=== PATIENT | female | born 1970 | race Caucasian/White ===

== ENCOUNTER → 2016-10-18 | Outpatient (CLI) | payer MEDICAID ==
[~2016-10-18] MED LIST: /BACL20TA OR; /BACL20TA PO; /CARB20TAB PO; /DULO30CA OR; ADV250INH INH; ALBUTEROL INH; BIOTPOW20 PO; BUTR5DIS2 TD; CARA1SUS OR; CLOT10TR2 PO; COLLAGEN PO; CRANBERRY TABS PO; CYMB1CAP PO; CYMBALTA PO; DOCU10ELUD PO; FISHCAP PO; FLECTOR1.3 TOP; FLEXAMINE PO; FLON0.054; IBUP800T OR; IBUP80TA PO; IMIT100T OR; IMIT6INJ IM; LORA0.5T OR; LORATADINE PO; MORPHINE IR PO; MS CONTIN PO; MSIR30TA PO; NEUR600T OR; NORCOBULK PO; OXYC1TAB23 PO; PRED10TA2 PO; PRIL40CA PO; PROBIOTIC PO; PSYLLIUM FIBER PO; RANITIDINE PO; REQU2TAB3 OR; REQU4TAB3 PO; SING10TA31 OR; TEGR200T PO; TRAM50TA2 OR; TRAZ150T OR; TYLE650T30 PO; ULTR50TA PO; Vesicare PO; [UNRECOGNIZED DRUG - OTHER] PO; morphine IR PO
--- NOTE | 2016-10-18 23:36 | ECWPNPC ---
PATIENT NAME: DOMINGA CORDOVA : 1970 GENDER: FEMALE VISIT DATE: 10/18/2016 DISCHARGE DATE: 10/18/16 1051 VISIT LOCKED DATE TIME: PHYSICIAN: BRIANNA MANUEL RESOURCE: BRIANNA MANUEL REASON FOR APPOINTMENT 1. BACK AND NECK HISTORY OF PRESENT ILLNESS HISTORY OF PRESENT ILLNESS: HERE FOR F/U OF GENERALIZED BODY PAIN.HAVING SEVERE HYPERSENSITIVITY TO LIGHT TOUCH.DESCRIBES PAIN BURNING ALL OVER.HX OF NEUROPARHY.RATING PAIN VAS 7/10.PAIN IS AGGREVATED WITH COLD WEATHER.REPORTING SEVERE SLEEP DISTURBANCE SECONDARY TO PAIN.DISCUSSED MEDICATION AND TREATMENT OPTIONS. PAIN THE PATIENT DESCRIBES THE PAIN... FALL RISK SCREENING: SCREENING :NO FALLS IN THE PAST YEAR CURRENT MEDICATIONS TAKING MULTIVITAMINS OTC TABLET 1 TABLET ORALLY DAILY TAKING FISH OIL 1000 MG CAPSULE 1 TABLET ORALLY DAILY TAKING CALCIUM 600 MG TABLET 1 TABLET ORALLY DAILY TAKING DOCQLACE 100 MG CAPSULE 1 CAPSULE NEEDED ORALLY ONCE A DAY TAKING ROPINIROLE HCL 2 MG TABLET 1 TAB AM & 4 TAB PM ORALLY TWICE DAILY TAKING TEGRETOL 200 MG TABLET 1 TAB PAULA & 2 TABS IN PM ORALLY TWICE A DAY TAKING VENTOLIN HFA 108 (90 BASE) MCG/ACT AEROSOL SOLUTION 2 PUFFS NEEDED INHALATION EVERY 4 HRS TAKING TRIAMCINOLONE ACETONIDE 55 MCG/ACT AEROSOL 1 PUFF IN EACH NOSTRIL NASALLY TWICE A DAY TAKING OMEPRAZOLE 40 MG CAPSULE DELAYED RELEASE 1 CAPSULE ORALLY ONCE A DAY TAKING TRAZODONE 100 100MG TABLET 1 TABLET ORAL QHS TAKING CLARITIN 10 MG TABLET 1 TABLET ORALLY ONCE A DAY TAKING ALBUTEROL SULFATE HFA 108 (90 BASE) MCG/ACT AEROSOL SOLUTION 2 PUFFS INHALATION PRN TAKING ARNUITY ELLIPTA 100 MCG/ACT AEROSOL POWDER BREATH ACTIVATED 1 PUFF INHALATION ONCE A DAY TAKING CYMBALTA 60 MG CAPSULE DELAYED RELEASE PARTICLES 1 CAPSULE ORALLY ONCE A DAY TAKING SINGULAIR 10 MG TABLET 1 TABLET IN THE EVENING ORALLY ONCE A DAY NOT-TAKING NAPROSYN 500 MG TABLET 1 TABLET NEEDED ORALLY EVERY 12 HRS NOT-TAKING ELMIRON 100 MG CAPSULE 1 CAPSULE ON AN EMPTY STOMACH ORALLY THREE TIMES A DAY NOT-TAKING HYDROCODONE-ACETAMINOPHEN 5-325 MG TABLET 1 TABLET NEEDED FOR PAIN ORALLY EVERY 6 HRS MDD2 NOT-TAKING PHENTERMINE HCL 15 MG CAPSULE 1 CAPSULE ORALLY ONCE A DAY IN AM MDD=1 NOT-TAKING LIDOCAINE HCL JELLY MCC 2 % JELLY 1 APPLICATION TO AFFECTED AREA NEEDED INTRAVESICALLY PRIOR TO PROCEDURE NOT-TAKING CIPRO 500 MG TABLET 1 TABLET ORALLY TWICE A DAY NOT-TAKING BACTRIM DS 800-160 MG TABLET 1 TABLET ORALLY DAILY NOT-TAKING DIFLUCAN 150 MG TABLET 1 TABLET ORALLY ONCE A DAY, NOTES: 9PM NOT-TAKING KEFLEX 500 MG CAPSULE 1 CAPSULE ORALLY TWICE A DAY NOT-TAKING DIFLUCAN 150MG (1 TABLET) 150 MG TABLET 1 TABLET ORALLY ONCE A DAY NOT-TAKING PYRIDIUM 100 MG TABLET 1 TABLET AFTER MEALS ORALLY FOUR TIMES DAILY NEEDED NOT-TAKING KEFLEX 500 MG CAPSULE 1 CAPSULE ORALLY TWICE A DAY MEDICATION LIST REVIEWED AND RECONCILED WITH THE PATIENT PAST MEDICAL HISTORY ASTHMA GERD BACK/SCIATIC PAIN CARPAL TUNNEL PERIPHERAL NEUROPATHY MIGRAINES HEMATURIA FOOT PAIN SMALL FIBER SENSORY NEUROPATHY DEMYELINATING DISEASE ALLERGIES CIPROFLOXACIN: DYSPNEA: ALLERGY SOCIAL HISTORY GENERAL: TOBACCO USE ARE YOU A:NONSMOKER LEARNING BARRIERS / SPECIAL NEEDS ORIENTED TO PLAN OF CARE: PATIENT, PAIN MANAGEMENT PATIENT, ORIENTED TO PLAN OF CARE: PATIENT, PAIN MANAGEMENT PATIENT. NEW PATIENT PAIN DIARY TODAY'S VISITNOTES FROM 0-10, WHAT LEVEL IS YOUR PAIN TODAY?0 PAIN CLINIC PFS, CLERGY, PUBLIC HEALTH REFERRALS PFS REFERRAL NEEDED?NO CLERGY REFERRAL NEEDED?NO PUBLIC HEALTH REFERRAL NEEDED?NO WAS THE PROVIDER NOTIFIED OF ANY PERTINENT INFO?NO PFS REFERRAL NEEDED?NO CLERGY REFERRAL NEEDED?NO PUBLIC HEALTH REFERRAL NEEDED?NO WAS THE PROVIDER NOTIFIED OF ANY PERTINENT INFO?NO REVIEW OF SYSTEMS CONSTITUTIONAL: ANY CHANGE IN YOUR MEDICAL CONDITION? NO . CHILLS NO . FEVER NO . INFECTION: DO YOU HAVE NEW INFECTIONS? NO . DO YOU HAVE HISTORY OF MRSA? NO . MUSCULOSKELETAL: ANY NEW PATTERNS OF PAIN OR NUMBNESS? NO . GASTROENTEROLOGY: ANY NEW CHANGE IN BOWEL CONTROL? NO . GENITOURINARY: ANY NEW CHANGE IN BLADDER CONTROL? NO . IS THERE A CHANCE YOU COULD BE ? NO . HEMATOLOGY/LYMPH: DO YOU TAKE ANY BLOOD THINNERS? (FOR EXAMPLE- COUMADIN, PLAVIX, AGGRENOX, PLATEL, PRADAXA, OR XARELTO) NO . WHEN WAS YOUR LAST DOSE? DATE: TIME: . NEUROLOGY: HAVE YOU FALLEN IN THE PAST 6 MONTHS? NO . ANY NEW EXTREMITY NUMBNESS OR WEAKNESS? NO . CARDIOLOGY: DO YOU HAVE A PACEMAKER OR DEFIBRILLATOR? NO . RESPIRATORY: HAVE YOU BEEN SICK IN THE PAST WEEK? NO . FEVER NO . FLU LIKE SYMPTOMS? NO . COUGH NO . INTEGUMENTARY: DO YOU HAVE ANY RASHES OR OPEN SORES? NO . ALLERGIC/IMMUNO: ARE YOU ALLERGIC TO SHELLFISH OR IV DYE? NO . ANY NEW ALLERGIES? NO . PSYCHIATRIC: DO YOU HAVE THOUGHTS OF HURTING YOURSELF OR SOMEONE ELSE? NO . ARE YOU ABUSED, NEGLECTED, OR IN AN UNSAFE ENVIRONMENT? NO . ENDOCRINOLOGY: ARE YOU DIABETIC? NO . OTHER: DO YOU NEED ANY PRESCRIPTIONS? NO . IF YES, PLEASE LIST: ____ . ANY NEW PROBLEMS WITH YOUR MEDICATIONS? NO . WHEN DID YOU LAST EAT? ____ . WHEN DID YOU LAST DRINK? ____ . WHAT DID YOU LAST DRINK? ____ . NAME OF PERSON DRIVING YOU HOME? ____ . DO YOU HAVE ANY OTHER QUESTIONS OR CONCERNS NO . REVIEWED BY: PROVIDER: BRIANNA ACUNA . VITAL SIGNS WT 220 LBS, HT 66.5 IN, BMI 34.97 INDEX, BP 130/69 MM HG, HR 82 /MIN, RR 16 /MIN, TEMP 97.6 F, OXYGEN SAT % 98, NA INITIALS TL 1016, REVIEWED BY: KG. EXAMINATION GENERAL EXAMINATION: LUNGS:LUNG SOUNDS ARE CLEAR. HEART:HEART RATE REGULAR. MUSCULOSKELETAL:*. MUSCULOSKELETAL:*, MUSCLE STRENGTH TESTING 5/5 BILATERAL.HYPERSENSITIVE TO LIGHT TOUCH ALL OVER BODY BUT WORSE AREA IS LOW BACK.. DIAGNOSTIC:MRI C-SPINE 04-16-2012 REVIEWED. 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 NEUROPATHY - G62.9 TREATMENT FIBROMYALGIA INCREASE CYMBALTA CAPSULE DELAYED RELEASE PARTICLES, 60 MG, 1 CAPSULE, ORALLY, ONCE A DAY START GABAPENTIN CAPSULE, 300 MG, 1 CAPSULE, ORALLY, BEFORE BEDTIME, 30 DAY(S), 30, REFILLS 2 START CYMBALTA CAPSULE DELAYED RELEASE PARTICLES, 30 MG, 1 CAPSULE, ORALLY, DAILY, 30 DAY(S), 30 CAPSULE, REFILLS 2 CAUDAL/LUMBAR EPIDURAL PROCEDURE CODES FA211 ESTABILISHED PATIENT [facility] CHARGE DISPOSITION & COMMUNICATION FOLLOW UP 2WK POST (REASON: [facility]I L4/5-L5/S1 REQUEST ) ELECTRONICALLY SIGNED BY ARMAND CRUZ ON 10/18/2016 AT 11:05 AM EST DISCLAIMER : THIS IS A VISIT SUMMARY EXTRACTED FROM THE [employer] CHART. IT IS NOT A COPY OF THE [employer] PROGRESS NOTE. MARCO ANTONIO
== END ==
LOC: M PAIN 10:00
PROVIDERS: ATTEND Nurse Practitioner Family
DX: Z09 Encounter for follow-up examination after completed treatment for conditions other than malignant neoplasm (principal); G89.29 Other chronic pain; M79.7 Fibromyalgia; M47.26 Other spondylosis with radiculopathy, lumbar region; M50.20 Other cervical disc displacement, unspecified cervical region; G62.9 Polyneuropathy, unspecified; J45.909 Unspecified asthma, uncomplicated; K21.9 Gastro-esophageal reflux disease without esophagitis; G43.909 Migraine, unspecified, not intractable, without status migrainosus; G37.9 Demyelinating disease of central nervous system, unspecified; Z88.1 Allergy status to other antibiotic agents; Z79.899 Other long term (current) drug therapy

== ENCOUNTER → 2016-10-25 | Outpatient (REF) | payer MEDICAID | LOC: M SMT 13:22 | PROVIDERS: ATTEND Specialist | DX: R30.0 Dysuria (principal) ==

== ENCOUNTER 2016-11-30 06:06 | Emergency (ER) | payer MEDICAID ==
[~2016-11-30] VITALS: Ht 170.2 cm; Wt 90.7 kg
[2016-11-30] MEDS ORDERED: MORPHINE 4 MG/ML 1ML SYRINGE IM ONE (08:15)
[2016-11-30 08:43] VITALS: BP 137/77
[2016-11-30] MEDS ORDERED: TYLETAB14 PO (08:56)
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
== END 2016-11-30 09:28 | disposition home or self-care (01) ==
LOC: M ED 09:11
DX: S06.0X0A Concussion without loss of consciousness, initial encounter (principal); S40.022A Contusion of left upper arm, initial encounter; S80.12XA Contusion of left lower leg, initial encounter; Y04.0XXA Assault by unarmed brawl or fight, initial encounter; Y92.099 Unspecified place in other non-institutional residence as the place of occurrence of the external cause; Y93.89 Activity, other specified; Y99.9 Unspecified external cause status

== ENCOUNTER → 2017-01-16 | Outpatient (REF) | payer MEDICAID, OTHER ==
[~2017-01-16] MED LIST changes: +KEFL500C7 PO; +TYLETAB14 PO
== END ==
LOC: M SMT 12:48
PROVIDERS: ATTEND Specialist
DX: R30.0 Dysuria (principal)

== ENCOUNTER → 2017-01-27 | Outpatient (CLI) | payer OTHER ==
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
== END ==
LOC: M PAIN 15:00
PROVIDERS: ATTEND Nurse Practitioner Family
DX: G89.29 Other chronic pain (principal); M79.7 Fibromyalgia; M47.26 Other spondylosis with radiculopathy, lumbar region; G62.9 Polyneuropathy, unspecified; J45.909 Unspecified asthma, uncomplicated; K21.9 Gastro-esophageal reflux disease without esophagitis; G43.909 Migraine, unspecified, not intractable, without status migrainosus; R31.29 Other microscopic hematuria; G37.9 Demyelinating disease of central nervous system, unspecified; Z88.8 Allergy status to other drugs, medicaments and biological substances; Z79.899 Other long term (current) drug therapy

== ENCOUNTER 2017-02-04 23:21 | Emergency (ER) | payer OTHER ==
[~2017-02-04] VITALS: Ht 170.2 cm; Wt 95.0 kg
[~2017-02-04 23:21] MED LIST changes: -KEFL500C7 PO
[2017-02-04 23:25] VITALS: BP 117/67
[2017-02-04] MEDS ORDERED: HYDROmorphone HCL 1 MG/ML SYRINGE (J1170) As Ordered ONE (23:43)
[2017-02-04] MEDS ORDERED: HYDROmorphone HCL 1 MG/ML SYRINGE (J1170) IV ONE (23:45)
[2017-02-04] MEDS ORDERED: LIDOCAINE 1% MDV 20ML VIAL As Ordered ONE (23:46)
[2017-02-05] MEDS ORDERED: TETANUS/DIPHTHERIA TOX ADSORB ADULT 0.5ML SYR/VIAL (90714) IM ONE (00:15)
[2017-02-05] MEDS ORDERED: ceFAZolin SOD 1 GM in D5W MINI-BAG PLUS 50 ML IV ONE (00:15)
[2017-02-05] MEDS ORDERED: KEFL500C17 PO (00:17)
[2017-02-05] MEDS ORDERED: traMADol 50 MG TAB PO ONE (00:45)
== END 2017-02-05 01:03 | disposition home or self-care (01) ==
LOC: EDBD 23:21 → M ED 23:21
DX: S61.412A Laceration without foreign body of left hand, initial encounter (principal); W26.9XXA Contact with unspecified sharp object(s), initial encounter; Y92.9 Unspecified place or not applicable; Y93.G1 Activity, food preparation and clean up; Y99.9 Unspecified external cause status; J45.909 Unspecified asthma, uncomplicated; K21.9 Gastro-esophageal reflux disease without esophagitis; F32.9 Major depressive disorder, single episode, unspecified; G89.29 Other chronic pain; F17.200 Nicotine dependence, unspecified, uncomplicated; Z79.899 Other long term (current) drug therapy; Z88.1 Allergy status to other antibiotic agents

== ENCOUNTER → 2017-02-12 | Outpatient (REF) | payer OTHER ==
[~2017-02-12] MED LIST changes: +KEFL500C17 PO
[2017-02-12 11:59] LABS: MEAN CORPUSCULAR HEMOGLOBIN 32.1 pg (27.0-33.0); MEAN CORPUSCULAR HGB CONC 33.6 g/dl (32.0-36.5); MEAN CORPUSCULAR VOLUME 95.4 fl (80.0-96.0); RED CELL DISTRIBUTION WIDTH 12.4 % (11.5-14.5); WHITE BLOOD COUNT 10.3 K/mm3 (4.0-10.0)
[2017-02-12 12:24] LABS: ALBUMIN/GLOBULIN RATIO 1.54 (1.00-1.93); ALKALINE PHOSPHATASE 87 U/L (45-117); ALT/SGPT 22 U/L (12-78); ANION GAP 7 MEQ/L (8-16); AST/SGOT 12 U/L (15-37); BILIRUBIN,TOTAL 0.3 MG/DL (0.2-1.0); BLOOD UREA NITROGEN 19 MG/DL (7-18); CALCIUM LEVEL 8.6 MG/DL (8.5-10.1); CARBAMAZEPINE (TEGRETOL) LEVEL 6.4 UG/ML (4.0-10.0); CARBON DIOXIDE LEVEL 26 MEQ/L (21-32); CHLORIDE LEVEL 105 MEQ/L (98-107); CHOLESTEROL LEVEL 219 MG/DL (<200); CREATININE FOR GFR 0.66 MG/DL (0.55-1.02); GLOMERULAR FILTRATION RATE > 60.0 (>58); GLUCOSE, FASTING 108 MG/DL (70-105); POTASSIUM SERUM 4.2 MEQ/L (3.5-5.1); SODIUM LEVEL 138 MEQ/L (136-145); TOTAL PROTEIN 6.6 GM/DL (6.4-8.2); TRIGLYCERIDES LEVEL 229 MG/DL (<150)
== END ==
LOC: M SFHCLERA 08:02
PROVIDERS: ATTEND Physician Assistant
DX: J45.40 Moderate persistent asthma, uncomplicated (principal); E78.2 Mixed hyperlipidemia; G50.0 Trigeminal neuralgia; R53.83 Other fatigue

== ENCOUNTER → 2017-02-13 | Outpatient (CLI) | payer OTHER ==
[~2017-02-13] MED LIST changes: +ISOVUE-M 300 61% 15ML VIAL (Q9967) As Ordered ONE; +LIDOCAINE 1% SDV INJ 30 ML VIAL As Ordered ONE; +methylPREDNISolone SUSP 40 MG/ML (DEPO-medrol) VIAL (J1030) As Ordered ONE
--- NOTE | 2017-02-13 11:24 | REP ---
PARTIAL LUMBAR SPINE SERIES: Three views. HISTORY: Lumbar epidural steroid injection for pain. 12 seconds of fluoroscopy time is reported. FINDINGS: A sequence of three fluoroscopically obtained procedural last image hold spot radiographs of the lumbar spine document needle position and contrast injection. Signed by Jim Caro MD 02/13/2017 03:32 P
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
== END ==
LOC: M PAIN 08:40
PROVIDERS: ATTEND Anesthesiology
DX: G89.29 Other chronic pain (principal); M51.16 Intervertebral disc disorders with radiculopathy, lumbar region; J45.40 Moderate persistent asthma, uncomplicated; K21.9 Gastro-esophageal reflux disease without esophagitis; G43.909 Migraine, unspecified, not intractable, without status migrainosus; G62.9 Polyneuropathy, unspecified; Z88.8 Allergy status to other drugs, medicaments and biological substances; Z79.899 Other long term (current) drug therapy
CPT/HCPCS: 62323; J1030; Q9967

== ENCOUNTER → 2017-05-14 | Outpatient (REF) | payer OTHER ==
[~2017-05-14] MED LIST changes: -ISOVUE-M 300 61% 15ML VIAL (Q9967) As Ordered ONE; -LIDOCAINE 1% SDV INJ 30 ML VIAL As Ordered ONE; -methylPREDNISolone SUSP 40 MG/ML (DEPO-medrol) VIAL (J1030) As Ordered ONE
== END ==
LOC: M SFHCLERA 09:07
PROVIDERS: ATTEND Physician Assistant
DX: R30.0 Dysuria (principal)

== ENCOUNTER → 2017-07-16 | Outpatient (CLI) | payer OTHER ==
[2017-07-16 17:53] LABS: BASO # 0.1 10^3/uL (0.0-0.2); BASO % 0.9 % (0.0-1.0); EOS # 0.5 10^3/uL (0.0-0.50); EOS % 6.3 % (0.0-3.0); IMMATURE GRANULOCYTE % 0.6 % (0-0); LYMPH # 3.6 10^3/uL (1.5-4.5); LYMPH % 43.4 % (24.0-44.0); MEAN CORPUSCULAR HEMOGLOBIN 30.7 pg (27.0-33.0); MEAN CORPUSCULAR HGB CONC 32.9 g/dl (32.0-36.5); MEAN CORPUSCULAR VOLUME 93.2 fl (80.0-96.0); MONO # 0.6 10^3/uL (0.0-0.8); MONO % 7.3 % (0.0-5.0); NEUTROPHILS # 3.4 10^3/uL (1.8-7.7); NEUTROPHILS % 41.5 % (36.0-66.0); PLATELET COUNT, AUTOMATED 288 10^3/uL (150-450); RED CELL DISTRIBUTION WIDTH 12.4 % (11.5-14.5); WHITE BLOOD COUNT 8.2 10^3/uL (4.0-10.0)
[2017-07-16 18:19] LABS: ALBUMIN 3.9 GM/DL (3.2-5.2); ALBUMIN/GLOBULIN RATIO 1.18 (1.00-1.93); ALKALINE PHOSPHATASE 95 U/L (45-117); ALT/SGPT 25 U/L (12-78); ANION GAP 8 MEQ/L (8-16); AST/SGOT 12 U/L (7-37); BILIRUBIN,TOTAL 0.3 MG/DL (0.2-1.0); BLOOD UREA NITROGEN 18 MG/DL (7-18); CALCIUM LEVEL 8.7 MG/DL (8.5-10.1); CARBON DIOXIDE LEVEL 28 MEQ/L (21-32); CHLORIDE LEVEL 107 MEQ/L (98-107); CREATININE FOR GFR 0.75 MG/DL (0.55-1.02); GLOMERULAR FILTRATION RATE > 60.0 (>58); GLUCOSE, FASTING 99 MG/DL (70-105); POTASSIUM SERUM 4.4 MEQ/L (3.5-5.1); SODIUM LEVEL 143 MEQ/L (136-145); TOTAL PROTEIN 7.2 GM/DL (6.4-8.2); URIC ACID 3.4 MG/DL (2.6-6.0)
[2017-07-18 07:18] LABS: ERYTHROCYTE SEDIMENTATION RATE 7 mm/hr (0-20)
[2017-07-19 08:06] LABS: Lyme Disease IgG/IgM Antibodie <0.91 ISR (0.00-0.90); Lyme Disease IgM Ab Quantitati <0.80 index (0.00-0.79)
== END ==
LOC: M WUC 11:28
PROVIDERS: ATTEND Internal Medicine Rheumatology
DX: M35.9 Systemic involvement of connective tissue, unspecified (principal); Z79.899 Other long term (current) drug therapy; R53.83 Other fatigue

== ENCOUNTER → 2017-09-17 | Outpatient (REF) | payer OTHER | LOC: M SFHCLERA 16:13 | DX: N30.10 Interstitial cystitis (chronic) without hematuria (principal) ==

== ENCOUNTER → 2017-10-09 | Outpatient (CLI) | payer OTHER | LOC: M WHC 13:58 | DX: N95.0 Postmenopausal bleeding (principal); N83.201 Unspecified ovarian cyst, right side | CPT/HCPCS: 76830 ==

== ENCOUNTER → 2017-10-21 | Outpatient (CLI) | payer OTHER ==
[2017-10-21 09:33] LABS: ESTIMATED AVERAGE GLUCOSE 120 MG/DL (60-110); HEMOGLOBIN A1c 5.8 %
[2017-10-21 09:59] LABS: CHOLESTEROL LEVEL 232 MG/DL (<200); CHOLESTEROL RISK RATIO 3.222 (<5); HDL CHOLESTEROL 72 MG/DL (>40); NON-HDL-C 160 MG/DL; TRIGLYCERIDES LEVEL 140 MG/DL (<150)
[2017-10-21 10:12] LABS: ESTRADIOL < 19.0 PG/ML; FOLLICLE STIMULATING HORMONE 87.4 mIU/mL
== END ==
LOC: M WUC 08:07
DX: N30.10 Interstitial cystitis (chronic) without hematuria (principal); R73.01 Impaired fasting glucose
CPT/HCPCS: 83001

== ENCOUNTER → 2017-10-28 | Outpatient (REF) | payer OTHER | LOC: M SFHCWAGY 14:44 | DX: N95.0 Postmenopausal bleeding (principal) | CPT/HCPCS: 88304 ==

== ENCOUNTER → 2017-11-11 | Outpatient (CLI) | payer OTHER | LOC: M LRY 15:12 | DX: Z53.9 Procedure and treatment not carried out, unspecified reason (principal) ==

== ENCOUNTER → 2017-12-18 | Outpatient (REF) | payer OTHER, MEDICAID ==
[2017-12-20 14:11] LABS: HPV HYBRID CAPTURE II Positive (Negative)
== END ==
LOC: M SFHCWAGY 11:49
DX: Z12.4 Encounter for screening for malignant neoplasm of cervix (principal)

== ENCOUNTER → 2018-01-06 | Outpatient (CLI) | payer OTHER, MEDICAID | LOC: M WHC 10:50 | DX: N95.0 Postmenopausal bleeding (principal); N83.201 Unspecified ovarian cyst, right side; N83.202 Unspecified ovarian cyst, left side | CPT/HCPCS: 76830 ==

== ENCOUNTER → 2018-01-28 | Outpatient (CLI) | payer OTHER, MEDICAID | LOC: M PAIN 10:30 | DX: M25.552 Pain in left hip (principal); M25.551 Pain in right hip; M79.1 Myalgia; G89.29 Other chronic pain; J45.909 Unspecified asthma, uncomplicated; K21.9 Gastro-esophageal reflux disease without esophagitis; G62.9 Polyneuropathy, unspecified; G43.909 Migraine, unspecified, not intractable, without status migrainosus; G37.9 Demyelinating disease of central nervous system, unspecified; Z79.899 Other long term (current) drug therapy; Z88.8 Allergy status to other drugs, medicaments and biological substances; Z87.891 Personal history of nicotine dependence | CPT/HCPCS: G0463 ==

== ENCOUNTER → 2018-02-26 | Outpatient (CLI) | payer OTHER, MEDICAID | LOC: M PAIN 09:30 | DX: G89.29 Other chronic pain (principal); M25.552 Pain in left hip; M25.551 Pain in right hip; J45.909 Unspecified asthma, uncomplicated; K21.9 Gastro-esophageal reflux disease without esophagitis; M54.40 Lumbago with sciatica, unspecified side; G62.9 Polyneuropathy, unspecified; G43.909 Migraine, unspecified, not intractable, without status migrainosus; N30.10 Interstitial cystitis (chronic) without hematuria; G37.9 Demyelinating disease of central nervous system, unspecified; Z87.891 Personal history of nicotine dependence; Z88.1 Allergy status to other antibiotic agents; Z88.5 Allergy status to narcotic agent; Z88.8 Allergy status to other drugs, medicaments and biological substances; Z79.1 Long term (current) use of non-steroidal anti-inflammatories (NSAID) | CPT/HCPCS: G0463 ==

== ENCOUNTER → 2018-03-23 | Outpatient (CLI) | payer OTHER, MEDICAID ==
[2018-03-23 09:11] LABS: BASO # 0.1 10^3/uL (0.0-0.2); EOS # 0.7 10^3/uL (0.0-0.50); EOS % 8.5 % (0.0-3.0); HEMATOCRIT 39.7 % (36.0-47.0); HEMOGLOBIN 13.4 g/dl (12.0-15.5); IMMATURE GRANULOCYTE % 0.5 % (0-3.0); LYMPH # 3.3 10^3/uL (1.5-4.5); LYMPH % 39.5 % (24.0-44.0); MEAN CORPUSCULAR HEMOGLOBIN 31.3 pg (27.0-33.0); MEAN CORPUSCULAR HGB CONC 33.8 g/dl (32.0-36.5); MEAN CORPUSCULAR VOLUME 92.8 fl (80.0-96.0); MONO # 0.8 10^3/uL (0.0-0.8); NEUTROPHILS # 3.5 10^3/uL (1.8-7.7); NEUTROPHILS % 41.5 % (36.0-66.0); PLATELET COUNT, AUTOMATED 268 10^3/uL (150-450); RED BLOOD COUNT 4.28 10^6/uL (4.00-5.40); RED CELL DISTRIBUTION WIDTH 11.9 % (11.5-14.5); WHITE BLOOD COUNT 8.4 10^3/uL (4.0-10.0)
[2018-03-23 09:43] LABS: ALBUMIN 3.6 GM/DL (3.2-5.2); ALBUMIN/GLOBULIN RATIO 1.16 (1.00-1.93); ALKALINE PHOSPHATASE 84 U/L (45-117); ALT/SGPT 27 U/L (12-78); ANION GAP 7 MEQ/L (8-16); AST/SGOT 15 U/L (7-37); BILIRUBIN,TOTAL 0.2 MG/DL (0.2-1.0); BLOOD UREA NITROGEN 21 MG/DL (7-18); CALCIUM LEVEL 8.6 MG/DL (8.5-10.1); CARBAMAZEPINE (TEGRETOL) LEVEL 6.8 UG/ML (4.0-10.0); CARBON DIOXIDE LEVEL 27 MEQ/L (21-32); CHLORIDE LEVEL 108 MEQ/L (98-107); CREATININE FOR GFR 0.73 MG/DL (0.55-1.30); GLOMERULAR FILTRATION RATE > 60.0 (>58); GLUCOSE, FASTING 114 MG/DL (70-100); POTASSIUM SERUM 4.5 MEQ/L (3.5-5.1); SODIUM LEVEL 142 MEQ/L (136-145); TOTAL PROTEIN 6.7 GM/DL (6.4-8.2)
== END ==
LOC: M WUC 08:11
DX: M54.5 Low back pain (principal); M54.2 Cervicalgia
CPT/HCPCS: 80156

== ENCOUNTER → 2018-06-24 | Outpatient (CLI) | payer OTHER, MEDICAID ==
[2018-06-27 00:06] LABS: C-PEPTIDE 7.3 ng/mL (1.1-4.4)
[2018-06-27 00:06] LABS: INSULIN LEVEL 46.1 uIU/mL (2.6-24.9)
== END ==
LOC: M SFHCSACK 09:56
DX: E66.9 Obesity, unspecified (principal); D47.09 Other mast cell neoplasms of uncertain behavior
CPT/HCPCS: 83525

== ENCOUNTER → 2018-06-24 | Outpatient (REF) | payer OTHER, MEDICAID ==
[2018-06-24 14:30] LABS: BASO # 0.1 10^3/uL (0.0-0.2); BASO % 1.3 % (0.0-1.0); EOS # 0.5 10^3/uL (0.0-0.50); HEMATOCRIT 42.7 % (36.0-47.0); HEMOGLOBIN 14.2 g/dl (12.0-15.5); IMMATURE GRANULOCYTE % 0.3 % (0-3.0); LYMPH # 2.9 10^3/uL (1.5-4.5); LYMPH % 36.5 % (24.0-44.0); MEAN CORPUSCULAR HEMOGLOBIN 31.4 pg (27.0-33.0); MEAN CORPUSCULAR HGB CONC 33.3 g/dl (32.0-36.5); MEAN CORPUSCULAR VOLUME 94.5 fl (80.0-96.0); MONO # 0.6 10^3/uL (0.0-0.8); MONO % 7.3 % (0.0-5.0); NEUTROPHILS # 3.8 10^3/uL (1.8-7.7); NEUTROPHILS % 48.6 % (36.0-66.0); PLATELET COUNT, AUTOMATED 275 10^3/uL (150-450); RED BLOOD COUNT 4.52 10^6/uL (4.00-5.40); RED CELL DISTRIBUTION WIDTH 12.1 % (11.5-14.5); WHITE BLOOD COUNT 7.8 10^3/uL (4.0-10.0)
[2018-06-24 14:49] LABS: ESTIMATED AVERAGE GLUCOSE 123 MG/DL (60-110); HEMOGLOBIN A1c 5.9 %
[2018-06-24 14:57] LABS: ALBUMIN/GLOBULIN RATIO 1.43 (1.00-1.93); ALKALINE PHOSPHATASE 95 U/L (45-117); ALT/SGPT 32 U/L (12-78); ANION GAP 8 MEQ/L (8-16); AST/SGOT 18 U/L (7-37); BILIRUBIN,TOTAL 0.2 MG/DL (0.2-1.0); BLOOD UREA NITROGEN 17 MG/DL (7-18); CALCIUM LEVEL 8.7 MG/DL (8.5-10.1); CARBON DIOXIDE LEVEL 25 MEQ/L (21-32); CHLORIDE LEVEL 108 MEQ/L (98-107); CHOLESTEROL LEVEL 243 MG/DL (<200); CHOLESTEROL RISK RATIO 5.522 (<5); FREE T4 0.68 NG/DL (0.76-1.46); GLOMERULAR FILTRATION RATE > 60.0 (>58); GLUCOSE, FASTING 118 MG/DL (70-100); HDL CHOLESTEROL 44 MG/DL (>40); LDL CHOLESTEROL 163 MG/DL (<100); NON-HDL-C 199 MG/DL; POTASSIUM SERUM 4.6 MEQ/L (3.5-5.1); SODIUM LEVEL 141 MEQ/L (136-145); TOTAL 25(OH) VITAMIN D 37.2 NG/ML (30.0-100.0); TOTAL PROTEIN 6.8 GM/DL (6.4-8.2); TRIGLYCERIDES LEVEL 179 MG/DL (<150)
== END ==
LOC: M SFHCSACK 09:38
DX: M79.7 Fibromyalgia (principal); E78.2 Mixed hyperlipidemia; Z83.49 Family history of other endocrine, nutritional and metabolic diseases; Z83.3 Family history of diabetes mellitus; Z13.21 Encounter for screening for nutritional disorder

== ENCOUNTER → 2018-07-24 | Outpatient (REF) | payer OTHER, MEDICAID | LOC: M SFHCPLAZ 16:57 | DX: L28.0 Lichen simplex chronicus (principal) | CPT/HCPCS: 88300 ==

== ENCOUNTER → 2018-08-04 | Outpatient (REF) | payer OTHER, MEDICAID ==
[2018-08-05 10:09] LABS: HEPATITIS A ANTIBODY IGM NEGATIVE (NEGATIVE); HEPATITIS B CORE ANTIBODY IGM NEGATIVE (NEGATIVE); HEPATITIS B SURFACE ANTIGEN NEGATIVE (NEGATIVE); HEPATITIS C VIRUS ABY INDEX 0.1 INDEX (<0.8)
== END ==
LOC: M SFHCPLAZ 08:04
PROVIDERS: ATTEND Dermatology
DX: Z00.00 Encounter for general adult medical examination without abnormal findings (principal)

== ENCOUNTER 2018-10-25 18:56 | Emergency (ER) | payer OTHER, MEDICAID ==
[~2018-10-25] VITALS: Ht 170.2 cm; Wt 118.2 kg
[2018-10-25 18:56] VITALS: BP 140/98
[2018-10-25] MEDS ORDERED: DULO1CAP3 (19:08)
[2018-10-25] MEDS ORDERED: ROPI2TAB (19:08)
[2018-10-25] MEDS ORDERED: TRAZ-163 (19:08)
[2018-10-25] MEDS ORDERED: VENTAER (19:08)
[2018-10-25] MEDS ORDERED: AUGM0.0534 (19:08)
[2018-10-25] MEDS ORDERED: ADV250INH (19:08)
[2018-10-25] MEDS ORDERED: LORA-243 (19:08)
[2018-10-25] MEDS ORDERED: CARB200T98 (19:08)
[2018-10-25] MEDS ORDERED: SIMV20TA2 (19:08)
[2018-10-25] MEDS ORDERED: NAPR-885 (19:08)
[2018-10-25] MEDS ORDERED: OMEP40CA2 (19:08)
[2018-10-25] MEDS ORDERED: QUET5TAB (19:08)
[2018-10-25] MEDS ORDERED: METR-201 (19:08)
[2018-10-25] MEDS ORDERED: BANO25CA (19:08)
[2018-10-25] MEDS ORDERED: MONT10TA2 (19:08)
[2018-10-25] MEDS ORDERED: KETOROLAC 60 MG/2 ML VIAL (J1885) IM ONE (19:30)
[2018-10-25] MEDS ORDERED: diazePAM 10 MG TAB PO ONE (19:30)
[2018-10-25] MEDS ORDERED: SOMA350T PO (19:31)
[2018-10-25] MEDS ORDERED: NAPR-50 PO (19:31)
== END 2018-10-25 20:02 | disposition home or self-care (01) ==
LOC: M ED 18:56
DX: S86.812A Strain of other muscle(s) and tendon(s) at lower leg level, left leg, initial encounter (principal); M54.16 Radiculopathy, lumbar region; X50.0XXA Overexertion from strenuous movement or load, initial encounter; Y92.89 Other specified places as the place of occurrence of the external cause; Y99.0 Civilian activity done for income or pay; K21.9 Gastro-esophageal reflux disease without esophagitis; J30.81 Allergic rhinitis due to animal (cat) (dog) hair and dander; J30.1 Allergic rhinitis due to pollen; Z88.8 Allergy status to other drugs, medicaments and biological substances; Z79.899 Other long term (current) drug therapy; Z79.51 Long term (current) use of inhaled steroids
CPT/HCPCS: 96372; 99282; J1885

== ENCOUNTER → 2018-12-03 | Outpatient (REF) | payer MEDICAID, OTHER ==
[~2018-12-03] MED LIST changes: -/BACL20TA OR; -/BACL20TA PO; -/CARB20TAB PO; -/DULO30CA OR; +ADV250INH; +AUGM0.0534; +BACL1TAB9 OR; +BACL1TAB9 PO; +BANO25CA; +CARB1TAB20 PO; +CARB200T98; +CYMB1CAP5 OR; -DOCU10ELUD PO; +DOCU5LIQ PO; +DULO1CAP3; +LORA-243; +METR-265; +MONT10TA2; +NAPR-837 PO; +NAPR-885; +OMEP40CA2; +QUET5TAB; +ROPI2TAB; +SIMV20TA2; +SOMA350T PO; +TRAZ-163; +VENTAER
== END ==
LOC: M SFHCSACK 11:07
PROVIDERS: ATTEND Physician Assistant
DX: N30.10 Interstitial cystitis (chronic) without hematuria (principal)

== ENCOUNTER → 2019-01-08 | Outpatient (CLI) | payer OTHER ==
--- NOTE | 2019-01-24 00:19 | ECWPNPC ---
PATIENT NAME: DOMINGA BAÑUELOS : 1970 GENDER: FEMALE VISIT DATE: 01/08/2019 DISCHARGE DATE: 01/08/19 1526 VISIT LOCKED DATE TIME: PHYSICIAN: JUSTEN MARIN MD RESOURCE: JUSTEN MARIN MD REASON FOR APPOINTMENT 1. CHRONIC PAIN HISTORY OF PRESENT ILLNESS PAIN SCREENING: PATIENT HAS A COMPLAINT OF ACUTE OR CHRONIC PAIN :YES 48 YEAR OLD FEMALE PATIENT WITH A HISTORY OF CHRONIC MULTIPLE BODY PAIN. THE PATIENT DESCRIBES THE PAIN STABBING, SHOOTING, SORE, TENDER, SHARP, AND CONTINUOUS WITH A PAIN SCORE OF 8-10/10 DEPENDING ON PHYSICAL ACTIVITY. THE PATIENT STATES SHE IS EXPERIENCING PAIN IN HER RIGHT HIP, LEG, FOOT, LEFT ARM, AND NECK, BUT THE MAIN PAIN IS LOCATED IN HER BACK. THE PATIENT SAYS SHE HAS BEEN EXPERIENCING THIS PAIN FOR MANY YEARS. PATIENT DENIES UNEXPLAINABLE WEIGHT LOSS, FEVER, CHILLS, NEW CHANGES ON HER URINARY OR BOWEL CONTROL. FALL RISK SCREENING: SCREENING :NO FALLS REPORTED IN THE LAST YEAR CURRENT MEDICATIONS TAKING MULTIVITAMINS OTC TABLET 1 TABLET ORALLY DAILY TAKING FISH OIL 1000 MG CAPSULE 1 TABLET ORALLY DAILY TAKING CALCIUM 600 MG TABLET 1 TABLET ORALLY DAILY TAKING DOCQLACE 100 MG CAPSULE 1 CAPSULE NEEDED ORALLY ONCE A DAY TAKING ROPINIROLE HCL 2 MG TABLET 1 TAB AM & 2 TAB PM ORALLY TWICE DAILY TAKING CYMBALTA 60 MG CAPSULE DELAYED RELEASE PARTICLES 1 CAPSULE ORALLY TWICE A DAY TAKING TEGRETOL 200 MG TABLET 1 TAB PAULA & 2 TABS IN PM ORALLY TWICE A DAY TAKING TRAZODONE HCL 100 MG TABLET TAKE TWO TABLETS BY MOUTH AT BEDTIME TAKING CLARITIN 10 MG TABLET 1 TABLET ORALLY ONCE A DAY TAKING FOLIC ACID 1 MG TABLET 1 TABLET ORALLY ONCE A DAY TAKING VITAMIN E 100 UNIT CAPSULE 3 CAPSULE ORALLY ONCE A DAY TAKING SIMVASTATIN 20 MG TABLET 1 TABLET IN THE EVENING ORALLY ONCE A DAY TAKING OMEPRAZOLE 40 MG CAPSULE DELAYED RELEASE 1 CAPSULE ORALLY ONCE A DAY TAKING CLINDAMYCIN PHOSPHATE 1 % GEL 1 APPLICATION TO AFFECTED AREA EXTERNALLY ONCE A DAY IN AM TO FACE TAKING BETAMETHASONE DIPROPIONATE AUG 0.05 % OINTMENT 1 APPLICATION TO AFFECTED AREA EXTERNALLY BID TO AREAS ON BODY WITH PINK TO RED RASH TAKING VENTOLIN HFA 108 (90 BASE) MCG/ACT AEROSOL SOLUTION 2 PUFFS NEEDED INHALATION EVERY 4 HRS TAKING SINGULAIR 10 MG TABLET 1 TABLET IN THE EVENING ORALLY ONCE A DAY TAKING NAPROXEN 500 MG TABLET TAKE ONE TABLET BY MOUTH EVERY 12 HOURS ORALLY EVERY 12 HOURS NEEDED TAKING QUETIAPINE FUMARATE 50 MG TABLET 1 TABLET AT BEDTIME ORAL DAILY NOT-TAKING ADVAIR DISKUS 250-50 MCG/DOSE AEROSOL POWDER BREATH ACTIVATED 1 PUFF INHALATION TWICE A DAY NOT-TAKING METRONIDAZOLE 500 MG TABLET 1 TABLET ORALLY BID MEDICATION LIST REVIEWED AND RECONCILED WITH THE PATIENT PAST MEDICAL HISTORY ASTHMA GERD BACK/SCIATIC PAIN CARPAL TUNNEL BILATERAL PERIPHERAL NEUROPATHY MIGRAINES FOOT PAIN SMALL FIBER SENSORY NEUROPATHY 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 2 SON(S) , 1 DAUGHTER(S) - HEALTHY. SISTER: AGE 33 FROM [place]ES[place]\\NBROTHER: 1977\\NSONS: 1993, 2005\\N\\NMATERNAL 1ST COUSIN- LUPUS\\NNO FAMILY HX OF MELANOMA OR PANCREATIC CANCER. SOCIAL HISTORY GENERAL: TOBACCO USE ARE YOU A:FORMER SMOKER HOW LONG HAS IT BEEN SINCE YOU LAST SMOKED?> 10 YEARS HIV / HEP-C SCREENING HIV TEST OFFERED TO PATIENT:YES DATE OFFERED:10/08/2017 TEST ACCEPTED:NO HEP-C TEST OFFERED TO PATIENT:NO REASON:PATIENT DECLINED OTHERS AT HOME: CHILD. EDUCATION LEVEL OF EDUCATION:HIGH SCHOOL DIET: LOW GLUTEN, LOW CARBS. LANGUAGE IRANIAN. DOMESTIC VIOLENCE DO YOU FEEL SAFE IN YOUR ENVIRONMENT?YES BMI CARE GOAL FOLLOW-UP ABOVE NORMAL BMI FOLLOW-UPLIFESTYLE EDUCATION REGARDING DIET RECREATIONAL DRUG USE DENIES. EXERCISE: NO REGULAR EXERCISE. LEARNING BARRIERS / SPECIAL NEEDS CHANGE FROM LAST VISIT?NO BARRIERS TO LEARNING?NO HEARING IMPAIRED?NO VISION IMPAIRED?NO COGNITIVELY IMPAIRED?NO READINESS TO LEARN?YES LEARNING PREFERENCES?NO LEARNING CAPABILITIES PRESENT?YES EMOTIONAL BARRIERS?NO SPECIAL DEVICES?NO URGENT CARE TECHNICIAN NEEDED?NO PAIN CLINIC PFS, CLERGY, PUBLIC HEALTH REFERRALS PFS REFERRAL NEEDED?NO CLERGY REFERRAL NEEDED?NO PUBLIC HEALTH REFERRAL NEEDED?NO HAS THE PATIENT BEEN EDUCATED REGARDING HIS/HER PLAN OF CARE?YES HAS THE PATIENT BEEN EDUCATED REGARDING PAIN, THE RISK FOR PAIN, THE IMPORTANCE OF EFFECTIVE PAIN MANAGEMENT, AND THE PAIN ASSESSMENT PROCESS?YES LATEX QUESTIONNAIRE LATEX ALLERGY : HAVE YOU EVER DEVELOPED ANY TYPE OF REACTION AFTER HANDLING LATEX PRODUCTS SUCH RUBBER GLOVES, CONDOMS, DIAPHRAGMS, BALLOONS, SOCKS, OR UNDERWEAR?NO LATEX ALLERGY : HAVE YOU EVER DEVELOPED ANY TYPE OF REACTION DURING OR AFTER DENTAL APPOINTMENT, VAGINAL/RECTAL EXAMINATION, SURGICAL PROCEDURE, OR ANY OTHER EXPOSURE?NO DATE ASKED : 12/31/2018 LATEX RISK : HAVE YOU EVER HAD ANY DIFFICULTY BREATHING OR HIVES AFTER EATING OR HANDLING ANY FRUITS, OR VEGETABLES; SUCH KIWI, BANANAS, STONE FRUITS, OR CHESTNUTSNO LATEX RISK : DO YOU HAVE A PREVIOUS PERSONAL HISTORY OF MORE THAN NINE SURGERIES, SPINA BIFIDA, OR REPEATED CATHERTIZATIONS? NO LATEX RISK : ARE YOU FREQUENTLY EXPOSED TO LATEX PRODUCTS IN YOUR OCCUPATION?NO CAFFEINE CAFFEINE USE?YES 1-2 CUPS DAILY ADVANCE DIRECTIVE ADVANCE DIRECTIVE DISCUSSED WITH PATIENT:YES DECLINED JEWISH [id number] OTHER MARITAL STATUS: ., MOTHER OF 3. ALCOHOL SCREENING DID YOU HAVE A DRINK CONTAINING ALCOHOL IN THE PAST YEAR?YES HOW OFTEN DID YOU HAVE SIX OR MORE DRINKS ON ONE OCCASION IN THE PAST YEAR?NEVER (0 POINTS) HOW MANY DRINKS DID YOU HAVE ON A TYPICAL DAY WHEN YOU WERE DRINKING IN THE PAST YEAR?1 OR 2 (0 POINTS) HOW OFTEN DID YOU HAVE A DRINK CONTAINING ALCOHOL IN THE PAST YEAR?MONTHLY OR LESS (1 POINT) POINTS1 INTERPRETATIONNEGATIVE OCCUPATION: HOMEMAKER. SEXUAL HX HAD SEX IN THE LAST 12 MONTHS (VAGINAL, ORAL, OR ANAL)?YES WITHMEN ONLY HAVE YOU EVER HAD AN STD?NO HOSPITALIZATION/MAJOR DIAGNOSTIC PROCEDURE SURGICAL RELATED CHILDBIRTH [birth year] REVIEW OF SYSTEMS REVIEWED BY: PROVIDER: JUSTEN MARIN MD . CONSTITUTIONAL: ANY CHANGE IN YOUR MEDICAL CONDITION? NO . CHILLS NO . FEVER NO . INFECTION: DO YOU HAVE NEW INFECTIONS? NO . DO YOU HAVE HISTORY OF MRSA? NO . MUSCULOSKELETAL: ANY NEW PATTERNS OF PAIN OR NUMBNESS? YES, RIGHT HIP PAIN AND FOOT PAIN LEFT ARM PAIN NECK PAIN . SYTEMIC LUPUS NO . GASTROENTEROLOGY: ANY NEW CHANGE IN BOWEL CONTROL? NO . BARRETTS ESOPHAGUS NO . CIRRHOSIS NO . HEPATITIS NO . LIVER FAILURE NO . ACID REFLUX YES . UNEXPLAINED WEIGHT LOSS NO . GENITOURINARY: ANY NEW CHANGE IN BLADDER CONTROL? NO . IS THERE A CHANCE YOU COULD BE ? NO . HEMATOLOGY/LYMPH: DO YOU TAKE ANY BLOOD THINNERS? (FOR EXAMPLE- COUMADIN, PLAVIX, AGGRENOX, PLATEL, PRADAXA, OR XARELTO) NO . WHEN WAS YOUR LAST DOSE? DATE: TIME: . LOW PLATELET COUNT NO . SICKLE CELL DISEASE NO . VON WILLIEBRANDS NO . FACTOR V LEIDEN NO . THALLASEMIA NO . ANEMIA NO . EASY BRUISING NO . NEUROLOGY: HAVE YOU FALLEN IN THE PAST 12 MONTHS? YES, FELL 3 WEEKS AGO FROM HIP WEAKNESS, PT DENIES INJURIES . ANY NEW EXTREMITY NUMBNESS OR WEAKNESS? YES, LEFT ARM WEAKNESS . HEAD INJURY NO . DEMENTIA NO . CEREBRAL PALSY NO . MULTIPLE SCLEROSIS NO . DIZZINESS NO . HEADACHE NO . STROKES NO . VERTIGO NO . CARDIOLOGY: DO YOU HAVE A PACEMAKER OR DEFIBRILLATOR? NO . ANGINA NO . HEART ATTACK NO . HEART SURGERY NO . CONGESTIVE HEART FAILURE/FLUID OVERLOAD NO . CHEST PAIN NO . HIGH BLOOD PRESSURE NO . IRREGULAR HEART BEAT NO . RESPIRATORY: HAVE YOU BEEN SICK IN THE PAST WEEK? NO . FEVER NO . FLU LIKE SYMPTOMS? NO . CPAP NO . BYPAP NO . ASTHMA YES . EMPHYSEMA NO . CHRONIC LUNG DISEASES NO . SHORTNESS OF BREATH ON EXERTION NO . COUGH NO . SNORING NO . INTEGUMENTARY: DO YOU HAVE ANY RASHES OR OPEN SORES? YES, LICHEN PLANUS . ALLERGIC/IMMUNO: ARE YOU ALLERGIC TO IV DYE? NO . ANY NEW ALLERGIES? YES, AUGMENTIN . PSYCHIATRIC: DO YOU HAVE THOUGHTS OF HURTING YOURSELF OR SOMEONE ELSE? NO . ARE YOU ABUSED, NEGLECTED, OR IN AN UNSAFE ENVIRONMENT? NO . ENDOCRINOLOGY: ARE YOU DIABETIC? NO . THYROID DISORDER NO . OTHER: DO YOU NEED ANY PRESCRIPTIONS? NO . IF YES, PLEASE LIST: ____ . ANY NEW PROBLEMS WITH YOUR MEDICATIONS? NO . WHEN DID YOU LAST EAT? ____ . WHEN DID YOU LAST DRINK? ____ . WHAT DID YOU LAST DRINK? ____ . NAME OF PERSON DRIVING YOU HOME? ____ . DO YOU HAVE ANY OTHER QUESTIONS OR CONCERNS NO . VITAL SIGNS WT 264.8 LBS, HT 66.5 IN, BMI 42.09 INDEX, BP 148/79 MM HG, HR 88 /MIN, RR 18 /MIN, TEMP 97.9 F, OXYGEN SAT % 98%, NA INITIALS AW 1350, REVIEWED BY: EM. EXAMINATION GENERAL EXAMINATION: PATIENT IS ALERT O X 3 AND COOPERATIVE. , LUNGS CLEAR, TO AUSCULTATION. HEART: NO MURMURS OR GALLOPS; FACIAL CRANIAL NERVES ARE GROSSLY NORMAL. GOOD SYMMETRY OF FACIAL MUSCLE MOVEMENT. NORMAL VISUAL DIAMOND. DIFFICULTY IN STANDING UP. ANTALGIC GAIT. SEVERE TENDERNESS OVER THE RIGHT GREATER TROCHANTER OF FEMUR AND RIGHT HIP. MRI OF THE LUMBAR SPINE DONE ON 12/02/2014 SHOWS BULGING DISCS AND CENTRAL CANAL STENOSIS AT MULTIPLE LEVELS. ASSESSMENTS RIGHT HIP PAIN - M25.551 (PRIMARY) GREATER TROCHANTERIC BURSITIS OF RIGHT HIP - M70.61 TREATMENT RIGHT HIP PAIN CLINICAL NOTES: WE DISCUSSED SEVERAL ISSUES WITH MS. BAÑUELOS'S PAIN MANAGEMENT CASE. DUE TO THE RIGHT HIP PAIN, I WOULD LIKE TO MOVE FORWARD WITH A RIGHT GREATER TROCHANTER OF THE FEMUR INJECTION. WE DISCUSSED THE BENEFITS, RISKS, AND ALTERNATIVES OF THE INJECTION AND THE PATIENT WOULD LIKE TO PROCEED. I AM LOOKING FOR LONG LASTING PAIN RELIEF FROM THE INJECTION FOR THE PATIENT. INSTRUCTIONS WERE GIVEN, QUESTIONS WERE ANSWERED, PATIENT REPORTS UNDERSTANDING AND AGREES WITH THE PLAN. THE PATIENT WILL FOLLOW UP IN SEVERAL WEEKS AFTER THE INJECTION. I, DANTE ESTRADA, DOCUMENTED THE ABOVE INFORMATION ACTING A SCRIBE FOR DR. MARIN. I HAVE REVIEWED THE ABOVE DOCUMENT, WRITTEN BY DANTE ESTRADA SCRIBFloyd AND I VERIFY THAT IT IS ACCURATE. . PROCEDURE CODES FA211 ESTABILISHED PATIENT [facility] FACILITY CHARGE G8427 CURRENT MEDS W/DOSAGES DOCUMENTED G8730 PAIN ASSESS POS TOOL F/U PLAN DOC DISPOSITION & COMMUNICATION FOLLOW UP 4 WEEKS (REASON: R GREATER TROCH OF FEMUR INJECTION) ELECTRONICALLY SIGNED BY JUSTEN MARIN MD, MD ON 01/23/2019 AT 05:17 PM EDT DISCLAIMER : THIS IS A VISIT SUMMARY EXTRACTED FROM THE [facility] CHART. IT IS NOT A COPY OF THE [facility] PROGRESS NOTE. GHULAMD
== END ==
LOC: M PAIN 13:30
PROVIDERS: ATTEND Anesthesiology
DX: M25.551 Pain in right hip (principal); M70.61 Trochanteric bursitis, right hip; G89.29 Other chronic pain; J45.909 Unspecified asthma, uncomplicated; K21.9 Gastro-esophageal reflux disease without esophagitis; G56.03 Carpal tunnel syndrome, bilateral upper limbs; G43.909 Migraine, unspecified, not intractable, without status migrainosus; M79.7 Fibromyalgia; Z87.891 Personal history of nicotine dependence; Z88.1 Allergy status to other antibiotic agents; Z88.5 Allergy status to narcotic agent; Z88.8 Allergy status to other drugs, medicaments and biological substances; E66.01 Morbid (severe) obesity due to excess calories; Z68.41 Body mass index [BMI] 40.0-44.9, adult; Z79.899 Other long term (current) drug therapy

== ENCOUNTER → 2019-01-22 | Outpatient (REF) | payer OTHER ==
[2019-01-22 15:07] LABS: BASO # 0.1 10^3/uL (0.0-0.2); BASO % 0.9 % (0.0-1.0); EOS # 0.5 10^3/uL (0.0-0.50); EOS % 5.5 % (0.0-3.0); HEMATOCRIT 41.5 % (36.0-47.0); HEMOGLOBIN 13.6 g/dl (12.0-15.5); LYMPH # 2.9 10^3/uL (1.5-4.5); LYMPH % 31.9 % (24.0-44.0); MEAN CORPUSCULAR HEMOGLOBIN 31.1 pg (27.0-33.0); MEAN CORPUSCULAR HGB CONC 32.8 g/dl (32.0-36.5); MEAN CORPUSCULAR VOLUME 94.7 fl (80.0-96.0); MONO # 0.7 10^3/uL (0.0-0.8); MONO % 7.2 % (0.0-5.0); NEUTROPHILS # 4.9 10^3/uL (1.8-7.7); NEUTROPHILS % 54.1 % (36.0-66.0); PLATELET COUNT, AUTOMATED 284 10^3/uL (150-450); RED BLOOD COUNT 4.38 10^6/uL (4.00-5.40)
[2019-01-22 15:22] LABS: ALBUMIN 3.5 GM/DL (3.2-5.2); ALT/SGPT 49 U/L (12-78); BILIRUBIN,TOTAL 0.2 MG/DL (0.2-1.0); BLOOD UREA NITROGEN 17 MG/DL (7-18); CALCIUM LEVEL 8.8 MG/DL (8.5-10.1); CARBON DIOXIDE LEVEL 25 MEQ/L (21-32); CHLORIDE LEVEL 109 MEQ/L (98-107); CHOLESTEROL LEVEL 169 MG/DL (<200); CHOLESTEROL RISK RATIO 3.313 (<5); CREATININE FOR GFR 0.82 MG/DL (0.55-1.30); FREE T4 0.87 NG/DL (0.76-1.46); GLOMERULAR FILTRATION RATE > 60.0 (>58); GLUCOSE, FASTING 100 MG/DL (70-100); HDL CHOLESTEROL 51 MG/DL (>40); LDL CHOLESTEROL 85 MG/DL (<100); NON-HDL-C 118 MG/DL; POTASSIUM SERUM 4.4 MEQ/L (3.5-5.1); SODIUM LEVEL 142 MEQ/L (136-145); TOTAL 25(OH) VITAMIN D 47.6 NG/ML (30.0-100.0); TOTAL PROTEIN 6.9 GM/DL (6.4-8.2); TRIGLYCERIDES LEVEL 165 MG/DL (<150)
[2019-01-22 15:28] LABS: HEMOGLOBIN A1c 6.2 %
== END ==
LOC: M SFHCSACK 09:43
PROVIDERS: ATTEND Physician Assistant
DX: M79.7 Fibromyalgia (principal); E78.2 Mixed hyperlipidemia; Z13.29 Encounter for screening for other suspected endocrine disorder; R73.01 Impaired fasting glucose; E55.9 Vitamin D deficiency, unspecified; N30.10 Interstitial cystitis (chronic) without hematuria

== ENCOUNTER → 2019-02-25 | Outpatient (REF) | payer OTHER ==
[~2019-02-25] MED LIST changes: -DULO1CAP3; +DULO1CAP6
[2019-03-02 14:07] LABS: HPV HYBRID CAPTURE II Positive (Negative)
== END ==
LOC: M SFHCWAGY 11:05
PROVIDERS: ATTEND Nurse Practitioner Family
DX: Z12.4 Encounter for screening for malignant neoplasm of cervix (principal); R87.612 Low grade squamous intraepithelial lesion on cytologic smear of cervix (LGSIL)

== ENCOUNTER → 2019-02-25 | Outpatient (CLI) | payer OTHER ==
--- NOTE | 2019-02-25 14:50 | REPMRS ---
Patient History The patient states she had a clinical breast exam in 02/2019. Patient is postmenopausal. No known family history of cancer. 3D TOMOSYNTHESIS WAS PERFORMED. The [facility] lifetime risk for breast cancer is 9.6%. Digital Woman Screen Mammo: February 25, 2019 - Exam #: [id number] Bilateral CC and MLO view(s) were taken. Technologist: Vicky Moura, Technologist Prior study comparison: 2016, bilateral digital mammo screening bilat, performed at [facility]. FINDINGS: There are scattered fibroglandular densities. There has been no change in the appearance of the mammogram from the prior studies. There is a mild amount of residual fibroglandular tissue which is fairly symmetric. There is no interval development of dominant mass, architectural distortion, or clustered microcalcification suggestive of malignancy. Assessment: BI-RADS/ACR category 1 mammogram. Negative Mammogram. Recommendation Routine screening mammogram in 1 year (for women over age 40). This mammogram was interpreted with the aid of an FDA-approved computer-aided dectection system. Electronically Signed By: Erik Chandra MD 02/25/19 [id number]
== END ==
LOC: M WHC 10:26
PROVIDERS: ATTEND Nurse Practitioner Family
DX: Z12.31 Encounter for screening mammogram for malignant neoplasm of breast (principal); Z78.0 Asymptomatic menopausal state

== ENCOUNTER → 2019-03-16 | Outpatient (CLI) | payer OTHER ==
[~2019-03-16] MED LIST changes: +BUPIVACAINE HCL 0.25% 30 ML VIAL As Ordered ONE; +ISOVUE-M 200 41% 20ML VIAL (Q9966) As Ordered ONE; +LIDOCAINE 1% SDV INJ 30 ML VIAL As Ordered ONE; +TRIAMCINOLONE ACETONIDE SUSP 40 MG/ML VIAL (J3301) As Ordered ONE; +diazePAM 5 MG TAB As Ordered ONE; +oxyCODONE 5MG TAB As Ordered ONE
--- NOTE | 2019-03-16 16:01 | REP ---
Right hip: Four views. History: Trochanteric bursal injection for pain. 21 seconds of fluoroscopy time is reported. Findings: A sequence of four last image hold fluoroscopically obtained spot radiographs document needle position associated with injection procedure. Electronically Signed by Jim Caro MD 03/16/2019 04:33 P
--- NOTE | 2019-03-24 00:58 | ECWPNPC ---
PATIENT NAME: DOMINGA BAÑUELOS : 1970 GENDER: FEMALE VISIT DATE: 03/16/2019 DISCHARGE DATE: 03/16/19 1417 VISIT LOCKED DATE TIME: PHYSICIAN: JUSTEN MARIN MD RESOURCE: JUSTEN MARIN MD REASON FOR APPOINTMENT 1. RIGHT GREATER TROCHANTER OF THE FEMUR INJECTION HISTORY OF PRESENT ILLNESS HISTORY OF PRESENT ILLNESS: PAIN THE PATIENT DESCRIBES THE PAIN... FALL RISK SCREENING: SCREENING :NO FALLS REPORTED IN THE LAST YEAR CURRENT MEDICATIONS TAKING MULTIVITAMINS OTC TABLET 1 TABLET ORALLY DAILY, NOTES: 03/15/19@899 TAKING FISH OIL 1000 MG CAPSULE 1 TABLET ORALLY DAILY, NOTES: 03/15/19 TAKING CALCIUM 600 MG TABLET 1 TABLET ORALLY DAILY, NOTES: 03/15/19 TAKING ROPINIROLE HCL 2 MG TABLET 1 TAB AM & 2 TAB PM ORALLY TWICE DAILY, NOTES: 03/15/19 TAKING CYMBALTA 60 MG CAPSULE DELAYED RELEASE PARTICLES 1 CAPSULE ORALLY TWICE A DAY, NOTES: 0700 TAKING TEGRETOL 200 MG TABLET 1 TAB PAULA & 2 TABS IN PM ORALLY TWICE A DAY, NOTES: 03/15/19 TAKING TRAZODONE HCL 100 MG TABLET TAKE TWO TABLETS BY MOUTH AT BEDTIME AT BEDTIME, NOTES: 03/15/19 TAKING FOLIC ACID 1 MG TABLET 1 TABLET ORALLY ONCE A DAY, NOTES: 03/15/19 TAKING VITAMIN E 100 UNIT CAPSULE 3 CAPSULE ORALLY ONCE A DAY, NOTES: 03/15/19 TAKING SIMVASTATIN 20 MG TABLET 1 TABLET IN THE EVENING ORALLY ONCE A DAY, NOTES: 03/15/19 TAKING OMEPRAZOLE 40 MG CAPSULE DELAYED RELEASE 1 CAPSULE ORALLY ONCE A DAY, NOTES: 03/15/19 TAKING CLINDAMYCIN PHOSPHATE 1 % GEL 1 APPLICATION TO AFFECTED AREA EXTERNALLY ONCE A DAY IN AM TO FACE, NOTES: 03/15/19 TAKING BETAMETHASONE DIPROPIONATE AUG 0.05 % OINTMENT 1 APPLICATION TO AFFECTED AREA EXTERNALLY BID TO AREAS ON BODY WITH PINK TO RED RASH, NOTES: 03/15/19 TAKING SINGULAIR 10 MG TABLET 1 TABLET IN THE EVENING ORALLY ONCE A DAY, NOTES: 03/15/19 TAKING QUETIAPINE FUMARATE 100 MG TABLET 1 TABLET AT BEDTIME ORALLY DAILY, NOTES: 03/15/19@2300 TAKING CLARITIN 10 MG TABLET 1 TABLET ORALLY ONCE A DAY, NOTES: 2 DAYS AGO TAKING DOCQLACE 100 MG CAPSULE 1 CAPSULE NEEDED ORALLY ONCE A DAY, NOTES: 2 WEEKS AGO TAKING VENTOLIN HFA 108 (90 BASE) MCG/ACT AEROSOL SOLUTION 2 PUFFS NEEDED INHALATION EVERY 4 HRS, NOTES: 03/15/19@1200 TAKING NAPROXEN 500 MG TABLET TAKE ONE TABLET BY MOUTH EVERY 12 HOURS ORALLY EVERY 12 HOURS NEEDED, NOTES: 5 DAYS AGO TAKING BENADRYL 25 MG TABLET 1 TABLET ORALLY TID, NOTES: 3 DAYS AGO DISCONTINUED ADVAIR DISKUS 250-50 MCG/DOSE AEROSOL POWDER BREATH ACTIVATED 1 PUFF INHALATION TWICE A DAY MEDICATION LIST REVIEWED AND RECONCILED WITH THE PATIENT PAST MEDICAL HISTORY ASTHMA GERD BACK/SCIATIC PAIN CARPAL TUNNEL BILATERAL PERIPHERAL NEUROPATHY MIGRAINES FOOT PAIN SMALL FIBER SENSORY NEUROPATHY 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 2 SON(S) , 1 DAUGHTER(S) - HEALTHY. SISTER: AGE 33 FROM [place]-OBESITY\\NBROTHER: 1977\\NSONS: 1993, 2005\\N\\NMATERNAL 1ST COUSIN- LUPUS\\NNO FAMILY HX OF MELANOMA OR PANCREATIC CANCER. SOCIAL HISTORY GENERAL: TOBACCO USE ARE YOU A:FORMER SMOKER HOW LONG HAS IT BEEN SINCE YOU LAST SMOKED?> 10 YEARS HIV / HEP-C SCREENING HIV TEST OFFERED TO PATIENT:YES DATE OFFERED:10/08/2017 TEST ACCEPTED:NO HEP-C TEST OFFERED TO PATIENT:NO REASON:PATIENT DECLINED OTHERS AT HOME: CHILD. EDUCATION LEVEL OF EDUCATION:HIGH SCHOOL DIET: LOW GLUTEN, LOW CARBS, LOW LACTOSE, LOW OXYLATE. LANGUAGE KHMER. DOMESTIC VIOLENCE DO YOU FEEL SAFE IN YOUR ENVIRONMENT?YES BMI CARE GOAL FOLLOW-UP ABOVE NORMAL BMI FOLLOW-UPLIFESTYLE EDUCATION REGARDING DIET RECREATIONAL DRUG USE DENIES. EXERCISE: NO REGULAR EXERCISE. LEARNING BARRIERS / SPECIAL NEEDS CHANGE FROM LAST VISIT?NO BARRIERS TO LEARNING?NO HEARING IMPAIRED?NO VISION IMPAIRED?NO COGNITIVELY IMPAIRED?NO READINESS TO LEARN?YES LEARNING PREFERENCES?NO LEARNING CAPABILITIES PRESENT?YES EMOTIONAL BARRIERS?NO SPECIAL DEVICES?NO LEAD EMBEDDED SOFTWARE ENGINEER NEEDED?NO PAIN CLINIC PFS, CLERGY, PUBLIC HEALTH REFERRALS PFS REFERRAL NEEDED?NO CLERGY REFERRAL NEEDED?NO PUBLIC HEALTH REFERRAL NEEDED?NO HAS THE PATIENT BEEN EDUCATED REGARDING HIS/HER PLAN OF CARE?YES HAS THE PATIENT BEEN EDUCATED REGARDING PAIN, THE RISK FOR PAIN, THE IMPORTANCE OF EFFECTIVE PAIN MANAGEMENT, AND THE PAIN ASSESSMENT PROCESS?YES LATEX QUESTIONNAIRE LATEX ALLERGY : HAVE YOU EVER DEVELOPED ANY TYPE OF REACTION AFTER HANDLING LATEX PRODUCTS SUCH RUBBER GLOVES, CONDOMS, DIAPHRAGMS, BALLOONS, SOCKS, OR UNDERWEAR?NO LATEX ALLERGY : HAVE YOU EVER DEVELOPED ANY TYPE OF REACTION DURING OR AFTER DENTAL APPOINTMENT, VAGINAL/RECTAL EXAMINATION, SURGICAL PROCEDURE, OR ANY OTHER EXPOSURE?NO LATEX RISK : HAVE YOU EVER HAD ANY DIFFICULTY BREATHING OR HIVES AFTER EATING OR HANDLING ANY FRUITS, OR VEGETABLES; SUCH KIWI, BANANAS, STONE FRUITS, OR CHESTNUTSNO LATEX RISK : DO YOU HAVE A PREVIOUS PERSONAL HISTORY OF MORE THAN NINE SURGERIES, SPINA BIFIDA, OR REPEATED CATHERIZATIONS? NO LATEX RISK : ARE YOU FREQUENTLY EXPOSED TO LATEX PRODUCTS IN YOUR OCCUPATION?NO DATE ASKED : 03/16/2019 CAFFEINE CAFFEINE USE?YES 1-2 CUPS DAILY ADVANCE DIRECTIVE ADVANCE DIRECTIVE DISCUSSED WITH PATIENT:YES DECLINED RESTORATIONISM [id number] OTHER MARITAL STATUS: ., MOTHER OF 3. ALCOHOL SCREENING DID YOU HAVE A DRINK CONTAINING ALCOHOL IN THE PAST YEAR?YES HOW OFTEN DID YOU HAVE SIX OR MORE DRINKS ON ONE OCCASION IN THE PAST YEAR?NEVER (0 POINTS) HOW MANY DRINKS DID YOU HAVE ON A TYPICAL DAY WHEN YOU WERE DRINKING IN THE PAST YEAR?1 OR 2 (0 POINTS) HOW OFTEN DID YOU HAVE A DRINK CONTAINING ALCOHOL IN THE PAST YEAR?MONTHLY OR LESS (1 POINT) POINTS1 INTERPRETATIONNEGATIVE OCCUPATION: HOMEMAKER. SEXUAL HX HAD SEX IN THE LAST 12 MONTHS (VAGINAL, ORAL, OR ANAL)?YES WITHMEN ONLY HAVE YOU EVER HAD AN STD?NO HOSPITALIZATION/MAJOR DIAGNOSTIC PROCEDURE SURGICAL RELATED CHILDBIRTH 1993[birth year]1995/2005 REVIEW OF SYSTEMS REVIEWED BY: PROVIDER: . CONSTITUTIONAL: ANY CHANGE IN YOUR MEDICAL CONDITION? NO . CHILLS NO . FEVER NO . INFECTION: DO YOU HAVE NEW INFECTIONS? NO . DO YOU HAVE HISTORY OF MRSA? NO . MUSCULOSKELETAL: ANY NEW PATTERNS OF PAIN OR NUMBNESS? NO . GASTROENTEROLOGY: ANY NEW CHANGE IN BOWEL CONTROL? NO . GENITOURINARY: ANY NEW CHANGE IN BLADDER CONTROL? NO . IS THERE A CHANCE YOU COULD BE ? NO . HEMATOLOGY/LYMPH: DO YOU TAKE ANY BLOOD THINNERS? (FOR EXAMPLE- COUMADIN, PLAVIX, AGGRENOX, PLATEL, PRADAXA, OR XARELTO) NO . WHEN WAS YOUR LAST DOSE? DATE: TIME: . NEUROLOGY: HAVE YOU FALLEN IN THE PAST 12 MONTHS? YES . ANY NEW EXTREMITY NUMBNESS OR WEAKNESS? YES - RIGHT LEG WEAKNESS . CARDIOLOGY: DO YOU HAVE A PACEMAKER OR DEFIBRILLATOR? NO . RESPIRATORY: HAVE YOU BEEN SICK IN THE PAST WEEK? NO . FEVER NO . FLU LIKE SYMPTOMS? NO . COUGH NO . INTEGUMENTARY: DO YOU HAVE ANY RASHES OR OPEN SORES? YES - LICHEN PLANUS VARIOUS AREAS. STATES ARE WELL-CONTROLLED AT PRESENT. . ALLERGIC/IMMUNO: ARE YOU ALLERGIC TO IV DYE? NO . ANY NEW ALLERGIES? NO . PSYCHIATRIC: DO YOU HAVE THOUGHTS OF HURTING YOURSELF OR SOMEONE ELSE? NO . ARE YOU ABUSED, NEGLECTED, OR IN AN UNSAFE ENVIRONMENT? NO . ENDOCRINOLOGY: ARE YOU DIABETIC? NO . OTHER: DO YOU NEED ANY PRESCRIPTIONS? NO . IF YES, PLEASE LIST: ____ . ANY NEW PROBLEMS WITH YOUR MEDICATIONS? NO . WHEN DID YOU LAST EAT? 03-15-19 1800 . WHEN DID YOU LAST DRINK? 03-16-19 0700 . WHAT DID YOU LAST DRINK? WATER . NAME OF PERSON DRIVING YOU HOME? SON . DO YOU HAVE ANY OTHER QUESTIONS OR CONCERNS NO . VITAL SIGNS WT 262.2 LBS, HT 66.5 IN, BMI 41.68 INDEX, BP 129/81 MM HG, HR 82 /MIN, RR 18 /MIN, TEMP 96.6 F, OXYGEN SAT % 96%, NA INITIALS AW 1045, REVIEWED BY: EM. ASSESSMENTS PAIN IN RIGHT HIP - M25.551 (PRIMARY) GREATER TROCHANTERIC BURSITIS OF RIGHT HIP - M70.61 TREATMENT PAIN IN RIGHT HIP [facility] FLUORO GUIDANCE (PAIN)[id number] [facility] FACET BLOCK (PAIN)[id number] GREATER TROCHANTERIC BURSITIS OF RIGHT HIP [facility] FLUORO GUIDANCE (PAIN)[id number] [facility] FACET BLOCK (PAIN)[id number] PROCEDURES PREPROCEDURE DIAGNOSIS: BURSITIS AT THE RIGHT GREATER TROCHANTER OF THE FEMUR. POSTPROCEDURE DIAGNOSIS: BURSITIS AT THE RIGHT GREATER TROCHANTER OF THE FEMUR. PROCEDURE: INJECTION AT THE BURSA OF THE OF THE RIGHT GREATER TROCHANTER OF THE FEMUR UNDER FLUOROSCOPIC GUIDANCE. SURGEON: DR. JUSTEN MARIN BUS DRIVER: NONEANESTHESIA: LOCAL. PREOPERATIVE NOTE: THE PATIENT HAS A HISTORY OF RIGHT HIP PAIN. I EVALUATED THE PATIENT AND REVIEWED THE CHART. WE BOTH AGREE ON INJECTING OVER THE BURSA OF THE RIGHT GREATER TROCHANTER OF THE FEMUR. I WENT THROUGH THE RISKS, ALTERNATIVES, AND BENEFITS ASSOCIATED WITH THIS PROCEDURE. THE PATIENT WOULD LIKE TO PROCEED AND GIVE CONSENT TO PERFORMED THE PROCEDURE. THE PATIENT DENIES UNEXPLAINABLE WEIGHT LOSS, FEVERS, CHILLS, OR CHANGES IN HIS URINARY OR BOWEL CONTROL. DESCRIPTION OF PROCEDURE: AFTER CONSENT WAS TAKEN, THE PATIENT WAS BROUGHT TO THE PROCEDURE ROOM AND PLACED IN THE LEFT LATERAL DECUBITUS POSITION. THE RIGHT HIP AREA WAS CLEANED WITH CHLORAPREP SOLUTION AND DRAPED ASEPTICALLY. THE PROCEDURE WAS DONE UNDER STERILE CONDITIONS. I CHECKED LATERALITY WITH THE PATIENT AND THE STAFF IN THE PROCEDURE ROOM AT THE MOMENT OF THE TIME OUT. UNDER FLUOROSCOPIC GUIDANCE, TARGET WAS SELECTED AT THE RIGHT GREATER TROCHANTER OF THE FEMUR. LIDOCAINE WAS USED TO NUMB THE SKIN AND THE SUBCUTANEOUS TISSUE BELOW IT. SPINAL NEEDLE, 22-GAUGE WAS ADVANCED UNDER FLUOROSCOPIC GUIDANCE AND FOLLOWING PATIENT FEEDBACK UNTIL THE TARGET WAS TOUCHED. POSITION OF THE NEEDLE WAS VERIFIED WITH AP AND LATERAL VIEWS. AFTER PROPER POSITION OF THE NEEDLE WAS ACHIEVED, ISOVUE M DYE, 30%, 0.25 ML WAS INJECTED SHOWING ADEQUATE SPREAD OF THE DYE. THEN A SOLUTION OF 20 ML OF BUPIVACAINE 0.25% AND KENALOG 40 MG WAS INJECTED. THERE WAS NO EVIDENCE OF BLOOD, PARESTHESIA, OR CEREBROSPINAL FLUID. THE PATIENT WAS SENT TO THE RECOVERY ROOM. THE PATIENT WAS MOVING THE EXTREMITIES AND DOING WELL. THERE WERE NO COMPLICATIONS DURING THE PROCEDURE. POSTOPERATIVE NOTE: I DISCUSSED ALTERNATIVES WITH THE PATIENT. WE WILL SEE THE PATIENT BACK IN SEVERAL WEEKS FOR REEVALUATION OF THE CASE. I AM LOOKING FOR LONG-LASTING PAIN RELIEF WITH THIS INTERVENTION. FLUOROSCOPIC TIME WAS 21 SECONDS. FURTHER RECOMMENDATIONS WILL BE DONE DEPENDING ON HOW THE PATIENT DOES. THERE WERE NO COMPLICATIONS. I, DANTE ESTRADA, DOCUMENTED THE ABOVE INFORMATION ACTING A SCRIBE FOR DR. MARIN. I HAVE REVIEWED THE ABOVE DOCUMENT, WRITTEN BY DANTE ESTRADA SCRIBE AND I VERIFY THAT IT IS ACCURATE. PROCEDURE CODES 33249 DRAIN/INJ JOINT/BURSA W/O US, MODIFIERS: [place] [address] NEEDLE LOCALIZATION BY XRAY, MODIFIERS: [id number] RADXPS IN END [id number] PXD DISPOSITION & COMMUNICATION FOLLOW UP 3 WEEKS ELECTRONICALLY SIGNED BY JUSTEN MARIN MD, MD ON 03/23/2019 AT 03:32 PM EDT DISCLAIMER : THIS IS A VISIT SUMMARY EXTRACTED FROM THE [employer] CHART. IT IS NOT A COPY OF THE [employer] PROGRESS NOTE. MTDD
== END ==
LOC: M PAIN 11:00
PROVIDERS: ATTEND Anesthesiology
DX: M25.551 Pain in right hip (principal); M70.61 Trochanteric bursitis, right hip; J45.909 Unspecified asthma, uncomplicated; K21.9 Gastro-esophageal reflux disease without esophagitis; G56.03 Carpal tunnel syndrome, bilateral upper limbs; G62.9 Polyneuropathy, unspecified; G43.909 Migraine, unspecified, not intractable, without status migrainosus; G50.0 Trigeminal neuralgia; L43.9 Lichen planus, unspecified; G37.9 Demyelinating disease of central nervous system, unspecified; Z87.891 Personal history of nicotine dependence; Z79.899 Other long term (current) drug therapy; Z88.1 Allergy status to other antibiotic agents; Z88.5 Allergy status to narcotic agent; Z88.8 Allergy status to other drugs, medicaments and biological substances
CPT/HCPCS: 20610; 77002; J3301; Q9966

== ENCOUNTER → 2019-04-05 | Outpatient (REF) | payer OTHER ==
[~2019-04-05] MED LIST changes: -BUPIVACAINE HCL 0.25% 30 ML VIAL As Ordered ONE; -ISOVUE-M 200 41% 20ML VIAL (Q9966) As Ordered ONE; -LIDOCAINE 1% SDV INJ 30 ML VIAL As Ordered ONE; -TRIAMCINOLONE ACETONIDE SUSP 40 MG/ML VIAL (J3301) As Ordered ONE; -diazePAM 5 MG TAB As Ordered ONE; -oxyCODONE 5MG TAB As Ordered ONE
== END ==
LOC: M SFHCWAGY 11:45
PROVIDERS: ATTEND Nurse Practitioner Women's Health
DX: N89.1 Moderate vaginal dysplasia (principal)

== ENCOUNTER → 2019-04-06 | Outpatient (CLI) | payer OTHER ==
--- NOTE | 2019-04-07 23:50 | ECWPNPC ---
PATIENT NAME: DOMINGA BAÑUELOS : 1970 GENDER: FEMALE VISIT DATE: 04/06/2019 DISCHARGE DATE: 04/06/19 1011 VISIT LOCKED DATE TIME: PHYSICIAN: CHERYL BAIG RESOURCE: CHERYL BAIG REASON FOR APPOINTMENT 1. POST PROCEDURE HISTORY OF PRESENT ILLNESS HISTORY OF PRESENT ILLNESS: PAIN THE PATIENT DESCRIBES THE PAIN... 48 YEAR OLD FEMALE IN FOR S/P RIGHT TROCHANTER INJECTION. SHE FEELS THE PROCEDURE ONLY HELPED FOR A FEW HOURS. SHE RATES HER PAIN AT A 9/10 AND DESCRIBES IT SHARP, BURNING, STABBING, SHOOTING, AND TENDER. FALL RISK SCREENING: SCREENING :NO FALLS REPORTED IN THE LAST YEAR CURRENT MEDICATIONS TAKING MULTIVITAMINS OTC TABLET 1 TABLET ORALLY DAILY TAKING FISH OIL 1000 MG CAPSULE 1 TABLET ORALLY DAILY TAKING CALCIUM 600 MG TABLET 1 TABLET ORALLY DAILY TAKING ROPINIROLE HCL 2 MG TABLET 1 TAB AM & 2 TAB PM ORALLY TWICE DAILY TAKING CYMBALTA 60 MG CAPSULE DELAYED RELEASE PARTICLES 1 CAPSULE ORALLY TWICE A DAY TAKING TEGRETOL 200 MG TABLET 1 TAB PAULA & 2 TABS IN PM ORALLY TWICE A DAY TAKING TRAZODONE HCL 100 MG TABLET TAKE TWO TABLETS BY MOUTH AT BEDTIME AT BEDTIME TAKING FOLIC ACID 1 MG TABLET 1 TABLET ORALLY ONCE A DAY TAKING VITAMIN E 100 UNIT CAPSULE 3 CAPSULE ORALLY ONCE A DAY TAKING SIMVASTATIN 20 MG TABLET 1 TABLET IN THE EVENING ORALLY ONCE A DAY TAKING OMEPRAZOLE 40 MG CAPSULE DELAYED RELEASE 1 CAPSULE ORALLY ONCE A DAY TAKING CLINDAMYCIN PHOSPHATE 1 % GEL 1 APPLICATION TO AFFECTED AREA EXTERNALLY ONCE A DAY IN AM TO FACE TAKING SINGULAIR 10 MG TABLET 1 TABLET IN THE EVENING ORALLY ONCE A DAY TAKING QUETIAPINE FUMARATE 100 MG TABLET 1 TABLET AT BEDTIME ORALLY DAILY TAKING CLARITIN 10 MG TABLET 1 TABLET ORALLY ONCE A DAY TAKING DOCQLACE 100 MG CAPSULE 1 CAPSULE NEEDED ORALLY ONCE A DAY TAKING VENTOLIN HFA 108 (90 BASE) MCG/ACT AEROSOL SOLUTION 2 PUFFS NEEDED INHALATION EVERY 4 HRS TAKING BETAMETHASONE DIPROPIONATE AUG 0.05 % OINTMENT 1 APPLICATION TO AFFECTED AREA EXTERNALLY BID TO AREAS ON BODY WITH PINK TO RED RASH TAKING NAPROXEN 500 MG TABLET TAKE ONE TABLET BY MOUTH EVERY 12 HOURS ORALLY EVERY 12 HOURS NEEDED TAKING BENADRYL 25 MG TABLET 1 TABLET ORALLY TID TAKING PROBIOTIC - TABLET DELAYED RELEASE DIRECTED ORALLY TAKING BIOTIN 10 MG TABLET 1 TABLET ORALLY ONCE A DAY MEDICATION LIST REVIEWED AND RECONCILED WITH THE PATIENT PAST MEDICAL HISTORY ASTHMA GERD BACK/SCIATIC PAIN CARPAL TUNNEL BILATERAL PERIPHERAL NEUROPATHY MIGRAINES FOOT PAIN SMALL FIBER SENSORY NEUROPATHY 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 - AVN LEFT 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 2 SON(S) , 1 DAUGHTER(S) - HEALTHY. SISTER: AGE 33 FROM [place]\\NBROTHER: 1977\\NSONS: 1993, 2005\\N\\NMATERNAL 1ST COUSIN- LUPUS\\NNO FAMILY HX OF MELANOMA OR PANCREATIC CANCER. SOCIAL HISTORY GENERAL: TOBACCO USE ARE YOU A:FORMER SMOKER HOW LONG HAS IT BEEN SINCE YOU LAST SMOKED?> 10 YEARS HIV / HEP-C SCREENING HIV TEST OFFERED TO PATIENT:YES DATE OFFERED:10/08/2017 TEST ACCEPTED:NO HEP-C TEST OFFERED TO PATIENT:NO REASON:PATIENT DECLINED OTHERS AT HOME: CHILD. EDUCATION LEVEL OF EDUCATION:HIGH SCHOOL DIET: LOW GLUTEN, LOW CARBS, LOW LACTOSE, LOW OXYLATE. LANGUAGE [place]EL[place]IC. DOMESTIC VIOLENCE DO YOU FEEL SAFE IN YOUR ENVIRONMENT?YES BMI CARE GOAL FOLLOW-UP ABOVE NORMAL BMI FOLLOW-UPLIFEYLE EDUCATION REGARDING DIET RECREATIONAL DRUG USE DENIES. EXERCISE: NO REGULAR EXERCISE. LEARNING BARRIERS / SPECIAL NEEDS CHANGE FROM LAST VISIT?NO BARRIERS TO LEARNING?NO HEARING IMPAIRED?NO VISION IMPAIRED?NO COGNITIVELY IMPAIRED?NO READINESS TO LEARN?YES LEARNING PREFERENCES?NO LEARNING CAPABILITIES PRESENT?YES EMOTIONAL BARRIERS?NO SPECIAL DEVICES?NO PIZZA CHEF NEEDED?NO PAIN CLINIC PFS, CLERGY, PUBLIC HEALTH REFERRALS PFS REFERRAL NEEDED?NO CLERGY REFERRAL NEEDED?NO PUBLIC HEALTH REFERRAL NEEDED?NO HAS THE PATIENT BEEN EDUCATED REGARDING HIS/HER PLAN OF CARE?YES HAS THE PATIENT BEEN EDUCATED REGARDING PAIN, THE RISK FOR PAIN, THE IMPORTANCE OF EFFECTIVE PAIN MANAGEMENT, AND THE PAIN ASSESSMENT PROCESS?YES LATEX QUESTIONNAIRE LATEX ALLERGY : HAVE YOU EVER DEVELOPED ANY TYPE OF REACTION AFTER HANDLING LATEX PRODUCTS SUCH RUBBER GLOVES, CONDOMS, DIAPHRAGMS, BALLOONS, SOCKS, OR UNDERWEAR?NO LATEX ALLERGY : HAVE YOU EVER DEVELOPED ANY TYPE OF REACTION DURING OR AFTER DENTAL APPOINTMENT, VAGINAL/RECTAL EXAMINATION, SURGICAL PROCEDURE, OR ANY OTHER EXPOSURE?NO DATE ASKED : 04/05/2019 LATEX RISK : HAVE YOU EVER HAD ANY DIFFICULTY BREATHING OR HIVES AFTER EATING OR HANDLING ANY FRUITS, OR VEGETABLES; SUCH KIWI, BANANAS, STONE FRUITS, OR CHESTNUTSNO LATEX RISK : DO YOU HAVE A PREVIOUS PERSONAL HISTORY OF MORE THAN NINE SURGERIES, SPINA BIFIDA, OR REPEATED CATHERIZATIONS? NO LATEX RISK : ARE YOU FREQUENTLY EXPOSED TO LATEX PRODUCTS IN YOUR OCCUPATION?NO CAFFEINE CAFFEINE USE?YES 1-2 CUPS DAILY ADVANCE DIRECTIVE ADVANCE DIRECTIVE DISCUSSED WITH PATIENT:YES INFORMATION GIVEN TO PATIENT 04/06/19 STATES SHE DOES NOT NEED HELP TO CPMPLETE PAPERWORK HINDU [id number] OTHER MARITAL STATUS: ., MOTHER OF 3. ALCOHOL SCREENING DID YOU HAVE A DRINK CONTAINING ALCOHOL IN THE PAST YEAR?YES HOW OFTEN DID YOU HAVE SIX OR MORE DRINKS ON ONE OCCASION IN THE PAST YEAR?NEVER (0 POINTS) HOW MANY DRINKS DID YOU HAVE ON A TYPICAL DAY WHEN YOU WERE DRINKING IN THE PAST YEAR?1 OR 2 (0 POINTS) HOW OFTEN DID YOU HAVE A DRINK CONTAINING ALCOHOL IN THE PAST YEAR?MONTHLY OR LESS (1 POINT) POINTS1 INTERPRETATIONNEGATIVE OCCUPATION: HOMEMAKER. SEXUAL HX HAD SEX IN THE LAST 12 MONTHS (VAGINAL, ORAL, OR ANAL)?YES WITHMEN ONLY HAVE YOU EVER HAD AN STD?NO REVIEWED WITH PATIENT 04/06/19 [facility] HOSPITALIZATION/MAJOR DIAGNOSTIC PROCEDURE SURGICAL RELATED CHILDBIRTH [birth year] REVIEW OF SYSTEMS REVIEWED BY: PROVIDER: WAQAS POWER . CONSTITUTIONAL: ANY CHANGE IN YOUR MEDICAL CONDITION? NO . CHILLS NO . FEVER NO . INFECTION: DO YOU HAVE NEW INFECTIONS? NO . DO YOU HAVE HISTORY OF MRSA? NO . MUSCULOSKELETAL: ANY NEW PATTERNS OF PAIN OR NUMBNESS? YES- PAIN RETURNED ABOUT 4 HOURS AFTER INJECTIONS, STATES SHE IS GOING TO BE HAVING A RIGHT HIP REPLACEMENT AFTER LOOSING WEIGHT SEES [place]THO IN [place], AND ALSO A NEUROSURGEON IN [place] TO HAVE NECK AND BACK SURGERY . GASTROENTEROLOGY: ANY NEW CHANGE IN BOWEL CONTROL? NO . GENITOURINARY: ANY NEW CHANGE IN BLADDER CONTROL? NO . IS THERE A CHANCE YOU COULD BE ? NO . HEMATOLOGY/LYMPH: DO YOU TAKE ANY BLOOD THINNERS? (FOR EXAMPLE- COUMADIN, PLAVIX, AGGRENOX, PLATEL, PRADAXA, OR XARELTO) NO . WHEN WAS YOUR LAST DOSE? DATE: TIME: . NEUROLOGY: HAVE YOU FALLEN IN THE PAST 12 MONTHS? NO . ANY NEW EXTREMITY NUMBNESS OR WEAKNESS? NO . CARDIOLOGY: DO YOU HAVE A PACEMAKER OR DEFIBRILLATOR? NO . RESPIRATORY: HAVE YOU BEEN SICK IN THE PAST WEEK? YES- STATES SHE HAD A VIRUS ABOUT 2 WEEKS AGO STATES SHE IS GOING TO URGENT CARE AFTER THIS VISIT . FEVER NO . FLU LIKE SYMPTOMS? NO . COUGH NO . INTEGUMENTARY: DO YOU HAVE ANY RASHES OR OPEN SORES? NO . ALLERGIC/IMMUNO: ARE YOU ALLERGIC TO IV DYE? NO . ANY NEW ALLERGIES? NO . PSYCHIATRIC: DO YOU HAVE THOUGHTS OF HURTING YOURSELF OR SOMEONE ELSE? NO . ARE YOU ABUSED, NEGLECTED, OR IN AN UNSAFE ENVIRONMENT? NO . ENDOCRINOLOGY: ARE YOU DIABETIC? NO . OTHER: DO YOU NEED ANY PRESCRIPTIONS? NO- WE DO NOT PERSCIBE ANY OF PATIENTS MEDS . IF YES, PLEASE LIST: ____ . ANY NEW PROBLEMS WITH YOUR MEDICATIONS? NO . WHEN DID YOU LAST EAT? ____ . WHEN DID YOU LAST DRINK? ____ . WHAT DID YOU LAST DRINK? ____ . NAME OF PERSON DRIVING YOU HOME? ____ . DO YOU HAVE ANY OTHER QUESTIONS OR CONCERNS NO . VITAL SIGNS WT 262 LBS, HT 66.5 IN, BMI 41.65 INDEX, BP 136/73 MM HG, HR 80 /MIN, RR 18 /MIN, TEMP 97.0 F, OXYGEN SAT % 97%, NA INITIALS AW 0908. EXAMINATION GENERAL EXAMINATION: GENERALNO ACUTE DISTRESS, WELL NOURISHED AND HYDRATED. PSYCHAPPROPRIATE MOOD AND AFFECT . LUNGS:CLEAR TO AUSCULTATION BILATERALLY, NO WHEEZES, RHONCHI, RALES. HEART:NO MURMURS, REGULAR RATE AND RHYTHM. 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 GIVEN PRESENTING SYMPTOMS AND RESULTS OF PHYSICAL EXAMINATION RECOMMENDED STARTING DICLOFENAC WITH FOLLOW UP IN 1 MONTH TO DETERMINE EFFICACY OF TREATMENT. PATIENT HAS EXPRESSED UNDERSTANDING OF AND WAS IN AGREEMENT WITH TREATMENT PLAN. GIVEN TIME TO ASK QUESTIONS AND EXPRESS CONCERNS. FIBROMYALGIA STOP NAPROXEN TABLET, 500 MG, TAKE ONE TABLET BY MOUTH EVERY 12 HOURS, ORALLY, EVERY 12 HOURS NEEDED OTHERS START DICLOFENAC SODIUM TABLET DELAYED RELEASE, 50 MG, 1 TABLET WITH FOOD OR MILK, ORALLY, THREE TIMES A DAY, 30 DAY(S), 90 NOTES: DICLOFENAC MATERIAL WAS PUBLISHED TO [employer],DICLOFENAC MATERIAL WAS PRINTED. PREVENTIVE MEDICINE PAIN CLINIC TEACHING: PROCEDURE TEACHING NEW MEDICATION DICLOFENAC DISCUSSED WITH PT INCLUDING NEED TO STOP NAPROXEN AND TO NOT TAKE OTHER NSAIDS. VERBALIZED UNDERSTANDING.. PROCEDURE CODES FA211 ESTABILISHED PATIENT [facility] CHARGE DISPOSITION & COMMUNICATION FOLLOW UP 4 WEEKS (REASON: MEDICATION) ELECTRONICALLY SIGNED BY ARMAND VAUGHAN ON 04/07/2019 AT 10:04 AM EDT DISCLAIMER : THIS IS A VISIT SUMMARY EXTRACTED FROM THE [employer] CHART. IT IS NOT A COPY OF THE [employer] PROGRESS NOTE. MARCO ANTONIO
== END ==
LOC: M PAIN 09:00
PROVIDERS: ATTEND Family Medicine
DX: M70.61 Trochanteric bursitis, right hip (principal); M79.7 Fibromyalgia; J45.909 Unspecified asthma, uncomplicated; K21.9 Gastro-esophageal reflux disease without esophagitis; G62.9 Polyneuropathy, unspecified; G43.909 Migraine, unspecified, not intractable, without status migrainosus; Z87.891 Personal history of nicotine dependence; Z88.1 Allergy status to other antibiotic agents; Z88.5 Allergy status to narcotic agent; Z88.8 Allergy status to other drugs, medicaments and biological substances; E66.01 Morbid (severe) obesity due to excess calories; Z68.41 Body mass index [BMI] 40.0-44.9, adult; Z79.899 Other long term (current) drug therapy

== ENCOUNTER → 2019-05-05 | Outpatient (CLI) | payer OTHER ==
[~2019-05-05] MED LIST changes: +CARA1TAB6 PO; +CLIN1GEL22; +COLA100C5 PO; +CYCL10TA PO; +DICY10CA13 PO; +FLUT1BLS5; +KETO10TAB PO; -OMEP40CA2; +OMEP40CA97; +PERC5TAB12 PO; +PROT1TAB2 PO; -SIMV20TA2; +SIMV20TA22; +TIZA4TAB4; -TRAZ-163; +TRAZ-257
--- NOTE | 2019-05-07 01:33 | ECWPNPC ---
PATIENT NAME: DOMINGA BAÑUELOS : 1970 GENDER: FEMALE VISIT DATE: 05/05/2019 DISCHARGE DATE: 05/05/19 1207 VISIT LOCKED DATE TIME: PHYSICIAN: CHERYL BAIG RESOURCE: CHERYL BAIG REASON FOR APPOINTMENT 1. 4 WKS/MEDICATION HISTORY OF PRESENT ILLNESS HISTORY OF PRESENT ILLNESS: PAIN THE PATIENT DESCRIBES THE PAIN... 48-YEAR-OLD FEMALE IN FOR CHRONIC PAIN FOLLOW-UP. SHE WAS STARTED ON DICLOFENAC AT LAST VISIT AND ADMITS THAT IT MADE HER STOMACH UPSET. DISCUSSED GABAPENTIN PATIENT STATES SHE HAS BEEN ON THIS BEFORE WITH THE ADVERSE EFFECTS OF WEIGHT GAIN. SHE CURRENTLY RATES HER PAIN AN 8-9 OUT OF 10 AND DESCRIBES IT ACHING, SHARP, STABBING, BURNING, SORE, SHOOTING, AND TENDER. FALL RISK SCREENING: SCREENING :NO FALLS REPORTED IN THE LAST YEAR CURRENT MEDICATIONS TAKING MULTIVITAMINS OTC TABLET 1 TABLET ORALLY DAILY TAKING FISH OIL 1000 MG CAPSULE 1 TABLET ORALLY DAILY TAKING CALCIUM 600 MG TABLET 1 TABLET ORALLY DAILY TAKING ROPINIROLE HCL 2 MG TABLET 1 TAB AM & 2 TAB PM ORALLY TWICE DAILY TAKING CYMBALTA 60 MG CAPSULE DELAYED RELEASE PARTICLES 1 CAPSULE ORALLY TWICE A DAY TAKING TEGRETOL 200 MG TABLET 1 TAB PAULA & 2 TABS IN PM ORALLY TWICE A DAY TAKING TRAZODONE HCL 100 MG TABLET TAKE TWO TABLETS BY MOUTH AT BEDTIME AT BEDTIME TAKING FOLIC ACID 1 MG TABLET 1 TABLET ORALLY ONCE A DAY TAKING VITAMIN E 100 UNIT CAPSULE 3 CAPSULE ORALLY ONCE A DAY TAKING SIMVASTATIN 20 MG TABLET 1 TABLET IN THE EVENING ORALLY ONCE A DAY TAKING OMEPRAZOLE 40 MG CAPSULE DELAYED RELEASE 1 CAPSULE ORALLY ONCE A DAY TAKING SINGULAIR 10 MG TABLET 1 TABLET IN THE EVENING ORALLY ONCE A DAY TAKING QUETIAPINE FUMARATE 100 MG TABLET 1 TABLET AT BEDTIME ORALLY DAILY TAKING CLARITIN 10 MG TABLET 1 TABLET ORALLY ONCE A DAY TAKING DOCQLACE 100 MG CAPSULE 1 CAPSULE NEEDED ORALLY ONCE A DAY TAKING PROBIOTIC - TABLET DELAYED RELEASE DIRECTED ORALLY TAKING BIOTIN 10 MG TABLET 1 TABLET ORALLY ONCE A DAY TAKING DICLOFENAC SODIUM 50 MG TABLET DELAYED RELEASE 1 TABLET WITH FOOD OR MILK ORALLY THREE TIMES A DAY TAKING VENTOLIN HFA 108 (90 BASE) MCG/ACT AEROSOL SOLUTION 2 PUFFS NEEDED INHALATION EVERY 4 HRS TAKING CLINDAMYCIN PHOSPHATE 1 % GEL 1 APPLICATION TO AFFECTED AREA EXTERNALLY ONCE A DAY IN AM TO FACE TAKING BENADRYL 25 MG TABLET 1 TABLET ORALLY TID TAKING BETAMETHASONE DIPROPIONATE AUG 0.05 % OINTMENT 1 APPLICATION TO AFFECTED AREA EXTERNALLY BID TO AREAS ON BODY WITH PINK TO RED RASH MEDICATION LIST REVIEWED AND RECONCILED WITH THE PATIENT PAST MEDICAL HISTORY ASTHMA GERD BACK/SCIATIC PAIN CARPAL TUNNEL BILATERAL PERIPHERAL NEUROPATHY MIGRAINES FOOT PAIN SMALL FIBER SENSORY NEUROPATHY 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 - AVN LEFT 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 2 SON(S) , 1 DAUGHTER(S) - HEALTHY. SISTER: AGE 33 FROM [place]\\NBROTHER: 1977\\NSONS: 1993, 2006\\N\\NMATERNAL 1ST COUSIN- LUPUS\\NNO FAMILY HX OF MELANOMA OR PANCREATIC CANCER. SOCIAL HISTORY GENERAL: TOBACCO USE ARE YOU A:FORMER SMOKER HOW LONG HAS IT BEEN SINCE YOU LAST SMOKED?> 10 YEARS HIV / HEP-C SCREENING HIV TEST OFFERED TO PATIENT:YES DATE OFFERED:10/08/2017 TEST ACCEPTED:NO HEP-C TEST OFFERED TO PATIENT:NO REASON:PATIENT DECLINED OTHERS AT HOME: CHILD. EDUCATION LEVEL OF EDUCATION:HIGH SCHOOL DIET: LOW GLUTEN, LOW CARBS, LOW LACTOSE, LOW OXYLATE. LANGUAGE CITIZEN OF [place]. DOMESTIC VIOLENCE DO YOU FEEL SAFE IN YOUR ENVIRONMENT?YES BMI CARE GOAL FOLLOW-UP ABOVE NORMAL BMI FOLLOW-UPLIFESTYLE EDUCATION REGARDING DIET RECREATIONAL DRUG USE DENIES. EXERCISE: NO REGULAR EXERCISE. LEARNING BARRIERS / SPECIAL NEEDS CHANGE FROM LAST VISIT?NO BARRIERS TO LEARNING?NO HEARING IMPAIRED?NO VISION IMPAIRED?NO COGNITIVELY IMPAIRED?NO READINESS TO LEARN?YES LEARNING PREFERENCES?NO LEARNING CAPABILITIES PRESENT?YES EMOTIONAL BARRIERS?NO SPECIAL DEVICES?NO CURTAIN FELLER BLINDSTITCH NEEDED?NO PAIN CLINIC PFS, CLERGY, PUBLIC HEALTH REFERRALS PFS REFERRAL NEEDED?NO CLERGY REFERRAL NEEDED?NO PUBLIC HEALTH REFERRAL NEEDED?NO HAS THE PATIENT BEEN EDUCATED REGARDING HIS/HER PLAN OF CARE?YES HAS THE PATIENT BEEN EDUCATED REGARDING PAIN, THE RISK FOR PAIN, THE IMPORTANCE OF EFFECTIVE PAIN MANAGEMENT, AND THE PAIN ASSESSMENT PROCESS?YES LATEX QUESTIONNAIRE LATEX ALLERGY : HAVE YOU EVER DEVELOPED ANY TYPE OF REACTION AFTER HANDLING LATEX PRODUCTS SUCH RUBBER GLOVES, CONDOMS, DIAPHRAGMS, BALLOONS, SOCKS, OR UNDERWEAR?NO LATEX ALLERGY : HAVE YOU EVER DEVELOPED ANY TYPE OF REACTION DURING OR AFTER DENTAL APPOINTMENT, VAGINAL/RECTAL EXAMINATION, SURGICAL PROCEDURE, OR ANY OTHER EXPOSURE?NO DATE ASKED : 04/05/2019 LATEX RISK : HAVE YOU EVER HAD ANY DIFFICULTY BREATHING OR HIVES AFTER EATING OR HANDLING ANY FRUITS, OR VEGETABLES; SUCH KIWI, BANANAS, STONE FRUITS, OR CHESTNUTSNO LATEX RISK : DO YOU HAVE A PREVIOUS PERSONAL HISTORY OF MORE THAN NINE SURGERIES, SPINA BIFIDA, OR REPEATED CATHERIZATIONS? NO LATEX RISK : ARE YOU FREQUENTLY EXPOSED TO LATEX PRODUCTS IN YOUR OCCUPATION?NO CAFFEINE CAFFEINE USE?YES 1-2 CUPS DAILY ADVANCE DIRECTIVE ADVANCE DIRECTIVE DISCUSSED WITH PATIENT:YES INFORMATION GIVEN TO PATIENT 04/06/19 STATES SHE DOES NOT NEED HELP TO CPMPLETE PAPERWORK PENTECOSTALISM [id number] OTHER MARITAL STATUS: ., MOTHER OF 3. ALCOHOL SCREENING DID YOU HAVE A DRINK CONTAINING ALCOHOL IN THE PAST YEAR?YES HOW OFTEN DID YOU HAVE SIX OR MORE DRINKS ON ONE OCCASION IN THE PAST YEAR?NEVER (0 POINTS) HOW MANY DRINKS DID YOU HAVE ON A TYPICAL DAY WHEN YOU WERE DRINKING IN THE PAST YEAR?1 OR 2 (0 POINTS) HOW OFTEN DID YOU HAVE A DRINK CONTAINING ALCOHOL IN THE PAST YEAR?MONTHLY OR LESS (1 POINT) POINTS1 INTERPRETATIONNEGATIVE OCCUPATION: HOMEMAKER. SEXUAL HX HAD SEX IN THE LAST 12 MONTHS (VAGINAL, ORAL, OR ANAL)?YES WITHMEN ONLY HAVE YOU EVER HAD AN STD?NO REVIEWED WITH PATIENT 04/06/19 0951 [facility]. HOSPITALIZATION/MAJOR DIAGNOSTIC PROCEDURE SURGICAL RELATED CHILDBIRTH 1993/1995/2005 REVIEW OF SYSTEMS REVIEWED BY: PROVIDER: WAQAS POWER . CONSTITUTIONAL: ANY CHANGE IN YOUR MEDICAL CONDITION? NO . CHILLS NO . FEVER NO . INFECTION: DO YOU HAVE NEW INFECTIONS? NO . DO YOU HAVE HISTORY OF MRSA? NO . MUSCULOSKELETAL: ANY NEW PATTERNS OF PAIN OR NUMBNESS? NO . GASTROENTEROLOGY: ANY NEW CHANGE IN BOWEL CONTROL? NO . GENITOURINARY: ANY NEW CHANGE IN BLADDER CONTROL? NO . IS THERE A CHANCE YOU COULD BE ? NO . HEMATOLOGY/LYMPH: DO YOU TAKE ANY BLOOD THINNERS? (FOR EXAMPLE- COUMADIN, PLAVIX, AGGRENOX, PLATEL, PRADAXA, OR XARELTO) NO . WHEN WAS YOUR LAST DOSE? DATE: TIME: . NEUROLOGY: HAVE YOU FALLEN IN THE PAST 12 MONTHS? NO . ANY NEW EXTREMITY NUMBNESS OR WEAKNESS? NO . CARDIOLOGY: DO YOU HAVE A PACEMAKER OR DEFIBRILLATOR? NO . RESPIRATORY: HAVE YOU BEEN SICK IN THE PAST WEEK? NO . FEVER NO . FLU LIKE SYMPTOMS? NO . COUGH NO . INTEGUMENTARY: DO YOU HAVE ANY RASHES OR OPEN SORES? NO . ALLERGIC/IMMUNO: ARE YOU ALLERGIC TO IV DYE? NO . ANY NEW ALLERGIES? NO . PSYCHIATRIC: DO YOU HAVE THOUGHTS OF HURTING YOURSELF OR SOMEONE ELSE? NO . ARE YOU ABUSED, NEGLECTED, OR IN AN UNSAFE ENVIRONMENT? NO . ENDOCRINOLOGY: ARE YOU DIABETIC? NO . OTHER: DO YOU NEED ANY PRESCRIPTIONS? NO . IF YES, PLEASE LIST: ____ . ANY NEW PROBLEMS WITH YOUR MEDICATIONS? NO . WHEN DID YOU LAST EAT? ____ . WHEN DID YOU LAST DRINK? ____ . WHAT DID YOU LAST DRINK? ____ . NAME OF PERSON DRIVING YOU HOME? ____ . DO YOU HAVE ANY OTHER QUESTIONS OR CONCERNS NO . VITAL SIGNS WT 263.6 LBS, HT 66.5 IN, BMI 41.90 INDEX, BP 138/75 MM HG, HR 88 /MIN, RR 18 /MIN, TEMP 97.0 F, OXYGEN SAT % 97%, NA INITIALS SC 11:26. EXAMINATION GENERAL EXAMINATION: GENERALNO ACUTE DISTRESS, WELL NOURISHED AND HYDRATED. PSYCHAPPROPRIATE MOOD AND AFFECT . LUNGS:CLEAR TO AUSCULTATION BILATERALLY, NO WHEEZES, RHONCHI, RALES. HEART:NO MURMURS, REGULAR RATE AND RHYTHM. BACK:POINT TENDER L4-L5 L5-S1, SURROUNDING SKIN SHOWS NO ERYTHEMA, INCREASED WARMTH, ECCHYMOSIS, AND/OR SKIN ERUPTIONS NOTED. POSITIVE MODIFIED SLR BILATERALLY . MUSCULOSKELETAL:LEFT LOWER EXTREMITY STRONGER THAN RIGHT LOWER EXTREMITY . ASSESSMENTS INTERVERTEBRAL DISC DISORDERS WITH RADICULOPATHY, LUMBAR REGION - M51.16 (PRIMARY) TREATMENT INTERVERTEBRAL DISC DISORDERS WITH RADICULOPATHY, LUMBAR REGION NOTES: LESI L4-L5 L5-S1. CLINICAL NOTES: 48-YEAR-OLD FEMALE IN FOR CHRONIC PAIN FOLLOW-UP. GIVEN PRESENTING SYMPTOMS AND RESULTS PHYSICAL EXAMINATION RECOMMENDED LESI L4-L5 L5-S1 AND STARTING THE PROCESS FOR POTENTIAL DORSAL COLUMN STIMULATOR. PATIENT HAS EXPRESSED UNDERSTANDING OF AND WAS IN AGREEMENT WITH TREATMENT PLAN. GIVEN TIME TO ASK QUESTIONS AND EXPRESS CONCERNS. . PREVENTIVE MEDICINE PAIN CLINIC TEACHING: PROCEDURE TEACHING CD INFORMATION OF DCS GIVEN TO PATIENT . WE ALSO REVIEWED THE LUMBAR EPIDURAL INJECTION O VERBALIZES UNDERSTANDING. PROCEDURE CODES FA211 ESTABILISHED PATIENT LOCATED WITHIN [facility] CHARGE DISPOSITION & COMMUNICATION FOLLOW UP POSTPROCEDURE (REASON: LESI L4-L5 L5-S1) ELECTRONICALLY SIGNED BY ARMAND VAUGHAN ON 05/06/2019 AT 01:04 PM EDT DISCLAIMER : THIS IS A VISIT SUMMARY EXTRACTED FROM THE [employer] CHART. IT IS NOT A COPY OF THE [employer] PROGRESS NOTE. MARCO ANTONIO
== END ==
LOC: M PAIN 11:15
PROVIDERS: ATTEND Family Medicine
DX: M51.16 Intervertebral disc disorders with radiculopathy, lumbar region (principal); G89.29 Other chronic pain; J45.909 Unspecified asthma, uncomplicated; K21.9 Gastro-esophageal reflux disease without esophagitis; G43.909 Migraine, unspecified, not intractable, without status migrainosus; M79.7 Fibromyalgia; Z87.891 Personal history of nicotine dependence; Z88.1 Allergy status to other antibiotic agents; Z88.5 Allergy status to narcotic agent; Z88.8 Allergy status to other drugs, medicaments and biological substances; E66.01 Morbid (severe) obesity due to excess calories; Z68.41 Body mass index [BMI] 40.0-44.9, adult; Z79.899 Other long term (current) drug therapy

== ENCOUNTER 2019-05-24 06:37 | Emergency (ER) | payer OTHER ==
[~2019-05-24] VITALS: Ht 170.2 cm; Wt 121.6 kg
[~2019-05-24 06:37] MED LIST changes: -CARA1TAB6 PO; -CLIN1GEL22; -COLA100C5 PO; -CYCL10TA PO; -DICY10CA13 PO; -FLUT1BLS5; -KETO10TAB PO; +OMEP40CA2; -OMEP40CA97; -PERC5TAB12 PO; -PROT1TAB2 PO; +SIMV20TA2; -SIMV20TA22; -TIZA4TAB4; +TRAZ-163; -TRAZ-257
--- NOTE | 2019-05-24 09:14 | REP ---
PA and lateral chest: Comparison is 03/17 814. There is a 2.1 cm right upper lobe lung nodule as an interval change. There are no infiltrates. There are no pleural effusions. Cardiac size is normal. The [place], mediastinum, and skeletal structures are unremarkable. Impression: There is a 2.1 a centimeter right upper lobe lung nodule. Electronically Signed by Erik Rodriguez MD 05/24/2019 09:05 A
--- NOTE | 2019-05-24 09:15 | REP ---
Right hip two views: There is advanced osteoarthritis. There is slight flattening of the humeral head superiorly. No fracture is identified. No dislocation. Mineralization is normal. Impression: Advanced osteoarthritis. Slight flattening of the humeral head superiorly. Electronically Signed by Erik Rodriguez MD 05/24/2019 09:07 A
--- NOTE | 2019-05-24 09:18 | REP ---
Lumbar spine five views: Comparison is 06/16/2017. Vertebral body heights and alignment are normal and unchanged. There are no compression deformities. There is no listhesis. There is mild degenerative disc disease at L3-4. The disc spaces are otherwise unremarkable. There is no spondylolysis. The pedicles are unremarkable. There is mild facet osteoarthritis at the lower lumbar levels. The sacroiliac articulations are unremarkable. Impression: There is no compression deformity or listhesis. Mild L3-4 degenerative disc disease. Mild facet osteoarthritis. Electronically Signed by Erik Rodriguez MD 05/24/2019 09:10 A
[2019-05-24] MEDS ORDERED: PERC5TAB12 PO (09:29)
[2019-05-24 09:42] VITALS: BP 149/63
--- NOTE | 2019-05-24 10:36 | ED PDOC ---
Post-Departure Follow-Up ashutosh dumont faxed formal report of cxr for fu Floyd Perez MD May 24, 2019 10:36
== END 2019-05-24 09:43 | disposition home or self-care (01) ==
LOC: M ED 06:37
DX: M19.90 Unspecified osteoarthritis, unspecified site (principal); J45.909 Unspecified asthma, uncomplicated; R91.1 Solitary pulmonary nodule; Z79.899 Other long term (current) drug therapy; Z91.048 Other nonmedicinal substance allergy status; Z88.1 Allergy status to other antibiotic agents

== ENCOUNTER → 2019-06-16 | Outpatient (CLI) | payer OTHER ==
[~2019-06-16] MED LIST changes: +ISOVUE-370 76% 100ML VIAL (Q9967) As Ordered ONE; -OMEP40CA2; +OMEP40CA97; +PERC5TAB12 PO
--- NOTE | 2019-06-17 08:12 | REP ---
Clinical: Suspected lung nodule by x-ray. Technique: Axial contrast enhanced images from the thoracic inlet to the upper abdomen with coronal and sagittal re-formations using 100 ml Isovue 370 intravenous contrast material. Findings: Current examination demonstrates subtle scattered atelectasis as well as minimal subpleural areas of opacity which suggest the possibility of a resolving multifocal infiltrate. No obvious pulmonary nodule is appreciated and the finding on x-ray may have represented small area of transient atelectasis. No acute consolidation, obvious nodule or mass lesion is identified. No effusion. No pneumothorax. No adenopathy. Mediastinum demonstrates normal thoracic aorta and pulmonary vasculature. Heart and pericardium are normal. Surrounding musculoskeletal structures are intact. Limited upper abdomen demonstrates normal bilateral adrenal glands along with suspected hepatic steatosis. Impression: 1. The suspected nodule on recent x-ray likely represented sequelae of multifocal pneumonia / atelectasis and is not identified on current examination. 2. Minimal scattered trace atelectasis and some pleural thickening may represent sequelae of prior pneumonia / atelectasis as suggested above. Consider reevaluation in 6-9 months to confirm complete resolution. Electronically Signed by Sebas Stokes MD 06/17/2019 08:04 A
== END ==
LOC: M RAD 16:42
PROVIDERS: ATTEND Family Medicine
DX: R91.1 Solitary pulmonary nodule (principal)
CPT/HCPCS: 71260; Q9967

== ENCOUNTER → 2019-06-24 | Outpatient (CLI) | payer OTHER ==
[~2019-06-24] MED LIST changes: +CARA1TAB6 PO; +CLIN1GEL22; +COLA100C5 PO; +CYCL10TA PO; +DICY10CA13 PO; +FLUT1BLS5; -ISOVUE-370 76% 100ML VIAL (Q9967) As Ordered ONE; +ISOVUE-M 300 61% 15ML VIAL (Q9967) As Ordered ONE; +KETO10TAB PO; +LIDOCAINE 1% SDV INJ 30 ML VIAL As Ordered ONE; +PROT1TAB2 PO; +TIZA4TAB4; +diazePAM 5 MG TAB As Ordered ONE; +methylPREDNISolone SUSP 40 MG/ML (DEPO-medrol) VIAL (J1030) As Ordered ONE; +oxyCODONE 5MG TAB As Ordered ONE
--- NOTE | 2019-06-24 12:31 | REP ---
Partial lumbar spine series: Three views . History: Injection procedure for pain. 17 seconds of fluoroscopy time is reported. Findings: A sequence of three fluoroscopically obtained last image hold procedural spot radiographs of the lumbar spine document needle position and contrast injection associated with injection procedure. Electronically Signed by Jim Caro MD 06/24/2019 12:22 P
--- NOTE | 2019-07-07 02:32 | ECWPNPC ---
PATIENT NAME: DOMINGA BAÑUELOS : 1970 GENDER: FEMALE VISIT DATE: 06/24/2019 DISCHARGE DATE: 06/24/19 1122 VISIT LOCKED DATE TIME: PHYSICIAN: JUSTEN MARIN MD RESOURCE: JUSTEN MARIN MD REASON FOR APPOINTMENT 1. LESI HISTORY OF PRESENT ILLNESS HISTORY OF PRESENT ILLNESS: PAIN THE PATIENT DESCRIBES THE PAIN... FALL RISK SCREENING: SCREENING :NO FALLS REPORTED IN THE LAST YEAR CURRENT MEDICATIONS TAKING FISH OIL 1000 MG CAPSULE 1 TABLET ORALLY DAILY, NOTES: 06/23/19 TAKING CALCIUM 600 MG TABLET 1 TABLET ORALLY DAILY, NOTES: 06/23/19 TAKING MULTIVITAMINS OTC TABLET 1 TABLET ORALLY DAILY, NOTES: 06/23/19 TAKING ROPINIROLE HCL 2 MG TABLET 1 TAB AM & 2 TAB PM ORALLY TWICE DAILY, NOTES: 06/23/19 TAKING CYMBALTA 60 MG CAPSULE DELAYED RELEASE PARTICLES 1 CAPSULE ORALLY TWICE A DAY, NOTES: 06/23/19 TAKING OMEPRAZOLE 40 MG CAPSULE DELAYED RELEASE 1 CAPSULE ORALLY ONCE A DAY, NOTES: 06/23/19 TAKING SINGULAIR 10 MG TABLET 1 TABLET IN THE EVENING ORALLY ONCE A DAY, NOTES: 06/23/19 TAKING QUETIAPINE FUMARATE 100 MG TABLET 1 TABLET AT BEDTIME ORALLY DAILY, NOTES: 06/23/19 TAKING CLARITIN 10 MG TABLET 1 TABLET ORALLY ONCE A DAY, NOTES: 06/23/19 TAKING BIOTIN 10 MG TABLET 1 TABLET ORALLY ONCE A DAY, NOTES: 06/23/19 TAKING PROBIOTIC - TABLET DELAYED RELEASE DIRECTED ORALLY , NOTES: 06/23/19 TAKING DOCQLACE 100 MG CAPSULE 1 CAPSULE NEEDED ORALLY ONCE A DAY, NOTES: 06/21/19 TAKING VENTOLIN HFA 108 (90 BASE) MCG/ACT AEROSOL SOLUTION 2 PUFFS NEEDED INHALATION EVERY 4 HRS, NOTES: 06/24/19 TAKING BENADRYL 25 MG TABLET 1 TABLET ORALLY NEEDED, NOTES: NONE LATELY TAKING SIMVASTATIN 20 MG TABLET 1 TABLET IN THE EVENING ORALLY ONCE A DAY, NOTES: 06/23/19 TAKING FOLIC ACID 1 MG TABLET 1 TABLET ORALLY ONCE A DAY, NOTES: 06/23/19 TAKING VITAMIN E 100 UNIT CAPSULE 3 CAPSULE ORALLY ONCE A DAY, NOTES: 06/23/19 TAKING BETAMETHASONE DIPROPIONATE AUG 0.05 % OINTMENT 1 APPLICATION TO AFFECTED AREA EXTERNALLY BID TO AREAS ON BODY WITH PINK TO RED RASH, NOTES: NONE LATELY TAKING TEGRETOL 200 MG TABLET 1 TAB PAULA & 2 TABS IN PM ORALLY TWICE A DAY, NOTES: 06/23/19 TAKING TRAZODONE HCL 100 MG TABLET TAKE TWO TABLETS BY MOUTH AT BEDTIME AT BEDTIME, NOTES: 06/23/19 TAKING ADVAIR DISKUS 250-50 MCG/DOSE AEROSOL POWDER BREATH ACTIVATED 1 PUFF INHALATION TWICE A DAY, NOTES: 06/22/19 TAKING WHEELCHAIR - MISCELLANEOUS BARIATRIC WHEELCHAIR; DIRECTED HT 66.5 IN, WT 266LBS DX M87.05 TAKING FLONASE ALLERGY RELIEF 50 MCG/ACT SUSPENSION 1 SPRAY IN EACH NOSTRIL NASALLY BID, NOTES: 06/21/19 TAKING GABAPENTIN 400 MG CAPSULE 1 CAPSULE ORALLY BID, NOTES: 06/23/19 TAKING TIZANIDINE HCL 4 MG TABLET 1 TABLET NEEDED ORALLY THREE TIMES A DAY, NOTES: 06/23/19 DISCONTINUED ASPIRIN 81 MG TABLET DELAYED RELEASE 1 TABLET ORALLY ONCE A DAY DISCONTINUED PYRIDIUM 200 MG TABLET 1 TABLET AFTER MEALS ORALLY THREE TIMES A DAY DISCONTINUED SULFAMETHOXAZOLE-TRIMETHOPRIM 800-160 MG TABLET 1 TABLET ORALLY TWICE A DAY DISCONTINUED CLINDAMYCIN PHOSPHATE 1 % GEL 1 APPLICATION TO AFFECTED AREA EXTERNALLY ONCE A DAY IN AM TO FACE MEDICATION LIST REVIEWED AND RECONCILED WITH THE PATIENT PAST MEDICAL HISTORY LUNG NODULE ON CXR IN ED 05/2019 MODERATE PERSISTENT ASTHMA GERD INTERSTITIAL CYSTITIS/OAB/CHRONIC HEMATURIA - PREVIOUSLY FOLLOWED WITH [facility] UROLOGY LICHEN PLANUS, ACNE - DR. MERCADO MIGRAINES - DOES BOTOX INJECTIONS LEFT TRIGEMINAL NEURALGIA - DR. DILLARD RLS - DR. DILLARD ANXIETY/DEPRESSION - DR. OCHOA CARPAL TUNNEL BILATERAL - NCOG BACK/SCIATIC PAIN- DR. CABAN, NEUROSURG IN [place] PERIPHERAL NEUROPATHY, SMALL FIBER SENSORY NEUROPATHY - DR. DILLARD CHRONIC LEFT FOOT AND ANKLE PAIN - NCOG RIGHT HIP PAIN - AVN - ([facility]) COMPLEX REGIONAL PAIN SYNDROME FIBROMYALGIA - PAIN CENTER [facility] CORE 11.35 % LACTOSE INTOLERANT AND GLUTEN SENSITIVITY PNEUMONIA CYSTITIS ALLERGIES CIPROFLOXACIN: DYSPNEA - ALLERGY ELMIRON: NAUSEA/VOMITING/COUGH - ALLERGY AUGMENTIN: DIARRHEA - SIDE EFFECTS SURGICAL HISTORY FOOT SURGERY -RIGHT KNEE SURGERY -LEFT SINUS SURGERY BILATERAL TUBAL LIGATION COLPOSCOPY- LESLY BECKMAN 04/05/19 FAMILY HISTORY FATHER: ALIVE 70 YRS, HEART DISEASE MOTHER: 46 YRS SIBLINGS: ALIVE, HYPOTHYROID,ONE SISTER OF PNENOMIA SON(S): ALIVE DAUGHTER(S): ALIVE 23 YRS MATERNAL UNCLE: RHEUMATOID 1 BROTHER(S) , 1 SISTER(S) . 2 SON(S) , 1 DAUGHTER(S) - HEALTHY. SISTER: AGE 33 FROM [place]\\NBROTHER: 1977\\NSONS: 1994, 2005\\N\\NMATERNAL 1ST COUSIN- LUPUS\\NNO FAMILY HX OF MELANOMA OR PANCREATIC CANCER. SOCIAL HISTORY GENERAL: TOBACCO USE ARE YOU A:FORMER SMOKER HOW LONG HAS IT BEEN SINCE YOU LAST SMOKED?> 10 YEARS HIV / HEP-C SCREENING HIV TEST OFFERED TO PATIENT:YES DATE OFFERED:10/08/2017 TEST ACCEPTED:NO HEP-C TEST OFFERED TO PATIENT:NO REASON:PATIENT DECLINED OTHERS AT HOME: CHILD. EDUCATION LEVEL OF EDUCATION:HIGH SCHOOL DIET: LOW GLUTEN, LOW CARBS, LOW LACTOSE, LOW OXYLATE. LANGUAGE SERBIAN. DOMESTIC VIOLENCE DO YOU FEEL SAFE IN YOUR ENVIRONMENT?YES BMI CARE GOAL FOLLOW-UP ABOVE NORMAL BMI FOLLOW-UPLIFESTYLE EDUCATION REGARDING DIET RECREATIONAL DRUG USE DENIES. EXERCISE: NO REGULAR EXERCISE. LEARNING BARRIERS / SPECIAL NEEDS CHANGE FROM LAST VISIT?NO BARRIERS TO LEARNING?NO HEARING IMPAIRED?NO VISION IMPAIRED?NO COGNITIVELY IMPAIRED?NO READINESS TO LEARN?YES LEARNING PREFERENCES?NO LEARNING CAPABILITIES PRESENT?YES EMOTIONAL BARRIERS?NO SPECIAL DEVICES?YES :CANE, WALKER, OTHER SHOWER CHAIR, RAISES TOILET SEAT TAXI CAB DRIVER NEEDED?NO PAIN CLINIC PFS, CLERGY, PUBLIC HEALTH REFERRALS PFS REFERRAL NEEDED?NO CLERGY REFERRAL NEEDED?NO PUBLIC HEALTH REFERRAL NEEDED?NO HAS THE PATIENT BEEN EDUCATED REGARDING HIS/HER PLAN OF CARE?YES HAS THE PATIENT BEEN EDUCATED REGARDING PAIN, THE RISK FOR PAIN, THE IMPORTANCE OF EFFECTIVE PAIN MANAGEMENT, AND THE PAIN ASSESSMENT PROCESS?YES LATEX QUESTIONNAIRE LATEX ALLERGY : HAVE YOU EVER DEVELOPED ANY TYPE OF REACTION AFTER HANDLING LATEX PRODUCTS SUCH RUBBER GLOVES, CONDOMS, DIAPHRAGMS, BALLOONS, SOCKS, OR UNDERWEAR?NO LATEX ALLERGY : HAVE YOU EVER DEVELOPED ANY TYPE OF REACTION DURING OR AFTER DENTAL APPOINTMENT, VAGINAL/RECTAL EXAMINATION, SURGICAL PROCEDURE, OR ANY OTHER EXPOSURE?NO DATE ASKED : 04/05/2019 LATEX RISK : HAVE YOU EVER HAD ANY DIFFICULTY BREATHING OR HIVES AFTER EATING OR HANDLING ANY FRUITS, OR VEGETABLES; SUCH KIWI, BANANAS, STONE FRUITS, OR CHESTNUTSNO LATEX RISK : DO YOU HAVE A PREVIOUS PERSONAL HISTORY OF MORE THAN NINE SURGERIES, SPINA BIFIDA, OR REPEATED CATHERIZATIONS? NO LATEX RISK : ARE YOU FREQUENTLY EXPOSED TO LATEX PRODUCTS IN YOUR OCCUPATION?NO CAFFEINE CAFFEINE USE?YES 1-2 CUPS DAILY ADVANCE DIRECTIVE ADVANCE DIRECTIVE DISCUSSED WITH PATIENT:YES INFORMATION GIVEN TO PATIENT STATES SHE DOES NOT NEED HELP TO CPMPLETE PAPERWORK FAITH [id number] OTHER MARITAL STATUS: ., MOTHER OF 3. ALCOHOL SCREENING DID YOU HAVE A DRINK CONTAINING ALCOHOL IN THE PAST YEAR?YES HOW OFTEN DID YOU HAVE SIX OR MORE DRINKS ON ONE OCCASION IN THE PAST YEAR?NEVER (0 POINTS) HOW MANY DRINKS DID YOU HAVE ON A TYPICAL DAY WHEN YOU WERE DRINKING IN THE PAST YEAR?1 OR 2 (0 POINTS) HOW OFTEN DID YOU HAVE A DRINK CONTAINING ALCOHOL IN THE PAST YEAR?MONTHLY OR LESS (1 POINT) POINTS1 INTERPRETATIONNEGATIVE OCCUPATION: HOMEMAKER. SEXUAL HX HAD SEX IN THE LAST 12 MONTHS (VAGINAL, ORAL, OR ANAL)?YES WITHMEN ONLY HAVE YOU EVER HAD AN STD?NO REVIEWED WITH PATIENT 04/06/19 09[facility] IMPERIAL POINT. HOSPITALIZATION/MAJOR DIAGNOSTIC PROCEDURE SURGICAL RELATED CHILDBIRTH 1993/1995/2005 REVIEW OF SYSTEMS REVIEWED BY: PROVIDER: . CONSTITUTIONAL: ANY CHANGE IN YOUR MEDICAL CONDITION? NO . CHILLS NO . FEVER NO . INFECTION: DO YOU HAVE NEW INFECTIONS? YES, CYSTITIS AND PNEUMONIA BOTH TX'D W ABX AND BOTH RESOLVED . DO YOU HAVE HISTORY OF MRSA? NO . MUSCULOSKELETAL: ANY NEW PATTERNS OF PAIN OR NUMBNESS? NO . GASTROENTEROLOGY: ANY NEW CHANGE IN BOWEL CONTROL? NO . GENITOURINARY: ANY NEW CHANGE IN BLADDER CONTROL? NO . IS THERE A CHANCE YOU COULD BE ? NO . HEMATOLOGY/LYMPH: DO YOU TAKE ANY BLOOD THINNERS? (FOR EXAMPLE- COUMADIN, PLAVIX, AGGRENOX, PLATEL, PRADAXA, OR XARELTO) NO . WHEN WAS YOUR LAST DOSE? DATE: TIME: . NEUROLOGY: HAVE YOU FALLEN IN THE PAST 12 MONTHS? YES, PT STATES SHE FALLS ALOT, LAST TIME FRIDAY PT DENIES INJURIES . ANY NEW EXTREMITY NUMBNESS OR WEAKNESS? YES, RIGHT LEG WEAKNESS . CARDIOLOGY: DO YOU HAVE A PACEMAKER OR DEFIBRILLATOR? NO . RESPIRATORY: HAVE YOU BEEN SICK IN THE PAST WEEK? YES, CYCTITIS AND PNEUMONIA . FEVER NO . FLU LIKE SYMPTOMS? NO . COUGH NO . INTEGUMENTARY: DO YOU HAVE ANY RASHES OR OPEN SORES? NO . ALLERGIC/IMMUNO: ARE YOU ALLERGIC TO IV DYE? NO . ANY NEW ALLERGIES? NO . PSYCHIATRIC: DO YOU HAVE THOUGHTS OF HURTING YOURSELF OR SOMEONE ELSE? NO . ARE YOU ABUSED, NEGLECTED, OR IN AN UNSAFE ENVIRONMENT? NO . ENDOCRINOLOGY: ARE YOU DIABETIC? NO . OTHER: DO YOU NEED ANY PRESCRIPTIONS? NO . IF YES, PLEASE LIST: ____ . ANY NEW PROBLEMS WITH YOUR MEDICATIONS? NO . WHEN DID YOU LAST EAT? 06/23/19 1900 . WHEN DID YOU LAST DRINK? 06/23/19 1100 . WHAT DID YOU LAST DRINK? WATER . NAME OF PERSON DRIVING YOU HOME? MEDICAID CAB . DO YOU HAVE ANY OTHER QUESTIONS OR CONCERNS PNEUMONIA AND FLU VACCINES RECEIVED 06/03/19 . VITAL SIGNS WT 271.4 LBS, HT 66.5 IN, BMI 43.14 INDEX, BP 133/70 MM HG, HR 84 /MIN, RR 18 /MIN, TEMP 97.6 F, OXYGEN SAT % 97%, NA INITIALS AW 0913, REVIEWED BY: EM. ASSESSMENTS INTERVERTEBRAL DISC DISORDERS WITH RADICULOPATHY, LUMBAR REGION - M51.16 (PRIMARY) TREATMENT INTERVERTEBRAL DISC DISORDERS WITH RADICULOPATHY, LUMBAR REGION [facility] FLUORO GUIDE SPINE INJECTION (PAIN)[id number] PROCEDURES PRE PROCEDURE DIAGNOSIS LUMBAR DISC DISORDER WITH RADICULOPATHY POST PROCEDURE DIAGNOSIS LUMBAR DISC DISORDER WITH RADICULOPATHY PROCEDURE LUMBAR EPIDURAL STEROID INJECTION UNDER FLUOROSCOPIC GUIDANCE SURGEON DR. JUSTEN MARIN PITCH WORKER NONE ANESTHESIA LOCAL PRE PROCEDURE NOTE THE PATIENT HAS A HISTORY OF CHRONIC LOW BACK PAIN. I EVALUATED THE PATIENT AND REVIEWED THE CHART. I WENT OVER THE RISKS, ALTERNATIVES, AND BENEFITS ASSOCIATED WITH THIS PROCEDURE. THE PATIENT WOULD LIKE TO PROCEED AND GIVES CONSENT TO PERFORM THE PROCEDURE. THE PATIENT DENIES UNEXPLAINABLE WEIGHT LOSS, FEVER, CHILLS, OR NEW CHANGES IN URINARY OR BOWEL CONTROL. DESCRIPTION OF PROCEDURE THE PATIENT WAS BROUGHT TO THE PROCEDURE ROOM AND PLACED IN THE PRONE POSITION. THE LUMBOSACRAL AREA WAS CLEANED WITH BETADINE SOLUTION AND DRAPED ASEPTICALLY. THE PROCEDURE WAS DONE UNDER STERILE CONDITIONS. I CHECKED LATERALITY AND THE LEVEL WHERE THE PROCEDURE WAS GOING TO BE PERFORMED WITH THE PATIENT AND THE SUPPORTING STAFF AT THE MOMENT OF THE TIME OUT IN THE PROCEDURE ROOM. UNDER FLUOROSCOPIC GUIDANCE, THE TARGET POINT WAS SELECTED AT THE INTERLAMINAR LEVEL OF L4-L5. LIDOCAINE WAS USED TO NUMB THE SKIN AND THE SUBCUTANEOUS TISSUE BELOW IT. EPIDURAL TUOHY NEEDLE, 17-GAUGE, WAS ADVANCED UNDER FLUOROSCOPIC GUIDANCE AND FOLLOWING PATIENT FEEDBACK UNTIL THE EPIDURAL SPACE WAS REACHED, 7 CM DEEP INTO THE SKIN BY THE LOSS OF RESISTANCE TECHNIQUE. ISOVUE M DYE 30%, 0.25 ML, WAS INJECTED SHOWING ADEQUATE SPREAD OF THE DYE. THEN, A SOLUTION OF 3 ML OF NORMAL SALINE WITH DEPO-MEDROL 60 MG WAS INJECTED SLOWLY FOLLOWING PATIENT FEEDBACK. THERE WAS NO EVIDENCE OF BLOOD, PARESTHESIA OR CEREBROSPINAL FLUID DURING THE PROCEDURE. THE PATIENT WAS SENT TO THE RECOVERY ROOM. THE PATIENT WAS MOVING THE EXTREMITIES AND DOING WELL. THERE WAS NO COMPLICATION DURING THE PROCEDURE. FLUOROSCOPY TIME WAS 17 SECONDS. POST PROCEDURE NOTE THE PATIENT WILL BE SEEN IN A FOLLOW UP IN THE NEXT FEW WEEKS. INSTRUCTIONS WERE GIVEN, QUESTIONS WERE ANSWERED, AND THE PATIENT EXPRESSED UNDERSTANDING AND AGREES WITH THE PLAN. I, DANTE ESTRADA, DOCUMENTED THE ABOVE INFORMATION ACTING A SCRIBE FOR DR. MARIN. I HAVE REVIEWED THE ABOVE DOCUMENT, WRITTEN BY DANTE HANNAIBFloyd AND I VERIFY THAT IT IS ACCURATE. PROCEDURE CODES 19221 LUMBAR/SACRAL W/ IMAGING 6045F RADXPS IN END [id number] PXD DISPOSITION & COMMUNICATION FOLLOW UP 2 WEEKS ELECTRONICALLY SIGNED BY JUSTEN MARIN MD, MD ON 07/06/2019 AT 01:29 PM EST DISCLAIMER : THIS IS A VISIT SUMMARY EXTRACTED FROM THE [employer] CHART. IT IS NOT A COPY OF THE [employer] PROGRESS NOTE. MTDD
== END ==
LOC: M PAIN 09:15
PROVIDERS: ATTEND Anesthesiology
DX: M51.16 Intervertebral disc disorders with radiculopathy, lumbar region (principal); J45.40 Moderate persistent asthma, uncomplicated; K21.9 Gastro-esophageal reflux disease without esophagitis; G43.909 Migraine, unspecified, not intractable, without status migrainosus; G50.0 Trigeminal neuralgia; M79.7 Fibromyalgia; G62.9 Polyneuropathy, unspecified; G56.03 Carpal tunnel syndrome, bilateral upper limbs; G25.81 Restless legs syndrome; Z79.899 Other long term (current) drug therapy; Z87.891 Personal history of nicotine dependence; R91.1 Solitary pulmonary nodule; Z88.1 Allergy status to other antibiotic agents; Z88.8 Allergy status to other drugs, medicaments and biological substances
CPT/HCPCS: 62323; J1030; Q9967

== ENCOUNTER → 2019-07-08 | Outpatient (CLI) | payer OTHER ==
[~2019-07-08] MED LIST changes: -ISOVUE-M 300 61% 15ML VIAL (Q9967) As Ordered ONE; -LIDOCAINE 1% SDV INJ 30 ML VIAL As Ordered ONE; -diazePAM 5 MG TAB As Ordered ONE; -methylPREDNISolone SUSP 40 MG/ML (DEPO-medrol) VIAL (J1030) As Ordered ONE; -oxyCODONE 5MG TAB As Ordered ONE
--- NOTE | 2019-07-10 06:01 | ECWPNPC ---
PATIENT NAME: DOMINGA BAÑUELOS : 1970 GENDER: FEMALE VISIT DATE: 07/08/2019 DISCHARGE DATE: 07/08/19 1051 VISIT LOCKED DATE TIME: PHYSICIAN: CHERYL BAIG RESOURCE: CHERYL BAIG REASON FOR APPOINTMENT 1. POST LESI HISTORY OF PRESENT ILLNESS HISTORY OF PRESENT ILLNESS: PAIN THE PATIENT DESCRIBES THE PAIN... 48-YEAR-OLD FEMALE IN FOR POST LESI FOLLOW-UP. SHE FEELS THE PROCEDURE WAS INEFFECTIVE OVERALL SHE RATED HER PAIN PREPROCEDURE 9 OUT OF 10 AND POST PROCEDURE AT A 7 OUT OF 10 AND STATES THAT IT ONLY WAS AT A 7 FOR APPROXIMATELY 2 HOURS. HER PAIN CURRENTLY IS RATED AN 8 OUT OF 10 AND SHE DESCRIBES IT ACHING, BURNING, TENDER, SHARP, STABBING, SHOOTING, AND CONTINUOUS. FALL RISK SCREENING: SCREENING :NO FALLS REPORTED IN THE LAST YEAR CURRENT MEDICATIONS TAKING FISH OIL 1000 MG CAPSULE 1 TABLET ORALLY DAILY TAKING CALCIUM 600 MG TABLET 1 TABLET ORALLY DAILY TAKING MULTIVITAMINS OTC TABLET 1 TABLET ORALLY DAILY TAKING ROPINIROLE HCL 2 MG TABLET 1 TAB AM & 2 TAB PM ORALLY TWICE DAILY TAKING CYMBALTA 60 MG CAPSULE DELAYED RELEASE PARTICLES 1 CAPSULE ORALLY TWICE A DAY TAKING OMEPRAZOLE 40 MG CAPSULE DELAYED RELEASE 1 CAPSULE ORALLY ONCE A DAY TAKING SINGULAIR 10 MG TABLET 1 TABLET IN THE EVENING ORALLY ONCE A DAY TAKING QUETIAPINE FUMARATE 100 MG TABLET 1 TABLET AT BEDTIME ORALLY DAILY TAKING CLARITIN 10 MG TABLET 1 TABLET ORALLY ONCE A DAY TAKING BIOTIN 10 MG TABLET 1 TABLET ORALLY ONCE A DAY TAKING PROBIOTIC - TABLET DELAYED RELEASE DIRECTED ORALLY TAKING DOCQLACE 100 MG CAPSULE 1 CAPSULE NEEDED ORALLY ONCE A DAY TAKING VENTOLIN HFA 108 (90 BASE) MCG/ACT AEROSOL SOLUTION 2 PUFFS NEEDED INHALATION EVERY 4 HRS TAKING BENADRYL 25 MG TABLET 1 TABLET ORALLY NEEDED TAKING SIMVASTATIN 20 MG TABLET 1 TABLET IN THE EVENING ORALLY ONCE A DAY TAKING FOLIC ACID 1 MG TABLET 1 TABLET ORALLY ONCE A DAY TAKING VITAMIN E 100 UNIT CAPSULE 3 CAPSULE ORALLY ONCE A DAY TAKING BETAMETHASONE DIPROPIONATE AUG 0.05 % OINTMENT 1 APPLICATION TO AFFECTED AREA EXTERNALLY BID TO AREAS ON BODY WITH PINK TO RED RASH TAKING TEGRETOL 200 MG TABLET 1 TAB PAULA & 2 TABS IN PM ORALLY TWICE A DAY TAKING TRAZODONE HCL 100 MG TABLET TAKE TWO TABLETS BY MOUTH AT BEDTIME AT BEDTIME TAKING ADVAIR DISKUS 250-50 MCG/DOSE AEROSOL POWDER BREATH ACTIVATED 1 PUFF INHALATION TWICE A DAY TAKING WHEELCHAIR - MISCELLANEOUS BARIATRIC WHEELCHAIR; DIRECTED HT 66.5 IN, WT 266LBS DX M87.05 TAKING FLONASE ALLERGY RELIEF 50 MCG/ACT SUSPENSION 1 SPRAY IN EACH NOSTRIL NASALLY BID TAKING GABAPENTIN 400 MG CAPSULE 1 CAPSULE ORALLY BID TAKING TIZANIDINE HCL 4 MG TABLET 1 TABLET NEEDED ORALLY THREE TIMES A DAY TAKING CLINDAMYCIN PHOSPHATE 1 % GEL 1 APPLICATION TO AFFECTED AREA EXTERNALLY ONCE A DAY IN AM TO FACE MEDICATION LIST REVIEWED AND RECONCILED WITH THE PATIENT PAST MEDICAL HISTORY LUNG NODULE ON CXR IN ED 05/2019 MODERATE PERSISTENT ASTHMA GERD INTERSTITIAL CYSTITIS/OAB/CHRONIC HEMATURIA - PREVIOUSLY FOLLOWED WITH [facility] UROLOGY LICHEN PLANUS, ACNE - DR. MERCADO MIGRAINES - DOES BOTOX INJECTIONS LEFT TRIGEMINAL NEURALGIA - DR. DILLARD RLS - DR. DILLARD ANXIETY/DEPRESSION - DR. OCHOA CARPAL TUNNEL BILATERAL - NCOG BACK/SCIATIC PAIN- DR. CABAN, NEUROSURG IN [place] PERIPHERAL NEUROPATHY, SMALL FIBER SENSORY NEUROPATHY - DR. DILLARD CHRONIC LEFT FOOT AND ANKLE PAIN - NCOG RIGHT HIP PAIN - AVN - ([facility]) COMPLEX REGIONAL PAIN SYNDROME FIBROMYALGIA - PAIN CENTER [facility] CORE 11.35 % LACTOSE INTOLERANT AND GLUTEN SENSITIVITY PNEUMONIA CYSTITIS ALLERGIES CIPROFLOXACIN: DYSPNEA - ALLERGY ELMIRON: NAUSEA/VOMITING/COUGH - ALLERGY AUGMENTIN: DIARRHEA - SIDE EFFECTS SURGICAL HISTORY FOOT SURGERY -RIGHT KNEE SURGERY -LEFT SINUS SURGERY BILATERAL TUBAL LIGATION COLPOSCOPY- LESLY RUSSELLC 04/05/19 FAMILY HISTORY FATHER: ALIVE 70 YRS, HEART DISEASE MOTHER: 46 YRS SIBLINGS: ALIVE, HYPOTHYROID,ONE SISTER OF PNENOMIA SON(S): ALIVE DAUGHTER(S): ALIVE 23 YRS MATERNAL UNCLE: RHEUMATOID 1 BROTHER(S) , 1 SISTER(S) . 2 SON(S) , 1 DAUGHTER(S) - HEALTHY. SISTER: AGE 33 FROM [place]\\NBROTHER: 1977\\NSONS: 1993, 2006\\N\\NMATERNAL 1ST COUSIN- LUPUS\\NNO FAMILY HX OF MELANOMA OR PANCREATIC CANCER. SOCIAL HISTORY GENERAL: TOBACCO USE ARE YOU A:FORMER SMOKER HOW LONG HAS IT BEEN SINCE YOU LAST SMOKED?> 10 YEARS HIV / HEP-C SCREENING HIV TEST OFFERED TO PATIENT:YES DATE OFFERED:10/08/2017 TEST ACCEPTED:NO HEP-C TEST OFFERED TO PATIENT:NO REASON:PATIENT DECLINED OTHERS AT HOME: CHILD. EDUCATION LEVEL OF EDUCATION:HIGH SCHOOL DIET: LOW GLUTEN, LOW CARBS, LOW LACTOSE, LOW OXYLATE. LANGUAGE [place]. DOMESTIC VIOLENCE DO YOU FEEL SAFE IN YOUR ENVIRONMENT?YES BMI CARE GOAL FOLLOW-UP ABOVE NORMAL BMI FOLLOW-UPLIFESTYLE EDUCATION REGARDING DIET RECREATIONAL DRUG USE DENIES. EXERCISE: NO REGULAR EXERCISE. LEARNING BARRIERS / SPECIAL NEEDS CHANGE FROM LAST VISIT?NO BARRIERS TO LEARNING?NO HEARING IMPAIRED?NO VISION IMPAIRED?NO COGNITIVELY IMPAIRED?NO READINESS TO LEARN?YES LEARNING PREFERENCES?NO LEARNING CAPABILITIES PRESENT?YES EMOTIONAL BARRIERS?NO SPECIAL DEVICES?YES :CANE, WALKER, OTHER SHOWER CHAIR, RAISES TOILET SEAT VISUAL ASSOCIATE NEEDED?NO PAIN CLINIC PFS, CLERGY, PUBLIC HEALTH REFERRALS PFS REFERRAL NEEDED?NO CLERGY REFERRAL NEEDED?NO PUBLIC HEALTH REFERRAL NEEDED?NO HAS THE PATIENT BEEN EDUCATED REGARDING HIS/HER PLAN OF CARE?YES HAS THE PATIENT BEEN EDUCATED REGARDING PAIN, THE RISK FOR PAIN, THE IMPORTANCE OF EFFECTIVE PAIN MANAGEMENT, AND THE PAIN ASSESSMENT PROCESS?YES LATEX QUESTIONNAIRE LATEX ALLERGY : HAVE YOU EVER DEVELOPED ANY TYPE OF REACTION AFTER HANDLING LATEX PRODUCTS SUCH RUBBER GLOVES, CONDOMS, DIAPHRAGMS, BALLOONS, SOCKS, OR UNDERWEAR?NO LATEX ALLERGY : HAVE YOU EVER DEVELOPED ANY TYPE OF REACTION DURING OR AFTER DENTAL APPOINTMENT, VAGINAL/RECTAL EXAMINATION, SURGICAL PROCEDURE, OR ANY OTHER EXPOSURE?NO LATEX RISK : HAVE YOU EVER HAD ANY DIFFICULTY BREATHING OR HIVES AFTER EATING OR HANDLING ANY FRUITS, OR VEGETABLES; SUCH KIWI, BANANAS, STONE FRUITS, OR CHESTNUTSNO LATEX RISK : DO YOU HAVE A PREVIOUS PERSONAL HISTORY OF MORE THAN NINE SURGERIES, SPINA BIFIDA, OR REPEATED CATHERIZATIONS? NO LATEX RISK : ARE YOU FREQUENTLY EXPOSED TO LATEX PRODUCTS IN YOUR OCCUPATION?NO DATE ASKED : 04/05/2019 CAFFEINE CAFFEINE USE?YES 1-2 CUPS DAILY ADVANCE DIRECTIVE ADVANCE DIRECTIVE DISCUSSED WITH PATIENT:YES HCP INFORMATION GIVEN TO PATIENT STATES SHE DOES NOT NEED HELP TO COMPLETE PAPERWORK . SHINTO [id number] OTHER MARITAL STATUS: ., MOTHER OF 3. ALCOHOL SCREENING DID YOU HAVE A DRINK CONTAINING ALCOHOL IN THE PAST YEAR?YES HOW OFTEN DID YOU HAVE SIX OR MORE DRINKS ON ONE OCCASION IN THE PAST YEAR?NEVER (0 POINTS) HOW MANY DRINKS DID YOU HAVE ON A TYPICAL DAY WHEN YOU WERE DRINKING IN THE PAST YEAR?1 OR 2 (0 POINTS) HOW OFTEN DID YOU HAVE A DRINK CONTAINING ALCOHOL IN THE PAST YEAR?MONTHLY OR LESS (1 POINT) POINTS1 INTERPRETATIONNEGATIVE OCCUPATION: HOMEMAKER. SEXUAL HX HAD SEX IN THE LAST 12 MONTHS (VAGINAL, ORAL, OR ANAL)?YES WITHMEN ONLY HAVE YOU EVER HAD AN STD?NO REVIEWED WITH PATIENT 04/06/19 0912 NLJ REVIEWED WITH PATIENT 07/08/19 1009 JS. HOSPITALIZATION/MAJOR DIAGNOSTIC PROCEDURE SURGICAL RELATED CHILDBIRTH 1993/1995/2005 REVIEW OF SYSTEMS REVIEWED BY: PROVIDER: WAQAS BAIG OCCUPATIONAL THERAPY DIRECTOR-C . CONSTITUTIONAL: ANY CHANGE IN YOUR MEDICAL CONDITION? NO . CHILLS NO . FEVER NO . INFECTION: DO YOU HAVE NEW INFECTIONS? NO . DO YOU HAVE HISTORY OF MRSA? NO . MUSCULOSKELETAL: ANY NEW PATTERNS OF PAIN OR NUMBNESS? YES, STATES PAIN HAS INCREASED AND MORE PAIN IN PELVIC AREA, CAUSING WEAKNESS IN LEGS. WAITING FOR HIP REPLACEMENT . GASTROENTEROLOGY: ANY NEW CHANGE IN BOWEL CONTROL? NO . GENITOURINARY: ANY NEW CHANGE IN BLADDER CONTROL? NO . IS THERE A CHANCE YOU COULD BE ? NO . HEMATOLOGY/LYMPH: DO YOU TAKE ANY BLOOD THINNERS? (FOR EXAMPLE- COUMADIN, PLAVIX, AGGRENOX, PLATEL, PRADAXA, OR XARELTO) NO . WHEN WAS YOUR LAST DOSE? DATE: TIME: . NEUROLOGY: HAVE YOU FALLEN IN THE PAST 12 MONTHS? YES, STATES FALL DUE TO LOSING BALANCE, STATES NO INJURIES, NO ED VISIT . ANY NEW EXTREMITY NUMBNESS OR WEAKNESS? YES, WEAKNESS TO BILATERAL LEGS . CARDIOLOGY: DO YOU HAVE A PACEMAKER OR DEFIBRILLATOR? NO . RESPIRATORY: HAVE YOU BEEN SICK IN THE PAST WEEK? NO . FEVER NO . FLU LIKE SYMPTOMS? NO . COUGH NO . INTEGUMENTARY: DO YOU HAVE ANY RASHES OR OPEN SORES? NO . ALLERGIC/IMMUNO: ARE YOU ALLERGIC TO IV DYE? NO . ANY NEW ALLERGIES? NO . PSYCHIATRIC: DO YOU HAVE THOUGHTS OF HURTING YOURSELF OR SOMEONE ELSE? NO . ARE YOU ABUSED, NEGLECTED, OR IN AN UNSAFE ENVIRONMENT? NO . ENDOCRINOLOGY: ARE YOU DIABETIC? NO . OTHER: DO YOU NEED ANY PRESCRIPTIONS? NO . IF YES, PLEASE LIST: ____ . ANY NEW PROBLEMS WITH YOUR MEDICATIONS? NO . WHEN DID YOU LAST EAT? ____ . WHEN DID YOU LAST DRINK? ____ . WHAT DID YOU LAST DRINK? ____ . NAME OF PERSON DRIVING YOU HOME? ____ . DO YOU HAVE ANY OTHER QUESTIONS OR CONCERNS YES, STATES SHE HASN'T HEARD ANYTHING FROM [facility] ABOUT THE STIMULATOR. STATES SHE SUBMITTED A CARD ABOUT 2 MONTHS AGO . VITAL SIGNS WT 269.2 LBS, HT 66.5 IN, BMI 42.79 INDEX, BP 143/66 MM HG, HR 85 /MIN, RR 18 /MIN, TEMP 96.2 F, OXYGEN SAT % 98%, SAFE IN ENV? (Y/N) YES, NA INITIALS SC 10:07, REVIEWED BY: LIZY. EXAMINATION GENERAL EXAMINATION: GENERALNO ACUTE DISTRESS, WELL NOURISHED AND HYDRATED. PSYCHAPPROPRIATE MOOD AND AFFECT . LUNGS:CLEAR TO AUSCULTATION BILATERALLY, NO WHEEZES, RHONCHI, RALES. HEART:NO MURMURS, REGULAR RATE AND RHYTHM. ASSESSMENTS INTERVERTEBRAL DISC DISORDERS WITH RADICULOPATHY, LUMBAR REGION - M51.16 (PRIMARY) TREATMENT INTERVERTEBRAL DISC DISORDERS WITH RADICULOPATHY, LUMBAR REGION CLINICAL NOTES: 40-YEAR-OLD FEMALE IN FOR POST LESI FOLLOW-UP. GIVEN PRESENTING SYMPTOMS AND RESULTS PHYSICAL EXAMINATION RECOMMENDED ORDERING PSYCHOLOGICAL ASSESSMENT FOR DCS TRIAL. DENAE FROM [employer] WAS HERE TODAY AND DISCUSSED DCS TRIAL WITH PATIENT. 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 MARIN. PATIENT HAS EXPRESSED UNDERSTANDING OF AND WAS IN AGREEMENT WITH TREATMENT PLAN. GIVEN TIME TO ASK QUESTIONS AND EXPRESS CONCERNS. PROCEDURE CODES FA211 ESTABILISHED PATIENT [facility] CHARGE DISPOSITION & COMMUNICATION FOLLOW UP AFTER PSYCH ASSESSMENT (REASON: LOW BACK PAIN) ELECTRONICALLY SIGNED BY ARMAND VAUGHAN ON 07/09/2019 AT 08:57 AM EST DISCLAIMER : THIS IS A VISIT SUMMARY EXTRACTED FROM THE [employer] CHART. IT IS NOT A COPY OF THE [employer] PROGRESS NOTE. MARCO ANTONIO
== END ==
LOC: M PAIN 10:00
PROVIDERS: ATTEND Family Medicine
DX: M51.16 Intervertebral disc disorders with radiculopathy, lumbar region (principal)

== ENCOUNTER 2019-07-13 10:34 | Emergency (ER) | payer OTHER ==
[~2019-07-13] VITALS: Ht 170.2 cm; Wt 121.3 kg
[~2019-07-13 10:34] MED LIST changes: -CARA1TAB6 PO; -CLIN1GEL22; -COLA100C5 PO; -CYCL10TA PO; -DICY10CA13 PO; -FLUT1BLS5; -KETO10TAB PO; -PROT1TAB2 PO; -SIMV20TA2; +SIMV20TA22; -TIZA4TAB4
[2019-07-13] MEDS ORDERED: KETOROLAC 30 MG/ML VIAL (J1885) IV ONE (11:15)
--- NOTE | 2019-07-13 11:35 | REP ---
Clinical: Abdominal pain. Technique: Two supine views of the abdomen and pelvis. Findings: Mild/moderate fecal stasis and possible constipation suggested. No bowel obstruction. No obvious perforation. No organomegaly. Skeletal structures are intact. Phleboliths noted in the pelvis. Impression: Mild/moderate fecal stasis and possible constipation. Electronically Signed by Sebas Stokes MD 07/13/2019 11:26 A
[2019-07-13] MEDS ORDERED: CLIN1GEL22 (11:53)
[2019-07-13] MEDS ORDERED: NAPR-885 (11:53)
[2019-07-13] MEDS ORDERED: FLUT1BLS5 (11:53)
[2019-07-13] MEDS ORDERED: TIZA4TAB4 (11:53)
[2019-07-13 12:01] LABS: BASO # 0.1 10^3/uL (0.0-0.2); BASO % 0.8 % (0.0-1.0); EOS # 0.5 10^3/uL (0.0-0.5); EOS % 5.2 % (0.0-3.0); HEMATOCRIT 43.6 % (36.0-47.0); HEMOGLOBIN 14.3 g/dl (12.0-15.5); LYMPH # 2.8 10^3/uL (1.5-5.0); MEAN CORPUSCULAR HGB CONC 32.8 g/dl (32.0-36.5); MEAN CORPUSCULAR VOLUME 94.6 fl (80.0-96.0); MONO # 0.9 10^3/uL (0.0-0.8); MONO % 8.3 % (0.0-5.0); NEUTROPHILS # 5.9 10^3/uL (1.5-8.5); NEUTROPHILS % 58.4 % (36.0-66.0); PLATELET COUNT, AUTOMATED 275 10^3/uL (150-450); RED BLOOD COUNT 4.61 10^6/uL (4.00-5.40); WHITE BLOOD COUNT 10.2 10^3/uL (4.0-10.0)
[2019-07-13] MEDS ORDERED: KETO10TAB PO (12:20)
[2019-07-13] MEDS ORDERED: CYCL10TA PO (12:20)
--- NOTE | 2019-07-13 12:20 | REP ---
PELVIC ULTRASOUND: Real-time sonographic evaluation of the pelvis is performed utilizing transabdominal and endovaginal technique. Urinary bladder is collapsed. Uterus measures 6.6 x 3.7 x 5.5 cm. Endometrial thickness is approximately 5 mm. Uterus is retroverted. Ovaries are normal in size and echotexture, right ovary measuring 3.0 x 1.1 x 1.2 cm and left ovary 3.2 x 1.4 x 2.5 cm. There is no adnexal mass or free fluid. There is no torsion, blood flow is seen in each ovary with duplex Doppler evaluation. IMPRESSION: Essentially negative pelvic ultrasound. Electronically Signed by Erik Chandra MD 07/13/2019 12:49 P
[2019-07-13 12:32] LABS: ALBUMIN 3.8 GM/DL (3.2-5.2); ALT/SGPT 45 U/L (12-78); AMYLASE 29 U/L (25-115); BILIRUBIN,DIRECT < 0.1 MG/DL (0.0-0.2); BILIRUBIN,TOTAL 0.3 MG/DL (0.2-1.0); BLOOD UREA NITROGEN 17 MG/DL (7-18); C REACTIVE PROTEIN QUANTITATIV < 0.30 MG/DL (0.00-0.30); CALCIUM LEVEL 9.1 MG/DL (8.5-10.1); CARBON DIOXIDE LEVEL 28 MEQ/L (21-32); CHLORIDE LEVEL 109 MEQ/L (98-107); CREATININE FOR GFR 0.96 MG/DL (0.55-1.30); GLOMERULAR FILTRATION RATE > 60.0 (>58); GLUCOSE, FASTING 90 MG/DL (70-100); LIPASE 89 U/L (73-393); POTASSIUM SERUM 4.2 MEQ/L (3.5-5.1); SODIUM LEVEL 141 MEQ/L (136-145); TOTAL PROTEIN 7.1 GM/DL (6.4-8.2)
[2019-07-13 12:36] LABS: ERYTHROCYTE SEDIMENTATION RATE 17 mm/hr (0-20)
[2019-07-13] MEDS ORDERED: DICY10CA13 PO (13:15)
[2019-07-13] MEDS ORDERED: CARA1TAB6 PO (13:15)
[2019-07-13] MEDS ORDERED: MAGNESIUM CITRATE 300 ML BTL PO ONE (13:15)
[2019-07-13] MEDS ORDERED: COLA100C5 PO (13:15)
[2019-07-13] MEDS ORDERED: DICYCLOMINE 10 MG CAP PO ONE (13:15)
[2019-07-13] MEDS ORDERED: PROT1TAB2 PO (13:15)
[2019-07-13 14:21] VITALS: BP 124/75
== END 2019-07-13 14:23 | disposition home or self-care (01) ==
LOC: M ED 10:34
DX: G89.29 Other chronic pain (principal); R10.9 Unspecified abdominal pain; K59.00 Constipation, unspecified; N85.5 Inversion of uterus; Z79.51 Long term (current) use of inhaled steroids; Z79.891 Long term (current) use of opiate analgesic; Z79.899 Other long term (current) drug therapy; Z88.8 Allergy status to other drugs, medicaments and biological substances
CPT/HCPCS: 74018; 76830; 76856; 80048; 80076; 81001; 82150; 83690; 85025; 85652; 86140; 87086; 93976; 96374; 99284; J1885

== ENCOUNTER → 2019-07-23 | Outpatient (CLI) | payer OTHER ==
[~2019-07-23] MED LIST changes: +CARA1TAB6 PO; +CLIN1GEL22; +COLA100C5 PO; +CYCL10TA PO; +DICY10CA13 PO; +FLUT1BLS5; +KETO10TAB PO; +PROT1TAB2 PO; +TIZA4TAB4
--- NOTE | 2019-07-23 10:36 | REP ---
RIGHT UPPER QUADRANT ULTRASOUND: Real-time sonographic evaluation of the right upper quadrant performed. Gallbladder demonstrates no evidence of intraluminal sludge or calculi, wall thickening, or pericholecystic fluid. There is no intrahepatic or extrahepatic biliary dilatation, common bile duct measuring 5 mm. Liver demonstrates diffuse increased echotexture compatible with diffuse fibrofatty infiltration. There appears to be some parenchymal sparring adjacent to the gallbladder. No gross liver or pancreatic mass is seen. Pancreas is not well seen due to overlying bowel gas. Right kidney demonstrates no hydronephrosis with normal size at 12.3 cm in length. IMPRESSION: Diffuse fibrofatty infiltration of the liver. No gallstones or biliary dilatation. No free fluid. Electronically Signed by Erik Chandra MD 07/23/2019 03:50 P
== END ==
LOC: M RAD 08:27
PROVIDERS: ATTEND Family Medicine
DX: R10.11 Right upper quadrant pain (principal); K76.0 Fatty (change of) liver, not elsewhere classified

== ENCOUNTER 2019-10-05 11:17 | Day surgery (SDC) | payer OTHER ==
[~2019-10-05] VITALS: Ht 170.2 cm; Wt 117.9 kg
[~2019-10-05 11:17] MED LIST changes: +CALC-333 PO; +CYMB60CA3 PO; +DICY1CAP8 PO; +FLON1SPR NARES; +FOLI1TAB11 PO; +GABA-845 PO; +KP F1200 PO; +MM S100C PO; -MONT10TA2; +MONT10TA4; +MONT10TA4 PO; +MULTCAP PO; +NS 1,000 ML IV ONE; +OMEP40CA97 PO; +PANT40TA3 PO; +PROBCAP14 PO; -ROPI2TAB; +ROPI2TAB3; +ROPI2TAB3 PO; +SERO1TAB PO; +SM LTAB5 PO; +TIZA4CAP PO; +TOPA1TAB PO; -TRAZ-163; +TRAZ-257; +TRAZ-257 PO
[2019-10-05] MEDS ORDERED: propofoL 200 MG/20 ML VIAL As Ordered ONE ×3 (12:14→13:26)
[2019-10-05] MEDS ORDERED: LIDOCAINE 2% INJ 100 MG/5 ML SDV (FOR ANES.) As Ordered ONE (12:15)
[2019-10-05] MEDS ORDERED: fentaNYL 100 MCG/2 ML INJECTION (J3010) As Ordered ONE (12:16)
[2019-10-05] MEDS ORDERED: SING10TA32 PO (12:26)
[2019-10-05] MEDS ORDERED: IBUP80TA PO (12:26)
--- NOTE | 2019-10-05 13:10 | ROOR ---
Patient Name: Bren Resendez Procedure Date: 10/05/2019 12:53 PM Date of : 1970 Age: 49 Room: [facility] Gender: Female Note Status: Finalized Procedure: Upper Endoscopy + Biopsies Indications: Epigastric abdominal pain, Abdominal pain in the left upper quadrant Providers: Rocco Guzman MD Referring MD: Ivonne Davis MD Requesting Provider: Medicines: Monitored Anesthesia Care Complications: No immediate complications. Procedure: Pre-Anesthesia Assessment: - The heart rate, respiratory rate, oxygen saturations, blood pressure, adequacy of pulmonary ventilation, and response to care were monitored throughout the procedure. The Endoscope was introduced through the mouth, and advanced to the second part of duodenum. The upper GI endoscopy was accomplished without difficulty. The patient tolerated the procedure well. Findings: The Z-line was regular and was found 40 cm from the incisors. Multiple biopsies were obtained with cold forceps for evaluation to rule out Regalado's Esophagus randomly at the gastroesophageal junction. A small hiatal hernia was present. Localized mildly erythematous mucosa without bleeding was found in the gastric antrum. Biopsies were taken with a cold forceps for Helicobacter pylori testing. The exam of the duodenum was otherwise normal. Impression: - Z-line regular, 40 cm from the incisors. - Small hiatal hernia. - Erythematous mucosa in the antrum. Biopsied. - Multiple biopsies were obtained at the gastroesophageal junction. - The examination was otherwise normal. Recommendation: - Patient has a contact number available for emergencies. The signs and symptoms of potential delayed complications were discussed with the patient. Return to normal activities tomorrow. Written discharge instructions were provided to the patient. - High fiber diet. - Discharge patient to home. - Follow an antireflux regimen. - Continue present medications. - Await pathology results. - Telephone GI clinic for pathology results in 1 week. - Return to referring physician. - The findings and recommendations were discussed with the patient's family. Rocco Guzman MD Rocco Guzman MD 10/05/2019 1:09:28 PM Electronically signed by Rocco Guzman MD Number of Addenda: 0 Note Initiated On: 10/05/2019 12:53 PM Estimated Blood Loss: Estimated blood loss: none.
--- NOTE | 2019-10-05 13:38 | ROOR ---
Patient Name: Bren Resendez Procedure Date: 10/05/2019 12:54 PM Date of : 1970 Age: 49 Room: [facility] Gender: Female Note Status: Finalized Procedure: Total Colonoscopy to Cecum + Cold Snare Polypectomy + Hemoclips Indications: Screening for colorectal malignant neoplasm Providers: Rocco Guzman MD Referring MD: Ivonne Davis MD Requesting Provider: Medicines: Monitored Anesthesia Care Complications: No immediate complications. Procedure: Pre-Anesthesia Assessment: - The heart rate, respiratory rate, oxygen saturations, blood pressure, adequacy of pulmonary ventilation, and response to care were monitored throughout the procedure. The Colonoscope was introduced through the anus and advanced to the cecum, identified by appendiceal orifice and ileocecal valve. The colonoscopy was performed without difficulty. The patient tolerated the procedure well. The quality of the bowel preparation was excellent. Findings: The perianal and digital rectal examinations were normal. Non-bleeding internal hemorrhoids were found during retroflexion. The hemorrhoids were small and Grade I (internal hemorrhoids that do not prolapse). Multiple small and large-mouthed diverticula were found in the recto-sigmoid colon, sigmoid colon and descending colon. A small polyp was found at 20 cm proximal to the anus. The polyp was pedunculated. The polyp was removed with a cold snare. Resection and retrieval were complete. A medium polyp was found at 60 cm proximal to the anus. The polyp was sessile. The polyp was removed with a cold snare. Resection and retrieval were complete. To prevent bleeding after the polypectomy, two hemostatic clips were successfully placed (MR conditional). There was no bleeding at the end of the procedure. The exam was otherwise without abnormality on direct and retroflexion views. Impression: - Non-bleeding internal hemorrhoids. - Diverticulosis in the recto-sigmoid colon, in the sigmoid colon and in the descending colon. - One small polyp at 20 cm proximal to the anus, removed with a cold snare. Resected and retrieved. - One medium polyp at 60 cm proximal to the anus, removed with a cold snare. Resected and retrieved. Clips (MR conditional) were placed. - The examination was otherwise normal on direct and retroflexion views. - The exam was otherwise normal to the cecum. Recommendation: - Patient has a contact number available for emergencies. The signs and symptoms of potential delayed complications were discussed with the patient. Return to normal activities tomorrow. Written discharge instructions were provided to the patient. - High fiber diet. - Discharge patient to home. - Continue present medications. - Await pathology results. - Telephone GI clinic for pathology results in 1 week. - Repeat colonoscopy in 5 years for surveillance. - Return to referring physician. - The findings and recommendations were discussed with the patient's family. Rocco Guzman MD Rocco Guzman MD 10/05/2019 1:37:35 PM Electronically signed by Rocco Guzman MD Number of Addenda: 0 Note Initiated On: 10/05/2019 12:54 PM Estimated Blood Loss: Estimated blood loss: none.
[2019-10-05 14:11] VITALS: BP 117/71
== END 2019-10-05 14:14 | disposition home or self-care (01) ==
LOC: M OPP 11:17
PROVIDERS: ATTEND Internal Medicine Gastroenterology
DX: Z12.11 Encounter for screening for malignant neoplasm of colon (principal); K64.0 First degree hemorrhoids; K63.5 Polyp of colon; K57.30 Diverticulosis of large intestine without perforation or abscess without bleeding; K44.9 Diaphragmatic hernia without obstruction or gangrene; K31.89 Other diseases of stomach and duodenum; R10.13 Epigastric pain; R10.12 Left upper quadrant pain; K21.9 Gastro-esophageal reflux disease without esophagitis; Z79.2 Long term (current) use of antibiotics; Z79.891 Long term (current) use of opiate analgesic; Z79.899 Other long term (current) drug therapy; Z88.1 Allergy status to other antibiotic agents; Z88.8 Allergy status to other drugs, medicaments and biological substances; Z87.891 Personal history of nicotine dependence
CPT/HCPCS: 43239; 45385; 88305; J3010

== ENCOUNTER → 2019-11-25 | Outpatient (CLI) | payer OTHER ==
[~2019-11-25] MED LIST changes: -NS 1,000 ML IV ONE; +SING10TA32 PO
--- NOTE | 2019-11-27 01:15 | ECWPNPC ---
PATIENT NAME: DOMINGA BAÑUELOS : 1970 GENDER: FEMALE VISIT DATE: 11/25/2019 DISCHARGE DATE: 11/25/19 0856 VISIT LOCKED DATE TIME: PHYSICIAN: CHERYL BAIG RESOURCE: CHERYL BAIG REASON FOR APPOINTMENT 1. INCREASED PAIN [phone] HISTORY OF PRESENT ILLNESS HISTORY OF PRESENT ILLNESS: PAIN THE PATIENT DESCRIBES THE PAIN... PERMISSION REQUESTED AND RECEIVED FROM PATIENT TO PERFORM TELEHEALTH VISIT. 49-YEAR-OLD FEMALE IN WITH COMPLAINTS OF INCREASED PAIN. SHE RATES HER PAIN CURRENTLY AT AN 8 OUT OF 10 AND DESCRIBES IT BURNING. PATIENT WOULD LIKE TO DISCUSS POSSIBLE MEDICATIONS TO HELP ALLEVIATE HER SYMPTOMS. SHE IS IN PROCESS OF PREPARING FOR A DCS TRIAL BUT GIVEN THE RECENT COVID PANDEMIC THIS HAS BEEN PUT ON HOLD. FALL RISK SCREENING: SCREENING :NO FALLS REPORTED IN THE LAST YEAR CURRENT MEDICATIONS TAKING FISH OIL 1000 MG CAPSULE 1 TABLET ORALLY DAILY TAKING CALCIUM 600 MG TABLET 1 TABLET ORALLY DAILY TAKING MULTIVITAMINS OTC TABLET 1 TABLET ORALLY DAILY TAKING ROPINIROLE HCL 2 MG TABLET 1 TAB AM & 2 TAB PM ORALLY TWICE DAILY TAKING CYMBALTA 60 MG CAPSULE DELAYED RELEASE PARTICLES 1 CAPSULE ORALLY TWICE A DAY TAKING QUETIAPINE FUMARATE 100 MG TABLET 1 TABLET AT BEDTIME ORALLY DAILY TAKING BIOTIN 10 MG TABLET 1 TABLET ORALLY ONCE A DAY TAKING PROBIOTIC - TABLET DELAYED RELEASE DIRECTED ORALLY TAKING DOCQLACE 100 MG CAPSULE 1 CAPSULE NEEDED ORALLY ONCE A DAY TAKING FOLIC ACID 1 MG TABLET 1 TABLET ORALLY ONCE A DAY TAKING VITAMIN E 100 UNIT CAPSULE 3 CAPSULE ORALLY ONCE A DAY TAKING TEGRETOL 200 MG TABLET 1 TAB PAULA & 2 TABS IN PM ORALLY TWICE A DAY TAKING TRAZODONE HCL 100 MG TABLET TAKE TWO TABLETS BY MOUTH AT BEDTIME AT BEDTIME TAKING WHEELCHAIR - MISCELLANEOUS BARIATRIC WHEELCHAIR; DIRECTED HT 66.5 IN, WT 266LBS DX M87.05 TAKING GABAPENTIN 400 MG CAPSULE 1 CAPSULE ORALLY BID TAKING TIZANIDINE HCL 4 MG TABLET 1 TABLET NEEDED ORALLY THREE TIMES A DAY TAKING CLINDAMYCIN PHOSPHATE 1 % GEL 1 APPLICATION TO AFFECTED AREA EXTERNALLY ONCE A DAY IN AM TO FACE TAKING SIMVASTATIN 20 MG TABLET 1 TABLET IN THE EVENING ORALLY ONCE A DAY TAKING VENTOLIN HFA 108 (90 BASE) MCG/ACT AEROSOL SOLUTION 2 PUFFS NEEDED INHALATION EVERY 4 HRS TAKING OMEPRAZOLE 40 MG CAPSULE DELAYED RELEASE 1 CAPSULE ORALLY ONCE A DAY TAKING CLARITIN 10 MG TABLET 1 TABLET ORALLY ONCE A DAY TAKING FLONASE ALLERGY RELIEF 50 MCG/ACT SUSPENSION 1 SPRAY IN EACH NOSTRIL NASALLY BID TAKING SINGULAIR 10 MG TABLET 1 TABLET IN THE EVENING ORALLY ONCE A DAY TAKING ADVAIR DISKUS 250-50 MCG/DOSE AEROSOL POWDER BREATH ACTIVATED 1 PUFF INHALATION TWICE A DAY TAKING BENADRYL 25 MG TABLET 1 TABLET ORALLY THREE TIMES DAILY NEEDED TAKING IBUPROFEN 800 MG TABLET 1 TABLET WITH FOOD OR MILK NEEDED ORALLY BID TAKING TOPAMAX 25 MG TABLET 1 TABLET ORALLY 1 TAB IN A.M., 2 IN P.M. NOT-TAKING BETAMETHASONE DIPROPIONATE AUG 0.05 % OINTMENT 1 APPLICATION TO AFFECTED AREA EXTERNALLY BID TO AREAS ON BODY WITH PINK TO RED RASH MEDICATION LIST REVIEWED AND RECONCILED WITH THE PATIENT PAST MEDICAL HISTORY LUNG NODULE ON CXR IN ED 05/2019, GONE WITH REPEAT CT -LIKELY PNEUMONIA; PLEURAL THICKENING, REPEAT CT 12/2019 MODERATE PERSISTENT ASTHMA GERD INTERSTITIAL CYSTITIS/OAB/CHRONIC HEMATURIA - PREVIOUSLY FOLLOWED WITH [facility] LICHEN PLANUS, ACNE - DR. MERCADO MIGRAINES - DOES BOTOX INJECTIONS LEFT TRIGEMINAL NEURALGIA - DR. DILLARD RLS - DR. DILLARD ANXIETY/DEPRESSION - DR. OCHOA CARPAL TUNNEL BILATERAL - [facility] BACK/SCIATIC PAIN- DR. CABAN, NEUROSURG IN [place] PERIPHERAL NEUROPATHY, SMALL FIBER SENSORY NEUROPATHY - DR. DILLARD CHRONIC LEFT FOOT AND ANKLE PAIN - [facility] RIGHT HIP PAIN - AVN - ([facility]) COMPLEX REGIONAL PAIN SYNDROME FIBROMYALGIA - [facility] CORE 11.35 % LACTOSE INTOLERANT AND GLUTEN SENSITIVITY NEURALGIA LEFT NECK AND ARM ALLERGIES CIPROFLOXACIN: DYSPNEA - ALLERGY ELMIRON: NAUSEA/VOMITING/COUGH AUGMENTIN: DIARRHEA - SIDE EFFECTS SURGICAL HISTORY FOOT SURGERY -RIGHT KNEE SURGERY -LEFT SINUS SURGERY BILATERAL TUBAL LIGATION COLPOSCOPY- LESLY BECKMAN 04/05/19 COLONOSCOPY - 2 POLYPS REMOVED, REPEAT IN 5 YEARS, DR. DAMON 09/2019 EGD - ERYTHEMATOUS MUCOSA IN THE ANTRUM, BIOPSY PENDING, DR. DAMON 09/2019 FAMILY HISTORY FATHER: ALIVE 70 YRS, HEART DISEASE MOTHER: 46 YRS SIBLINGS: ALIVE, HYPOTHYROID,ONE SISTER OF PNENOMIA SON(S): ALIVE DAUGHTER(S): ALIVE 24 YRS MATERNAL UNCLE: RHEUMATOID 1 BROTHER(S) , 1 SISTER(S) . 2 SON(S) , 1 DAUGHTER(S) - HEALTHY. SISTER: AGE 33 FROM PNEUMONIA-OBESITY\\NBROTHER: 1977\\NSONS: 1994, 2005\\N\\NMATERNAL 1ST COUSIN- LUPUS\\NNO FAMILY HX OF MELANOMA OR PANCREATIC CANCER. SOCIAL HISTORY GENERAL: TOBACCO USE ARE YOU A:FORMER SMOKER HOW LONG HAS IT BEEN SINCE YOU LAST SMOKED?> 10 YEARS HIV / HEP-C SCREENING HIV TEST OFFERED TO PATIENT:YES DATE OFFERED:10/08/2017 TEST ACCEPTED:NO HEP-C TEST OFFERED TO PATIENT:NO REASON:PATIENT DECLINED OTHERS AT HOME: CHILD. EDUCATION LEVEL OF EDUCATION:HIGH SCHOOL DIET: LOW GLUTEN, LOW CARBS, LOW LACTOSE, LOW OXYLATE. LANGUAGE MOHAWK. DOMESTIC VIOLENCE DO YOU FEEL SAFE IN YOUR ENVIRONMENT?YES NEW PATIENT PAIN DIARY TODAY'S VISIT 11/25/2019 PATIENT DESCRIBES PAIN :ACHING, BURNING, HAVE IT ALL THE TIME, SHARP, STABBING, TENDER, SORE, SHOOTING FROM 0-10, WHAT LEVEL IS YOUR PAIN TODAY?8 PRECIPITATING FACTORS WALKING, SITTING, STRESS--SHE CAN'T GET COMFORTABLE AND ISN'T SLEEPING WELL ALLEVIATING FACTORS NOTHING IMPACT ON FUNCTION CAN'T DO ANYTHING BMI CARE GOAL FOLLOW-UP ABOVE NORMAL BMI FOLLOW-UPLIFESTYLE EDUCATION REGARDING DIET RECREATIONAL DRUG USE DENIES. EXERCISE: NO REGULAR EXERCISE. LEARNING BARRIERS / SPECIAL NEEDS CHANGE FROM LAST VISIT?NO BARRIERS TO LEARNING?NO HEARING IMPAIRED?NO VISION IMPAIRED?NO COGNITIVELY IMPAIRED?NO READINESS TO LEARN?YES LEARNING PREFERENCES?NO LEARNING CAPABILITIES PRESENT?YES EMOTIONAL BARRIERS?NO SPECIAL DEVICES?YES :CANE, WALKER, OTHER SHOWER CHAIR, RAISES TOILET SEAT DATA ARCHITECT NEEDED?NO PAIN CLINIC PFS, CLERGY, PUBLIC HEALTH REFERRALS PFS REFERRAL NEEDED?NO CLERGY REFERRAL NEEDED?NO PUBLIC HEALTH REFERRAL NEEDED?NO HAS THE PATIENT BEEN EDUCATED REGARDING HIS/HER PLAN OF CARE?YES HAS THE PATIENT BEEN EDUCATED REGARDING PAIN, THE RISK FOR PAIN, THE IMPORTANCE OF EFFECTIVE PAIN MANAGEMENT, AND THE PAIN ASSESSMENT PROCESS?YES LATEX QUESTIONNAIRE LATEX ALLERGY : HAVE YOU EVER DEVELOPED ANY TYPE OF REACTION AFTER HANDLING LATEX PRODUCTS SUCH RUBBER GLOVES, CONDOMS, DIAPHRAGMS, BALLOONS, SOCKS, OR UNDERWEAR?NO LATEX ALLERGY : HAVE YOU EVER DEVELOPED ANY TYPE OF REACTION DURING OR AFTER DENTAL APPOINTMENT, VAGINAL/RECTAL EXAMINATION, SURGICAL PROCEDURE, OR ANY OTHER EXPOSURE?NO LATEX RISK : HAVE YOU EVER HAD ANY DIFFICULTY BREATHING OR HIVES AFTER EATING OR HANDLING ANY FRUITS, OR VEGETABLES; SUCH KIWI, BANANAS, STONE FRUITS, OR CHESTNUTSNO LATEX RISK : DO YOU HAVE A PREVIOUS PERSONAL HISTORY OF MORE THAN NINE SURGERIES, SPINA BIFIDA, OR REPEATED CATHERIZATIONS? NO LATEX RISK : ARE YOU FREQUENTLY EXPOSED TO LATEX PRODUCTS IN YOUR OCCUPATION?NO DATE ASKED : 11/25/2019 CAFFEINE CAFFEINE USE?YES 1-2 CUPS DAILY ADVANCE DIRECTIVE ADVANCE DIRECTIVE DISCUSSED WITH PATIENT:YES 11/25/2019 HAS HCP INFORMATION, SHE HAS NOT COMPLETED FORMS YET. ASSISTANCE OFFERED IN COMPLETING IF NEEDED. AD CONGREGATIONAL [id number] OTHER MARITAL STATUS: ., MOTHER OF 3. ALCOHOL SCREENING DID YOU HAVE A DRINK CONTAINING ALCOHOL IN THE PAST YEAR?YES HOW OFTEN DID YOU HAVE SIX OR MORE DRINKS ON ONE OCCASION IN THE PAST YEAR?NEVER (0 POINTS) HOW MANY DRINKS DID YOU HAVE ON A TYPICAL DAY WHEN YOU WERE DRINKING IN THE PAST YEAR?1 OR 2 (0 POINTS) HOW OFTEN DID YOU HAVE A DRINK CONTAINING ALCOHOL IN THE PAST YEAR?MONTHLY OR LESS (1 POINT) POINTS1 INTERPRETATIONNEGATIVE OCCUPATION: HOMEMAKER. SEXUAL HX HAD SEX IN THE LAST 12 MONTHS (VAGINAL, ORAL, OR ANAL)?YES WITHMEN ONLY HAVE YOU EVER HAD AN STD?NO HOSPITALIZATION/MAJOR DIAGNOSTIC PROCEDURE SURGICAL RELATED CHILDBIRTH 1993/1995/2005 REVIEW OF SYSTEMS REVIEWED BY: PROVIDER: WAQAS BAIG PHOTO RETOUCHER-C . CONSTITUTIONAL: ANY CHANGE IN YOUR MEDICAL CONDITION? YES, CERVICAL NEURALGIA AND LEFT ARM NEURALGIA . CHILLS NO . FEVER NO . INFECTION: DO YOU HAVE NEW INFECTIONS? NO . DO YOU HAVE HISTORY OF MRSA? NO . MUSCULOSKELETAL: ANY NEW PATTERNS OF PAIN OR NUMBNESS? YES, PAIN IS WORSE LEFT NECK, ARM AND HAND, PAIN IN HER LEGS AND FEET ARE GETTING WORSE OVER THE PAST 4 MONTHS. WAS SUPPOSE TO HAVE TOTAL RIGHT HIP BUT THAT IS ON HOLD FOR NOW . GASTROENTEROLOGY: ANY NEW CHANGE IN BOWEL CONTROL? NO . GENITOURINARY: ANY NEW CHANGE IN BLADDER CONTROL? NO . IS THERE A CHANCE YOU COULD BE ? NO . HEMATOLOGY/LYMPH: DO YOU TAKE ANY BLOOD THINNERS? (FOR EXAMPLE- COUMADIN, PLAVIX, AGGRENOX, PLATEL, PRADAXA, OR XARELTO) NO . WHEN WAS YOUR LAST DOSE? DATE: TIME: . NEUROLOGY: HAVE YOU FALLEN IN THE PAST 12 MONTHS? YES, FALLS FREQUENTLY LAST WAS APPROX A MONTH AGO. HAD AN INCREASE IN NECK AND LEFT PAIN, WAS EVALUATED AT [facility] AFTER VIDEO CONFERENCE WITH . ANY NEW EXTREMITY NUMBNESS OR WEAKNESS? YES, LEGS, ARMS AND HANDS ARE WEAKER . CARDIOLOGY: DO YOU HAVE A PACEMAKER OR DEFIBRILLATOR? NO . RESPIRATORY: HAVE YOU BEEN SICK IN THE PAST WEEK? NO . FEVER NO . FLU LIKE SYMPTOMS? NO . COUGH NO . INTEGUMENTARY: DO YOU HAVE ANY RASHES OR OPEN SORES? NO . ALLERGIC/IMMUNO: ARE YOU ALLERGIC TO IV DYE? NO . ANY NEW ALLERGIES? NO . PSYCHIATRIC: DO YOU HAVE THOUGHTS OF HURTING YOURSELF OR SOMEONE ELSE? NO . ARE YOU ABUSED, NEGLECTED, OR IN AN UNSAFE ENVIRONMENT? NO . ENDOCRINOLOGY: ARE YOU DIABETIC? NO . OTHER: DO YOU NEED ANY PRESCRIPTIONS? NO . IF YES, PLEASE LIST: ____ . ANY NEW PROBLEMS WITH YOUR MEDICATIONS? NO . WHEN DID YOU LAST EAT? ____ . WHEN DID YOU LAST DRINK? ____ . WHAT DID YOU LAST DRINK? ____ . NAME OF PERSON DRIVING YOU HOME? ____ . DO YOU HAVE ANY OTHER QUESTIONS OR CONCERNS NO . EXAMINATION GENERAL EXAMINATION: GENERALNO ACUTE DISTRESS, WELL NOURISHED AND HYDRATED. PSYCHAPPROPRIATE MOOD AND AFFECT , ORIENTED X 3 . ASSESSMENTS INTERVERTEBRAL DISC DISORDERS WITH RADICULOPATHY, LUMBAR REGION - M51.16 (PRIMARY) TREATMENT OTHERS START BUTRANS PATCH WEEKLY, 5 MCG/HR, 1 PATCH TO SKIN, TRANSDERMAL, WEEKLY, 4 DAYS, 30 NOTES: 11/25/2019 UNABLE TO DO V/S DUE TO VIRTUAL VISIT. AD. CLINICAL NOTES: 49-YEAR-OLD FEMALE IN FOR COMPLAINTS OF INCREASED PAIN. GIVEN PRESENTING SYMPTOMS RECOMMEND BUTRANS PATCH WITH FOLLOW-UP IN ONE MONTH TO DETERMINE EFFICACY TREATMENT. PATIENT TO COME IN ON SEPARATE NURSE VISIT TO PERFORM U TOX AND SIGN NARCOTIC AGREEMENT. PATIENT HAS EXPRESSED UNDERSTANDING OF AND WAS IN AGREEMENT WITH TREATMENT PLAN. GIVEN TIME TO ASK QUESTIONS AND EXPRESS CONCERNS., ISTOP REGISTRY REVIEWED AND DEMONSTRATES COMPLLIANCE. (REF # [id number] ) TIME SPENT WITH PATIENT VIA ZOOM 11 MINUTES. DISPOSITION & COMMUNICATION FOLLOW UP 4 WEEKS (REASON: NEW MEDICATION, WILL NEED NURSE VISIT FOR URINE AND NARCOTIC AGREEMENT ) ELECTRONICALLY SIGNED BY ARMAND VAUGHAN ON 11/26/2019 AT 09:36 AM EDT DISCLAIMER : THIS IS A VISIT SUMMARY EXTRACTED FROM THE [email or web address] CHART. IT IS NOT A COPY OF THE [email or web address] PROGRESS NOTE. MARCO ANTONIO
== END ==
LOC: M TMPAIN 10:45 → M PAIN 10:45
PROVIDERS: ATTEND Family Medicine
DX: M51.16 Intervertebral disc disorders with radiculopathy, lumbar region (principal); J45.30 Mild persistent asthma, uncomplicated; K21.9 Gastro-esophageal reflux disease without esophagitis; G43.909 Migraine, unspecified, not intractable, without status migrainosus; G25.81 Restless legs syndrome; Z86.59 Personal history of other mental and behavioral disorders; M79.7 Fibromyalgia; Z87.891 Personal history of nicotine dependence; Z88.1 Allergy status to other antibiotic agents; Z88.8 Allergy status to other drugs, medicaments and biological substances; Z79.899 Other long term (current) drug therapy

== ENCOUNTER → 2019-12-23 | Outpatient (CLI) | payer OTHER ==
[~2019-12-23] MED LIST changes: +CYCL-707 PO; -CYCL10TA PO
--- NOTE | 2019-12-28 04:03 | ECWPNPC ---
PATIENT NAME: DOMINGA BAÑUELOS : 1970 GENDER: FEMALE VISIT DATE: 12/23/2019 DISCHARGE DATE: 12/23/19 1149 VISIT LOCKED DATE TIME: PHYSICIAN: CHERYL BAIG RESOURCE: CHERYL BAIG REASON FOR APPOINTMENT 1. MEDS *NEEDS TO SIGN NARC AGREEMENT* HISTORY OF PRESENT ILLNESS HISTORY OF PRESENT ILLNESS: PAIN THE PATIENT DESCRIBES THE PAIN... 49-YEAR-OLD FEMALE IN FOR CHRONIC PAIN FOLLOW-UP. SHE RATES HER PAIN CURRENTLY AT AN 8 OUT OF 10 AND DESCRIBES IT BURNING, STABBING, ACHING, AND TENDER. PATIENT WAS STARTED ON BUPRENORPHINE PATCHES AND ADMITS TODAY THAT SHE HAS FOUND THESE HELPFUL FURTHER STATING THEY TOOK HER PAIN AT APPROXIMATELY 11%. FALL RISK SCREENING: SCREENING :NO FALLS REPORTED IN THE LAST YEAR CURRENT MEDICATIONS TAKING FISH OIL 1000 MG CAPSULE 1 TABLET ORALLY DAILY TAKING CALCIUM 600 MG TABLET 1 TABLET ORALLY DAILY TAKING MULTIVITAMINS OTC TABLET 1 TABLET ORALLY DAILY TAKING ROPINIROLE HCL 2 MG TABLET 1 TAB AM & 2 TAB PM ORALLY TWICE DAILY TAKING CYMBALTA 60 MG CAPSULE DELAYED RELEASE PARTICLES 1 CAPSULE ORALLY TWICE A DAY TAKING QUETIAPINE FUMARATE 100 MG TABLET 1 TABLET AT BEDTIME ORALLY DAILY TAKING BIOTIN 10 MG TABLET 1 TABLET ORALLY ONCE A DAY TAKING PROBIOTIC - TABLET DELAYED RELEASE DIRECTED ORALLY TAKING DOCQLACE 100 MG CAPSULE 1 CAPSULE NEEDED ORALLY ONCE A DAY TAKING FOLIC ACID 1 MG TABLET 1 TABLET ORALLY ONCE A DAY TAKING TEGRETOL 200 MG TABLET 1 TAB PAULA & 2 TABS IN PM ORALLY TWICE A DAY TAKING TRAZODONE HCL 100 MG TABLET TAKE TWO TABLETS BY MOUTH AT BEDTIME AT BEDTIME TAKING WHEELCHAIR - MISCELLANEOUS BARIATRIC WHEELCHAIR; DIRECTED HT 66.5 IN, WT 266LBS DX M87.05 TAKING GABAPENTIN 400 MG CAPSULE 1 CAPSULE ORALLY BID TAKING TIZANIDINE HCL 4 MG TABLET 1 TABLET NEEDED ORALLY THREE TIMES A DAY TAKING CLINDAMYCIN PHOSPHATE 1 % GEL 1 APPLICATION TO AFFECTED AREA EXTERNALLY ONCE A DAY IN AM TO FACE TAKING SIMVASTATIN 20 MG TABLET 1 TABLET IN THE EVENING ORALLY ONCE A DAY TAKING VENTOLIN HFA 108 (90 BASE) MCG/ACT AEROSOL SOLUTION 2 PUFFS NEEDED INHALATION EVERY 4 HRS TAKING OMEPRAZOLE 40 MG CAPSULE DELAYED RELEASE 1 CAPSULE ORALLY ONCE A DAY TAKING CLARITIN 10 MG TABLET 1 TABLET ORALLY ONCE A DAY TAKING FLONASE ALLERGY RELIEF 50 MCG/ACT SUSPENSION 1 SPRAY IN EACH NOSTRIL NASALLY BID TAKING SINGULAIR 10 MG TABLET 1 TABLET IN THE EVENING ORALLY ONCE A DAY TAKING ADVAIR DISKUS 250-50 MCG/DOSE AEROSOL POWDER BREATH ACTIVATED 1 PUFF INHALATION TWICE A DAY TAKING BENADRYL 25 MG TABLET 1 TABLET ORALLY THREE TIMES DAILY NEEDED TAKING TOPAMAX 25 MG TABLET 1 TABLET ORALLY 1 TAB IN A.M., 2 IN P.M. TAKING BUTRANS 5 MCG/HR PATCH WEEKLY 1 PATCH TO SKIN TRANSDERMAL WEEKLY NOT-TAKING VITAMIN E 100 UNIT CAPSULE 3 CAPSULE ORALLY ONCE A DAY NOT-TAKING IBUPROFEN 800 MG TABLET 1 TABLET WITH FOOD OR MILK NEEDED ORALLY BID NOT-TAKING BETAMETHASONE DIPROPIONATE AUG 0.05 % OINTMENT 1 APPLICATION TO AFFECTED AREA EXTERNALLY BID TO AREAS ON BODY WITH PINK TO RED RASH MEDICATION LIST REVIEWED AND RECONCILED WITH THE PATIENT PAST MEDICAL HISTORY LUNG NODULE ON CXR IN ED 05/2019, GONE WITH REPEAT CT -LIKELY PNEUMONIA; PLEURAL THICKENING, REPEAT CT 12/2019 MODERATE PERSISTENT ASTHMA GERD INTERSTITIAL CYSTITIS/OAB/CHRONIC HEMATURIA - PREVIOUSLY FOLLOWED WITH [facility]Y LICHEN PLANUS, ACNE - DR. MERCADO MIGRAINES - DOES BOTOX INJECTIONS LEFT TRIGEMINAL NEURALGIA - DR. DILLARD RLS - DR. DILLARD ANXIETY/DEPRESSION - DR. OCHOA CARPAL TUNNEL BILATERAL - [facility] BACK/SCIATIC PAIN- DR. CABAN, NEUROSURG IN [place] PERIPHERAL NEUROPATHY, SMALL FIBER SENSORY NEUROPATHY - DR. DILLARD CHRONIC LEFT FOOT AND ANKLE PAIN - [facility] RIGHT HIP PAIN - [facility] - [facility] COMPLEX REGIONAL PAIN SYNDROME FIBROMYALGIA - PAIN CENTER [facility] CORE 11.35 % LACTOSE INTOLERANT AND GLUTEN SENSITIVITY NEURALGIA LEFT NECK AND ARM ALLERGIES CIPROFLOXACIN: DYSPNEA - ALLERGY ELMIRON: NAUSEA/VOMITING/COUGH AUGMENTIN: DIARRHEA - SIDE EFFECTS SURGICAL HISTORY FOOT SURGERY -RIGHT KNEE SURGERY -LEFT SINUS SURGERY BILATERAL TUBAL LIGATION COLPOSCOPY- LESLY BECKMAN 04/05/19 COLONOSCOPY - 2 POLYPS REMOVED, REPEAT IN 5 YEARS, DR. DAMON 09/2019 EGD - ERYTHEMATOUS MUCOSA IN THE ANTRUM, BIOPSY PENDING, DR. DAMON 09/2019 FAMILY HISTORY FATHER: ALIVE 70 YRS, HEART DISEASE MOTHER: 46 YRS SIBLINGS: ALIVE, HYPOTHYROID,ONE SISTER OF PNENOMIA SON(S): ALIVE DAUGHTER(S): ALIVE 24 YRS MATERNAL UNCLE: RHEUMATOID 1 BROTHER(S) , 1 SISTER(S) . 2 SON(S) , 1 DAUGHTER(S) - HEALTHY. SISTER: AGE 33 FROM [place]UMON[place]\\NBROTHER: 1977\\NSONS: 1993, 2005\\N\\NMATERNAL 1ST COUSIN- LUPUS\\NNO FAMILY HX OF MELANOMA OR PANCREATIC CANCER. SOCIAL HISTORY GENERAL: TOBACCO USE ARE YOU A:FORMER SMOKER HOW LONG HAS IT BEEN SINCE YOU LAST SMOKED?> 10 YEARS LATEX QUESTIONNAIRE LATEX ALLERGY : HAVE YOU EVER DEVELOPED ANY TYPE OF REACTION AFTER HANDLING LATEX PRODUCTS SUCH RUBBER GLOVES, CONDOMS, DIAPHRAGMS, BALLOONS, SOCKS, OR UNDERWEAR?NO LATEX ALLERGY : HAVE YOU EVER DEVELOPED ANY TYPE OF REACTION DURING OR AFTER DENTAL APPOINTMENT, VAGINAL/RECTAL EXAMINATION, SURGICAL PROCEDURE, OR ANY OTHER EXPOSURE?NO LATEX RISK : HAVE YOU EVER HAD ANY DIFFICULTY BREATHING OR HIVES AFTER EATING OR HANDLING ANY FRUITS, OR VEGETABLES; SUCH KIWI, BANANAS, STONE FRUITS, OR CHESTNUTSNO LATEX RISK : DO YOU HAVE A PREVIOUS PERSONAL HISTORY OF MORE THAN NINE SURGERIES, SPINA BIFIDA, OR REPEATED CATHERIZATIONS? NO LATEX RISK : ARE YOU FREQUENTLY EXPOSED TO LATEX PRODUCTS IN YOUR OCCUPATION?NO DATE ASKED : 11/25/2019 BMI CARE GOAL FOLLOW-UP ABOVE NORMAL BMI FOLLOW-UPLIFESTYLE EDUCATION REGARDING DIET ALCOHOL SCREENING DID YOU HAVE A DRINK CONTAINING ALCOHOL IN THE PAST YEAR?YES HOW OFTEN DID YOU HAVE SIX OR MORE DRINKS ON ONE OCCASION IN THE PAST YEAR?NEVER (0 POINTS) HOW MANY DRINKS DID YOU HAVE ON A TYPICAL DAY WHEN YOU WERE DRINKING IN THE PAST YEAR?1 OR 2 (0 POINTS) HOW OFTEN DID YOU HAVE A DRINK CONTAINING ALCOHOL IN THE PAST YEAR?MONTHLY OR LESS (1 POINT) POINTS1 INTERPRETATIONNEGATIVE RECREATIONAL DRUG USE DENIES. CAFFEINE CAFFEINE USE?YES 1-2 CUPS DAILY SEXUAL HX HAD SEX IN THE LAST 12 MONTHS (VAGINAL, ORAL, OR ANAL)?YES WITHMEN ONLY HAVE YOU EVER HAD AN STD?NO HIV / HEP-C SCREENING HIV TEST OFFERED TO PATIENT:YES DATE OFFERED:10/08/2017 TEST ACCEPTED:NO HEP-C TEST OFFERED TO PATIENT:NO REASON:PATIENT DECLINED ADVENTIST [id number] OTHER LANGUAGE TUVALUAN. EDUCATION LEVEL OF EDUCATION:HIGH SCHOOL LEARNING BARRIERS / SPECIAL NEEDS CHANGE FROM LAST VISIT?NO BARRIERS TO LEARNING?NO HEARING IMPAIRED?NO VISION IMPAIRED?NO COGNITIVELY IMPAIRED?NO READINESS TO LEARN?YES LEARNING PREFERENCES?NO LEARNING CAPABILITIES PRESENT?YES EMOTIONAL BARRIERS?NO SPECIAL DEVICES?YES :CANE, WALKER, OTHER SHOWER CHAIR, RAISES TOILET SEAT HOME CARE NURSE NEEDED?NO DOMESTIC VIOLENCE DO YOU FEEL SAFE IN YOUR ENVIRONMENT?YES OCCUPATION: HOMEMAKER. DIET: LOW GLUTEN, LOW CARBS, LOW LACTOSE, LOW OXYLATE. EXERCISE: NO REGULAR EXERCISE. MARITAL STATUS: ., MOTHER OF 3. OTHERS AT HOME: CHILD. NEW PATIENT PAIN DIARY TODAY'S VISITNOTES 12/22/2019 PATIENT DESCRIBES PAIN :ACHING, BURNING, HAVE IT ALL THE TIME, SHARP, STABBING, TENDER, SORE, SHOOTING FROM 0-10, WHAT LEVEL IS YOUR PAIN TODAY?8 PRECIPITATING FACTORS WALKING, SITTING, STRESS--SHE CAN'T GET COMFORTABLE AND ISN'T SLEEPING WELL ALLEVIATING FACTORS NOTHING IMPACT ON FUNCTION CAN'T DO ANYTHING PAIN CLINIC PFS, CLERGY, PUBLIC HEALTH REFERRALS PFS REFERRAL NEEDED?NO CLERGY REFERRAL NEEDED?NO PUBLIC HEALTH REFERRAL NEEDED?NO HAS THE PATIENT BEEN EDUCATED REGARDING HIS/HER PLAN OF CARE?YES HAS THE PATIENT BEEN EDUCATED REGARDING PAIN, THE RISK FOR PAIN, THE IMPORTANCE OF EFFECTIVE PAIN MANAGEMENT, AND THE PAIN ASSESSMENT PROCESS?YES ADVANCE DIRECTIVE ADVANCE DIRECTIVE DISCUSSED WITH PATIENT:YES 11/25/2019 HAS HCP INFORMATION, SHE HAS NOT COMPLETED FORMS YET. ASSISTANCE OFFERED IN COMPLETING IF NEEDED. AD HOSPITALIZATION/MAJOR DIAGNOSTIC PROCEDURE SURGICAL RELATED CHILDBIRTH REVIEW OF SYSTEMS REVIEWED BY: PROVIDER: WAQAS ACUNA-Sujey . CONSTITUTIONAL: ANY CHANGE IN YOUR MEDICAL CONDITION? NO . CHILLS NO . FEVER NO . INFECTION: DO YOU HAVE NEW INFECTIONS? NO . DO YOU HAVE HISTORY OF MRSA? NO . MUSCULOSKELETAL: ANY NEW PATTERNS OF PAIN OR NUMBNESS? YES, LEFT ARM PAIN WORSENING FROM NECK TO HAND . GASTROENTEROLOGY: ANY NEW CHANGE IN BOWEL CONTROL? NO . GENITOURINARY: ANY NEW CHANGE IN BLADDER CONTROL? NO . IS THERE A CHANCE YOU COULD BE ? NO . HEMATOLOGY/LYMPH: DO YOU TAKE ANY BLOOD THINNERS? (FOR EXAMPLE- COUMADIN, PLAVIX, AGGRENOX, PLATEL, PRADAXA, OR XARELTO) NO . WHEN WAS YOUR LAST DOSE? DATE: TIME: . NEUROLOGY: HAVE YOU FALLEN IN THE PAST 12 MONTHS? YES, STATES PRIOR TO LAST VISIT, DISCUSSED AT PREVIOUS VISIT . ANY NEW EXTREMITY NUMBNESS OR WEAKNESS? NO . CARDIOLOGY: DO YOU HAVE A PACEMAKER OR DEFIBRILLATOR? NO . RESPIRATORY: HAVE YOU BEEN SICK IN THE PAST WEEK? NO . FEVER NO . FLU LIKE SYMPTOMS? NO . COUGH NO . INTEGUMENTARY: DO YOU HAVE ANY RASHES OR OPEN SORES? NO . ALLERGIC/IMMUNO: ARE YOU ALLERGIC TO IV DYE? NO . ANY NEW ALLERGIES? NO . PSYCHIATRIC: DO YOU HAVE THOUGHTS OF HURTING YOURSELF OR SOMEONE ELSE? NO . ARE YOU ABUSED, NEGLECTED, OR IN AN UNSAFE ENVIRONMENT? NO . ENDOCRINOLOGY: ARE YOU DIABETIC? NO . OTHER: DO YOU NEED ANY PRESCRIPTIONS? YES . IF YES, PLEASE LIST: ____BUTRANS PATCH - WOULD LIKE TO DISCUSS HIGHER DOSE, ONLY TAKES CARE OF ABOUT 10% OF THE PAIN . ANY NEW PROBLEMS WITH YOUR MEDICATIONS? NO . WHEN DID YOU LAST EAT? ____ . WHEN DID YOU LAST DRINK? ____ . WHAT DID YOU LAST DRINK? ____ . NAME OF PERSON DRIVING YOU HOME? ____ . DO YOU HAVE ANY OTHER QUESTIONS OR CONCERNS NO . VITAL SIGNS WT 255.2 LBS, HT 66.5 IN, BMI 40.57 INDEX, BP 137/67 MM HG, HR 96 /MIN, RR 18 /MIN, TEMP 97.7 F, OXYGEN SAT % 98%, SAFE IN ENV? (Y/N) YES, NA INITIALS AW 1111, REVIEWED BY: LIZY. EXAMINATION GENERAL EXAMINATION: GENERALNO ACUTE DISTRESS, WELL NOURISHED AND HYDRATED. PSYCHAPPROPRIATE MOOD AND AFFECT . LUNGS:CLEAR TO AUSCULTATION BILATERALLY, NO WHEEZES, RHONCHI, RALES. HEART:NO MURMURS, REGULAR RATE AND RHYTHM. ASSESSMENTS INTERVERTEBRAL DISC DISORDERS WITH RADICULOPATHY, LUMBAR REGION - M51.16 (PRIMARY) ENCOUNTER FOR FITTING AND ADJUSTMENT OF OTHER DEVICES RELATED TO NERVOUS SYSTEM AND SPECIAL SENSES - Z46.2 TREATMENT INTERVERTEBRAL DISC DISORDERS WITH RADICULOPATHY, LUMBAR REGION INCREASE BUTRANS PATCH WEEKLY, 10 MCG/HR, 1 PATCH TO SKIN, TRANSDERMAL, WEEKLY, 30 DAYS, 4 CLINICAL NOTES: 49-YEAR-OLD FEMALE IN FOR CHRONIC PAIN FOLLOW-UP. GIVEN PRESENTING SYMPTOMS RECOMMENDED INCREASING BUTRANS PATCH TO 10 MCG, FURTHER RECOMMEND OBTAINING THORACIC MRI FOR DCS TRIAL. WE'LL FOLLOW-UP IN CLINIC IN 2 MONTHS. U TOX AND NARCOTIC AGREEMENT TO BE OBTAINED TODAY. PATIENT HAS EXPRESSED UNDERSTANDING OF AND WAS IN AGREEMENT WITH TREATMENT PLAN. GIVEN TIME TO ASK QUESTIONS AND EXPRESS CONCERNS. , ISTOP REGISTRY REVIEWED AND DEMONSTRATES COMPLLIANCE. (REF # [id number] ) BRINGS IN MEDICATIONS WHICH IS APPROPRIATE FOR WHAT WAS DISPENSED. RECENT URINE TOXICOLOGY REVIEWED. NO UNAUTHORIZED MEDICATIONS. NO ILLICIT SUBSTANCES AND PRESCRIBED MEDICATIONS WERE PRESENT. ENCOUNTER FOR FITTING AND ADJUSTMENT OF OTHER DEVICES RELATED TO NERVOUS SYSTEM AND SPECIAL SENSES MRI : THORACIC [id number] OTHERS NOTES: PRE-SCREENING COMPLETED 12/22/2019 1700 JS. PROCEDURE CODES FA211 ESTABILISHED PATIENT [facility] CHARGE DISPOSITION & COMMUNICATION FOLLOW UP 2 MONTHS (REASON: BACK PAIN, THORACIC MRI ) ELECTRONICALLY SIGNED BY ARMAND VAUGHAN ON 12/27/2019 AT 08:40 AM EDT DISCLAIMER : THIS IS A VISIT SUMMARY EXTRACTED FROM THE [employer] CHART. IT IS NOT A COPY OF THE [employer] PROGRESS NOTE. MARCO ANTONIO
== END ==
LOC: M PAIN 11:15
PROVIDERS: ATTEND Family Medicine
DX: M51.16 Intervertebral disc disorders with radiculopathy, lumbar region (principal); G89.29 Other chronic pain; Z46.2 Encounter for fitting and adjustment of other devices related to nervous system and special senses; J45.30 Mild persistent asthma, uncomplicated; K21.9 Gastro-esophageal reflux disease without esophagitis; G43.909 Migraine, unspecified, not intractable, without status migrainosus; G25.81 Restless legs syndrome; Z86.59 Personal history of other mental and behavioral disorders; M79.7 Fibromyalgia; Z87.891 Personal history of nicotine dependence; Z88.1 Allergy status to other antibiotic agents; Z88.8 Allergy status to other drugs, medicaments and biological substances; E66.01 Morbid (severe) obesity due to excess calories; Z68.41 Body mass index [BMI] 40.0-44.9, adult; Z79.899 Other long term (current) drug therapy

== ENCOUNTER → 2020-03-14 | Outpatient (REF) | payer OTHER ==
[~2020-03-14] MED LIST changes: +PANT40TA29 PO; -PANT40TA3 PO
[2020-04-07 10:54] LABS: BASO # 0.1 10^3/uL (0.0-0.2); EOS # 0.5 10^3/uL (0.0-0.5); EOS % 5.2 % (0.0-3.0); HEMATOCRIT 44.6 % (36.0-47.0); LYMPH # 3.8 10^3/uL (1.5-5.0); LYMPH % 37.8 % (24.0-44.0); MEAN CORPUSCULAR HEMOGLOBIN 30.5 pg (27.0-33.0); MEAN CORPUSCULAR HGB CONC 33.6 g/dl (32.0-36.5); MEAN CORPUSCULAR VOLUME 90.8 fl (80.0-96.0); MONO # 0.8 10^3/uL (0.0-0.8); NEUTROPHILS # 4.7 10^3/uL (1.5-8.5); NEUTROPHILS % 47.6 % (36.0-66.0); PLATELET COUNT, AUTOMATED 290 10^3/uL (150-450); RED BLOOD COUNT 4.91 10^6/uL (4.00-5.40)
[2020-04-17 12:55] LABS: HEMOGLOBIN A1c 5.8 %
[2020-04-17 12:57] LABS: CALCIUM LEVEL 9.4 MG/DL (8.5-10.1); CREATININE FOR GFR 1.04 MG/DL (0.55-1.30)
== END ==
LOC: M SFHCPLAZ 12:30
PROVIDERS: ATTEND Family Medicine
DX: Z00.00 Encounter for general adult medical examination without abnormal findings (principal)

== ENCOUNTER → 2020-05-18 | Outpatient (CLI) | payer OTHER ==
--- NOTE | 2020-05-24 07:30 | REP ---
BILATERAL LOWER EXTREMITY ARTERIAL DOPPLER ULTRASOUND HISTORY: Pain in the legs. FINDINGS: Ankle brachial indices are normal measured at 1.1 on each side. Normal triphasic waveforms are noted throughout the lower extremity arteries bilaterally. No stenosis or occlusion is visible. Minimal plaquing is seen. BILATERAL LOWER EXTREMITY ARTERIAL VELOCITY CHART RIGHT PSV (cm/s) LEFT PSV (cm/s) RETAIL CLERK 126 139 Profunda 88 69 Proximal SFA 88 146 Mid SFA 87 94 Distal SFA 76 84 Popliteal 64 56 Proximal JAMISON 74 78 Tibioperoneal trunk 41 54 Proximal HORSE TREKKING GUIDE 62 60 Distal HORSE TREKKING GUIDE 66 60 Distal JAMISON 46 54 MTDD
== END ==
LOC: M RAD 08:48
PROVIDERS: ATTEND Physician Assistant
DX: I87.2 Venous insufficiency (chronic) (peripheral) (principal); M79.605 Pain in left leg; M79.604 Pain in right leg

== ENCOUNTER → 2020-05-22 | Outpatient (CLI) | payer OTHER ==
--- NOTE | 2020-05-29 10:51 | REP ---
BILATERAL LOWER EXTREMITY DUPLEX VENOUS ULTRASOUND WITH REFLUX EXAM HISTORY: Leg pain. FINDINGS: The deep veins are anechoic and fully compressible from the groin to the popliteal fossa in both lower extremities on two-dimensional scanning. There is no color flow or spectral Doppler interrogation of deep vein thrombosis. REFLUX FINDINGS: There was no observable or elicited venous reflux in either the deep or superficial system of either lower extremity on provocative testing. In the right leg, the greater saphenous vein measures 5.2 mm proximally at the saphenofemoral junction, 3.9 mm at mid thigh, and 3.6 mm at the knee. The corresponding greater saphenous vein dimensions on the left are 4.9, 3.6, and 3.2 mm respectively. The lesser saphenous veins are 3 mm in diameter bilaterally. IMPRESSION: Negative bilateral lower extremity Doppler venous ultrasound. No evidence of deep vein thrombosis (DVT) or reflux on either side. MTDD
== END ==
LOC: M RAD 12:37
PROVIDERS: ATTEND Physician Assistant
DX: M79.605 Pain in left leg (principal); M79.604 Pain in right leg; I87.2 Venous insufficiency (chronic) (peripheral)

== ENCOUNTER → 2020-06-16 | Outpatient (CLI) | payer OTHER ==
--- NOTE | 2020-06-27 01:39 | ECWPNPC ---
PATIENT NAME: DOMINGA BAÑUELOS : 1970 GENDER: FEMALE VISIT DATE: 06/16/2020 DISCHARGE DATE: 06/16/20 1241 VISIT LOCKED DATE TIME: PHYSICIAN: JUSTEN MARIN MD PHYSICIAN PAGER NO: ACTIVE RESOURCE: JUSTEN MARIN MD REASON FOR APPOINTMENT 1. DISCUSS DCS HISTORY OF PRESENT ILLNESS GENERAL: 49-YEAR-OLD FEMALE PATIENT WITH A HISTORY OF CHRONIC BACK AND LEG PAIN. SHE HAS HAD THIS PAIN FOR MANY YEARS. SHE HAS TRIED MEDICATION MANAGEMENT AND INJECTION THERAPY UNFORTUNATELY THE PAIN PERSISTS. THE PATIENT DESCRIBES THE PAIN ACHING, BURNING AND SHARP WITH A PAIN SCORE RANGING FROM 6-10/10 DEPENDING ON PHYSICAL ACTIVITY. THIS IS AFFECTING HER ACTIVITIES OF DAILY LIVING SUCH A CLEANING HER HOUSE, GROCERY SHOPPING AND MOVING AROUND. THIS PAIN IS AFFECTING HER SLEEP AND HER QUALITY OF LIFE. PATIENT DENIES UNEXPLAINABLE WEIGHT LOSS, FEVER, CHILLS, NEW CHANGES ON HER URINARY OR BOWEL CONTROL. FALL RISK SCREENING: SCREENING :TWO OR MORE FALLS WITHOUT INJURY IN THE PAST YEAR PAIN SCREENING: PATIENT HAS A COMPLAINT OF ACUTE OR CHRONIC PAIN :YES LOCATION OF PAIN:NECK, UPPER BACK, MID BACK, LOW BACK, LEFT HIP, RIGHT HIP, LEG(S), FEET INTENSITY OF PAIN (SCALE OF 1 TO 10):6 WHAT DOES YOUR PAIN FEEL LIKE:BURNING, CONTINOUS, SHARP, SHOOTING DURATION:CONTINOUS, CONSTANT, STEADY, ALL DAY, AWAKENS FROM SLEEP PAIN IS INCREASED BY:ACTIVITIES, PROLONGED STANDING, OTHERS PROLONGED SITTING PAIN IS DECREASED BY:OTHERS ICE OCCASSIONALLY NURSING NOTE: -. PAIN CENTER INTAKE QUESTIONS: DO YOU HAVE A HISTORY OF MRSA? :NO DO YOU TAKE A BLOOD THINNERS? :NO DO YOU HAVE ANY BLEEDING DISORDERS? :NO ANY NEW NUMBNESS OR WEAKNESS IN YOUR LEGS OR ARMS? :YES BILATERAL LEGS BECOMING WEAKER ANY PACEMAKER,DEFIBRILLATOR, OR DORSAL COLUMN STIMULATOR? :NO DO YOU HAVE ANY RASHES OR OPEN SORES? :NO ARE YOU ALLERGIC TO IV DYE? :NO ARE YOU DIABETIC? :NO ANY NEW PROBLEMS WITH YOUR MEDICATIONS? :NO HAVE YOU RECEIVED A VACCINE IN THE PAST 30 DAYS? :NO DO YOU PLAN TO RECEIVE A VACCINE IN THE NEXT 21 DAYS? :YES IF SO WHAT VACCINE AND WHEN? RECEIVING FLU VACCINE ON WEDNESDAY 06/20 DO YOU NEED ANY PRESCRIPTION? :NO DO YOU TAKE ANY IMMUNOSUPPRESSIVE MEDICATIONS? :NO IS THERE A CHANCE YOU COULD BE ? :NO ARE YOU BREAST FEEDING? :NO CURRENT MEDICATIONS TAKING FISH OIL 1000 MG CAPSULE 1 TABLET ORALLY DAILY TAKING CALCIUM 600 MG TABLET 1 TABLET ORALLY DAILY TAKING MULTIVITAMINS OTC TABLET 1 TABLET ORALLY DAILY TAKING ROPINIROLE HCL 2 MG TABLET 1 TAB AM & 2 TAB PM ORALLY TWICE DAILY TAKING CYMBALTA 60 MG CAPSULE DELAYED RELEASE PARTICLES 1 CAPSULE ORALLY TWICE A DAY TAKING QUETIAPINE FUMARATE 100 MG TABLET 1.5 TABLET AT BEDTIME ORALLY DAILY TAKING BIOTIN 10 MG TABLET 1 TABLET ORALLY ONCE A DAY TAKING PROBIOTIC - TABLET DELAYED RELEASE DIRECTED ORALLY TAKING DOCQLACE 100 MG CAPSULE 1 CAPSULE NEEDED ORALLY ONCE A DAY TAKING FOLIC ACID 1 MG TABLET 1 TABLET ORALLY ONCE A DAY TAKING TRAZODONE HCL 100 MG TABLET 250 MG BY MOUTH AT BEDTIME ORALLY AT BEDTIME TAKING WHEELCHAIR - MISCELLANEOUS BARIATRIC WHEELCHAIR; DIRECTED HT 66.5 IN, WT 266LBS DX M87.05 TAKING TIZANIDINE HCL 4 MG TABLET 1 TABLET NEEDED ORALLY THREE TIMES A DAY TAKING CLINDAMYCIN PHOSPHATE 1 % GEL 1 APPLICATION TO AFFECTED AREA EXTERNALLY ONCE A DAY IN AM TO FACE TAKING VENTOLIN HFA 108 (90 BASE) MCG/ACT AEROSOL SOLUTION 2 PUFFS NEEDED INHALATION EVERY 4 HRS TAKING OMEPRAZOLE 40 MG CAPSULE DELAYED RELEASE 1 CAPSULE ORALLY ONCE A DAY TAKING CLARITIN 10 MG TABLET 1 TABLET ORALLY ONCE A DAY TAKING BENADRYL 25 MG TABLET 1 TABLET ORALLY THREE TIMES DAILY NEEDED TAKING SINGULAIR 10 MG TABLET 1 TABLET IN THE EVENING ORALLY ONCE A DAY TAKING IBUPROFEN 800 MG TABLET 1 TABLET WITH FOOD OR MILK NEEDED ORALLY BID TAKING ADVAIR DISKUS 250-50 MCG/DOSE AEROSOL POWDER BREATH ACTIVATED 1 PUFF INHALATION TWICE A DAY TAKING FLONASE ALLERGY RELIEF 50 MCG/ACT SUSPENSION 1 SPRAY IN EACH NOSTRIL NASALLY BID NOT-TAKING SIMVASTATIN 20 MG TABLET 1 TABLET IN THE EVENING ORALLY ONCE A DAY NOT-TAKING TRAMADOL HCL 50 MG TABLET 1 TABLET NEEDED ORALLY TWICE DAILY NEEDED NOT-TAKING TEGRETOL 200 MG TABLET 1 TAB PAULA & 2 TABS IN PM ORALLY TWICE A DAY NOT-TAKING GABAPENTIN 400 MG CAPSULE 1 CAPSULE ORALLY BID NOT-TAKING TOPAMAX 25 MG TABLET 1 TABLET ORALLY 1 TAB IN A.M., 2 IN P.M. NOT-TAKING VITAMIN E 100 UNIT CAPSULE 3 CAPSULE ORALLY ONCE A DAY NOT-TAKING BETAMETHASONE DIPROPIONATE AUG 0.05 % OINTMENT 1 APPLICATION TO AFFECTED AREA EXTERNALLY BID TO AREAS ON BODY WITH PINK TO RED RASH MEDICATION LIST REVIEWED AND RECONCILED WITH THE PATIENT PAST MEDICAL HISTORY LUNG NODULE ON CXR IN ED 05/2019, GONE WITH REPEAT CT -LIKELY PNEUMONIA; PLEURAL THICKENING, REPEAT CT 12/2019 MODERATE PERSISTENT ASTHMA GERD INTERSTITIAL CYSTITIS/OAB/CHRONIC HEMATURIA - PREVIOUSLY FOLLOWED WITH [facility] L[facility]EN PLANUS, ACNE - DR. MERCADO MIGRAINES - DOES BOTOX INJECTIONS LEFT TRIGEMINAL NEURALGIA - DR. DILLARD RLS - DR. DILLARD ANXIETY/DEPRESSION - DR. OCHOA CARPAL TUNNEL BILATERAL - [facility] BACK/SCIATIC PAIN- DR. CABAN, NEUROSURG IN [place] PERIPHERAL NEUROPATHY, SMALL FIBER SENSORY NEUROPATHY - DR. DILLARD CHRONIC LEFT FOOT AND ANKLE PAIN - [facility] RIGHT HIP PAIN - AVN - ([facility]) COMPLEX REGIONAL PAIN SYNDROME FIBROMYALGIA - PAIN CENTER [facility] CORE 11.35 % LACTOSE INTOLERANT AND GLUTEN SENSITIVITY NEURALGIA LEFT NECK AND ARM ALLERGIES CIPROFLOXACIN: DYSPNEA - ALLERGY ELMIRON: NAUSEA/VOMITING/COUGH AUGMENTIN: DIARRHEA - SIDE EFFECTS SURGICAL HISTORY FOOT SURGERY -RIGHT KNEE SURGERY -LEFT SINUS SURGERY BILATERAL TUBAL LIGATION COLPOSCOPY- LESLY BECKMAN 04/05/19 COLONOSCOPY - 2 POLYPS REMOVED, REPEAT IN 5 YEARS, DR. DAMON 09/2019 EGD - ERYTHEMATOUS MUCOSA IN THE ANTRUM, BIOPSY PENDING, DR. DAMON 09/2019 RIGHT HIP REPLACEMENT 03/30/2020 FAMILY HISTORY FATHER: ALIVE 70 YRS, HEART DISEASE MOTHER: 46 YRS SIBLINGS: ALIVE, HYPOTHYROID,ONE SISTER OF PNENOMIA SON(S): ALIVE DAUGHTER(S): ALIVE 24 YRS MATERNAL UNCLE: RHEUMATOID 1 BROTHER(S) , 1 SISTER(S) . 2 SON(S) , 1 DAUGHTER(S) - HEALTHY. SISTER: AGE 33 FROM PNEUMONIA-OBESITY\\NBROTHER: 1977\\NSONS: 1994, 2006\\N\\NMATERNAL 1ST COUSIN- LUPUS\\NNO FAMILY HX OF MELANOMA OR PANCREATIC CANCER. SOCIAL HISTORY GENERAL: TOBACCO USE ARE YOU A:FORMER SMOKER HOW LONG HAS IT BEEN SINCE YOU LAST SMOKED?> 10 YEARS LATEX QUESTIONNAIRE LATEX ALLERGY : HAVE YOU EVER DEVELOPED ANY TYPE OF REACTION AFTER HANDLING LATEX PRODUCTS SUCH RUBBER GLOVES, CONDOMS, DIAPHRAGMS, BALLOONS, SOCKS, OR UNDERWEAR?NO LATEX ALLERGY : HAVE YOU EVER DEVELOPED ANY TYPE OF REACTION DURING OR AFTER DENTAL APPOINTMENT, VAGINAL/RECTAL EXAMINATION, SURGICAL PROCEDURE, OR ANY OTHER EXPOSURE?NO LATEX RISK : HAVE YOU EVER HAD ANY DIFFICULTY BREATHING OR HIVES AFTER EATING OR HANDLING ANY FRUITS, OR VEGETABLES; SUCH KIWI, BANANAS, STONE FRUITS, OR CHESTNUTSNO LATEX RISK : DO YOU HAVE A PREVIOUS PERSONAL HISTORY OF MORE THAN NINE SURGERIES, SPINA BIFIDA, OR REPEATED CATHERIZATIONS? NO LATEX RISK : ARE YOU FREQUENTLY EXPOSED TO LATEX PRODUCTS IN YOUR OCCUPATION?NO DATE ASKED : 06/16/2020 BMI CARE GOAL FOLLOW-UP ABOVE NORMAL BMI FOLLOW-UPLIFESTYLE EDUCATION REGARDING DIET ALCOHOL SCREENING DID YOU HAVE A DRINK CONTAINING ALCOHOL IN THE PAST YEAR?YES HOW OFTEN DID YOU HAVE SIX OR MORE DRINKS ON ONE OCCASION IN THE PAST YEAR?NEVER (0 POINTS) HOW MANY DRINKS DID YOU HAVE ON A TYPICAL DAY WHEN YOU WERE DRINKING IN THE PAST YEAR?1 OR 2 (0 POINTS) HOW OFTEN DID YOU HAVE A DRINK CONTAINING ALCOHOL IN THE PAST YEAR?MONTHLY OR LESS (1 POINT) POINTS1 INTERPRETATIONNEGATIVE RECREATIONAL DRUG USE DRUG USE?NO CAFFEINE CAFFEINE USE?YES 1-2 CUPS DAILY SEXUAL HX HAD SEX IN THE LAST 12 MONTHS (VAGINAL, ORAL, OR ANAL)?YES WITHMEN ONLY HAVE YOU EVER HAD AN STD?NO HIV / HEP-C SCREENING HIV TEST OFFERED TO PATIENT:YES DATE OFFERED:10/08/2017 TEST ACCEPTED:NO HEP-C TEST OFFERED TO PATIENT:NO REASON:PATIENT DECLINED SHINTO [id number] OTHER LANGUAGE GREEK. EDUCATION LEVEL OF EDUCATION:HIGH SCHOOL LEARNING BARRIERS / SPECIAL NEEDS CHANGE FROM LAST VISIT?NO BARRIERS TO LEARNING?NO HEARING IMPAIRED?NO VISION IMPAIRED?NO COGNITIVELY IMPAIRED?NO READINESS TO LEARN?YES LEARNING PREFERENCES?NO LEARNING CAPABILITIES PRESENT?YES EMOTIONAL BARRIERS?NO SPECIAL DEVICES?YES :CANE, WALKER, OTHER SHOWER CHAIR, RAISED TOILET SEAT; ONLY USES WALKER OCCASSIONALLY WHEN WALKING LONG DISTANCES MACHINE FILLER SHREDDER NEEDED?NO DOMESTIC VIOLENCE DO YOU FEEL SAFE IN YOUR ENVIRONMENT?YES OCCUPATION: HOMEMAKER. DIET: LOW GLUTEN, LOW CARBS, LOW LACTOSE, LOW OXYLATE. EXERCISE: NO REGULAR EXERCISE. MARITAL STATUS: ., MOTHER OF 3. OTHERS AT HOME: CHILD. PAIN CLINIC PFS, CLERGY, PUBLIC HEALTH REFERRALS PFS REFERRAL NEEDED?NO CLERGY REFERRAL NEEDED?NO PUBLIC HEALTH REFERRAL NEEDED?NO HAS THE PATIENT BEEN EDUCATED REGARDING HIS/HER PLAN OF CARE?YES HAS THE PATIENT BEEN EDUCATED REGARDING PAIN, THE RISK FOR PAIN, THE IMPORTANCE OF EFFECTIVE PAIN MANAGEMENT, AND THE PAIN ASSESSMENT PROCESS?YES ADVANCE DIRECTIVE ADVANCE DIRECTIVE DISCUSSED WITH PATIENT:YES HAS HCP INFORMATION, SHE HAS NOT COMPLETED FORMS YET. ASSISTANCE OFFERED IN COMPLETING IF NEEDED. HOSPITALIZATION/MAJOR DIAGNOSTIC PROCEDURE SURGICAL RELATED CHILDBIRTH 1993/1995[birth year]2005 REVIEW OF SYSTEMS CONSTITUTIONAL: ANY RECENT FEVER NO . CHILLS NO . WEIGHT CHANGE OF UNKNOWN REASONS NO . GASTROENTEROLOGY: NEW UNEXPLAINABLE CHANGES IN BOWEL CONTROL NO . CONSTIPATION NO . GENITOURINARY: ANY NEW CHANGE IN BLADDER CONTROL? NO . NEUROLOGY: NEW ONSET DIZZINESS OR NEUROLOGICAL CHANGES NOT MENTIONED NO . NEW NUMBNESS OR PAIN PATTERNS NOT MENTIONED AND PERTINENT TO TODAY'S VISIT NO . CARDIOLOGY: NEW CHEST PRESSURE NO . NEW CHEST PAIN NO . RESPIRATORY: UNEXPLAINABLE COUGH NO . NEW SHORTNESS OF BREATH NO . VITAL SIGNS WT 244 LBS, HT 66.5 IN, BMI 38.79 INDEX, BP 123/66 MM HG, HR 87 /MIN, RR 18 /MIN, TEMP 97.5 F, OXYGEN SAT % 97%, SAFE IN ENV? (Y/N) Y, NA INITIALS SC 11:30, REVIEWED BY: LIZY. EXAMINATION GENERAL EXAMINATION: THE PATIENT IS ALERT, ORIENTED TIMES THREE AND COOPERATIVE. HEART SHOWS REGULAR RHYTHM, NO MURMURS AND NO GALLOPS. LUNGS ARE CLEAR TO AUSCULTATION. THE PATIENT IS LIMPING FROM THE RIGHT LEG. SHE IS WALKING WITH DIFFICULTY. THERE IS TENDERNESS IN THE LOWER BACK AND THE PARASPINAL MUSCLE GROUP. THE RIGHT LEG IS WEAKER THAN THE LEFT LEG IN FLEXION AND EXTENSION. STRAIGHT LEG RAISE IS POSITIVE ON THE RIGHT LEG AT 30 DEGREES AND THE LEFT LEG AT 25 DEGREES FOR RADICULOPATHY. THE RIGHT LEG IS VERY TENDER AND IT IS WARM TO TOUCH AND THERE IS SOME MILD SWELLING OVER THE TEMPORAL ASPECT DISTAL TO THE KNEE. MRI DATED 05/24/2019 SHOWS SOME DEGENERATIVE DISC DISEASE. ASSESSMENTS INTERVERTEBRAL DISC DISORDERS WITH RADICULOPATHY, LUMBAR REGION - M51.16 (PRIMARY) LUMBAR RADICULOPATHY - M54.16 PERIPHERAL VASCULAR DISEASE - I73.9, RULE OUT. BEING FOLLOWED BY A VASCULAR SURGEON HISTORY OF HIP SURGERY - Z98.890 TREATMENT INTERVERTEBRAL DISC DISORDERS WITH RADICULOPATHY, LUMBAR REGION CLINICAL NOTES: I DISCUSSED ALTERNATIVES WITH MS. FARNEY. THE PATIENT HAS TRIED MEDICATION MANAGEMENT AND INJECTIONS THERAPY AND THESE THINGS DID NOT WORK FOR HER. I REVIEWED THE PATIENT'S CHART AND SHE HAS ALREADY HAD THE PSYCHOLOGICAL EVALUATION AND THE THORACIC AND LUMBAR MRI. I FEEL THAT EVERYTHING IS READY. I WILL REQUEST AUTHORIZATION FOR A SPINAL COLUMN STIMULATOR TRIAL. I DISCUSSED WHAT TO EXPECT FROM THE TRIAL. I DISCUSSED THAT SHE SHOULD TRY FOR AT LEAST 80% PAIN RELIEF BEFORE CONSIDERING THE IMPLANT. I EXPLAINED TO THE PATIENT THAT SHE CANNOT DO MUCH DURING THE WEEK OF THE TRIAL AND CANNOT SHOWER. THE PATIENT UNDERSTANDS AND AGREES WITH THE PLAN. I, ROMA ARGUETA, DOCUMENTED THE ABOVE INFORMATION ACTING A SCRIBE FOR DR. MARIN. I HAVE REVIEWED THE ABOVE DOCUMENT, WRITTEN BY ROMA ARGUETA, INTERLACER, AND I VERIFY THAT IT IS ACCURATE. PROCEDURE CODES FA211 ESTABILISHED PATIENT [facility] CHARGE [id number] OFFICE/OUTPATIENT VISIT EST DISPOSITION & COMMUNICATION FOLLOW UP FOLLOW UP WITH TELESALES AGENT IN [place] TO CHECK ON APPROVAL FOR DCS (REASON: REQUEST AUTH FOR DCS TRIAL) ELECTRONICALLY SIGNED BY JUSTEN MARIN MD, MD ON 06/26/2020 AT 02:20 PM EST DISCLAIMER : THIS IS A VISIT SUMMARY EXTRACTED FROM THE [employer] CHART. IT IS NOT A COPY OF THE [employer] PROGRESS NOTE. MARCO ANTONIO
== END ==
LOC: M PAIN 11:00
PROVIDERS: ATTEND Anesthesiology
DX: M51.16 Intervertebral disc disorders with radiculopathy, lumbar region (principal); I73.9 Peripheral vascular disease, unspecified; F41.9 Anxiety disorder, unspecified; F32.9 Major depressive disorder, single episode, unspecified; G43.909 Migraine, unspecified, not intractable, without status migrainosus; J45.40 Moderate persistent asthma, uncomplicated; M79.7 Fibromyalgia; Z87.891 Personal history of nicotine dependence; Z79.899 Other long term (current) drug therapy; Z88.1 Allergy status to other antibiotic agents; Z88.8 Allergy status to other drugs, medicaments and biological substances; Z96.641 Presence of right artificial hip joint

== ENCOUNTER → 2020-06-26 | Outpatient (CLI) | payer OTHER ==
--- NOTE | 2020-06-26 18:44 | REP ---
INDICATION: F/U PNEUMONIA. COMPARISON: CT 06/16/2019, chest x-ray 05/24/2019 TECHNIQUE: Noncontrast chest CT with coronal and sagittal reconstructions. FINDINGS: The lung velasco are well inflated. Some minor dependent atelectatic changes deep sulcus right lower lobe without pleural effusion, dense consolidation or parenchymal lung mass. Minor apical pleuroparenchymal scarring on the left greater than right. No calcified pleural plaque, pleural based mass or pneumothorax. No pneumomediastinum. Minimal cylindrical bronchiectatic changes are noted bilaterally. Some peripheral subpleural scarring in the lateral basal segment of the right lower lobe. Bolus stable. The heart is not enlarged no pericardial thickening or effusion. No mediastinal, hilar or axillary adenopathy. Bony thorax shows sternum, manubrium, spine, shoulders, visualized portions of clavicles and ribs all intact. The upper abdomen mild prominence of the left lobe of the liver noted gallbladder shows no calcified stone or mass no splenomegaly. Adrenal glands are normal. Upper poles of kidneys in that portion of pancreas included were unremarkable no calcified gallstone. IMPRESSION: : 1. Some minor deep sulcus the fibro atelectatic change and dependent atelectasis the right lower lobe and peripherally in the lateral basal segment as well. No effusion, acute infiltrate nodule or mass. No pleural thickening or calcified pleural plaque. 2. No mediastinal, hilar, axillary supraclavicular adenopathy or mass. Bones are intact. Upper abdomen without acute finding. <Electronically signed by Silvio Carcamo > 06/26/20 1152
== END ==
LOC: M RAD 15:56
PROVIDERS: ATTEND Family Medicine
DX: J18.9 Pneumonia, unspecified organism (principal)

== ENCOUNTER → 2020-08-09 | Outpatient (CLI) | payer OTHER ==
[~2020-08-09] MED LIST changes: -MONT10TA4; -MONT10TA4 PO; +MONT5TAB2; +MONT5TAB2 PO
== END ==
LOC: M LABSMTC 13:23
PROVIDERS: ATTEND Family Medicine
DX: Z20.828 Contact with and (suspected) exposure to other viral communicable diseases (principal)

== ENCOUNTER → 2020-08-25 | Outpatient (CLI) | payer OTHER ==
--- NOTE | 2020-08-29 00:04 | ECWPNPC ---
PATIENT NAME: DOMINGA BAÑUELOS : 1970 GENDER: FEMALE VISIT DATE: 08/25/2020 DISCHARGE DATE: 08/25/20 1515 VISIT LOCKED DATE TIME: PHYSICIAN: JUSTEN MARIN MD PHYSICIAN PAGER NO: ACTIVE RESOURCE: JUSTEN MARIN MD REASON FOR APPOINTMENT 1. DISCUSS DCS HISTORY OF PRESENT ILLNESS GENERAL: 49-YEAR-OLD FEMALE PATIENT WITH A HISTORY OF CHRONIC LOW BACK AND BILATERAL LEG PAIN. THE PATIENT HAS HAD THIS FOR MANY YEARS. SHE HAS TRIED MEDICATION MANAGEMENT AND INJECTION THERAPY BUT PAIN PERSISTS. WE HAVE BEEN TALKING ABOUT DORSAL COLUMN STIMULATOR FOR A WHILE WITH THE PATIENT. THE PATIENT DESCRIBES THE PAIN SEVERE, BURNING AND SHOOTING WITH A PAIN SCORE RANGING FROM 6-10/10 MAINLY IN THE LOWER BACK WITH MAINLY RADIATION AT THE MOMENT TO THE LEFT LEG. THE PATIENT STATES THAT IN THE LAST 6 WEEKS SHE DEVELOPED SOME WEAKNESS AND LOSS OF STRENGTH AND MOTOR STRENGTH IN ALL OF HER EXTREMITIES AND THE LEFT ARM AND LEG THE SYMPTOMS ARE WORSE WITH EXTREME WEAKNESS IN HER UPPER EXTREMITIES. SHE IS FOLLOWED BY DR. DILLARD, NEUROLOGIST. THE PATIENT HAD A RIGHT HIP REPLACEMENT IN MARCH 2020. FALL RISK SCREENING: SCREENING :TWO OR MORE FALLS WITHOUT INJURY IN THE PAST YEAR PATIENT REPORTS NOT SEEKING MEDICAL ATTENTION. PAIN SCREENING: PATIENT HAS A COMPLAINT OF ACUTE OR CHRONIC PAIN :YES LOCATION OF PAIN:NECK, UPPER BACK, MID BACK, LOW BACK, LEFT HIP, RIGHT HIP, LEG(S), FEET INTENSITY OF PAIN (SCALE OF 1 TO 10):7 WHAT DOES YOUR PAIN FEEL LIKE:BURNING, CONTINOUS, SHOOTING, OTHER PATIENT ASSOCIATES PAIN TO "FROSTBITE WHEN EXTREMITIES ARE THAWING OUT." DURATION:CONTINOUS, CONSTANT, STEADY, ALL DAY, AWAKENS FROM SLEEP PAIN IS INCREASED BY:ACTIVITIES, PROLONGED STANDING, OTHERS PROLONGED SITTING PAIN IS DECREASED BY:OTHERS ICE OCCASSIONALLY TREATMENT/MEDICATIONS USED TO MANAGE PAIN:OTC PAIN RELIEVERS, NSAIDS, TOPICAL CORTICOSTEROIDS, OPIOIDS, CORTICOSTEROIDS, PHYSICAL THERAPY HOME EXERCISES AND STRETCHING PLAN/GOALS/TREATMENT/INTERVENTION/FOLLOW UP:SEE PLAN PAIN CENTER INTAKE QUESTIONS: DO YOU HAVE A HISTORY OF MRSA? :NO DO YOU TAKE A BLOOD THINNERS? :NO DO YOU HAVE ANY BLEEDING DISORDERS? :NO ANY NEW NUMBNESS OR WEAKNESS IN YOUR LEGS OR ARMS? :YES BILATERAL LEGS BECOMING WEAKER, ARMS INCREASED WEAKNESS, CHECKROOM CHIEF STRENGTH. ANY PACEMAKER,DEFIBRILLATOR, OR DORSAL COLUMN STIMULATOR? :NO DO YOU HAVE ANY RASHES OR OPEN SORES? :NO ARE YOU ALLERGIC TO IV DYE? :NO ARE YOU DIABETIC? :NO ANY NEW PROBLEMS WITH YOUR MEDICATIONS? :NO HAVE YOU RECEIVED A VACCINE IN THE PAST 30 DAYS? :NO DO YOU PLAN TO RECEIVE A VACCINE IN THE NEXT 21 DAYS? :NO DO YOU NEED ANY PRESCRIPTION? :NO DO YOU TAKE ANY IMMUNOSUPPRESSIVE MEDICATIONS? :NO IS THERE A CHANCE YOU COULD BE ? :NO ARE YOU BREAST FEEDING? :NO CURRENT MEDICATIONS TAKING FISH OIL 1000 MG CAPSULE 1 TABLET ORALLY DAILY TAKING CALCIUM 600 MG TABLET 1 TABLET ORALLY DAILY TAKING MULTIVITAMINS OTC TABLET 1 TABLET ORALLY DAILY TAKING ROPINIROLE HCL 2 MG TABLET 1 TAB AM & 2 TAB PM ORALLY TWICE DAILY TAKING CYMBALTA 60 MG CAPSULE DELAYED RELEASE PARTICLES 1 CAPSULE ORALLY TWICE A DAY TAKING QUETIAPINE FUMARATE 100 MG TABLET 1.5 TABLET AT BEDTIME ORALLY DAILY TAKING BIOTIN 10 MG TABLET 1 TABLET ORALLY ONCE A DAY TAKING PROBIOTIC - TABLET DELAYED RELEASE DIRECTED ORALLY TAKING FOLIC ACID 1 MG TABLET 1 TABLET ORALLY ONCE A DAY TAKING TRAZODONE HCL 100 MG TABLET 250 MG BY MOUTH AT BEDTIME ORALLY AT BEDTIME TAKING TIZANIDINE HCL 4 MG TABLET 1 TABLET NEEDED ORALLY THREE TIMES A DAY TAKING CLINDAMYCIN PHOSPHATE 1 % GEL 1 APPLICATION TO AFFECTED AREA EXTERNALLY ONCE A DAY IN AM TO FACE TAKING OMEPRAZOLE 40 MG CAPSULE DELAYED RELEASE 1 CAPSULE ORALLY ONCE A DAY TAKING BENADRYL 25 MG TABLET 1 TABLET ORALLY THREE TIMES DAILY NEEDED TAKING SINGULAIR 10 MG TABLET 1 TABLET IN THE EVENING ORALLY ONCE A DAY TAKING TEGRETOL 200 MG TABLET 1 TAB PAULA & 2 TABS IN PM ORALLY BID PRN TAKING CLARITIN 10 MG TABLET 1 TABLET ORALLY ONCE A DAY TAKING FLONASE ALLERGY RELIEF 50 MCG/ACT SUSPENSION 1 SPRAY IN EACH NOSTRIL NASALLY BID TAKING ADVAIR DISKUS 250-50 MCG/DOSE AEROSOL POWDER BREATH ACTIVATED 1 PUFF INHALATION TWICE A DAY TAKING VENTOLIN HFA 108 (90 BASE) MCG/ACT AEROSOL SOLUTION 2 PUFFS NEEDED INHALATION EVERY 4 HRS TAKING DOCQLACE 100 MG CAPSULE 1 CAPSULE NEEDED ORALLY ONCE A DAY TAKING IBUPROFEN 800 MG TABLET 1 TABLET WITH FOOD OR MILK NEEDED ORALLY TID PRN TAKING GABAPENTIN 400 MG CAPSULE TAKE ONE CAPSULE BY MOUTH TWICE A DAY ORAL TAKING TOPIRAMATE 25 MG TABLET 1TAB IN AM AND 2TAB PM ORAL TAKING NORTRIPTYLINE HCL 10 MG CAPSULE 1 CAPSULE ORALLY BID NOT-TAKING WHEELCHAIR - MISCELLANEOUS BARIATRIC WHEELCHAIR; DIRECTED HT 66.5 IN, WT 266LBS DX M87.05 NOT-TAKING SIMVASTATIN 20 MG TABLET 1 TABLET IN THE EVENING ORALLY ONCE A DAY MEDICATION LIST REVIEWED AND RECONCILED WITH THE PATIENT PAST MEDICAL HISTORY LUNG NODULE ON CXR IN ED 05/2019, GONE WITH REPEAT CT -LIKELY PNEUMONIA; PLEURAL THICKENING, REPEAT CT 12/2019 MODERATE PERSISTENT ASTHMA GERD INTERSTITIAL CYSTITIS/OAB/CHRONIC HEMATURIA - PREVIOUSLY FOLLOWED WITH [facility] UROLOGY LICHEN PLANUS, ACNE - DR. MERCADO MIGRAINES - DOES BOTOX INJECTIONS LEFT TRIGEMINAL NEURALGIA - DR. DILLARD RLS - DR. DILLARD ANXIETY/DEPRESSION - DR. OCHOA CARPAL TUNNEL BILATERAL - NCOG BACK/SCIATIC PAIN- DR. CABAN, NEUROSURG IN [place] PERIPHERAL NEUROPATHY, SMALL FIBER SENSORY NEUROPATHY - DR. DILLARD CHRONIC LEFT FOOT AND ANKLE PAIN - NCOG RIGHT HIP PAIN - AVN - ([facility]) COMPLEX REGIONAL PAIN SYNDROME - DR. AMRIN FIBROMYALGIA - PAIN CENTER [facility] CORE 11.35 % LACTOSE INTOLERANT AND GLUTEN SENSITIVITY NEURALGIA LEFT NECK AND ARM ALLERGIES CIPROFLOXACIN: DYSPNEA - ALLERGY ELMIRON: NAUSEA/VOMITING/COUGH - SIDE EFFECTS AUGMENTIN: DIARRHEA - SIDE EFFECTS SURGICAL HISTORY FOOT SURGERY -RIGHT KNEE SURGERY -LEFT SINUS SURGERY BILATERAL TUBAL LIGATION COLPOSCOPY- LESLY BECKMAN 04/05/19 COLONOSCOPY - 2 POLYPS REMOVED, REPEAT IN 5 YEARS, DR. DAMON 09/2019 EGD - ERYTHEMATOUS MUCOSA IN THE ANTRUM, BIOPSY PENDING, DR. DAMON 09/2019 RIGHT HIP REPLACEMENT 03/30/2020 FAMILY HISTORY FATHER: ALIVE 70 YRS, HEART DISEASE MOTHER: 46 YRS SIBLINGS: ALIVE, HYPOTHYROID,ONE SISTER OF PNENOMIA SON(S): ALIVE DAUGHTER(S): ALIVE 25 YRS MATERNAL UNCLE: RHEUMATOID 1 BROTHER(S) , 1 SISTER(S) . 2 SON(S) , 1 DAUGHTER(S) - HEALTHY. SISTER: AGE 33 FROM PNEUMONIA-OBESITY\\\\NBROTHER: 1977\\\\NSONS: 1993, 2005\\\\N\\\\NMATERNAL 1ST COUSIN- LUPUS\\\\NNO FAMILY HX OF MELANOMA OR PANCREATIC CANCER. SOCIAL HISTORY GENERAL: TOBACCO USE ARE YOU A:FORMER SMOKER HOW LONG HAS IT BEEN SINCE YOU LAST SMOKED?> 10 YEARS LATEX QUESTIONNAIRE LATEX ALLERGY : HAVE YOU EVER DEVELOPED ANY TYPE OF REACTION AFTER HANDLING LATEX PRODUCTS SUCH RUBBER GLOVES, CONDOMS, DIAPHRAGMS, BALLOONS, SOCKS, OR UNDERWEAR?NO LATEX ALLERGY : HAVE YOU EVER DEVELOPED ANY TYPE OF REACTION DURING OR AFTER DENTAL APPOINTMENT, VAGINAL/RECTAL EXAMINATION, SURGICAL PROCEDURE, OR ANY OTHER EXPOSURE?NO DATE ASKED : 06/16/2020 LATEX RISK : HAVE YOU EVER HAD ANY DIFFICULTY BREATHING OR HIVES AFTER EATING OR HANDLING ANY FRUITS, OR VEGETABLES; SUCH KIWI, BANANAS, STONE FRUITS, OR CHESTNUTSNO LATEX RISK : DO YOU HAVE A PREVIOUS PERSONAL HISTORY OF MORE THAN NINE SURGERIES, SPINA BIFIDA, OR REPEATED CATHERIZATIONS? NO LATEX RISK : ARE YOU FREQUENTLY EXPOSED TO LATEX PRODUCTS IN YOUR OCCUPATION?NO BMI CARE GOAL FOLLOW-UP ABOVE NORMAL BMI FOLLOW-UPLIFESTYLE EDUCATION REGARDING DIET ALCOHOL SCREENING DID YOU HAVE A DRINK CONTAINING ALCOHOL IN THE PAST YEAR?YES HOW OFTEN DID YOU HAVE SIX OR MORE DRINKS ON ONE OCCASION IN THE PAST YEAR?NEVER (0 POINTS) HOW MANY DRINKS DID YOU HAVE ON A TYPICAL DAY WHEN YOU WERE DRINKING IN THE PAST YEAR?1 OR 2 (0 POINTS) HOW OFTEN DID YOU HAVE A DRINK CONTAINING ALCOHOL IN THE PAST YEAR?MONTHLY OR LESS (1 POINT) POINTS1 INTERPRETATIONNEGATIVE RECREATIONAL DRUG USE DRUG USE?NO CAFFEINE CAFFEINE USE?YES 1-2 CUPS DAILY SEXUAL HX HAD SEX IN THE LAST 12 MONTHS (VAGINAL, ORAL, OR ANAL)?YES WITHMEN ONLY HAVE YOU EVER HAD AN STD?NO HIV / HEP-C SCREENING HIV TEST OFFERED TO PATIENT:YES DATE OFFERED:10/08/2017 TEST ACCEPTED:NO HEP-C TEST OFFERED TO PATIENT:NO REASON:PATIENT DECLINED RESTORATIONISM [id number] OTHER LANGUAGE TOGOLESE. EDUCATION LEVEL OF EDUCATION:HIGH SCHOOL LEARNING BARRIERS / SPECIAL NEEDS CHANGE FROM LAST VISIT?NO BARRIERS TO LEARNING?NO HEARING IMPAIRED?NO VISION IMPAIRED?NO COGNITIVELY IMPAIRED?NO READINESS TO LEARN?YES LEARNING PREFERENCES?NO LEARNING CAPABILITIES PRESENT?YES EMOTIONAL BARRIERS?NO SPECIAL DEVICES?YES :CANE, WALKER, OTHER SHOWER CHAIR, RAISED TOILET SEAT; ONLY USES WALKER OCCASSIONALLY WHEN WALKING LONG DISTANCES HAND TACKER NEEDED?NO DOMESTIC VIOLENCE DO YOU FEEL SAFE IN YOUR ENVIRONMENT?YES OCCUPATION: HOMEMAKER. DIET: LOW GLUTEN, LOW CARBS, LOW LACTOSE, LOW OXYLATE. EXERCISE: NO REGULAR EXERCISE. MARITAL STATUS: ., MOTHER OF 3. OTHERS AT HOME: CHILD. PAIN CLINIC PFS, CLERGY, PUBLIC HEALTH REFERRALS PFS REFERRAL NEEDED?NO CLERGY REFERRAL NEEDED?NO PUBLIC HEALTH REFERRAL NEEDED?NO HAS THE PATIENT BEEN EDUCATED REGARDING HIS/HER PLAN OF CARE?YES HAS THE PATIENT BEEN EDUCATED REGARDING PAIN, THE RISK FOR PAIN, THE IMPORTANCE OF EFFECTIVE PAIN MANAGEMENT, AND THE PAIN ASSESSMENT PROCESS?YES ADVANCE DIRECTIVE ADVANCE DIRECTIVE DISCUSSED WITH PATIENT:YES HAS HCP INFORMATION, SHE HAS NOT COMPLETED FORMS YET. ASSISTANCE OFFERED IN COMPLETING IF NEEDED. HOSPITALIZATION/MAJOR DIAGNOSTIC PROCEDURE SURGICAL RELATED CHILDBIRTH /2005 REVIEW OF SYSTEMS CONSTITUTIONAL: ANY RECENT FEVER NO . CHILLS NO . WEIGHT CHANGE OF UNKNOWN REASONS NO. REDUCTION IN SLEEP IN THE LAST 6 WEEKS . GASTROENTEROLOGY: NEW UNEXPLAINABLE CHANGES IN BOWEL CONTROL NO . CONSTIPATION NO . GENITOURINARY: ANY NEW CHANGE IN BLADDER CONTROL? NO . NEUROLOGY: NEW ONSET DIZZINESS OR NEUROLOGICAL CHANGES NOT MENTIONED NO . NEW NUMBNESS OR PAIN PATTERNS NOT MENTIONED AND PERTINENT TO TODAY'S VISIT IN THE LAST 6 WEEKS, WEAKNESS AND MORE BURNING ESPECIALLY ON THE LEFT . CARDIOLOGY: NEW CHEST PRESSURE NO . NEW CHEST PAIN NO . RESPIRATORY: UNEXPLAINABLE COUGH NO . NEW SHORTNESS OF BREATH NO . VITAL SIGNS WT 235.8 LBS, HT 66.5 IN, BMI 37.48 INDEX, BP 139/87 MM HG, HR 95 /MIN, RR 18 /MIN, TEMP 98.3 F, OXYGEN SAT % 96%, SAFE IN ENV? (Y/N) YES, NA INITIALS IA 13:11, REVIEWED BY: MTM. ENG MOTOR AND CONTROLS TESTER. EXAMINATION GENERAL EXAMINATION: THE PATIENT IS ALERT, ORIENTED TIMES THREE AND COOPERATIVE. LUNGS HAVE SOME MILD WHEEZING ON DEEP EXPIRATION. HEART SHOWS REGULAR RHYTHM, NO MURMURS AND NO GALLOPS. THE PATENT IS LIMPING FROM THE LEFT LEG. THE PATIENT CAN ABDUCT BOTH ARMS. THE LEFT ARM IS WEAKER THAN THE RIGHT ON FLEXION AND EXTENSION. HAND CHECKROOM CHIEF ON THE LEFT IS WEAKER THAN THE RIGHT ALTHOUGH BOTH ARE REDUCED. THE LEFT ARM APPEARS MORE SWOLLEN THAN THE RIGHT AND FEELS WARM. THERE IS HYPERPATHIA OVER THE LEFT UPPER EXTREMITY. LUMBAR MRI DATED 12/03/2015 SHOWS BULGING DISC AT MULTIPLE LEVELS. ASSESSMENTS INTERVERTEBRAL DISC DISORDERS WITH RADICULOPATHY, LUMBAR REGION - M51.16 (PRIMARY) NEUROLOGICAL SYMPTOMS - R29.90, NEW ONSET TREATMENT INTERVERTEBRAL DISC DISORDERS WITH RADICULOPATHY, LUMBAR REGION CLINICAL NOTES: I DISCUSSED ALTERNATIVES WITH MS. BAÑUELOS. THE PATIENT HAS DONE HOME EXERCISES FOR OVER SIX MONTHS. THE PATIENT HAS DONE PHYSICAL THERAPY FOR MANY MONTHS AND THE PAIN PERSISTS. OVER THE COURSE OF THE YEARS, THE PATIENT HAS TRIED MANY ANTIDEPRESSANTS AND ANTIEPILEPTICS BUT THE PAIN PERSISTS. PRESENTLY THE PATIENT IS USING CYMBALTA, GABAPENTIN, NORTRIPTYLINE, TOPAMAX, AND TEGRETOL AND THE PAIN PERSISTS. IN REGARD TO THE SPINAL COLUMN STIMULATOR TRIAL, I WOULD LIKE TO DISCUSS THE CASE WITH DR. DILLARD AND I WOULD LIKE TO FIND HER BRAIN MRI BEFORE MOVING FORWARD. THE PATIENT WILL FOLLOW UP WITH CHERYL. THE PATIENT UNDERSTANDS AND AGREES WITH THE PLAN. I, ROMA ARGUETA, DOCUMENTED THE ABOVE INFORMATION ACTING A SCRIBE FOR DR. MARIN. I HAVE REVIEWED THE ABOVE DOCUMENT, WRITTEN BY ROMA ARGUETA, WHIZZER, AND I VERIFY THAT IT IS ACCURATE. PROCEDURE CODES FA211 ESTABILISHED PATIENT [facility] CHARGE 02303 OFFICE/OUTPATIENT VISIT EST DISPOSITION & COMMUNICATION FOLLOW UP FOLLOW UP NEXT AVAILABLE WITH CHERYL (REASON: MEDICATION MANAGEMENT) ELECTRONICALLY SIGNED BY JUSTEN MARIN MD, MD ON 08/28/2020 AT 11:55 AM EST DISCLAIMER : THIS IS A VISIT SUMMARY EXTRACTED FROM THE [employer] CHART. IT IS NOT A COPY OF THE [employer] PROGRESS NOTE. MTDD
== END ==
LOC: M PAIN 13:15
PROVIDERS: ATTEND Anesthesiology
DX: M51.16 Intervertebral disc disorders with radiculopathy, lumbar region (principal); R29.90 Unspecified symptoms and signs involving the nervous system; M79.7 Fibromyalgia; G43.909 Migraine, unspecified, not intractable, without status migrainosus; G62.9 Polyneuropathy, unspecified; Z87.891 Personal history of nicotine dependence; Z79.899 Other long term (current) drug therapy; Z88.1 Allergy status to other antibiotic agents; Z88.8 Allergy status to other drugs, medicaments and biological substances

== ENCOUNTER → 2020-09-07 | Outpatient (CLI) | payer OTHER ==
[~2020-09-07] MED LIST changes: +MONT10TA10; +MONT10TA10 PO; -MONT5TAB2; -MONT5TAB2 PO; +QUET50TA3; -QUET5TAB
--- NOTE | 2020-09-07 12:48 | REPMRS ---
Patient History The patient states she had a clinical breast exam in 08/2020. Patient is postmenopausal. No known family history of cancer. No Hormone Replacement Therapy 3D TOMOSYNTHESIS WAS PERFORMED. The Melissa Galvan lifetime risk for breast cancer is 9.2%. Volpara breast density a. Digital Woman Screen Mammo: September 07, 2020 - Exam #: [id number] Bilateral CC and MLO view(s) were taken. Technologist: Bronwyn Bautista, Technologist Prior study comparison: February 25, 2019, bilateral digital woman screen mammo performed at [facility]. 2016, bilateral digital mammo screening bilat, performed at [facility]. FINDINGS: There are scattered fibroglandular densities. There has been no change in the appearance of the mammogram from the prior studies. There is a mild amount of residual fibroglandular tissue which is fairly symmetric. There is no interval development of dominant mass, architectural distortion, or clustered microcalcification suggestive of malignancy. Assessment: BI-RADS/ACR category 1 mammogram. Negative Mammogram. Recommendation Routine screening mammogram in 1 year (for women over age 40). This mammogram was interpreted with the aid of an FDA-approved computer-aided dectection system. Electronically Signed By: Erik Chandra MD 09/07/20 7022
== END ==
LOC: M WHC 11:30
PROVIDERS: ATTEND Nurse Practitioner Family
DX: Z12.31 Encounter for screening mammogram for malignant neoplasm of breast (principal)

== ENCOUNTER → 2020-09-07 | Outpatient (REF) | payer OTHER | LOC: M SFHCWAGY 13:43 | PROVIDERS: ATTEND Nurse Practitioner Family | DX: Z12.4 Encounter for screening for malignant neoplasm of cervix (principal); R87.612 Low grade squamous intraepithelial lesion on cytologic smear of cervix (LGSIL) ==

== ENCOUNTER → 2020-10-25 | Outpatient (CLI) | payer OTHER, MEDICAID ==
--- NOTE | 2020-10-27 04:19 | ECWPNPC ---
PATIENT NAME: DOMINGA BAÑUELOS : 1970 GENDER: FEMALE VISIT DATE: 10/25/2020 DISCHARGE DATE: 10/25/20 1040 VISIT LOCKED DATE TIME: PHYSICIAN: CHERYL BAIG PHYSICIAN PAGER NO: ACTIVE RESOURCE: CHERYL BAIG REASON FOR APPOINTMENT 1. MEDICATION MANAGEMENT-DR. Daniels TO BE PRESENT AT [facility]LL, PER DR. Daniels. HISTORY OF PRESENT ILLNESS GENERAL: - 50-YEAR-OLD FEMALE IN FOR CHRONIC PAIN FOLLOW-UP. SHE RATES HER PAIN CURRENTLY AT A 7 OUT OF 10 AND DESCRIBES IT BURNING, CONTINUOUS, AND STABBING. DR. MARIN IS TO MEET WITH PATIENT TODAY WELL. PATIENT HAS BEEN ON MEDICATIONS FOR PAIN MANAGEMENT IN THE PAST TO NO AVAIL. WE WILL DISCUSS MEDICAL MARIJUANA TODAY. FALL RISK SCREENING: SCREENING ONE FALL WITHOUT INJURY REPORTED IN THE LAST YEAR. PAIN SCREENING: PATIENT HAS A COMPLAINT OF ACUTE OR CHRONIC PAIN :YES LOCATION OF PAIN:NECK, LOW BACK, HAND(S), FEET INTENSITY OF PAIN (SCALE OF 1 TO 10):7 WHAT DOES YOUR PAIN FEEL LIKE:BURNING, CONTINOUS, STABBING DURATION:CONTINOUS, CONSTANT, AWAKENS FROM SLEEP PAIN IS INCREASED BY:ACTIVITIES, PROLONGED STANDING, OTHERS SITTING PAIN IS DECREASED BY:OTHERS PATIENT REPORTS NOTHING HAS HELPED THE PAIN NURSING NOTE: -. PAIN CENTER INTAKE QUESTIONS: DO YOU HAVE A HISTORY OF MRSA? :NO DO YOU TAKE A BLOOD THINNERS? :NO DO YOU HAVE ANY BLEEDING DISORDERS? :NO ANY NEW NUMBNESS OR WEAKNESS IN YOUR LEGS OR ARMS? :NO ANY PACEMAKER,DEFIBRILLATOR, OR DORSAL COLUMN STIMULATOR? :NO DO YOU HAVE ANY RASHES OR OPEN SORES? :NO ARE YOU ALLERGIC TO IV DYE? :NO ARE YOU DIABETIC? :NO ANY NEW PROBLEMS WITH YOUR MEDICATIONS? :NO HAVE YOU RECEIVED A VACCINE IN THE PAST 30 DAYS? :NO DO YOU PLAN TO RECEIVE A VACCINE IN THE NEXT 21 DAYS? :YES IF SO WHAT VACCINE AND WHEN? FIRST COVID INJECTION 10/27/2020 DO YOU NEED ANY PRESCRIPTION? :NO DO YOU TAKE ANY IMMUNOSUPPRESSIVE MEDICATIONS? :NO DO YOU HAVE ANY KIDNEY OR LIVER DISEASE? :NO IS THERE A CHANCE YOU COULD BE ? :NO ARE YOU BREAST FEEDING? :NO CURRENT MEDICATIONS TAKING FISH OIL 1000 MG CAPSULE 1 TABLET ORALLY DAILY TAKING CALCIUM 600 MG TABLET 1 TABLET ORALLY DAILY TAKING MULTIVITAMINS OTC TABLET 1 TABLET ORALLY DAILY TAKING ROPINIROLE HCL 2 MG TABLET 1 TAB AM & 2 TAB PM ORALLY TWICE DAILY TAKING CYMBALTA 60 MG CAPSULE DELAYED RELEASE PARTICLES 1 CAPSULE ORALLY TWICE A DAY TAKING QUETIAPINE FUMARATE 100 MG TABLET 1.5 TABLET AT BEDTIME ORALLY DAILY TAKING BIOTIN 10 MG TABLET 1 TABLET ORALLY ONCE A DAY TAKING PROBIOTIC - TABLET DELAYED RELEASE DIRECTED ORALLY TAKING FOLIC ACID 1 MG TABLET 1 TABLET ORALLY ONCE A DAY TAKING TRAZODONE HCL 100 MG TABLET 250 MG BY MOUTH AT BEDTIME ORALLY AT BEDTIME TAKING TIZANIDINE HCL 4 MG TABLET 1 TABLET NEEDED ORALLY THREE TIMES A DAY TAKING CLINDAMYCIN PHOSPHATE 1 % GEL 1 APPLICATION TO AFFECTED AREA EXTERNALLY ONCE A DAY IN AM TO FACE TAKING OMEPRAZOLE 40 MG CAPSULE DELAYED RELEASE 1 CAPSULE ORALLY ONCE A DAY TAKING BENADRYL 25 MG TABLET 1 TABLET ORALLY THREE TIMES DAILY NEEDED TAKING SINGULAIR 10 MG TABLET 1 TABLET IN THE EVENING ORALLY ONCE A DAY TAKING TEGRETOL 200 MG TABLET 1 TAB PAULA & 2 TABS IN PM ORALLY BID PRN TAKING CLARITIN 10 MG TABLET 1 TABLET ORALLY ONCE A DAY TAKING FLONASE ALLERGY RELIEF 50 MCG/ACT SUSPENSION 1 SPRAY IN EACH NOSTRIL NASALLY BID TAKING ADVAIR DISKUS 250-50 MCG/DOSE AEROSOL POWDER BREATH ACTIVATED 1 PUFF INHALATION TWICE A DAY TAKING VENTOLIN HFA 108 (90 BASE) MCG/ACT AEROSOL SOLUTION 2 PUFFS NEEDED INHALATION EVERY 4 HRS TAKING DOCQLACE 100 MG CAPSULE 1 CAPSULE NEEDED ORALLY ONCE A DAY TAKING GABAPENTIN 400 MG CAPSULE TAKE ONE CAPSULE BY MOUTH TWICE A DAY ORAL TAKING TOPIRAMATE 25 MG TABLET 1TAB IN AM AND 2TAB PM ORAL NOT-TAKING NORTRIPTYLINE HCL 10 MG CAPSULE 1 CAPSULE ORALLY BID NOT-TAKING IBUPROFEN 800 MG TABLET 1 TABLET WITH FOOD OR MILK NEEDED ORALLY BID UNKNOWN WHEELCHAIR - MISCELLANEOUS BARIATRIC WHEELCHAIR; DIRECTED HT 66.5 IN, WT 266LBS DX M87.05 UNKNOWN SIMVASTATIN 20 MG TABLET 1 TABLET IN THE EVENING ORALLY ONCE A DAY MEDICATION LIST REVIEWED AND RECONCILED WITH THE PATIENT PAST MEDICAL HISTORY LUNG NODULE ON CXR IN ED 05/2019, GONE WITH REPEAT CT -LIKELY PNEUMONIA; PLEURAL THICKENING, REPEAT CT 12/2019 MODERATE PERSISTENT ASTHMA GERD INTERSTITIAL CYSTITIS/OAB/CHRONIC HEMATURIA - PREVIOUSLY FOLLOWED WITH [facility] UROLOGY L[place]EN PLANUS, ACNE - DR. MERCADO MIGRAINES - DOES BOTOX INJECTIONS LEFT TRIGEMINAL NEURALGIA - DR. DILLARD RLS - DR. DILLARD ANXIETY/DEPRESSION - DR. OCHOA CARPAL TUNNEL BILATERAL - NCOG BACK/SCIATIC PAIN- DR. CABAN, NEUROSURG IN [place] PERIPHERAL NEUROPATHY, SMALL FIBER SENSORY NEUROPATHY - DR. DILLARD CHRONIC LEFT FOOT AND ANKLE PAIN - NCOG RIGHT HIP PAIN - AVN - ([facility]) COMPLEX REGIONAL PAIN SYNDROME - DR. MARIN FIBROMYALGIA - PAIN CENTER [facility] CORE 11.35 % LACTOSE INTOLERANT AND GLUTEN SENSITIVITY NEURALGIA LEFT NECK AND ARM ALLERGIES CIPROFLOXACIN: DYSPNEA - ALLERGY ELMIRON: NAUSEA/VOMITING/COUGH - SIDE EFFECTS AUGMENTIN: DIARRHEA - SIDE EFFECTS SOCIAL HISTORY GENERAL: TOBACCO USE ARE YOU A:FORMER SMOKER HOW LONG HAS IT BEEN SINCE YOU LAST SMOKED?> 10 YEARS LATEX QUESTIONNAIRE LATEX ALLERGY : HAVE YOU EVER DEVELOPED ANY TYPE OF REACTION AFTER HANDLING LATEX PRODUCTS SUCH RUBBER GLOVES, CONDOMS, DIAPHRAGMS, BALLOONS, SOCKS, OR UNDERWEAR?NO LATEX ALLERGY : HAVE YOU EVER DEVELOPED ANY TYPE OF REACTION DURING OR AFTER DENTAL APPOINTMENT, VAGINAL/RECTAL EXAMINATION, SURGICAL PROCEDURE, OR ANY OTHER EXPOSURE?NO LATEX RISK : HAVE YOU EVER HAD ANY DIFFICULTY BREATHING OR HIVES AFTER EATING OR HANDLING ANY FRUITS, OR VEGETABLES; SUCH KIWI, BANANAS, STONE FRUITS, OR CHESTNUTSNO LATEX RISK : DO YOU HAVE A PREVIOUS PERSONAL HISTORY OF MORE THAN NINE SURGERIES, SPINA BIFIDA, OR REPEATED CATHERIZATIONS? NO LATEX RISK : ARE YOU FREQUENTLY EXPOSED TO LATEX PRODUCTS IN YOUR OCCUPATION?NO DATE ASKED : 10/25/2020 BMI CARE GOAL FOLLOW-UP ABOVE NORMAL BMI FOLLOW-UPLMEDICAL CENTER ENTERPRISEYLE EDUCATION REGARDING DIET ALCOHOL SCREENING DID YOU HAVE A DRINK CONTAINING ALCOHOL IN THE PAST YEAR?YES HOW OFTEN DID YOU HAVE SIX OR MORE DRINKS ON ONE OCCASION IN THE PAST YEAR?NEVER (0 POINTS) HOW MANY DRINKS DID YOU HAVE ON A TYPICAL DAY WHEN YOU WERE DRINKING IN THE PAST YEAR?1 OR 2 (0 POINTS) HOW OFTEN DID YOU HAVE A DRINK CONTAINING ALCOHOL IN THE PAST YEAR?MONTHLY OR LESS (1 POINT) POINTS1 INTERPRETATIONNEGATIVE RECREATIONAL DRUG USE DRUG USE?NO CAFFEINE CAFFEINE USE?YES 1-2 CUPS DAILY SEXUAL HX HAD SEX IN THE LAST 12 MONTHS (VAGINAL, ORAL, OR ANAL)?YES WITHMEN ONLY HAVE YOU EVER HAD AN STD?NO HIV / HEP-C SCREENING HIV TEST OFFERED TO PATIENT:YES DATE OFFERED:10/08/2017 TEST ACCEPTED:NO HEP-C TEST OFFERED TO PATIENT:NO REASON:PATIENT DECLINED QUAKER [id number] OTHER LANGUAGE TOGOLESE. EDUCATION LEVEL OF EDUCATION:HIGH SCHOOL LEARNING BARRIERS / SPECIAL NEEDS CHANGE FROM LAST VISIT?NO BARRIERS TO LEARNING?NO HEARING IMPAIRED?NO VISION IMPAIRED?NO COGNITIVELY IMPAIRED?NO READINESS TO LEARN?YES LEARNING PREFERENCES?NO LEARNING CAPABILITIES PRESENT?YES EMOTIONAL BARRIERS?NO SPECIAL DEVICES?NO SUBWAY REPAIR SUPERVISOR NEEDED?NO DOMESTIC VIOLENCE DO YOU FEEL SAFE IN YOUR ENVIRONMENT?YES OCCUPATION: HOMEMAKER. DIET: LOW GLUTEN, LOW CARBS, LOW LACTOSE, LOW OXYLATE. EXERCISE: NO REGULAR EXERCISE. MARITAL STATUS: ., MOTHER OF 3. OTHERS AT HOME: CHILD. - PFS REFERRAL NEEDED?NO CLERGY REFERRAL NEEDED?NO PUBLIC HEALTH REFERRAL NEEDED?NO HAS THE PATIENT BEEN EDUCATED REGARDING HIS/HER PLAN OF CARE?YES HAS THE PATIENT BEEN EDUCATED REGARDING PAIN, THE RISK FOR PAIN, THE IMPORTANCE OF EFFECTIVE PAIN MANAGEMENT, AND THE PAIN ASSESSMENT PROCESS?YES ADVANCE DIRECTIVE ADVANCE DIRECTIVE DISCUSSED WITH PATIENT:YES HAS HCP INFORMATION, SHE HAS NOT COMPLETED FORMS YET. ASSISTANCE OFFERED IN COMPLETING IF NEEDED. REVIEW OF SYSTEMS CONSTITUTIONAL: ANY RECENT FEVER NO . CHILLS NO . WEIGHT CHANGE OF UNKNOWN REASONS NO . GASTROENTEROLOGY: NEW UNEXPLAINABLE CHANGES IN BOWEL CONTROL NO . CONSTIPATION NO . GENITOURINARY: ANY NEW CHANGE IN BLADDER CONTROL? NO . NEUROLOGY: NEW ONSET DIZZINESS OR NEUROLOGICAL CHANGES NOT MENTIONED NO . NEW NUMBNESS OR PAIN PATTERNS NOT MENTIONED AND PERTINENT TO TODAY'S VISIT NO . CARDIOLOGY: NEW CHEST PRESSURE NO . PATIENT DENIES NO . RESPIRATORY: UNEXPLAINABLE COUGH NO . NEW SHORTNESS OF BREATH NO . VITAL SIGNS WT 231.6 LBS, HT 66.5 IN, BMI 36.82 INDEX, BP 118/95 MM HG, HR 86 /MIN, RR 18 /MIN, TEMP 97.9 F, OXYGEN SAT % 95%, SAFE IN ENV? (Y/N) YES, NA INITIALS AW [id number] SETHI MA. EXAMINATION GENERAL EXAMINATION: GENERALNO ACUTE DISTRESS, WELL NOURISHED AND HYDRATED. PSYCHAPPROPRIATE MOOD AND AFFECT . LUNGS:CLEAR TO AUSCULTATION BILATERALLY, NO WHEEZES, RHONCHI, RALES. HEART:NO MURMURS, REGULAR RATE AND RHYTHM. ASSESSMENTS INTERVERTEBRAL DISC DISORDERS WITH RADICULOPATHY, LUMBAR REGION - M51.16 TREATMENT INTERVERTEBRAL DISC DISORDERS WITH RADICULOPATHY, LUMBAR REGION NOTES: 50-YEAR-OLD FEMALE IN FOR CHRONIC PAIN FOLLOW-UP. GIVEN PRESENTING SYMPTOMS RECOMMEND REFERRAL FOR [facility]ICAL [facility] WITH FOLLOW-UP IN 2 MONTHS. PATIENT HAS EXPRESSED UNDERSTANDING OF AND WAS IN AGREEMENT WITH TREATMENT PLAN. GIVEN TIME TO ASK QUESTIONS AND EXPRESS CONCERNS. [facility]AL [facility] REASON:MEDICAL [facility] PROCEDURE CODES FA211 ESTABILISHED PATIENT [facility] FACILITY CHARGE DISPOSITION & COMMUNICATION FOLLOW UP 2 MONTHS (REASON: BACK PAIN F/U WITH DOC 1 MONTH ) ELECTRONICALLY SIGNED BY ARMAND VAUGHAN ON 10/26/2020 AT 02:28 PM EST DISCLAIMER : THIS IS A VISIT SUMMARY EXTRACTED FROM THE [employer] CHART. IT IS NOT A COPY OF THE [employer] PROGRESS NOTE. MARCO ANTONIO
== END ==
LOC: M PAIN 10:00
PROVIDERS: ATTEND Family Medicine
DX: M51.16 Intervertebral disc disorders with radiculopathy, lumbar region (principal); G89.29 Other chronic pain; J45.40 Moderate persistent asthma, uncomplicated; K21.9 Gastro-esophageal reflux disease without esophagitis; G43.909 Migraine, unspecified, not intractable, without status migrainosus; G25.81 Restless legs syndrome; M79.7 Fibromyalgia; Z86.59 Personal history of other mental and behavioral disorders; Z87.891 Personal history of nicotine dependence; Z88.1 Allergy status to other antibiotic agents; Z88.8 Allergy status to other drugs, medicaments and biological substances; Z79.899 Other long term (current) drug therapy

== ENCOUNTER 2020-11-08 08:52 | Emergency (ER) | payer MEDICAID, OTHER ==
[~2020-11-08] VITALS: Ht 170.2 cm; Wt 104.5 kg
[~2020-11-08 08:52] MED LIST changes: -SIMV20TA22; +SIMV20TA22 PO; -VENTAER; +VENTAER INH
[2020-11-08] MEDS ORDERED: KETOROLAC 30 MG/ML 1ML VIAL IV ONE (09:30)
[2020-11-08] MEDS ORDERED: ONDANSETRON 4MG/2ML VIAL IV ONE (09:30)
[2020-11-08] MEDS ORDERED: NS 1,000 ML IV ONE (09:30)
[2020-11-08 10:02] LABS: BASO # 0.1 10^3/uL (0.0-0.2); BASO % 1.3 % (0.0-1.0); EOS # 0.7 10^3/uL (0.0-0.5); EOS % 9.1 % (0.0-3.0); HEMOGLOBIN 13.3 g/dl (12.0-15.5); LYMPH # 3.9 10^3/uL (1.5-5.0); LYMPH % 47.4 % (24.0-44.0); MEAN CORPUSCULAR HEMOGLOBIN 29.8 pg (27.0-33.0); MEAN CORPUSCULAR HGB CONC 32.4 g/dl (32.0-36.5); MEAN CORPUSCULAR VOLUME 91.7 fl (80.0-96.0); MONO # 0.6 10^3/uL (0.0-0.8); MONO % 7.7 % (2.0-8.0); NEUTROPHILS # 2.8 10^3/uL (1.5-8.5); NEUTROPHILS % 34.1 % (36.0-66.0); PLATELET COUNT, AUTOMATED 239 10^3/uL (150-450); RED BLOOD COUNT 4.47 10^6/uL (4.00-5.40); WHITE BLOOD COUNT 8.2 10^3/uL (4.0-10.0)
[2020-11-08] MEDS ORDERED: ISOVUE-370 76% 100ML VIAL As Ordered ONE (10:03)
[2020-11-08 10:30] LABS: MONO SCRN NEGATIVE (NEGATIVE)
[2020-11-08 10:35] LABS: ALBUMIN 3.2 GM/DL (3.2-5.2); ALT/SGPT 34 U/L (12-78); BILIRUBIN,DIRECT < 0.1 MG/DL (0.0-0.2); BILIRUBIN,TOTAL < 0.1 MG/DL (0.2-1.0); CK-MB VALUE MASS < 1.0 NG/ML (<3.6); CPK CREATINE PHOSPHOKINASE 63 U/L (26-192); LIPASE 97 U/L (73-393); MB/CK RELATIVE INDEX 1.59 (< OR =4); TOTAL PROTEIN 6.2 GM/DL (6.4-8.2); TROPONIN I < 0.02 NG/ML (< 0.10)
--- NOTE | 2020-11-08 11:16 | REP ---
INDICATION: llq pain COMPARISON: 05/20/2016. TECHNIQUE: CT Scan of the abdomen and pelvis was performed with intravenous administration of 100 cc of Isovue 370, without oral contrast. Sagittal and coronal reconstruction images are performed. FINDINGS: Lung bases: Unremarkable. Liver: Normal Gallbladder: Collapsed. Spleen: Normal. Adrenals: Normal. Pancreas: Normal. Kidneys: Normal. Small and large bowel: There are multiple diverticula of the sigmoid colon. I suspect very mild pericolonic inflammation in the region of the proximal sigmoid colon likely representing very mild diverticulitis.. Free fluid: None. Abdominal aorta: No aneurysm or dissection. Adenopathy: None. Appendix: Not inflamed. Osseous structures: Unremarkable. There is a right hip prosthesis present. Pelvis: No mass. IMPRESSION: There are multiple diverticula of the sigmoid colon. I suspect very mild pericolonic inflammation in the region of the proximal sigmoid colon likely representing very mild diverticulitis.. <Electronically signed by Erik Chandra > 11/08/20 [id number]
[2020-11-08] MEDS ORDERED: AUGM875T28 PO (11:36)
[2020-11-08 11:55] VITALS: BP 135/73
== END 2020-11-08 11:57 | disposition home or self-care (01) ==
LOC: M ED 08:52
DX: N39.0 Urinary tract infection, site not specified (principal); K57.92 Diverticulitis of intestine, part unspecified, without perforation or abscess without bleeding; J45.909 Unspecified asthma, uncomplicated; E78.5 Hyperlipidemia, unspecified; K21.9 Gastro-esophageal reflux disease without esophagitis; F33.9 Major depressive disorder, recurrent, unspecified; F41.9 Anxiety disorder, unspecified; G62.9 Polyneuropathy, unspecified; G50.0 Trigeminal neuralgia; Z88.1 Allergy status to other antibiotic agents; Z79.899 Other long term (current) drug therapy
CPT/HCPCS: 74177; 80047; 80076; 81001; 82550; 82553; 83690; 85025; 86308; 87086; 96361; 96374; 96375; 99284; J1885; J2405; Q9967

== ENCOUNTER → 2020-11-27 | Outpatient (CLI) | payer OTHER, MEDICAID ==
[~2020-11-27] MED LIST changes: +AUGM875T28 PO
--- NOTE | 2020-12-02 02:36 | ECWPNPC ---
PATIENT NAME: DOMINGA BAÑUELOS : 1970 GENDER: FEMALE VISIT DATE: 11/27/2020 DISCHARGE DATE: 11/27/20 162 VISIT LOCKED DATE TIME: PHYSICIAN: JUSTEN MARIN MD PHYSICIAN PAGER NO: ACTIVE RESOURCE: JUSTEN MARIN MD REASON FOR APPOINTMENT 1. BACK PAIN F/U WITH DOC 1 MONTH HISTORY OF PRESENT ILLNESS DEPRESSION SCREENING: PHQ-2 (2015 EDITION) LITTLE INTEREST OR PLEASURE IN DOING THINGS?NOT AT ALL FEELING DOWN, DEPRESSED, OR HOPELESS?SEVERAL DAYS TOTAL SCORE1 50-YEAR-OLD FEMALE PATIENT WITH A HISTORY OF MULTIPLE BODY PAIN. THE PATIENT HAS BEEN SUFFERING FROM THIS CONDITION FOR YEARS. SHE DESCRIBES THE PAIN SEVERE, BURNING ON OCCASION, SHOOTING ON OCCASION WITH A PAIN SCORE RANGING FROM 6-10/10. THE PAIN IS LOCATED ON THE LEFT SIDE OF HER BODY AND ALSO ON OCCASION THE RIGHT SIDE OF HER BODY. THE PATIENT AT SOME POINT, A MONTH AGO, DEVELOPED SOME WEAKNESS OVER THE LEFT SIDE, BUT THIS WAS EVALUATE BY DR. DILLARD. HE DID SOME BRAIN MRIS BUT THEY WERE NOT ABLE TO FIND ANY PATHOLOGY. THE ASSESSMENT, DR. DILLARD HAS INFORMED TO DOMINGA, IS THAT HER LEFT ARM AND LEFT LEG PAIN IS NOT ASSOCIATED WITH A PROBLEM AT HER BRAIN. SHE WAS SEEN BY A SURGEON IN [place], DR. AMEZQUITA AT [facility], WHO EXPLAINED TO DOMINGA THAT HE FEELS THAT SHE HAS CARPAL TUNNEL OVER HER UPPER EXTREMITIES. AT THE MOMENT, HE IS NOT OFFERING HER ANY SPINE SURGERY. HE ADVISED SOME CARPAL TUNNEL SURGERY FIRST. GENERAL: -. FALL RISK SCREENING: SCREENING : NO FALLS REPORTED IN THE LAST YEAR. PAIN SCREENING: PATIENT HAS A COMPLAINT OF ACUTE OR CHRONIC PAIN :YES LOCATION OF PAIN:UPPER BACK, MID BACK, LOW BACK INTENSITY OF PAIN (SCALE OF 1 TO 10):7 WHAT DOES YOUR PAIN FEEL LIKE:BURNING, CONTINOUS, SHARP, STABBING DURATION:CONSTANT PAIN IS INCREASED BY:ACTIVITIES PROLONGED WALKING & STANDING & STITTING PAIN IS DECREASED BY: NOTHING HELPING AT THIS POINT NURSING NOTE: -. PAIN CENTER INTAKE QUESTIONS: DO YOU HAVE A HISTORY OF MRSA? :NO DO YOU TAKE A BLOOD THINNERS? :NO DO YOU HAVE ANY BLEEDING DISORDERS? :NO ANY NEW NUMBNESS OR WEAKNESS IN YOUR LEGS OR ARMS? :NO ANY PACEMAKER,DEFIBRILLATOR, OR DORSAL COLUMN STIMULATOR? :NO DO YOU HAVE ANY RASHES OR OPEN SORES? :NO ARE YOU ALLERGIC TO IV DYE? :NO ARE YOU DIABETIC? :NO ANY NEW PROBLEMS WITH YOUR MEDICATIONS? :NO HAVE YOU RECEIVED A VACCINE IN THE PAST 30 DAYS? :NO DO YOU PLAN TO RECEIVE A VACCINE IN THE NEXT 21 DAYS? :YES IF SO WHAT VACCINE AND WHEN? 2ND COVID VACCINE 12/15/20 DO YOU NEED ANY PRESCRIPTION? :NO DO YOU TAKE ANY IMMUNOSUPPRESSIVE MEDICATIONS? :NO DO YOU HAVE ANY KIDNEY OR LIVER DISEASE? :NO IS THERE A CHANCE YOU COULD BE ? :NO ARE YOU BREAST FEEDING? :NO CURRENT MEDICATIONS TAKING FISH OIL 1000 MG CAPSULE 1 TABLET ORALLY DAILY TAKING CALCIUM 600 MG TABLET 1 TABLET ORALLY DAILY TAKING MULTIVITAMINS OTC TABLET 1 TABLET ORALLY DAILY TAKING ROPINIROLE HCL 2 MG TABLET 1 TAB AM & 2 TAB PM ORALLY TWICE DAILY TAKING CYMBALTA 60 MG CAPSULE DELAYED RELEASE PARTICLES 1 CAPSULE ORALLY TWICE A DAY TAKING QUETIAPINE FUMARATE 100 MG TABLET 1.5 TABLET AT BEDTIME ORALLY DAILY TAKING BIOTIN 10 MG TABLET 1 TABLET ORALLY ONCE A DAY TAKING PROBIOTIC - TABLET DELAYED RELEASE DIRECTED ORALLY TAKING FOLIC ACID 1 MG TABLET 1 TABLET ORALLY ONCE A DAY TAKING TRAZODONE HCL 100 MG TABLET 250 MG BY MOUTH AT BEDTIME ORALLY AT BEDTIME TAKING TIZANIDINE HCL 4 MG TABLET 1 TABLET NEEDED ORALLY THREE TIMES A DAY TAKING BENADRYL 25 MG TABLET 1 TABLET ORALLY THREE TIMES DAILY NEEDED TAKING TEGRETOL 200 MG TABLET 1 TAB PAULA & 2 TABS IN PM ORALLY BID PRN TAKING CLARITIN 10 MG TABLET 1 TABLET ORALLY ONCE A DAY TAKING FLONASE ALLERGY RELIEF 50 MCG/ACT SUSPENSION 1 SPRAY IN EACH NOSTRIL NASALLY BID TAKING ADVAIR DISKUS 250-50 MCG/DOSE AEROSOL POWDER BREATH ACTIVATED 1 PUFF INHALATION TWICE A DAY TAKING VENTOLIN HFA 108 (90 BASE) MCG/ACT AEROSOL SOLUTION 2 PUFFS NEEDED INHALATION EVERY 4 HRS TAKING DOCQLACE 100 MG CAPSULE 1 CAPSULE NEEDED ORALLY ONCE A DAY TAKING GABAPENTIN 400 MG CAPSULE TAKE ONE CAPSULE BY MOUTH TWICE A DAY ORAL TAKING TOPIRAMATE 25 MG TABLET 1TAB IN AM AND 2TAB PM ORAL TAKING SINGULAIR 10 MG TABLET 1 TABLET IN THE EVENING ORALLY ONCE A DAY TAKING METRONIDAZOLE 500 MG TABLET 1 TABLET ORALLY TWICE A DAY TAKING FLUOCINONIDE 0.05 % OINTMENT 1 APPLICATION EXTERNALLY TWICE A DAY NEEDED TO ACTIVE LESIONS, NOT FOR FACE TAKING LIDOCAINE VISCOUS HCL 2 % SOLUTION 15 ML NEEDED MOUTH/THROAT MIX 1:1:1 WITH LIQUID BENADRYL AND LIQUID MAALOX, SWISH AND SPIT 3 TIMES DAILY NEEDED TAKING METRONIDAZOLE 0.75 % CREAM 1 APPLICATION EXTERNALLY TWICE A DAY TO RASH ON CHIN TAKING CLINDAMYCIN PHOSPHATE 1 % GEL 1 APPLICATION TO AFFECTED AREA EXTERNALLY ONCE A DAY IN AM TO FACE TAKING OMEPRAZOLE 40 MG CAPSULE DELAYED RELEASE 1 CAPSULE ORALLY ONCE A DAY NOT-TAKING NORTRIPTYLINE HCL 10 MG CAPSULE 1 CAPSULE ORALLY BID NOT-TAKING IBUPROFEN 800 MG TABLET 1 TABLET WITH FOOD OR MILK NEEDED ORALLY BID UNKNOWN WHEELCHAIR - MISCELLANEOUS BARIATRIC WHEELCHAIR; DIRECTED HT 66.5 IN, WT 266LBS DX M87.05 UNKNOWN SIMVASTATIN 20 MG TABLET 1 TABLET IN THE EVENING ORALLY ONCE A DAY MEDICATION LIST REVIEWED AND RECONCILED WITH THE PATIENT PAST MEDICAL HISTORY LUNG NODULE ON CXR IN ED 05/2019, GONE WITH REPEAT CT -LIKELY PNEUMONIA; PLEURAL THICKENING, REPEAT CT 12/2019 MODERATE PERSISTENT ASTHMA GERD INTERSTITIAL CYSTITIS/OAB/CHRONIC HEMATURIA - PREVIOUSLY FOLLOWED WITH [facility] UROLOGY LICHEN PLANUS, ACNE - DR. MERCADO MIGRAINES - DOES BOTOX INJECTIONS LEFT TRIGEMINAL NEURALGIA - DR. DILLARD RLS - DR. DILLARD ANXIETY/DEPRESSION - DR. OCHOA CARPAL TUNNEL BILATERAL - [facility] BACK/SCIATIC PAIN- DR. CABAN, NEUROSURG IN [place] PERIPHERAL NEUROPATHY, SMALL FIBER SENSORY NEUROPATHY - DR. DILLARD CHRONIC LEFT FOOT AND ANKLE PAIN - [facility] RIGHT HIP PAIN - AVN - ([facility]) COMPLEX REGIONAL PAIN SYNDROME - DR. MARIN FIBROMYALGIA - PAIN CENTER [facility] CORE 11.35 % LACTOSE INTOLERANT AND GLUTEN SENSITIVITY NEURALGIA LEFT NECK AND ARM ALLERGIES CIPROFLOXACIN: DYSPNEA - ALLERGY ELMIRON: NAUSEA/VOMITING/COUGH - SIDE EFFECTS AUGMENTIN: DIARRHEA - SIDE EFFECTS SOCIAL HISTORY GENERAL: TOBACCO USE ARE YOU A:FORMER SMOKER HOW LONG HAS IT BEEN SINCE YOU LAST SMOKED?> 10 YEARS LATEX QUESTIONNAIRE LATEX ALLERGY : HAVE YOU EVER DEVELOPED ANY TYPE OF REACTION AFTER HANDLING LATEX PRODUCTS SUCH RUBBER GLOVES, CONDOMS, DIAPHRAGMS, BALLOONS, SOCKS, OR UNDERWEAR?NO LATEX ALLERGY : HAVE YOU EVER DEVELOPED ANY TYPE OF REACTION DURING OR AFTER DENTAL APPOINTMENT, VAGINAL/RECTAL EXAMINATION, SURGICAL PROCEDURE, OR ANY OTHER EXPOSURE?NO LATEX RISK : HAVE YOU EVER HAD ANY DIFFICULTY BREATHING OR HIVES AFTER EATING OR HANDLING ANY FRUITS, OR VEGETABLES; SUCH KIWI, BANANAS, STONE FRUITS, OR CHESTNUTSNO LATEX RISK : DO YOU HAVE A PREVIOUS PERSONAL HISTORY OF MORE THAN NINE SURGERIES, SPINA BIFIDA, OR REPEATED CATHERIZATIONS? NO LATEX RISK : ARE YOU FREQUENTLY EXPOSED TO LATEX PRODUCTS IN YOUR OCCUPATION?NO DATE ASKED : 11/13/2020 ALCOHOL USE: NO. BMI CARE GOAL FOLLOW-UP ABOVE NORMAL BMI FOLLOW-UPLIFESTYLE EDUCATION REGARDING DIET ALCOHOL SCREENING DID YOU HAVE A DRINK CONTAINING ALCOHOL IN THE PAST YEAR?YES HOW OFTEN DID YOU HAVE SIX OR MORE DRINKS ON ONE OCCASION IN THE PAST YEAR?NEVER (0 POINTS) HOW MANY DRINKS DID YOU HAVE ON A TYPICAL DAY WHEN YOU WERE DRINKING IN THE PAST YEAR?1 OR 2 (0 POINTS) HOW OFTEN DID YOU HAVE A DRINK CONTAINING ALCOHOL IN THE PAST YEAR?MONTHLY OR LESS (1 POINT) POINTS1 INTERPRETATIONNEGATIVE RECREATIONAL DRUG USE DRUG USE?NO CAFFEINE CAFFEINE USE?YES 1-2 CUPS DAILY SEXUAL HX HAD SEX IN THE LAST 12 MONTHS (VAGINAL, ORAL, OR ANAL)?YES WITHMEN ONLY HAVE YOU EVER HAD AN STD?NO HIV / HEP-C SCREENING HIV TEST OFFERED TO PATIENT:YES DATE OFFERED:10/08/2017 TEST ACCEPTED:NO HEP-C TEST OFFERED TO PATIENT:NO REASON:PATIENT DECLINED LATTER-DAY [id number] OTHER LANGUAGE [place]IAN. EDUCATION LEVEL OF EDUCATION:HIGH SCHOOL LEARNING BARRIERS / SPECIAL NEEDS CHANGE FROM LAST VISIT?NO 11/08/20 BARRIERS TO LEARNING?NO HEARING IMPAIRED?NO VISION IMPAIRED?NO COGNITIVELY IMPAIRED?NO READINESS TO LEARN?YES LEARNING PREFERENCES?NO LEARNING CAPABILITIES PRESENT?YES EMOTIONAL BARRIERS?NO SPECIAL DEVICES?NO CARBIDE TOOL MAKER NEEDED?NO DOMESTIC VIOLENCE DO YOU FEEL SAFE IN YOUR ENVIRONMENT?YES OCCUPATION: HOMEMAKER. DIET: LOW GLUTEN, LOW CARBS, LOW LACTOSE, LOW OXYLATE. EXERCISE: NO REGULAR EXERCISE. MARITAL STATUS: ., MOTHER OF 3. OTHERS AT HOME: CHILD. - PFS REFERRAL NEEDED?NO CLERGY REFERRAL NEEDED?NO PUBLIC HEALTH REFERRAL NEEDED?NO HAS THE PATIENT BEEN EDUCATED REGARDING HIS/HER PLAN OF CARE?YES HAS THE PATIENT BEEN EDUCATED REGARDING PAIN, THE RISK FOR PAIN, THE IMPORTANCE OF EFFECTIVE PAIN MANAGEMENT, AND THE PAIN ASSESSMENT PROCESS?YES ADVANCE DIRECTIVE ADVANCE DIRECTIVE DISCUSSED WITH PATIENT:YES HAS HCP INFORMATION, SHE HAS NOT COMPLETED FORMS YET. ASSISTANCE OFFERED IN COMPLETING IF NEEDED. REVIEW OF SYSTEMS CONSTITUTIONAL: ANY RECENT FEVER NO . CHILLS NO . WEIGHT CHANGE OF UNKNOWN REASONS NO . GASTROENTEROLOGY: NEW UNEXPLAINABLE CHANGES IN BOWEL CONTROL NO . CONSTIPATION NO . GENITOURINARY: ANY NEW CHANGE IN BLADDER CONTROL? NO . NEUROLOGY: NEW ONSET DIZZINESS OR NEUROLOGICAL CHANGES NOT MENTIONED NO . NEW NUMBNESS OR PAIN PATTERNS NOT MENTIONED AND PERTINENT TO TODAY'S VISIT NO . CARDIOLOGY: NEW CHEST PRESSURE NO . PATIENT DENIES NO . RESPIRATORY: UNEXPLAINABLE COUGH NO . NEW SHORTNESS OF BREATH NO . VITAL SIGNS WT 227.2 LBS, HT 66.5 IN, BMI 36.12 INDEX, BP 138/91 MM HG, HR 96 /MIN, RR 18 /MIN, TEMP 97.2 F, OXYGEN SAT % 98%, SAFE IN ENV? (Y/N) YES, NA INITIALS SC 15:00, REVIEWED BY: APA. DARYA RN. EXAMINATION GENERAL: THE PATIENT IS ALERT, ORIENTED TIMES THREE AND COOPERATIVE. LUNGS ARE CLEAR TO AUSCULTATION. HEART SHOWS REGULAR RHYTHM, NO MURMURS AND NO GALLOPS. THE PATIENT HAS DIFFICULTY STANDING. HER RIGHT ARM IS WEAKER THAN HER LEFT ARM ON FLEXION AND EXTENSION. ALSO THE RIGHT LEG IS WEAKER THAN THE LEFT LEG ON FLEXION AND EXTENSION. IN THE CERVICAL, SHOULDERS AND THORACIC, THERE ARE BANDS OF TISSUE WITH PRESENCE OF TRIGGER POINTS AND RESTRICTION OF MOVEMENT. THERE IS A NOTE FROM DR. DILLARD DONE ON 10/16/2020 WHO BASICALLY MAKES THE ASSESSMENT OF CHRONIC NECK AND UPPER EXTREMITY PAIN, CERVICALGIA, LUMBOSACRAL SPONDYLOSIS, MIGRAINE HEADACHES, RESTLESS LEG SYNDROME AND HE REFERRED THE PATIENT TO [facility] FOR THE [facility]TH[facility]IC CONSULT AND CONTINUE WITH THE MEDICATIONS. THERE IS A BRAIN MRI 07/19/2020 THAT IS SHOWING SOME NONSPECIFIC GLIOSIS WITH THE POSSIBLE RULE OUT OF MIGRAINE HEADACHES AND SOME UNDERLYING MICROVASCULAR DISEASE. LUMBOSACRAL MRI DATED 06/08/2019 SHOWS NORMAL FINDINGS ACCORDING TO THIS REPORT. CERVICAL MRI DATED 09/20/2020 SHOWS SOME BULGING DISC OVER THE NECK WITH SOME FACET ARTHROPATHY CHANGES. 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 BAÑUELOS. AT THIS POINT, DUE TO THE MULTIPLE BODY PAIN, I FEEL THAT WE SHOULD HOLD FOR NOW THE POSSIBILITY OF DOING THE DORSAL COLUMN STIMULATOR TRIAL. I WILL REQUEST AUTHORIZATION FOR TRIGGER POINT INJECTIONS BILATERAL NECK, BILATERAL SHOULDER AND BILATERAL THORACIC, BOOK AFTER APPROVED. I FEEL THAT WE SHOULD CONSIDER MEDICATION MANAGEMENT AND I DISCUSSED WITH DOMINGA THE USE OF MEDICAL MARIJUANA. WE HAD A LONG CONVERSATION ABOUT THE CASE AND THE PATIENT WOULD LIKE TO FOLLOW THAT ROUTE. FOR NOW, THE PATIENT WILL FOLLOW WITH THE NURSE PRACTITIONER TO CONSIDER MEDICATION OPTIONS. THE PATIENT REPORTS UNDERSTANDING AND AGREES WITH THE PLAN. I, ROMA ARGUETA, DOCUMENTED THE ABOVE INFORMATION ACTING A SCRIBE FOR DR. MARIN. I HAVE REVIEWED THE ABOVE DOCUMENT, WRITTEN BY ROMA ARGUETA, HOSPITAL CARRIER, AND I VERIFY THAT IT IS ACCURATE. . OTHERS CLINICAL NOTES: REVIEWED AND PRINTED PRE PROCEDURE INSTRUCTIONS WITH PATIENT. PATIENT REPORTS AN UNDERSTANDING. Boogie LACKEY RN . PROCEDURE CODES FA211 ESTABILISHED PATIENT [facility] CHARGE [id number] OFFICE/OUTPATIENT VISIT EST DISPOSITION & COMMUNICATION FOLLOW UP REQUEST AUTH FOR TRIGGER POINT INEJCTIONS BILATERAL NECK, BILATERAL SHOULDER, BILATERAL THORACIC (REASON: REQUEST AUTH FOR TRIGGER POINT INEJCTIONS BILATERAL NECK, BILATERAL SHOULDER, BILATERAL THORACIC) ELECTRONICALLY SIGNED BY JUSTEN MARIN MD, MD ON 12/01/2020 AT 09:48 AM EDT DISCLAIMER : THIS IS A VISIT SUMMARY EXTRACTED FROM THE [employer] CHART. IT IS NOT A COPY OF THE [employer] PROGRESS NOTE. MARCO ANTONIO
--- NOTE | 2020-12-02 02:39 | ECWPNPC ---
PATIENT NAME: DOMINGA BAÑUELOS : 1970 GENDER: FEMALE VISIT DATE: 11/27/2020 DISCHARGE DATE: 11/27/20 162 VISIT LOCKED DATE TIME: PHYSICIAN: JUSTEN MARIN MD PHYSICIAN PAGER NO: ACTIVE RESOURCE: JUSTEN MARIN MD REASON FOR APPOINTMENT 1. BACK PAIN F/U WITH DOC 1 MONTH HISTORY OF PRESENT ILLNESS DEPRESSION SCREENING: PHQ-2 (2015 EDITION) LITTLE INTEREST OR PLEASURE IN DOING THINGS?NOT AT ALL FEELING DOWN, DEPRESSED, OR HOPELESS?SEVERAL DAYS TOTAL SCORE1 50-YEAR-OLD FEMALE PATIENT WITH A HISTORY OF MULTIPLE BODY PAIN. THE PATIENT HAS BEEN SUFFERING FROM THIS CONDITION FOR YEARS. SHE DESCRIBES THE PAIN SEVERE, BURNING ON OCCASION, SHOOTING ON OCCASION WITH A PAIN SCORE RANGING FROM 6-10/10. THE PAIN IS LOCATED ON THE LEFT SIDE OF HER BODY AND ALSO ON OCCASION THE RIGHT SIDE OF HER BODY. THE PATIENT AT SOME POINT, A MONTH AGO, DEVELOPED SOME WEAKNESS OVER THE LEFT SIDE, BUT THIS WAS EVALUATE BY DR. DILLARD. HE DID SOME BRAIN MRIS BUT THEY WERE NOT ABLE TO FIND ANY PATHOLOGY. THE ASSESSMENT, DR. DILLARD HAS INFORMED TO DOMINGA, IS THAT HER LEFT ARM AND LEFT LEG PAIN IS NOT ASSOCIATED WITH A PROBLEM AT HER BRAIN. SHE WAS SEEN BY A SURGEON IN [place], DR. AMEZQUITA AT [facility] WHO EXPLAINED TO DOMINGA THAT HE FEELS THAT SHE HAS CARPAL TUNNEL OVER HER UPPER EXTREMITIES. AT THE MOMENT, HE IS NOT OFFERING HER ANY SPINE SURGERY. HE ADVISED SOME CARPAL TUNNEL SURGERY FIRST. GENERAL: -. FALL RISK SCREENING: SCREENING : NO FALLS REPORTED IN THE LAST YEAR. PAIN SCREENING: PATIENT HAS A COMPLAINT OF ACUTE OR CHRONIC PAIN :YES LOCATION OF PAIN:UPPER BACK, MID BACK, LOW BACK INTENSITY OF PAIN (SCALE OF 1 TO 10):7 WHAT DOES YOUR PAIN FEEL LIKE:BURNING, CONTINOUS, SHARP, STABBING DURATION:CONSTANT PAIN IS INCREASED BY:ACTIVITIES PROLONGED WALKING & STANDING & STITTING PAIN IS DECREASED BY: NOTHING HELPING AT THIS POINT NURSING NOTE: -. PAIN CENTER INTAKE QUESTIONS: DO YOU HAVE A HISTORY OF MRSA? :NO DO YOU TAKE A BLOOD THINNERS? :NO DO YOU HAVE ANY BLEEDING DISORDERS? :NO ANY NEW NUMBNESS OR WEAKNESS IN YOUR LEGS OR ARMS? :NO ANY PACEMAKER,DEFIBRILLATOR, OR DORSAL COLUMN STIMULATOR? :NO DO YOU HAVE ANY RASHES OR OPEN SORES? :NO ARE YOU ALLERGIC TO IV DYE? :NO ARE YOU DIABETIC? :NO ANY NEW PROBLEMS WITH YOUR MEDICATIONS? :NO HAVE YOU RECEIVED A VACCINE IN THE PAST 30 DAYS? :NO DO YOU PLAN TO RECEIVE A VACCINE IN THE NEXT 21 DAYS? :YES IF SO WHAT VACCINE AND WHEN? 2ND COVID VACCINE 12/15/20 DO YOU NEED ANY PRESCRIPTION? :NO DO YOU TAKE ANY IMMUNOSUPPRESSIVE MEDICATIONS? :NO DO YOU HAVE ANY KIDNEY OR LIVER DISEASE? :NO IS THERE A CHANCE YOU COULD BE ? :NO ARE YOU BREAST FEEDING? :NO CURRENT MEDICATIONS TAKING FISH OIL 1000 MG CAPSULE 1 TABLET ORALLY DAILY TAKING CALCIUM 600 MG TABLET 1 TABLET ORALLY DAILY TAKING MULTIVITAMINS OTC TABLET 1 TABLET ORALLY DAILY TAKING ROPINIROLE HCL 2 MG TABLET 1 TAB AM & 2 TAB PM ORALLY TWICE DAILY TAKING CYMBALTA 60 MG CAPSULE DELAYED RELEASE PARTICLES 1 CAPSULE ORALLY TWICE A DAY TAKING QUETIAPINE FUMARATE 100 MG TABLET 1.5 TABLET AT BEDTIME ORALLY DAILY TAKING BIOTIN 10 MG TABLET 1 TABLET ORALLY ONCE A DAY TAKING PROBIOTIC - TABLET DELAYED RELEASE DIRECTED ORALLY TAKING FOLIC ACID 1 MG TABLET 1 TABLET ORALLY ONCE A DAY TAKING TRAZODONE HCL 100 MG TABLET 250 MG BY MOUTH AT BEDTIME ORALLY AT BEDTIME TAKING TIZANIDINE HCL 4 MG TABLET 1 TABLET NEEDED ORALLY THREE TIMES A DAY TAKING BENADRYL 25 MG TABLET 1 TABLET ORALLY THREE TIMES DAILY NEEDED TAKING TEGRETOL 200 MG TABLET 1 TAB PAULA & 2 TABS IN PM ORALLY BID PRN TAKING CLARITIN 10 MG TABLET 1 TABLET ORALLY ONCE A DAY TAKING FLONASE ALLERGY RELIEF 50 MCG/ACT SUSPENSION 1 SPRAY IN EACH NOSTRIL NASALLY BID TAKING ADVAIR DISKUS 250-50 MCG/DOSE AEROSOL POWDER BREATH ACTIVATED 1 PUFF INHALATION TWICE A DAY TAKING VENTOLIN HFA 108 (90 BASE) MCG/ACT AEROSOL SOLUTION 2 PUFFS NEEDED INHALATION EVERY 4 HRS TAKING DOCQLACE 100 MG CAPSULE 1 CAPSULE NEEDED ORALLY ONCE A DAY TAKING GABAPENTIN 400 MG CAPSULE TAKE ONE CAPSULE BY MOUTH TWICE A DAY ORAL TAKING TOPIRAMATE 25 MG TABLET 1TAB IN AM AND 2TAB PM ORAL TAKING SINGULAIR 10 MG TABLET 1 TABLET IN THE EVENING ORALLY ONCE A DAY TAKING METRONIDAZOLE 500 MG TABLET 1 TABLET ORALLY TWICE A DAY TAKING FLUOCINONIDE 0.05 % OINTMENT 1 APPLICATION EXTERNALLY TWICE A DAY NEEDED TO ACTIVE LESIONS, NOT FOR FACE TAKING LIDOCAINE VISCOUS HCL 2 % SOLUTION 15 ML NEEDED MOUTH/THROAT MIX 1:1:1 WITH LIQUID BENADRYL AND LIQUID MAALOX, SWISH AND SPIT 3 TIMES DAILY NEEDED TAKING METRONIDAZOLE 0.75 % CREAM 1 APPLICATION EXTERNALLY TWICE A DAY TO RASH ON CHIN TAKING CLINDAMYCIN PHOSPHATE 1 % GEL 1 APPLICATION TO AFFECTED AREA EXTERNALLY ONCE A DAY IN AM TO FACE TAKING OMEPRAZOLE 40 MG CAPSULE DELAYED RELEASE 1 CAPSULE ORALLY ONCE A DAY NOT-TAKING NORTRIPTYLINE HCL 10 MG CAPSULE 1 CAPSULE ORALLY BID NOT-TAKING IBUPROFEN 800 MG TABLET 1 TABLET WITH FOOD OR MILK NEEDED ORALLY BID UNKNOWN WHEELCHAIR - MISCELLANEOUS BARIATRIC WHEELCHAIR; DIRECTED HT 66.5 IN, WT 266LBS DX M87.05 UNKNOWN SIMVASTATIN 20 MG TABLET 1 TABLET IN THE EVENING ORALLY ONCE A DAY MEDICATION LIST REVIEWED AND RECONCILED WITH THE PATIENT PAST MEDICAL HISTORY LUNG NODULE ON CXR IN ED 05/2019, GONE WITH REPEAT CT -LIKELY PNEUMONIA; PLEURAL THICKENING, REPEAT CT 12/2019 MODERATE PERSISTENT ASTHMA GERD INTERSTITIAL CYSTITIS/OAB/CHRONIC HEMATURIA - PREVIOUSLY FOLLOWED WITH [facility] UROLOGY LICHEN PLANUS, ACNE - DR. MERCADO MIGRAINES - DOES BOTOX INJECTIONS LEFT TRIGEMINAL NEURALGIA - DR. DILLARD RLS - DR. DILLARD ANXIETY/DEPRESSION - DR. OCHOA CARPAL TUNNEL BILATERAL - [facility] BACK/SCIATIC PAIN- DR. CABAN, NEUROSURG IN [place] PERIPHERAL NEUROPATHY, SMALL FIBER SENSORY NEUROPATHY - DR. DILLARD CHRONIC LEFT FOOT AND ANKLE PAIN - [facility] RIGHT HIP PAIN - [facility] - ([facility]) COMPLEX REGIONAL PAIN SYNDROME - DR. MARIN FIBROMYALGIA - PAIN CENTER [facility] CORE 11.35 % LACTOSE INTOLERANT AND GLUTEN SENSITIVITY NEURALGIA LEFT NECK AND ARM ALLERGIES CIPROFLOXACIN: DYSPNEA - ALLERGY ELMIRON: NAUSEA/VOMITING/COUGH - SIDE EFFECTS AUGMENTIN: DIARRHEA - SIDE EFFECTS SOCIAL HISTORY GENERAL: TOBACCO USE ARE YOU A:FORMER SMOKER HOW LONG HAS IT BEEN SINCE YOU LAST SMOKED?> 10 YEARS LATEX QUESTIONNAIRE LATEX ALLERGY : HAVE YOU EVER DEVELOPED ANY TYPE OF REACTION AFTER HANDLING LATEX PRODUCTS SUCH RUBBER GLOVES, CONDOMS, DIAPHRAGMS, BALLOONS, SOCKS, OR UNDERWEAR?NO LATEX ALLERGY : HAVE YOU EVER DEVELOPED ANY TYPE OF REACTION DURING OR AFTER DENTAL APPOINTMENT, VAGINAL/RECTAL EXAMINATION, SURGICAL PROCEDURE, OR ANY OTHER EXPOSURE?NO LATEX RISK : HAVE YOU EVER HAD ANY DIFFICULTY BREATHING OR HIVES AFTER EATING OR HANDLING ANY FRUITS, OR VEGETABLES; SUCH KIWI, BANANAS, STONE FRUITS, OR CHESTNUTSNO LATEX RISK : DO YOU HAVE A PREVIOUS PERSONAL HISTORY OF MORE THAN NINE SURGERIES, SPINA BIFIDA, OR REPEATED CATHERIZATIONS? NO LATEX RISK : ARE YOU FREQUENTLY EXPOSED TO LATEX PRODUCTS IN YOUR OCCUPATION?NO DATE ASKED : 11/13/2020 ALCOHOL USE: NO. BMI CARE GOAL FOLLOW-UP ABOVE NORMAL BMI FOLLOW-UPLIFESTYLE EDUCATION REGARDING DIET ALCOHOL SCREENING DID YOU HAVE A DRINK CONTAINING ALCOHOL IN THE PAST YEAR?YES HOW OFTEN DID YOU HAVE SIX OR MORE DRINKS ON ONE OCCASION IN THE PAST YEAR?NEVER (0 POINTS) HOW MANY DRINKS DID YOU HAVE ON A TYPICAL DAY WHEN YOU WERE DRINKING IN THE PAST YEAR?1 OR 2 (0 POINTS) HOW OFTEN DID YOU HAVE A DRINK CONTAINING ALCOHOL IN THE PAST YEAR?MONTHLY OR LESS (1 POINT) POINTS1 INTERPRETATIONNEGATIVE RECREATIONAL DRUG USE DRUG USE?NO CAFFEINE CAFFEINE USE?YES 1-2 CUPS DAILY SEXUAL HX HAD SEX IN THE LAST 12 MONTHS (VAGINAL, ORAL, OR ANAL)?YES WITHMEN ONLY HAVE YOU EVER HAD AN STD?NO HIV / HEP-C SCREENING HIV TEST OFFERED TO PATIENT:YES DATE OFFERED:10/08/2017 TEST ACCEPTED:NO HEP-C TEST OFFERED TO PATIENT:NO REASON:PATIENT DECLINED CAODAISM [id number] OTHER LANGUAGE [place]. EDUCATION LEVEL OF EDUCATION:HIGH SCHOOL LEARNING BARRIERS / SPECIAL NEEDS CHANGE FROM LAST VISIT?NO 11/08/20 BARRIERS TO LEARNING?NO HEARING IMPAIRED?NO VISION IMPAIRED?NO COGNITIVELY IMPAIRED?NO READINESS TO LEARN?YES LEARNING PREFERENCES?NO LEARNING CAPABILITIES PRESENT?YES EMOTIONAL BARRIERS?NO SPECIAL DEVICES?NO SOUND EFFECTS TECHNICIAN NEEDED?NO DOMESTIC VIOLENCE DO YOU FEEL SAFE IN YOUR ENVIRONMENT?YES OCCUPATION: HOMEMAKER. DIET: LOW GLUTEN, LOW CARBS, LOW LACTOSE, LOW OXYLATE. EXERCISE: NO REGULAR EXERCISE. MARITAL STATUS: ., MOTHER OF 3. OTHERS AT HOME: CHILD. - PFS REFERRAL NEEDED?NO CLERGY REFERRAL NEEDED?NO PUBLIC HEALTH REFERRAL NEEDED?NO HAS THE PATIENT BEEN EDUCATED REGARDING HIS/HER PLAN OF CARE?YES HAS THE PATIENT BEEN EDUCATED REGARDING PAIN, THE RISK FOR PAIN, THE IMPORTANCE OF EFFECTIVE PAIN MANAGEMENT, AND THE PAIN ASSESSMENT PROCESS?YES ADVANCE DIRECTIVE ADVANCE DIRECTIVE DISCUSSED WITH PATIENT:YES HAS HCP INFORMATION, SHE HAS NOT COMPLETED FORMS YET. ASSISTANCE OFFERED IN COMPLETING IF NEEDED. REVIEW OF SYSTEMS CONSTITUTIONAL: ANY RECENT FEVER NO . CHILLS NO . WEIGHT CHANGE OF UNKNOWN REASONS NO . GASTROENTEROLOGY: NEW UNEXPLAINABLE CHANGES IN BOWEL CONTROL NO . CONSTIPATION NO . GENITOURINARY: ANY NEW CHANGE IN BLADDER CONTROL? NO . NEUROLOGY: NEW ONSET DIZZINESS OR NEUROLOGICAL CHANGES NOT MENTIONED NO . NEW NUMBNESS OR PAIN PATTERNS NOT MENTIONED AND PERTINENT TO TODAY'S VISIT NO . CARDIOLOGY: NEW CHEST PRESSURE NO . PATIENT DENIES NO . RESPIRATORY: UNEXPLAINABLE COUGH NO . NEW SHORTNESS OF BREATH NO . VITAL SIGNS WT 227.2 LBS, HT 66.5 IN, BMI 36.12 INDEX, BP 138/91 MM HG, HR 96 /MIN, RR 18 /MIN, TEMP 97.2 F, OXYGEN SAT % 98%, SAFE IN ENV? (Y/N) YES, NA INITIALS SC 15:00, REVIEWED BY: APA. DARYA RN. EXAMINATION GENERAL: THE PATIENT IS ALERT, ORIENTED TIMES THREE AND COOPERATIVE. LUNGS ARE CLEAR TO AUSCULTATION. HEART SHOWS REGULAR RHYTHM, NO MURMURS AND NO GALLOPS. THE PATIENT HAS DIFFICULTY STANDING. HER RIGHT ARM IS WEAKER THAN HER LEFT ARM ON FLEXION AND EXTENSION. ALSO THE RIGHT LEG IS WEAKER THAN THE LEFT LEG ON FLEXION AND EXTENSION. IN THE CERVICAL, SHOULDERS AND THORACIC, THERE ARE BANDS OF TISSUE WITH PRESENCE OF TRIGGER POINTS AND RESTRICTION OF MOVEMENT. THERE IS A NOTE FROM DR. DILLARD DONE ON 10/16/2020 WHO BASICALLY MAKES THE ASSESSMENT OF CHRONIC NECK AND UPPER EXTREMITY PAIN, CERVICALGIA, LUMBOSACRAL SPONDYLOSIS, MIGRAINE HEADACHES, RESTLESS LEG SYNDROME AND HE REFERRED THE PATIENT TO [facility] FOR THE ORTHOPEDIC CONSULT AND CONTINUE WITH THE MEDICATIONS. THERE IS A BRAIN MRI 07/19/2020 THAT IS SHOWING SOME NONSPECIFIC GLIOSIS WITH THE POSSIBLE RULE OUT OF MIGRAINE HEADACHES AND SOME UNDERLYING MICROVASCULAR DISEASE. LUMBOSACRAL MRI DATED 06/08/2019 SHOWS NORMAL FINDINGS ACCORDING TO THIS REPORT. CERVICAL MRI DATED 09/20/2020 SHOWS SOME BULGING DISC OVER THE NECK WITH SOME FACET ARTHROPATHY CHANGES. 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 BAÑUELOS. AT THIS POINT, DUE TO THE MULTIPLE BODY PAIN, I FEEL THAT WE SHOULD HOLD FOR NOW THE POSSIBILITY OF DOING THE DORSAL COLUMN STIMULATOR TRIAL. I WILL REQUEST AUTHORIZATION FOR TRIGGER POINT INJECTIONS BILATERAL NECK, BILATERAL SHOULDER AND BILATERAL THORACIC, BOOK AFTER APPROVED. I FEEL THAT WE SHOULD CONSIDER MEDICATION MANAGEMENT AND I DISCUSSED WITH DOMINGA THE USE OF MEDICAL MARIJUANA. WE HAD A LONG CONVERSATION ABOUT THE CASE AND THE PATIENT WOULD LIKE TO FOLLOW THAT ROUTE. FOR NOW, THE PATIENT WILL FOLLOW WITH THE NURSE PRACTITIONER TO CONSIDER MEDICATION OPTIONS. THE PATIENT REPORTS UNDERSTANDING AND AGREES WITH THE PLAN. I, ROMA ARGUETA, DOCUMENTED THE ABOVE INFORMATION ACTING A SCRIBE FOR DR. MARIN. I HAVE REVIEWED THE ABOVE DOCUMENT, WRITTEN BY ROMA ARGUETA, JAW SKINNER, AND I VERIFY THAT IT IS ACCURATE. . OTHERS CLINICAL NOTES: REVIEWED AND PRINTED PRE PROCEDURE INSTRUCTIONS WITH PATIENT. PATIENT REPORTS AN UNDERSTANDING. Boogie LACKEY RN . PROCEDURE CODES FA211 ESTABILISHED PATIENT [facility] CHARGE [id number] OFFICE/OUTPATIENT VISIT EST DISPOSITION & COMMUNICATION FOLLOW UP REQUEST AUTH FOR TRIGGER POINT INEJCTIONS BILATERAL NECK, BILATERAL SHOULDER, BILATERAL THORACIC (REASON: REQUEST AUTH FOR TRIGGER POINT INEJCTIONS BILATERAL NECK, BILATERAL SHOULDER, BILATERAL THORACIC) ELECTRONICALLY SIGNED BY JUSTEN MARIN MD, MD ON 12/01/2020 AT 09:48 AM EDT DISCLAIMER : THIS IS A VISIT SUMMARY EXTRACTED FROM THE [employer] CHART. IT IS NOT A COPY OF THE [employer] PROGRESS NOTE. MARCO ANTONIO
--- NOTE | 2020-12-02 02:42 | ECWPNPC ---
PATIENT NAME: DOMINGA BAÑUELOS : 1970 GENDER: FEMALE VISIT DATE: 11/27/2020 DISCHARGE DATE: 11/27/20 162 VISIT LOCKED DATE TIME: PHYSICIAN: JUSTEN MARIN MD PHYSICIAN PAGER NO: ACTIVE RESOURCE: JUSTEN MARIN MD REASON FOR APPOINTMENT 1. BACK PAIN F/U WITH DOC 1 MONTH HISTORY OF PRESENT ILLNESS DEPRESSION SCREENING: PHQ-2 (2015 EDITION) LITTLE INTEREST OR PLEASURE IN DOING THINGS?NOT AT ALL FEELING DOWN, DEPRESSED, OR HOPELESS?SEVERAL DAYS TOTAL SCORE1 50-YEAR-OLD FEMALE PATIENT WITH A HISTORY OF MULTIPLE BODY PAIN. THE PATIENT HAS BEEN SUFFERING FROM THIS CONDITION FOR YEARS. SHE DESCRIBES THE PAIN SEVERE, BURNING ON OCCASION, SHOOTING ON OCCASION WITH A PAIN SCORE RANGING FROM 6-10/10. THE PAIN IS LOCATED ON THE LEFT SIDE OF HER BODY AND ALSO ON OCCASION THE RIGHT SIDE OF HER BODY. THE PATIENT AT SOME POINT, A MONTH AGO, DEVELOPED SOME WEAKNESS OVER THE LEFT SIDE, BUT THIS WAS EVALUATE BY DR. DILLARD. HE DID SOME BRAIN MRIS BUT THEY WERE NOT ABLE TO FIND ANY PATHOLOGY. THE ASSESSMENT, DR. DILLARD HAS INFORMED TO DOMINGA, IS THAT HER LEFT ARM AND LEFT LEG PAIN IS NOT ASSOCIATED WITH A PROBLEM AT HER BRAIN. SHE WAS SEEN BY A SURGEON IN [place], DR. AMEZQUITA AT [facility], WHO EXPLAINED TO DOMINGA THAT HE FEELS THAT SHE HAS CARPAL TUNNEL OVER HER UPPER EXTREMITIES. AT THE MOMENT, HE IS NOT OFFERING HER ANY SPINE SURGERY. HE ADVISED SOME CARPAL TUNNEL SURGERY FIRST. GENERAL: -. FALL RISK SCREENING: SCREENING : NO FALLS REPORTED IN THE LAST YEAR. PAIN SCREENING: PATIENT HAS A COMPLAINT OF ACUTE OR CHRONIC PAIN :YES LOCATION OF PAIN:UPPER BACK, MID BACK, LOW BACK INTENSITY OF PAIN (SCALE OF 1 TO 10):7 WHAT DOES YOUR PAIN FEEL LIKE:BURNING, CONTINOUS, SHARP, STABBING DURATION:CONSTANT PAIN IS INCREASED BY:ACTIVITIES PROLONGED WALKING & STANDING & STITTING PAIN IS DECREASED BY: NOTHING HELPING AT THIS POINT NURSING NOTE: -. PAIN CENTER INTAKE QUESTIONS: DO YOU HAVE A HISTORY OF MRSA? :NO DO YOU TAKE A BLOOD THINNERS? :NO DO YOU HAVE ANY BLEEDING DISORDERS? :NO ANY NEW NUMBNESS OR WEAKNESS IN YOUR LEGS OR ARMS? :NO ANY PACEMAKER,DEFIBRILLATOR, OR DORSAL COLUMN STIMULATOR? :NO DO YOU HAVE ANY RASHES OR OPEN SORES? :NO ARE YOU ALLERGIC TO IV DYE? :NO ARE YOU DIABETIC? :NO ANY NEW PROBLEMS WITH YOUR MEDICATIONS? :NO HAVE YOU RECEIVED A VACCINE IN THE PAST 30 DAYS? :NO DO YOU PLAN TO RECEIVE A VACCINE IN THE NEXT 21 DAYS? :YES IF SO WHAT VACCINE AND WHEN? 2ND COVID VACCINE 12/15/20 DO YOU NEED ANY PRESCRIPTION? :NO DO YOU TAKE ANY IMMUNOSUPPRESSIVE MEDICATIONS? :NO DO YOU HAVE ANY KIDNEY OR LIVER DISEASE? :NO IS THERE A CHANCE YOU COULD BE ? :NO ARE YOU BREAST FEEDING? :NO CURRENT MEDICATIONS TAKING FISH OIL 1000 MG CAPSULE 1 TABLET ORALLY DAILY TAKING CALCIUM 600 MG TABLET 1 TABLET ORALLY DAILY TAKING MULTIVITAMINS OTC TABLET 1 TABLET ORALLY DAILY TAKING ROPINIROLE HCL 2 MG TABLET 1 TAB AM & 2 TAB PM ORALLY TWICE DAILY TAKING CYMBALTA 60 MG CAPSULE DELAYED RELEASE PARTICLES 1 CAPSULE ORALLY TWICE A DAY TAKING QUETIAPINE FUMARATE 100 MG TABLET 1.5 TABLET AT BEDTIME ORALLY DAILY TAKING BIOTIN 10 MG TABLET 1 TABLET ORALLY ONCE A DAY TAKING PROBIOTIC - TABLET DELAYED RELEASE DIRECTED ORALLY TAKING FOLIC ACID 1 MG TABLET 1 TABLET ORALLY ONCE A DAY TAKING TRAZODONE HCL 100 MG TABLET 250 MG BY MOUTH AT BEDTIME ORALLY AT BEDTIME TAKING TIZANIDINE HCL 4 MG TABLET 1 TABLET NEEDED ORALLY THREE TIMES A DAY TAKING BENADRYL 25 MG TABLET 1 TABLET ORALLY THREE TIMES DAILY NEEDED TAKING TEGRETOL 200 MG TABLET 1 TAB PAULA & 2 TABS IN PM ORALLY BID PRN TAKING CLARITIN 10 MG TABLET 1 TABLET ORALLY ONCE A DAY TAKING FLONASE ALLERGY RELIEF 50 MCG/ACT SUSPENSION 1 SPRAY IN EACH NOSTRIL NASALLY BID TAKING ADVAIR DISKUS 250-50 MCG/DOSE AEROSOL POWDER BREATH ACTIVATED 1 PUFF INHALATION TWICE A DAY TAKING VENTOLIN HFA 108 (90 BASE) MCG/ACT AEROSOL SOLUTION 2 PUFFS NEEDED INHALATION EVERY 4 HRS TAKING DOCQLACE 100 MG CAPSULE 1 CAPSULE NEEDED ORALLY ONCE A DAY TAKING GABAPENTIN 400 MG CAPSULE TAKE ONE CAPSULE BY MOUTH TWICE A DAY ORAL TAKING TOPIRAMATE 25 MG TABLET 1TAB IN AM AND 2TAB PM ORAL TAKING SINGULAIR 10 MG TABLET 1 TABLET IN THE EVENING ORALLY ONCE A DAY TAKING METRONIDAZOLE 500 MG TABLET 1 TABLET ORALLY TWICE A DAY TAKING FLUOCINONIDE 0.05 % OINTMENT 1 APPLICATION EXTERNALLY TWICE A DAY NEEDED TO ACTIVE LESIONS, NOT FOR FACE TAKING LIDOCAINE VISCOUS HCL 2 % SOLUTION 15 ML NEEDED MOUTH/THROAT MIX 1:1:1 WITH LIQUID BENADRYL AND LIQUID MAALOX, SWISH AND SPIT 3 TIMES DAILY NEEDED TAKING METRONIDAZOLE 0.75 % CREAM 1 APPLICATION EXTERNALLY TWICE A DAY TO RASH ON CHIN TAKING CLINDAMYCIN PHOSPHATE 1 % GEL 1 APPLICATION TO AFFECTED AREA EXTERNALLY ONCE A DAY IN AM TO FACE TAKING OMEPRAZOLE 40 MG CAPSULE DELAYED RELEASE 1 CAPSULE ORALLY ONCE A DAY NOT-TAKING NORTRIPTYLINE HCL 10 MG CAPSULE 1 CAPSULE ORALLY BID NOT-TAKING IBUPROFEN 800 MG TABLET 1 TABLET WITH FOOD OR MILK NEEDED ORALLY BID UNKNOWN WHEELCHAIR - MISCELLANEOUS BARIATRIC WHEELCHAIR; DIRECTED HT 66.5 IN, WT 266LBS DX M87.05 UNKNOWN SIMVASTATIN 20 MG TABLET 1 TABLET IN THE EVENING ORALLY ONCE A DAY MEDICATION LIST REVIEWED AND RECONCILED WITH THE PATIENT PAST MEDICAL HISTORY LUNG NODULE ON CXR IN ED 05/2019, GONE WITH REPEAT CT -LIKELY PNEUMONIA; PLEURAL THICKENING, REPEAT CT 12/2019 MODERATE PERSISTENT ASTHMA GERD INTERSTITIAL CYSTITIS/OAB/CHRONIC HEMATURIA - PREVIOUSLY FOLLOWED WITH [facility] UROLOGY LICHEN PLANUS, ACNE - DR. MERCADO MIGRAINES - DOES BOTOX INJECTIONS LEFT TRIGEMINAL NEURALGIA - DR. DILLARD RLS - DR. DILLARD ANXIETY/DEPRESSION - DR. OCHOA CARPAL TUNNEL BILATERAL - [facility] BACK/SCIATIC PAIN- DR. CABAN, NEUROSURG IN [place] PERIPHERAL NEUROPATHY, SMALL FIBER SENSORY NEUROPATHY - DR. DILLARD CHRONIC LEFT FOOT AND ANKLE PAIN - [facility] RIGHT HIP PAIN - AVN - ([facility]) COMPLEX REGIONAL PAIN SYNDROME - DR. MARIN FIBROMYALGIA - PAIN CENTER [facility] CORE 11.35 % LACTOSE INTOLERANT AND GLUTEN SENSITIVITY NEURALGIA LEFT NECK AND ARM ALLERGIES CIPROFLOXACIN: DYSPNEA - ALLERGY ELMIRON: NAUSEA/VOMITING/COUGH - SIDE EFFECTS AUGMENTIN: DIARRHEA - SIDE EFFECTS SOCIAL HISTORY GENERAL: TOBACCO USE ARE YOU A:FORMER SMOKER HOW LONG HAS IT BEEN SINCE YOU LAST SMOKED?> 10 YEARS LATEX QUESTIONNAIRE LATEX ALLERGY : HAVE YOU EVER DEVELOPED ANY TYPE OF REACTION AFTER HANDLING LATEX PRODUCTS SUCH RUBBER GLOVES, CONDOMS, DIAPHRAGMS, BALLOONS, SOCKS, OR UNDERWEAR?NO LATEX ALLERGY : HAVE YOU EVER DEVELOPED ANY TYPE OF REACTION DURING OR AFTER DENTAL APPOINTMENT, VAGINAL/RECTAL EXAMINATION, SURGICAL PROCEDURE, OR ANY OTHER EXPOSURE?NO LATEX RISK : HAVE YOU EVER HAD ANY DIFFICULTY BREATHING OR HIVES AFTER EATING OR HANDLING ANY FRUITS, OR VEGETABLES; SUCH KIWI, BANANAS, STONE FRUITS, OR CHESTNUTSNO LATEX RISK : DO YOU HAVE A PREVIOUS PERSONAL HISTORY OF MORE THAN NINE SURGERIES, SPINA BIFIDA, OR REPEATED CATHERIZATIONS? NO LATEX RISK : ARE YOU FREQUENTLY EXPOSED TO LATEX PRODUCTS IN YOUR OCCUPATION?NO DATE ASKED : 11/13/2020 ALCOHOL USE: NO. BMI CARE GOAL FOLLOW-UP ABOVE NORMAL BMI FOLLOW-UPLIFESTYLE EDUCATION REGARDING DIET ALCOHOL SCREENING DID YOU HAVE A DRINK CONTAINING ALCOHOL IN THE PAST YEAR?YES HOW OFTEN DID YOU HAVE SIX OR MORE DRINKS ON ONE OCCASION IN THE PAST YEAR?NEVER (0 POINTS) HOW MANY DRINKS DID YOU HAVE ON A TYPICAL DAY WHEN YOU WERE DRINKING IN THE PAST YEAR?1 OR 2 (0 POINTS) HOW OFTEN DID YOU HAVE A DRINK CONTAINING ALCOHOL IN THE PAST YEAR?MONTHLY OR LESS (1 POINT) POINTS1 INTERPRETATIONNEGATIVE RECREATIONAL DRUG USE DRUG USE?NO CAFFEINE CAFFEINE USE?YES 1-2 CUPS DAILY SEXUAL HX HAD SEX IN THE LAST 12 MONTHS (VAGINAL, ORAL, OR ANAL)?YES WITHMEN ONLY HAVE YOU EVER HAD AN STD?NO HIV / HEP-C SCREENING HIV TEST OFFERED TO PATIENT:YES DATE OFFERED:10/08/2017 TEST ACCEPTED:NO HEP-C TEST OFFERED TO PATIENT:NO REASON:PATIENT DECLINED YARSANISM [id number] OTHER LANGUAGE URDU. EDUCATION LEVEL OF EDUCATION:HIGH SCHOOL LEARNING BARRIERS / SPECIAL NEEDS CHANGE FROM LAST VISIT?NO 11/08/20 BARRIERS TO LEARNING?NO HEARING IMPAIRED?NO VISION IMPAIRED?NO COGNITIVELY IMPAIRED?NO READINESS TO LEARN?YES LEARNING PREFERENCES?NO LEARNING CAPABILITIES PRESENT?YES EMOTIONAL BARRIERS?NO SPECIAL DEVICES?NO JUVENILE DETENTION OFFICER NEEDED?NO DOMESTIC VIOLENCE DO YOU FEEL SAFE IN YOUR ENVIRONMENT?YES OCCUPATION: HOMEMAKER. DIET: LOW GLUTEN, LOW CARBS, LOW LACTOSE, LOW OXYLATE. EXERCISE: NO REGULAR EXERCISE. MARITAL STATUS: ., MOTHER OF 3. OTHERS AT HOME: CHILD. - PFS REFERRAL NEEDED?NO CLERGY REFERRAL NEEDED?NO PUBLIC HEALTH REFERRAL NEEDED?NO HAS THE PATIENT BEEN EDUCATED REGARDING HIS/HER PLAN OF CARE?YES HAS THE PATIENT BEEN EDUCATED REGARDING PAIN, THE RISK FOR PAIN, THE IMPORTANCE OF EFFECTIVE PAIN MANAGEMENT, AND THE PAIN ASSESSMENT PROCESS?YES ADVANCE DIRECTIVE ADVANCE DIRECTIVE DISCUSSED WITH PATIENT:YES HAS HCP INFORMATION, SHE HAS NOT COMPLETED FORMS YET. ASSISTANCE OFFERED IN COMPLETING IF NEEDED. REVIEW OF SYSTEMS CONSTITUTIONAL: ANY RECENT FEVER NO . CHILLS NO . WEIGHT CHANGE OF UNKNOWN REASONS NO . GASTROENTEROLOGY: NEW UNEXPLAINABLE CHANGES IN BOWEL CONTROL NO . CONSTIPATION NO . GENITOURINARY: ANY NEW CHANGE IN BLADDER CONTROL? NO . NEUROLOGY: NEW ONSET DIZZINESS OR NEUROLOGICAL CHANGES NOT MENTIONED NO . NEW NUMBNESS OR PAIN PATTERNS NOT MENTIONED AND PERTINENT TO TODAY'S VISIT NO . CARDIOLOGY: NEW CHEST PRESSURE NO . PATIENT DENIES NO . RESPIRATORY: UNEXPLAINABLE COUGH NO . NEW SHORTNESS OF BREATH NO . VITAL SIGNS WT 227.2 LBS, HT 66.5 IN, BMI 36.12 INDEX, BP 138/91 MM HG, HR 96 /MIN, RR 18 /MIN, TEMP 97.2 F, OXYGEN SAT % 98%, SAFE IN ENV? (Y/N) YES, NA INITIALS SC 15:00, REVIEWED BY: APA. DARYA RN. EXAMINATION GENERAL: THE PATIENT IS ALERT, ORIENTED TIMES THREE AND COOPERATIVE. LUNGS ARE CLEAR TO AUSCULTATION. HEART SHOWS REGULAR RHYTHM, NO MURMURS AND NO GALLOPS. THE PATIENT HAS DIFFICULTY STANDING. HER RIGHT ARM IS WEAKER THAN HER LEFT ARM ON FLEXION AND EXTENSION. ALSO THE RIGHT LEG IS WEAKER THAN THE LEFT LEG ON FLEXION AND EXTENSION. IN THE CERVICAL, SHOULDERS AND THORACIC, THERE ARE BANDS OF TISSUE WITH PRESENCE OF TRIGGER POINTS AND RESTRICTION OF MOVEMENT. THERE IS A NOTE FROM DR. DILLARD DONE ON 10/16/2020 WHO BASICALLY MAKES THE ASSESSMENT OF CHRONIC NECK AND UPPER EXTREMITY PAIN, CERVICALGIA, LUMBOSACRAL SPONDYLOSIS, MIGRAINE HEADACHES, RESTLESS LEG SYNDROME AND HE REFERRED THE PATIENT TO [facility] FOR THE ORTHOPEDIC CONSULT AND CONTINUE WITH THE MEDICATIONS. THERE IS A BRAIN MRI 07/19/2020 THAT IS SHOWING SOME NONSPECIFIC GLIOSIS WITH THE POSSIBLE RULE OUT OF MIGRAINE HEADACHES AND SOME UNDERLYING MICROVASCULAR DISEASE. LUMBOSACRAL MRI DATED 06/08/2019 SHOWS NORMAL FINDINGS ACCORDING TO THIS REPORT. CERVICAL MRI DATED 09/20/2020 SHOWS SOME BULGING DISC OVER THE NECK WITH SOME FACET ARTHROPATHY CHANGES. 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 BAÑUELOS. AT THIS POINT, DUE TO THE MULTIPLE BODY PAIN, I FEEL THAT WE SHOULD HOLD FOR NOW THE POSSIBILITY OF DOING THE DORSAL COLUMN STIMULATOR TRIAL. I WILL REQUEST AUTHORIZATION FOR TRIGGER POINT INJECTIONS BILATERAL NECK, BILATERAL SHOULDER AND BILATERAL THORACIC, BOOK AFTER APPROVED. I FEEL THAT WE SHOULD CONSIDER MEDICATION MANAGEMENT AND I DISCUSSED WITH DOMINGA THE USE OF MEDICAL MARIJUANA. WE HAD A LONG CONVERSATION ABOUT THE CASE AND THE PATIENT WOULD LIKE TO FOLLOW THAT ROUTE. FOR NOW, THE PATIENT WILL FOLLOW WITH THE NURSE PRACTITIONER TO CONSIDER MEDICATION OPTIONS. THE PATIENT REPORTS UNDERSTANDING AND AGREES WITH THE PLAN. I, ROMA ARGUETA, DOCUMENTED THE ABOVE INFORMATION ACTING A SCRIBE FOR DR. MARIN. I HAVE REVIEWED THE ABOVE DOCUMENT, WRITTEN BY ROMA ARGUETA, WOOD FENCE ERECTOR, AND I VERIFY THAT IT IS ACCURATE. . OTHERS CLINICAL NOTES: REVIEWED AND PRINTED PRE PROCEDURE INSTRUCTIONS WITH PATIENT. PATIENT REPORTS AN UNDERSTANDING. Boogie LACKEY RN . PROCEDURE CODES FA211 ESTABILISHED PATIENT [facility] CHARGE [id number] OFFICE/OUTPATIENT VISIT EST DISPOSITION & COMMUNICATION FOLLOW UP REQUEST AUTH FOR TRIGGER POINT INEJCTIONS BILATERAL NECK, BILATERAL SHOULDER, BILATERAL THORACIC (REASON: REQUEST AUTH FOR TRIGGER POINT INEJCTIONS BILATERAL NECK, BILATERAL SHOULDER, BILATERAL THORACIC) ELECTRONICALLY SIGNED BY JUSTEN MARIN MD, MD ON 12/01/2020 AT 09:48 AM EDT DISCLAIMER : THIS IS A VISIT SUMMARY EXTRACTED FROM THE [employer] CHART. IT IS NOT A COPY OF THE [employer] PROGRESS NOTE. MARCO ANTONIO
--- NOTE | 2020-12-02 02:44 | ECWPNPC ---
PATIENT NAME: DOMINGA BAÑUELOS : 1970 GENDER: FEMALE VISIT DATE: 11/27/2020 DISCHARGE DATE: 11/27/20 162 VISIT LOCKED DATE TIME: PHYSICIAN: JUSTEN MARIN MD PHYSICIAN PAGER NO: ACTIVE RESOURCE: JUSTEN MARIN MD REASON FOR APPOINTMENT 1. BACK PAIN F/U WITH DOC 1 MONTH HISTORY OF PRESENT ILLNESS DEPRESSION SCREENING: PHQ-2 (2015 EDITION) LITTLE INTEREST OR PLEASURE IN DOING THINGS?NOT AT ALL FEELING DOWN, DEPRESSED, OR HOPELESS?SEVERAL DAYS TOTAL SCORE1 50-YEAR-OLD FEMALE PATIENT WITH A HISTORY OF MULTIPLE BODY PAIN. THE PATIENT HAS BEEN SUFFERING FROM THIS CONDITION FOR YEARS. SHE DESCRIBES THE PAIN SEVERE, BURNING ON OCCASION, SHOOTING ON OCCASION WITH A PAIN SCORE RANGING FROM 6-10/10. THE PAIN IS LOCATED ON THE LEFT SIDE OF HER BODY AND ALSO ON OCCASION THE RIGHT SIDE OF HER BODY. THE PATIENT AT SOME POINT, A MONTH AGO, DEVELOPED SOME WEAKNESS OVER THE LEFT SIDE, BUT THIS WAS EVALUATE BY DR. DILLARD. HE DID SOME BRAIN MRIS BUT THEY WERE NOT ABLE TO FIND ANY PATHOLOGY. THE ASSESSMENT, DR. DILLARD HAS INFORMED TO DOMINGA, IS THAT HER LEFT ARM AND LEFT LEG PAIN IS NOT ASSOCIATED WITH A PROBLEM AT HER BRAIN. SHE WAS SEEN BY A SURGEON IN [place], DR. AMEZQUITA AT [facility], WHO EXPLAINED TO DOMINGA THAT HE FEELS THAT SHE HAS CARPAL TUNNEL OVER HER UPPER EXTREMITIES. AT THE MOMENT, HE IS NOT OFFERING HER ANY SPINE SURGERY. HE ADVISED SOME CARPAL TUNNEL SURGERY FIRST. GENERAL: -. FALL RISK SCREENING: SCREENING : NO FALLS REPORTED IN THE LAST YEAR. PAIN SCREENING: PATIENT HAS A COMPLAINT OF ACUTE OR CHRONIC PAIN :YES LOCATION OF PAIN:UPPER BACK, MID BACK, LOW BACK INTENSITY OF PAIN (SCALE OF 1 TO 10):7 WHAT DOES YOUR PAIN FEEL LIKE:BURNING, CONTINOUS, SHARP, STABBING DURATION:CONSTANT PAIN IS INCREASED BY:ACTIVITIES PROLONGED WALKING & STANDING & STITTING PAIN IS DECREASED BY: NOTHING HELPING AT THIS POINT NURSING NOTE: -. PAIN CENTER INTAKE QUESTIONS: DO YOU HAVE A HISTORY OF MRSA? :NO DO YOU TAKE A BLOOD THINNERS? :NO DO YOU HAVE ANY BLEEDING DISORDERS? :NO ANY NEW NUMBNESS OR WEAKNESS IN YOUR LEGS OR ARMS? :NO ANY PACEMAKER,DEFIBRILLATOR, OR DORSAL COLUMN STIMULATOR? :NO DO YOU HAVE ANY RASHES OR OPEN SORES? :NO ARE YOU ALLERGIC TO IV DYE? :NO ARE YOU DIABETIC? :NO ANY NEW PROBLEMS WITH YOUR MEDICATIONS? :NO HAVE YOU RECEIVED A VACCINE IN THE PAST 30 DAYS? :NO DO YOU PLAN TO RECEIVE A VACCINE IN THE NEXT 21 DAYS? :YES IF SO WHAT VACCINE AND WHEN? 2ND COVID VACCINE 12/15/20 DO YOU NEED ANY PRESCRIPTION? :NO DO YOU TAKE ANY IMMUNOSUPPRESSIVE MEDICATIONS? :NO DO YOU HAVE ANY KIDNEY OR LIVER DISEASE? :NO IS THERE A CHANCE YOU COULD BE ? :NO ARE YOU BREAST FEEDING? :NO CURRENT MEDICATIONS TAKING FISH OIL 1000 MG CAPSULE 1 TABLET ORALLY DAILY TAKING CALCIUM 600 MG TABLET 1 TABLET ORALLY DAILY TAKING MULTIVITAMINS OTC TABLET 1 TABLET ORALLY DAILY TAKING ROPINIROLE HCL 2 MG TABLET 1 TAB AM & 2 TAB PM ORALLY TWICE DAILY TAKING CYMBALTA 60 MG CAPSULE DELAYED RELEASE PARTICLES 1 CAPSULE ORALLY TWICE A DAY TAKING QUETIAPINE FUMARATE 100 MG TABLET 1.5 TABLET AT BEDTIME ORALLY DAILY TAKING BIOTIN 10 MG TABLET 1 TABLET ORALLY ONCE A DAY TAKING PROBIOTIC - TABLET DELAYED RELEASE DIRECTED ORALLY TAKING FOLIC ACID 1 MG TABLET 1 TABLET ORALLY ONCE A DAY TAKING TRAZODONE HCL 100 MG TABLET 250 MG BY MOUTH AT BEDTIME ORALLY AT BEDTIME TAKING TIZANIDINE HCL 4 MG TABLET 1 TABLET NEEDED ORALLY THREE TIMES A DAY TAKING BENADRYL 25 MG TABLET 1 TABLET ORALLY THREE TIMES DAILY NEEDED TAKING TEGRETOL 200 MG TABLET 1 TAB PAULA & 2 TABS IN PM ORALLY BID PRN TAKING CLARITIN 10 MG TABLET 1 TABLET ORALLY ONCE A DAY TAKING FLONASE ALLERGY RELIEF 50 MCG/ACT SUSPENSION 1 SPRAY IN EACH NOSTRIL NASALLY BID TAKING ADVAIR DISKUS 250-50 MCG/DOSE AEROSOL POWDER BREATH ACTIVATED 1 PUFF INHALATION TWICE A DAY TAKING VENTOLIN HFA 108 (90 BASE) MCG/ACT AEROSOL SOLUTION 2 PUFFS NEEDED INHALATION EVERY 4 HRS TAKING DOCQLACE 100 MG CAPSULE 1 CAPSULE NEEDED ORALLY ONCE A DAY TAKING GABAPENTIN 400 MG CAPSULE TAKE ONE CAPSULE BY MOUTH TWICE A DAY ORAL TAKING TOPIRAMATE 25 MG TABLET 1TAB IN AM AND 2TAB PM ORAL TAKING SINGULAIR 10 MG TABLET 1 TABLET IN THE EVENING ORALLY ONCE A DAY TAKING METRONIDAZOLE 500 MG TABLET 1 TABLET ORALLY TWICE A DAY TAKING FLUOCINONIDE 0.05 % OINTMENT 1 APPLICATION EXTERNALLY TWICE A DAY NEEDED TO ACTIVE LESIONS, NOT FOR FACE TAKING LIDOCAINE VISCOUS HCL 2 % SOLUTION 15 ML NEEDED MOUTH/THROAT MIX 1:1:1 WITH LIQUID BENADRYL AND LIQUID MAALOX, SWISH AND SPIT 3 TIMES DAILY NEEDED TAKING METRONIDAZOLE 0.75 % CREAM 1 APPLICATION EXTERNALLY TWICE A DAY TO RASH ON CHIN TAKING CLINDAMYCIN PHOSPHATE 1 % GEL 1 APPLICATION TO AFFECTED AREA EXTERNALLY ONCE A DAY IN AM TO FACE TAKING OMEPRAZOLE 40 MG CAPSULE DELAYED RELEASE 1 CAPSULE ORALLY ONCE A DAY NOT-TAKING NORTRIPTYLINE HCL 10 MG CAPSULE 1 CAPSULE ORALLY BID NOT-TAKING IBUPROFEN 800 MG TABLET 1 TABLET WITH FOOD OR MILK NEEDED ORALLY BID UNKNOWN WHEELCHAIR - MISCELLANEOUS BARIATRIC WHEELCHAIR; DIRECTED HT 66.5 IN, WT 266LBS DX M87.05 UNKNOWN SIMVASTATIN 20 MG TABLET 1 TABLET IN THE EVENING ORALLY ONCE A DAY MEDICATION LIST REVIEWED AND RECONCILED WITH THE PATIENT PAST MEDICAL HISTORY LUNG NODULE ON CXR IN ED 05/2019, GONE WITH REPEAT CT -LIKELY PNEUMONIA; PLEURAL THICKENING, REPEAT CT 12/2019 MODERATE PERSISTENT ASTHMA GERD INTERSTITIAL CYSTITIS/OAB/CHRONIC HEMATURIA - PREVIOUSLY FOLLOWED WITH [facility] UROLOGY LICHEN PLANUS, ACNE - DR. MERCADO MIGRAINES - DOES BOTOX INJECTIONS LEFT TRIGEMINAL NEURALGIA - DR. DILLARD RLS - DR. DILLARD ANXIETY/DEPRESSION - DR. OCHOA CARPAL TUNNEL BILATERAL - [facility] BACK/SCIATIC PAIN- DR. CABAN, NEUROSURG IN [place] PERIPHERAL NEUROPATHY, SMALL FIBER SENSORY NEUROPATHY - DR. DILLARD CHRONIC LEFT FOOT AND ANKLE PAIN - [facility] RIGHT HIP PAIN - [facility] - [facility] COMPLEX REGIONAL PAIN SYNDROME - DR. MARIN FIBROMYALGIA - PAIN CENTER [facility] [address] CORE 11.35 % LACTOSE INTOLERANT AND GLUTEN SENSITIVITY NEURALGIA LEFT NECK AND ARM ALLERGIES CIPROFLOXACIN: DYSPNEA - ALLERGY ELMIRON: NAUSEA/VOMITING/COUGH - SIDE EFFECTS AUGMENTIN: DIARRHEA - SIDE EFFECTS SOCIAL HISTORY GENERAL: TOBACCO USE ARE YOU A:FORMER SMOKER HOW LONG HAS IT BEEN SINCE YOU LAST SMOKED?> 10 YEARS LATEX QUESTIONNAIRE LATEX ALLERGY : HAVE YOU EVER DEVELOPED ANY TYPE OF REACTION AFTER HANDLING LATEX PRODUCTS SUCH RUBBER GLOVES, CONDOMS, DIAPHRAGMS, BALLOONS, SOCKS, OR UNDERWEAR?NO LATEX ALLERGY : HAVE YOU EVER DEVELOPED ANY TYPE OF REACTION DURING OR AFTER DENTAL APPOINTMENT, VAGINAL/RECTAL EXAMINATION, SURGICAL PROCEDURE, OR ANY OTHER EXPOSURE?NO LATEX RISK : HAVE YOU EVER HAD ANY DIFFICULTY BREATHING OR HIVES AFTER EATING OR HANDLING ANY FRUITS, OR VEGETABLES; SUCH KIWI, BANANAS, STONE FRUITS, OR CHESTNUTSNO LATEX RISK : DO YOU HAVE A PREVIOUS PERSONAL HISTORY OF MORE THAN NINE SURGERIES, SPINA BIFIDA, OR REPEATED CATHERIZATIONS? NO LATEX RISK : ARE YOU FREQUENTLY EXPOSED TO LATEX PRODUCTS IN YOUR OCCUPATION?NO DATE ASKED : 11/13/2020 ALCOHOL USE: NO. BMI CARE GOAL FOLLOW-UP ABOVE NORMAL BMI FOLLOW-UPLIFESTYLE EDUCATION REGARDING DIET ALCOHOL SCREENING DID YOU HAVE A DRINK CONTAINING ALCOHOL IN THE PAST YEAR?YES HOW OFTEN DID YOU HAVE SIX OR MORE DRINKS ON ONE OCCASION IN THE PAST YEAR?NEVER (0 POINTS) HOW MANY DRINKS DID YOU HAVE ON A TYPICAL DAY WHEN YOU WERE DRINKING IN THE PAST YEAR?1 OR 2 (0 POINTS) HOW OFTEN DID YOU HAVE A DRINK CONTAINING ALCOHOL IN THE PAST YEAR?MONTHLY OR LESS (1 POINT) POINTS1 INTERPRETATIONNEGATIVE RECREATIONAL DRUG USE DRUG USE?NO CAFFEINE CAFFEINE USE?YES 1-2 CUPS DAILY SEXUAL HX HAD SEX IN THE LAST 12 MONTHS (VAGINAL, ORAL, OR ANAL)?YES WITHMEN ONLY HAVE YOU EVER HAD AN STD?NO HIV / HEP-C SCREENING HIV TEST OFFERED TO PATIENT:YES DATE OFFERED:10/08/2017 TEST ACCEPTED:NO HEP-C TEST OFFERED TO PATIENT:NO REASON:PATIENT DECLINED YARSANISM [id number] OTHER LANGUAGE BENGALI. EDUCATION LEVEL OF EDUCATION:HIGH SCHOOL LEARNING BARRIERS / SPECIAL NEEDS CHANGE FROM LAST VISIT?NO 11/08/20 BARRIERS TO LEARNING?NO HEARING IMPAIRED?NO VISION IMPAIRED?NO COGNITIVELY IMPAIRED?NO READINESS TO LEARN?YES LEARNING PREFERENCES?NO LEARNING CAPABILITIES PRESENT?YES EMOTIONAL BARRIERS?NO SPECIAL DEVICES?NO FINISHER COLD ROLLING NEEDED?NO DOMESTIC VIOLENCE DO YOU FEEL SAFE IN YOUR ENVIRONMENT?YES OCCUPATION: HOMEMAKER. DIET: LOW GLUTEN, LOW CARBS, LOW LACTOSE, LOW OXYLATE. EXERCISE: NO REGULAR EXERCISE. MARITAL STATUS: ., MOTHER OF 3. OTHERS AT HOME: CHILD. - PFS REFERRAL NEEDED?NO CLERGY REFERRAL NEEDED?NO PUBLIC HEALTH REFERRAL NEEDED?NO HAS THE PATIENT BEEN EDUCATED REGARDING HIS/HER PLAN OF CARE?YES HAS THE PATIENT BEEN EDUCATED REGARDING PAIN, THE RISK FOR PAIN, THE IMPORTANCE OF EFFECTIVE PAIN MANAGEMENT, AND THE PAIN ASSESSMENT PROCESS?YES ADVANCE DIRECTIVE ADVANCE DIRECTIVE DISCUSSED WITH PATIENT:YES HAS HCP INFORMATION, SHE HAS NOT COMPLETED FORMS YET. ASSISTANCE OFFERED IN COMPLETING IF NEEDED. REVIEW OF SYSTEMS CONSTITUTIONAL: ANY RECENT FEVER NO . CHILLS NO . WEIGHT CHANGE OF UNKNOWN REASONS NO . GASTROENTEROLOGY: NEW UNEXPLAINABLE CHANGES IN BOWEL CONTROL NO . CONSTIPATION NO . GENITOURINARY: ANY NEW CHANGE IN BLADDER CONTROL? NO . NEUROLOGY: NEW ONSET DIZZINESS OR NEUROLOGICAL CHANGES NOT MENTIONED NO . NEW NUMBNESS OR PAIN PATTERNS NOT MENTIONED AND PERTINENT TO TODAY'S VISIT NO . CARDIOLOGY: NEW CHEST PRESSURE NO . PATIENT DENIES NO . RESPIRATORY: UNEXPLAINABLE COUGH NO . NEW SHORTNESS OF BREATH NO . VITAL SIGNS WT 227.2 LBS, HT 66.5 IN, BMI 36.12 INDEX, BP 138/91 MM HG, HR 96 /MIN, RR 18 /MIN, TEMP 97.2 F, OXYGEN SAT % 98%, SAFE IN ENV? (Y/N) YES, NA INITIALS SC 15:00, REVIEWED BY: APA. DARYA RN. EXAMINATION GENERAL: THE PATIENT IS ALERT, ORIENTED TIMES THREE AND COOPERATIVE. LUNGS ARE CLEAR TO AUSCULTATION. HEART SHOWS REGULAR RHYTHM, NO MURMURS AND NO GALLOPS. THE PATIENT HAS DIFFICULTY STANDING. HER RIGHT ARM IS WEAKER THAN HER LEFT ARM ON FLEXION AND EXTENSION. ALSO THE RIGHT LEG IS WEAKER THAN THE LEFT LEG ON FLEXION AND EXTENSION. IN THE CERVICAL, SHOULDERS AND THORACIC, THERE ARE BANDS OF TISSUE WITH PRESENCE OF TRIGGER POINTS AND RESTRICTION OF MOVEMENT. THERE IS A NOTE FROM DR. DILLARD DONE ON 10/16/2020 WHO BASICALLY MAKES THE ASSESSMENT OF CHRONIC NECK AND UPPER EXTREMITY PAIN, CERVICALGIA, LUMBOSACRAL SPONDYLOSIS, MIGRAINE HEADACHES, RESTLESS LEG SYNDROME AND HE REFERRED THE PATIENT TO [facility] FOR THE ORTHOPEDIC CONSULT AND CONTINUE WITH THE MEDICATIONS. THERE IS A BRAIN MRI 07/19/2020 THAT IS SHOWING SOME NONSPECIFIC GLIOSIS WITH THE POSSIBLE RULE OUT OF MIGRAINE HEADACHES AND SOME UNDERLYING MICROVASCULAR DISEASE. LUMBOSACRAL MRI DATED 06/08/2019 SHOWS NORMAL FINDINGS ACCORDING TO THIS REPORT. CERVICAL MRI DATED 09/20/2020 SHOWS SOME BULGING DISC OVER THE NECK WITH SOME FACET ARTHROPATHY CHANGES. 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 BAÑUELOS. AT THIS POINT, DUE TO THE MULTIPLE BODY PAIN, I FEEL THAT WE SHOULD HOLD FOR NOW THE POSSIBILITY OF DOING THE DORSAL COLUMN STIMULATOR TRIAL. I WILL REQUEST AUTHORIZATION FOR TRIGGER POINT INJECTIONS BILATERAL NECK, BILATERAL SHOULDER AND BILATERAL THORACIC, BOOK AFTER APPROVED. I FEEL THAT WE SHOULD CONSIDER MEDICATION MANAGEMENT AND I DISCUSSED WITH DOMINGA THE USE OF MEDICAL MARIJUANA. WE HAD A LONG CONVERSATION ABOUT THE CASE AND THE PATIENT WOULD LIKE TO FOLLOW THAT ROUTE. FOR NOW, THE PATIENT WILL FOLLOW WITH THE NURSE PRACTITIONER TO CONSIDER MEDICATION OPTIONS. THE PATIENT REPORTS UNDERSTANDING AND AGREES WITH THE PLAN. I, ROMA ARGUETA, DOCUMENTED THE ABOVE INFORMATION ACTING A SCRIBE FOR DR. MARIN. I HAVE REVIEWED THE ABOVE DOCUMENT, WRITTEN BY ROMA ARGUETA, INSURANCE FOLLOW UP SPECIALIST, AND I VERIFY THAT IT IS ACCURATE. . OTHERS CLINICAL NOTES: REVIEWED AND PRINTED PRE PROCEDURE INSTRUCTIONS WITH PATIENT. PATIENT REPORTS AN UNDERSTANDING. Boogie LACKEY RN . PROCEDURE CODES FA211 ESTABILISHED PATIENT [facility] CHARGE [id number] OFFICE/OUTPATIENT VISIT EST DISPOSITION & COMMUNICATION FOLLOW UP REQUEST AUTH FOR TRIGGER POINT INEJCTIONS BILATERAL NECK, BILATERAL SHOULDER, BILATERAL THORACIC (REASON: REQUEST AUTH FOR TRIGGER POINT INEJCTIONS BILATERAL NECK, BILATERAL SHOULDER, BILATERAL THORACIC) ELECTRONICALLY SIGNED BY JUSTEN MARIN MD, MD ON 12/01/2020 AT 09:48 AM EDT DISCLAIMER : THIS IS A VISIT SUMMARY EXTRACTED FROM THE [employer] CHART. IT IS NOT A COPY OF THE [employer] PROGRESS NOTE. MARCO ANTONIO
--- NOTE | 2020-12-02 02:46 | ECWPNPC ---
PATIENT NAME: DOMINGA BAÑUELOS : 1970 GENDER: FEMALE VISIT DATE: 11/27/2020 DISCHARGE DATE: 11/27/20 162 VISIT LOCKED DATE TIME: PHYSICIAN: JUSTEN MARIN MD PHYSICIAN PAGER NO: ACTIVE RESOURCE: JUSTEN MARIN MD REASON FOR APPOINTMENT 1. BACK PAIN F/U WITH DOC 1 MONTH HISTORY OF PRESENT ILLNESS DEPRESSION SCREENING: PHQ-2 (2015 EDITION) LITTLE INTEREST OR PLEASURE IN DOING THINGS?NOT AT ALL FEELING DOWN, DEPRESSED, OR HOPELESS?SEVERAL DAYS TOTAL SCORE1 50-YEAR-OLD FEMALE PATIENT WITH A HISTORY OF MULTIPLE BODY PAIN. THE PATIENT HAS BEEN SUFFERING FROM THIS CONDITION FOR YEARS. SHE DESCRIBES THE PAIN SEVERE, BURNING ON OCCASION, SHOOTING ON OCCASION WITH A PAIN SCORE RANGING FROM 6-10/10. THE PAIN IS LOCATED ON THE LEFT SIDE OF HER BODY AND ALSO ON OCCASION THE RIGHT SIDE OF HER BODY. THE PATIENT AT SOME POINT, A MONTH AGO, DEVELOPED SOME WEAKNESS OVER THE LEFT SIDE, BUT THIS WAS EVALUATE BY DR. DILLARD. HE DID SOME BRAIN MRIS BUT THEY WERE NOT ABLE TO FIND ANY PATHOLOGY. THE ASSESSMENT, DR. DILLARD HAS INFORMED TO DOMINGA, IS THAT HER LEFT ARM AND LEFT LEG PAIN IS NOT ASSOCIATED WITH A PROBLEM AT HER BRAIN. SHE WAS SEEN BY A SURGEON IN [place], DR. AMEZQUITA AT [facility], WHO EXPLAINED TO DOMINGA THAT HE FEELS THAT SHE HAS CARPAL TUNNEL OVER HER UPPER EXTREMITIES. AT THE MOMENT, HE IS NOT OFFERING HER ANY SPINE SURGERY. HE ADVISED SOME CARPAL TUNNEL SURGERY FIRST. GENERAL: -. FALL RISK SCREENING: SCREENING : NO FALLS REPORTED IN THE LAST YEAR. PAIN SCREENING: PATIENT HAS A COMPLAINT OF ACUTE OR CHRONIC PAIN :YES LOCATION OF PAIN:UPPER BACK, MID BACK, LOW BACK INTENSITY OF PAIN (SCALE OF 1 TO 10):7 WHAT DOES YOUR PAIN FEEL LIKE:BURNING, CONTINOUS, SHARP, STABBING DURATION:CONSTANT PAIN IS INCREASED BY:ACTIVITIES PROLONGED WALKING & STANDING & STITTING PAIN IS DECREASED BY: NOTHING HELPING AT THIS POINT NURSING NOTE: -. PAIN CENTER INTAKE QUESTIONS: DO YOU HAVE A HISTORY OF MRSA? :NO DO YOU TAKE A BLOOD THINNERS? :NO DO YOU HAVE ANY BLEEDING DISORDERS? :NO ANY NEW NUMBNESS OR WEAKNESS IN YOUR LEGS OR ARMS? :NO ANY PACEMAKER,DEFIBRILLATOR, OR DORSAL COLUMN STIMULATOR? :NO DO YOU HAVE ANY RASHES OR OPEN SORES? :NO ARE YOU ALLERGIC TO IV DYE? :NO ARE YOU DIABETIC? :NO ANY NEW PROBLEMS WITH YOUR MEDICATIONS? :NO HAVE YOU RECEIVED A VACCINE IN THE PAST 30 DAYS? :NO DO YOU PLAN TO RECEIVE A VACCINE IN THE NEXT 21 DAYS? :YES IF SO WHAT VACCINE AND WHEN? 2ND COVID VACCINE 12/15/20 DO YOU NEED ANY PRESCRIPTION? :NO DO YOU TAKE ANY IMMUNOSUPPRESSIVE MEDICATIONS? :NO DO YOU HAVE ANY KIDNEY OR LIVER DISEASE? :NO IS THERE A CHANCE YOU COULD BE ? :NO ARE YOU BREAST FEEDING? :NO CURRENT MEDICATIONS TAKING FISH OIL 1000 MG CAPSULE 1 TABLET ORALLY DAILY TAKING CALCIUM 600 MG TABLET 1 TABLET ORALLY DAILY TAKING MULTIVITAMINS OTC TABLET 1 TABLET ORALLY DAILY TAKING ROPINIROLE HCL 2 MG TABLET 1 TAB AM & 2 TAB PM ORALLY TWICE DAILY TAKING CYMBALTA 60 MG CAPSULE DELAYED RELEASE PARTICLES 1 CAPSULE ORALLY TWICE A DAY TAKING QUETIAPINE FUMARATE 100 MG TABLET 1.5 TABLET AT BEDTIME ORALLY DAILY TAKING BIOTIN 10 MG TABLET 1 TABLET ORALLY ONCE A DAY TAKING PROBIOTIC - TABLET DELAYED RELEASE DIRECTED ORALLY TAKING FOLIC ACID 1 MG TABLET 1 TABLET ORALLY ONCE A DAY TAKING TRAZODONE HCL 100 MG TABLET 250 MG BY MOUTH AT BEDTIME ORALLY AT BEDTIME TAKING TIZANIDINE HCL 4 MG TABLET 1 TABLET NEEDED ORALLY THREE TIMES A DAY TAKING BENADRYL 25 MG TABLET 1 TABLET ORALLY THREE TIMES DAILY NEEDED TAKING TEGRETOL 200 MG TABLET 1 TAB PAULA & 2 TABS IN PM ORALLY BID PRN TAKING CLARITIN 10 MG TABLET 1 TABLET ORALLY ONCE A DAY TAKING FLONASE ALLERGY RELIEF 50 MCG/ACT SUSPENSION 1 SPRAY IN EACH NOSTRIL NASALLY BID TAKING ADVAIR DISKUS 250-50 MCG/DOSE AEROSOL POWDER BREATH ACTIVATED 1 PUFF INHALATION TWICE A DAY TAKING VENTOLIN HFA 108 (90 BASE) MCG/ACT AEROSOL SOLUTION 2 PUFFS NEEDED INHALATION EVERY 4 HRS TAKING DOCQLACE 100 MG CAPSULE 1 CAPSULE NEEDED ORALLY ONCE A DAY TAKING GABAPENTIN 400 MG CAPSULE TAKE ONE CAPSULE BY MOUTH TWICE A DAY ORAL TAKING TOPIRAMATE 25 MG TABLET 1TAB IN AM AND 2TAB PM ORAL TAKING SINGULAIR 10 MG TABLET 1 TABLET IN THE EVENING ORALLY ONCE A DAY TAKING METRONIDAZOLE 500 MG TABLET 1 TABLET ORALLY TWICE A DAY TAKING FLUOCINONIDE 0.05 % OINTMENT 1 APPLICATION EXTERNALLY TWICE A DAY NEEDED TO ACTIVE LESIONS, NOT FOR FACE TAKING LIDOCAINE VISCOUS HCL 2 % SOLUTION 15 ML NEEDED MOUTH/THROAT MIX 1:1:1 WITH LIQUID BENADRYL AND LIQUID MAALOX, SWISH AND SPIT 3 TIMES DAILY NEEDED TAKING METRONIDAZOLE 0.75 % CREAM 1 APPLICATION EXTERNALLY TWICE A DAY TO RASH ON CHIN TAKING CLINDAMYCIN PHOSPHATE 1 % GEL 1 APPLICATION TO AFFECTED AREA EXTERNALLY ONCE A DAY IN AM TO FACE TAKING OMEPRAZOLE 40 MG CAPSULE DELAYED RELEASE 1 CAPSULE ORALLY ONCE A DAY NOT-TAKING NORTRIPTYLINE HCL 10 MG CAPSULE 1 CAPSULE ORALLY BID NOT-TAKING IBUPROFEN 800 MG TABLET 1 TABLET WITH FOOD OR MILK NEEDED ORALLY BID UNKNOWN WHEELCHAIR - MISCELLANEOUS BARIATRIC WHEELCHAIR; DIRECTED HT 66.5 IN, WT 266LBS DX M87.05 UNKNOWN SIMVASTATIN 20 MG TABLET 1 TABLET IN THE EVENING ORALLY ONCE A DAY MEDICATION LIST REVIEWED AND RECONCILED WITH THE PATIENT PAST MEDICAL HISTORY LUNG NODULE ON CXR IN ED 05/2019, GONE WITH REPEAT CT -LIKELY PNEUMONIA; PLEURAL THICKENING, REPEAT CT 12/2019 MODERATE PERSISTENT ASTHMA GERD INTERSTITIAL CYSTITIS/OAB/CHRONIC HEMATURIA - PREVIOUSLY FOLLOWED WITH [facility] LICHEN PLANUS, ACNE - DR. MERCADO MIGRAINES - DOES BOTOX INJECTIONS LEFT TRIGEMINAL NEURALGIA - DR. DILLARD RLS - DR. DILLARD ANXIETY/DEPRESSION - DR. OCHOA CARPAL TUNNEL BILATERAL - [facility] BACK/SCIATIC PAIN- DR. CABAN, NEUROSURG IN [place] PERIPHERAL NEUROPATHY, SMALL FIBER SENSORY NEUROPATHY - DR. DILLARD CHRONIC LEFT FOOT AND ANKLE PAIN - [facility] RIGHT HIP PAIN - [facility] - [facility] COMPLEX REGIONAL PAIN SYNDROME - DR. MARIN FIBROMYALGIA - PAIN CENTER [facility] CORE 11.35 % LACTOSE INTOLERANT AND GLUTEN SENSITIVITY NEURALGIA LEFT NECK AND ARM ALLERGIES CIPROFLOXACIN: DYSPNEA - ALLERGY ELMIRON: NAUSEA/VOMITING/COUGH - SIDE EFFECTS AUGMENTIN: DIARRHEA - SIDE EFFECTS SOCIAL HISTORY GENERAL: TOBACCO USE ARE YOU A:FORMER SMOKER HOW LONG HAS IT BEEN SINCE YOU LAST SMOKED?> 10 YEARS LATEX QUESTIONNAIRE LATEX ALLERGY : HAVE YOU EVER DEVELOPED ANY TYPE OF REACTION AFTER HANDLING LATEX PRODUCTS SUCH RUBBER GLOVES, CONDOMS, DIAPHRAGMS, BALLOONS, SOCKS, OR UNDERWEAR?NO LATEX ALLERGY : HAVE YOU EVER DEVELOPED ANY TYPE OF REACTION DURING OR AFTER DENTAL APPOINTMENT, VAGINAL/RECTAL EXAMINATION, SURGICAL PROCEDURE, OR ANY OTHER EXPOSURE?NO LATEX RISK : HAVE YOU EVER HAD ANY DIFFICULTY BREATHING OR HIVES AFTER EATING OR HANDLING ANY FRUITS, OR VEGETABLES; SUCH KIWI, BANANAS, STONE FRUITS, OR CHESTNUTSNO LATEX RISK : DO YOU HAVE A PREVIOUS PERSONAL HISTORY OF MORE THAN NINE SURGERIES, SPINA BIFIDA, OR REPEATED CATHERIZATIONS? NO LATEX RISK : ARE YOU FREQUENTLY EXPOSED TO LATEX PRODUCTS IN YOUR OCCUPATION?NO DATE ASKED : 11/13/2020 ALCOHOL USE: NO. BMI CARE GOAL FOLLOW-UP ABOVE NORMAL BMI FOLLOW-UPLIFESTYLE EDUCATION REGARDING DIET ALCOHOL SCREENING DID YOU HAVE A DRINK CONTAINING ALCOHOL IN THE PAST YEAR?YES HOW OFTEN DID YOU HAVE SIX OR MORE DRINKS ON ONE OCCASION IN THE PAST YEAR?NEVER (0 POINTS) HOW MANY DRINKS DID YOU HAVE ON A TYPICAL DAY WHEN YOU WERE DRINKING IN THE PAST YEAR?1 OR 2 (0 POINTS) HOW OFTEN DID YOU HAVE A DRINK CONTAINING ALCOHOL IN THE PAST YEAR?MONTHLY OR LESS (1 POINT) POINTS1 INTERPRETATIONNEGATIVE RECREATIONAL DRUG USE DRUG USE?NO CAFFEINE CAFFEINE USE?YES 1-2 CUPS DAILY SEXUAL HX HAD SEX IN THE LAST 12 MONTHS (VAGINAL, ORAL, OR ANAL)?YES WITHMEN ONLY HAVE YOU EVER HAD AN STD?NO HIV / HEP-C SCREENING HIV TEST OFFERED TO PATIENT:YES DATE OFFERED:10/08/2017 TEST ACCEPTED:NO HEP-C TEST OFFERED TO PATIENT:NO REASON:PATIENT DECLINED CONGREGATIONAL [id number] OTHER LANGUAGE OCCITAN. EDUCATION LEVEL OF EDUCATION:HIGH SCHOOL LEARNING BARRIERS / SPECIAL NEEDS CHANGE FROM LAST VISIT?NO 11/08/20 BARRIERS TO LEARNING?NO HEARING IMPAIRED?NO VISION IMPAIRED?NO COGNITIVELY IMPAIRED?NO READINESS TO LEARN?YES LEARNING PREFERENCES?NO LEARNING CAPABILITIES PRESENT?YES EMOTIONAL BARRIERS?NO SPECIAL DEVICES?NO SALT MANAGER NEEDED?NO DOMESTIC VIOLENCE DO YOU FEEL SAFE IN YOUR ENVIRONMENT?YES OCCUPATION: HOMEMAKER. DIET: LOW GLUTEN, LOW CARBS, LOW LACTOSE, LOW OXYLATE. EXERCISE: NO REGULAR EXERCISE. MARITAL STATUS: ., MOTHER OF 3. OTHERS AT HOME: CHILD. - PFS REFERRAL NEEDED?NO CLERGY REFERRAL NEEDED?NO PUBLIC HEALTH REFERRAL NEEDED?NO HAS THE PATIENT BEEN EDUCATED REGARDING HIS/HER PLAN OF CARE?YES HAS THE PATIENT BEEN EDUCATED REGARDING PAIN, THE RISK FOR PAIN, THE IMPORTANCE OF EFFECTIVE PAIN MANAGEMENT, AND THE PAIN ASSESSMENT PROCESS?YES ADVANCE DIRECTIVE ADVANCE DIRECTIVE DISCUSSED WITH PATIENT:YES HAS HCP INFORMATION, SHE HAS NOT COMPLETED FORMS YET. ASSISTANCE OFFERED IN COMPLETING IF NEEDED. REVIEW OF SYSTEMS CONSTITUTIONAL: ANY RECENT FEVER NO . CHILLS NO . WEIGHT CHANGE OF UNKNOWN REASONS NO . GASTROENTEROLOGY: NEW UNEXPLAINABLE CHANGES IN BOWEL CONTROL NO . CONSTIPATION NO . GENITOURINARY: ANY NEW CHANGE IN BLADDER CONTROL? NO . NEUROLOGY: NEW ONSET DIZZINESS OR NEUROLOGICAL CHANGES NOT MENTIONED NO . NEW NUMBNESS OR PAIN PATTERNS NOT MENTIONED AND PERTINENT TO TODAY'S VISIT NO . CARDIOLOGY: NEW CHEST PRESSURE NO . PATIENT DENIES NO . RESPIRATORY: UNEXPLAINABLE COUGH NO . NEW SHORTNESS OF BREATH NO . VITAL SIGNS WT 227.2 LBS, HT 66.5 IN, BMI 36.12 INDEX, BP 138/91 MM HG, HR 96 /MIN, RR 18 /MIN, TEMP 97.2 F, OXYGEN SAT % 98%, SAFE IN ENV? (Y/N) YES, NA INITIALS SC 15:00, REVIEWED BY: APA. DARYA RN. EXAMINATION GENERAL: THE PATIENT IS ALERT, ORIENTED TIMES THREE AND COOPERATIVE. LUNGS ARE CLEAR TO AUSCULTATION. HEART SHOWS REGULAR RHYTHM, NO MURMURS AND NO GALLOPS. THE PATIENT HAS DIFFICULTY STANDING. HER RIGHT ARM IS WEAKER THAN HER LEFT ARM ON FLEXION AND EXTENSION. ALSO THE RIGHT LEG IS WEAKER THAN THE LEFT LEG ON FLEXION AND EXTENSION. IN THE CERVICAL, SHOULDERS AND THORACIC, THERE ARE BANDS OF TISSUE WITH PRESENCE OF TRIGGER POINTS AND RESTRICTION OF MOVEMENT. THERE IS A NOTE FROM DR. DILLARD DONE ON 10/16/2020 WHO BASICALLY MAKES THE ASSESSMENT OF CHRONIC NECK AND UPPER EXTREMITY PAIN, CERVICALGIA, LUMBOSACRAL SPONDYLOSIS, MIGRAINE HEADACHES, RESTLESS LEG SYNDROME AND HE REFERRED THE PATIENT TO [facility] FOR THE ORTHOPEDIC CONSULT AND CONTINUE WITH THE MEDICATIONS. THERE IS A BRAIN MRI 07/19/2020 THAT IS SHOWING SOME NONSPECIFIC GLIOSIS WITH THE POSSIBLE RULE OUT OF MIGRAINE HEADACHES AND SOME UNDERLYING MICROVASCULAR DISEASE. LUMBOSACRAL MRI DATED 06/08/2019 SHOWS NORMAL FINDINGS ACCORDING TO THIS REPORT. CERVICAL MRI DATED 09/20/2020 SHOWS SOME BULGING DISC OVER THE NECK WITH SOME FACET ARTHROPATHY CHANGES. 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 BAÑUELOS. AT THIS POINT, DUE TO THE MULTIPLE BODY PAIN, I FEEL THAT WE SHOULD HOLD FOR NOW THE POSSIBILITY OF DOING THE DORSAL COLUMN STIMULATOR TRIAL. I WILL REQUEST AUTHORIZATION FOR TRIGGER POINT INJECTIONS BILATERAL NECK, BILATERAL SHOULDER AND BILATERAL THORACIC, BOOK AFTER APPROVED. I FEEL THAT WE SHOULD CONSIDER MEDICATION MANAGEMENT AND I DISCUSSED WITH DOMINGA THE USE OF MEDICAL MARIJUANA. WE HAD A LONG CONVERSATION ABOUT THE CASE AND THE PATIENT WOULD LIKE TO FOLLOW THAT ROUTE. FOR NOW, THE PATIENT WILL FOLLOW WITH THE NURSE PRACTITIONER TO CONSIDER MEDICATION OPTIONS. THE PATIENT REPORTS UNDERSTANDING AND AGREES WITH THE PLAN. I, ROMA ARGUETA, DOCUMENTED THE ABOVE INFORMATION ACTING A SCRIBE FOR DR. MARIN. I HAVE REVIEWED THE ABOVE DOCUMENT, WRITTEN BY ROMA ARGUETA, MANAGER OF INVESTIGATIONS, AND I VERIFY THAT IT IS ACCURATE. . OTHERS CLINICAL NOTES: REVIEWED AND PRINTED PRE PROCEDURE INSTRUCTIONS WITH PATIENT. PATIENT REPORTS AN UNDERSTANDING. Boogie LACKEY RN . PROCEDURE CODES FA211 ESTABILISHED PATIENT [facility] CHARGE [id number] OFFICE/OUTPATIENT VISIT EST DISPOSITION & COMMUNICATION FOLLOW UP REQUEST AUTH FOR TRIGGER POINT INEJCTIONS BILATERAL NECK, BILATERAL SHOULDER, BILATERAL THORACIC (REASON: REQUEST AUTH FOR TRIGGER POINT INEJCTIONS BILATERAL NECK, BILATERAL SHOULDER, BILATERAL THORACIC) ELECTRONICALLY SIGNED BY JUSTEN MARIN MD, MD ON 12/01/2020 AT 09:48 AM EDT DISCLAIMER : THIS IS A VISIT SUMMARY EXTRACTED FROM THE [employer] CHART. IT IS NOT A COPY OF THE [employer] PROGRESS NOTE. MARCO ANTONIO
== END ==
LOC: M PAIN 15:00
PROVIDERS: ATTEND Anesthesiology
DX: M79.18 Myalgia, other site (principal); R52 Pain, unspecified; M50.10 Cervical disc disorder with radiculopathy, unspecified cervical region; J45.40 Moderate persistent asthma, uncomplicated; K21.9 Gastro-esophageal reflux disease without esophagitis; G43.909 Migraine, unspecified, not intractable, without status migrainosus; F41.9 Anxiety disorder, unspecified; F32.9 Major depressive disorder, single episode, unspecified; G56.03 Carpal tunnel syndrome, bilateral upper limbs; G62.9 Polyneuropathy, unspecified; M79.7 Fibromyalgia; Z87.891 Personal history of nicotine dependence; Z79.899 Other long term (current) drug therapy; Z88.0 Allergy status to penicillin; Z88.1 Allergy status to other antibiotic agents; Z88.8 Allergy status to other drugs, medicaments and biological substances

== ENCOUNTER → 2021-02-09 | Outpatient (CLI) | payer OTHER, MEDICAID ==
[~2021-02-09] MED LIST changes: -BANO25CA; +CARB200T98 PO; +DIPH-319; +FLUT1BLS5 INH; +GABA-283 PO; -GABA-845 PO; +OMEP40CA4; +OMEP40CA4 PO; -OMEP40CA97; -OMEP40CA97 PO
== END ==
LOC: M LABSMTC 13:12
PROVIDERS: ATTEND Anesthesiology
DX: Z01.812 Encounter for preprocedural laboratory examination (principal); Z20.822 Contact with and (suspected) exposure to COVID-19

== ENCOUNTER 2021-02-10 07:37 | Emergency (ER) | payer MEDICAID, OTHER ==
[~2021-02-10] VITALS: Ht 170.2 cm; Wt 95.5 kg
[2021-02-10 07:37] VITALS: BP 162/74
[~2021-02-10 07:37] MED LIST changes: -CARB200T98 PO; -FLUT1BLS5 INH
[2021-02-10] MEDS ORDERED: LORazepam 2 MG TAB PO ONE (08:35)
[2021-02-10] MEDS ORDERED: OLANZapine ORAL DISINTEGRATING TAB 5MG PO ONE (08:35)
[2021-02-10 09:12] LABS: HEMOGLOBIN 13.8 g/dl (12.0-15.5); MEAN CORPUSCULAR HGB CONC 32.9 g/dl (32.0-36.5); MEAN CORPUSCULAR VOLUME 91.3 fl (80.0-96.0); PLATELET COUNT, AUTOMATED 311 10^3/uL (150-450)
[2021-02-10 09:57] LABS: ACETAMINOPHEN LEVEL < 2.0 UG/ML (10.0-30.0); ALT/SGPT 41 U/L (12-78); AMPHETAMINES LEVEL URINE POSITIVE (NEGATIVE); BARBITURATES URINE NEGATIVE (NEGATIVE); BENZODIAZEPINES URINE NEGATIVE (NEGATIVE); BILIRUBIN,DIRECT < 0.1 MG/DL (0.0-0.2); BILIRUBIN,TOTAL 0.4 MG/DL (0.2-1.0); BLOOD UREA NITROGEN 24 MG/DL (7-18); CALCIUM LEVEL 8.9 MG/DL (8.5-10.1); CANNABINOIDS URINE NEGATIVE (NEGATIVE); CARBON DIOXIDE LEVEL 29 MEQ/L (21-32); CHLORIDE LEVEL 105 MEQ/L (98-107); COCAINE METABOLITE URINE NEGATIVE (NEGATIVE); CREATININE FOR GFR 0.92 MG/DL (0.55-1.30); ETHYL ALCOHOL (ETHANOL) < 0.003 % (0.000-0.010); GLOMERULAR FILTRATION RATE > 60.0 (>51); GLUCOSE, FASTING 118 MG/DL (70-100); METHADONE URINE NEGATIVE (NEGATIVE); OPIATES URINE NEGATIVE (NEGATIVE); PHENCYCLIDINE URINE NEGATIVE (NEGATIVE); POTASSIUM SERUM 3.9 MEQ/L (3.5-5.1); SALICYLATE LEVEL 4.1 MG/DL (5.0-30.0); SODIUM LEVEL 139 MEQ/L (136-145); TOTAL PROTEIN 7.4 GM/DL (6.4-8.2); VALPROIC ACID (DEPAKOTE) < 3.0 UG/ML (50.0-100.0)
--- NOTE | 2021-02-10 10:00 | REP ---
INDICATION: AMS COMPARISON: 11/30/2016 TECHNIQUE: Axial noncontrast images from the skull base to the vertex with coronal reformations. This CT examination was performed using the following dose reduction techniques: Automated exposure control, adjustment of mA and/or kv according to the patient's size, and use of iterative reconstruction technique. FINDINGS: The ventricles, sulci, and cisterns are normal in position and appearance. Chandra-white differentiation is maintained. No acute intracranial hemorrhage, mass/mass effect, pathology or trauma/injury. No evidence for acute infarction. No extra-axial fluid collection. Calvarium is intact. Paranasal sinuses and mastoid air cells are clear. IMPRESSION: Normal noncontrast head CT. No evidence for acute intracranial pathology or trauma/injury. <Electronically signed by Sebas Stokes > 02/10/21 0926
[2021-02-10] MEDS ORDERED: FLUT1BLS5 INH (13:11)
[2021-02-10] MEDS ORDERED: CARB200T98 PO (13:11)
== END 2021-02-10 14:05 | disposition home or self-care (01) ==
LOC: M ED 07:37
DX: F15.159 Other stimulant abuse with stimulant-induced psychotic disorder, unspecified (principal); J45.909 Unspecified asthma, uncomplicated; F33.9 Major depressive disorder, recurrent, unspecified; F41.9 Anxiety disorder, unspecified; K21.9 Gastro-esophageal reflux disease without esophagitis; G43.909 Migraine, unspecified, not intractable, without status migrainosus; M79.7 Fibromyalgia; Z88.1 Allergy status to other antibiotic agents; Z79.899 Other long term (current) drug therapy

== ENCOUNTER → 2021-07-30 | Outpatient (REF) | payer OTHER, MEDICAID ==
[~2021-07-30] MED LIST changes: +CARB200T98 PO; -CYMB60CA3 PO; +CYMB60CA4 PO; +FLUT1BLS5 INH; -QUET50TA3; +QUET50TA4
== END ==
LOC: M SFHCWAGY 13:12
PROVIDERS: ATTEND Nurse Practitioner Women's Health
DX: R87.612 Low grade squamous intraepithelial lesion on cytologic smear of cervix (LGSIL) (principal); N72 Inflammatory disease of cervix uteri

== ENCOUNTER → 2021-08-02 | Outpatient (REF) | payer OTHER, MEDICAID ==
[2021-08-02 13:52] LABS: APPEARANCE, URINE CLOUDY (CLEAR); BACTERIA, URINE AUTO 1+ (NEGATIVE); BILIRUBIN, URINE AUTO NEGATIVE (NEGATIVE); BLOOD, URINE BLOOD 2+ (NEGATIVE); COLOR, URINE AMBER (YELLOW); GLUCOSE, URINE (UA) AUTO NEGATIVE (NEGATIVE); KETONE, URINE AUTO TRACE mg/dL (NEGATIVE); LEUKOCYTE ESTERASE, URINE AUTO 1+ (NEGATIVE); MUCUS, URINE SMALL (NEGATIVE); NITRITE, URINE AUTO POSITIVE (NEGATIVE); PROTEIN, URINE AUTO 1+ mg/dL (NEGATIVE); RBC, URINE AUTO 23 /HPF (0-3); SPECIFIC GRAVITY URINE AUTO 1.029 (1.002-1.035); SQUAMOUS EPITHELIAL CELL UR AU 8 /HPF (0-6); UROBILINOGEN, URINE AUTO 0.2 mg/dL (0.0-2.0); WBC, URINE AUTO 16 /HPF (0-3)
== END ==
LOC: M SFHCPLAZ 13:11
PROVIDERS: ATTEND Nurse Practitioner Adult Health
DX: R30.0 Dysuria (principal)

== ENCOUNTER → 2021-09-07 | Outpatient (CLI) | payer OTHER, MEDICAID ==
[~2021-09-07] MED LIST changes: -MONT10TA10; -MONT10TA10 PO; +MONT10TA97; +MONT10TA97 PO; +TIZA10TA; -TIZA4TAB4
[2021-09-07 13:28] LABS: BASO # 0.1 10^3/uL (0.0-0.2); BASO % 0.7 % (0.0-1.0); EOS # 0.6 10^3/uL (0.0-0.5); EOS % 7.1 % (0.0-3.0); HEMOGLOBIN 14.1 g/dl (12.0-15.5); LYMPH # 4.3 10^3/uL (1.5-5.0); LYMPH % 48.9 % (24.0-44.0); MEAN CORPUSCULAR HEMOGLOBIN 29.7 pg (27.0-33.0); MEAN CORPUSCULAR VOLUME 92.6 fl (80.0-96.0); MONO # 0.8 10^3/uL (0.0-0.8); MONO % 8.8 % (2.0-8.0); NEUTROPHILS % 34.2 % (36.0-66.0); PLATELET COUNT, AUTOMATED 297 10^3/uL (150-450); RED BLOOD COUNT 4.75 10^6/uL (4.00-5.40); WHITE BLOOD COUNT 8.8 10^3/uL (4.0-10.0)
[2021-09-07 13:52] LABS: ALBUMIN 3.8 GM/DL (3.2-5.2); ALT/SGPT 34 U/L (12-78); BILIRUBIN,TOTAL 0.2 MG/DL (0.2-1.0); BLOOD UREA NITROGEN 17 MG/DL (7-18); CALCIUM LEVEL 9.3 MG/DL (8.5-10.1); CARBON DIOXIDE LEVEL 31 MEQ/L (21-32); CHLORIDE LEVEL 104 MEQ/L (98-107); CREATININE FOR GFR 0.81 MG/DL (0.55-1.30); GLOMERULAR FILTRATION RATE > 60.0 (>51); GLUCOSE, FASTING 91 MG/DL (70-100); POTASSIUM SERUM 4.3 MEQ/L (3.5-5.1); SODIUM LEVEL 140 MEQ/L (136-145)
[2021-09-07 14:09] LABS: ERYTHROCYTE SEDIMENTATION RATE 17 mm/hr (0-30)
== END ==
LOC: M PLALAB 10:26
PROVIDERS: ATTEND Physician Assistant
DX: R50.9 Fever, unspecified (principal); H92.02 Otalgia, left ear
CPT/HCPCS: 36415; 80053; 85025; 85652; 86140; U0003

== ENCOUNTER → 2022-01-18 | Outpatient (REF) | payer OTHER ==
[2022-01-18 22:43] LABS: APPEARANCE, URINE CLEAR (CLEAR); BACTERIA, URINE AUTO NEGATIVE (NEGATIVE); BILIRUBIN, URINE AUTO NEGATIVE (NEGATIVE); BLOOD, URINE BLOOD NEGATIVE (NEGATIVE); COLOR, URINE YELLOW (YELLOW); GLUCOSE, URINE (UA) AUTO NEGATIVE (NEGATIVE); KETONE, URINE AUTO NEGATIVE (NEGATIVE); LEUKOCYTE ESTERASE, URINE AUTO NEGATIVE (NEGATIVE); MUCUS, URINE SMALL (NEGATIVE); NITRITE, URINE AUTO NEGATIVE (NEGATIVE); PROTEIN, URINE AUTO NEGATIVE (NEGATIVE); RBC, URINE AUTO 2 /HPF (0-3); SQUAMOUS EPITHELIAL CELL UR AU 1 /HPF (0-6); UROBILINOGEN, URINE AUTO 0.2 mg/dL (0.0-2.0); WBC, URINE AUTO 1 /HPF (0-3)
== END ==
LOC: M LAB REF 22:20
PROVIDERS: ATTEND Physician Assistant
DX: N39.0 Urinary tract infection, site not specified (principal)

== ENCOUNTER 2022-03-05 16:03 | Emergency (ER) | payer OTHER ==
[~2022-03-05] VITALS: Ht 170.2 cm; Wt 86.4 kg
[2022-03-05] MEDS ORDERED: KETOROLAC 30 MG/ML 1ML VIAL IV ONE (17:45)
[2022-03-05] MEDS ORDERED: NS 1,000 ML IV ONE (17:45)
[2022-03-05 18:22] LABS: BASO # 0.1 10^3/uL (0.0-0.2); BASO % 0.7 % (0.0-1.0); EOS # 0.4 10^3/uL (0.0-0.5); EOS % 4.2 % (0.0-3.0); HEMATOCRIT 38.3 % (36.0-47.0); HEMOGLOBIN 12.7 g/dl (12.0-15.5); LYMPH # 3.1 10^3/uL (1.5-5.0); MEAN CORPUSCULAR HEMOGLOBIN 30.5 pg (27.0-33.0); MEAN CORPUSCULAR HGB CONC 33.2 g/dl (32.0-36.5); MEAN CORPUSCULAR VOLUME 92.1 fl (80.0-96.0); MONO # 0.9 10^3/uL (0.0-0.8); MONO % 9.4 % (2.0-8.0); NEUTROPHILS # 5.1 10^3/uL (1.5-8.5); NEUTROPHILS % 53.2 % (36.0-66.0); PLATELET COUNT, AUTOMATED 249 10^3/uL (150-450); RED BLOOD COUNT 4.16 10^6/uL (4.00-5.40); WHITE BLOOD COUNT 9.6 10^3/uL (4.0-10.0)
[2022-03-05 18:54] LABS: ALBUMIN 3.4 GM/DL (3.2-5.2); ALT/SGPT 27 U/L (12-78); BILIRUBIN,DIRECT < 0.1 MG/DL (0.0-0.2); BILIRUBIN,TOTAL 0.2 MG/DL (0.2-1.0); BLOOD UREA NITROGEN 16 MG/DL (7-18); CALCIUM LEVEL 9.3 MG/DL (8.5-10.1); CARBON DIOXIDE LEVEL 28 MEQ/L (21-32); CHLORIDE LEVEL 113 MEQ/L (98-107); CREATININE FOR GFR 0.94 MG/DL (0.55-1.30); GLOMERULAR FILTRATION RATE > 60.0 (>51); GLUCOSE, FASTING 87 MG/DL (70-100); LIPASE 102 U/L (73-393); POTASSIUM SERUM 4.1 MEQ/L (3.5-5.1); SODIUM LEVEL 145 MEQ/L (136-145); TOTAL PROTEIN 6.5 GM/DL (6.4-8.2)
[2022-03-05] MEDS ORDERED: ISOVUE-370 76% 100ML VIAL As Ordered ONE (18:59)
[2022-03-05 20:10] VITALS: BP 133/86
== END 2022-03-05 20:32 | disposition home or self-care (01) ==
LOC: M ED 16:03
DX: K59.00 Constipation, unspecified (principal); R30.0 Dysuria; J45.909 Unspecified asthma, uncomplicated; E78.5 Hyperlipidemia, unspecified; F32.A Depression, unspecified; F41.9 Anxiety disorder, unspecified; K21.9 Gastro-esophageal reflux disease without esophagitis; M54.9 Dorsalgia, unspecified; Z86.69 Personal history of other diseases of the nervous system and sense organs; Z87.442 Personal history of urinary calculi; Z88.1 Allergy status to other antibiotic agents; Z79.899 Other long term (current) drug therapy
CPT/HCPCS: 74177; 80048; 80076; 81001; 83690; 85025; 96361; 96374; 99284; J1885; Q9967

== ENCOUNTER 2022-05-28 06:17 | Emergency (ER) | payer OTHER, MEDICAID ==
[~2022-05-28] VITALS: Ht 170.2 cm; Wt 84.1 kg
[2022-05-28] MEDS ORDERED: NAPR500T6 PO (06:29)
[2022-05-28] MEDS ORDERED: NORCO, ANEXSIA 5/325MG TABLET (HYDROcodone/ACETAMINOPHEN) PO ONE (07:50)
[2022-05-28] MEDS ORDERED: MEDR4PAK PO (09:47)
[2022-05-28 10:04] VITALS: BP 132/73
== END 2022-05-28 10:29 | disposition home or self-care (01) ==
LOC: M ED 06:17
DX: M54.12 Radiculopathy, cervical region (principal); M50.30 Other cervical disc degeneration, unspecified cervical region; M54.2 Cervicalgia; F41.9 Anxiety disorder, unspecified; F32.9 Major depressive disorder, single episode, unspecified; G50.0 Trigeminal neuralgia; G90.09 Other idiopathic peripheral autonomic neuropathy; J30.1 Allergic rhinitis due to pollen; J30.81 Allergic rhinitis due to animal (cat) (dog) hair and dander; J30.89 Other allergic rhinitis; Z79.899 Other long term (current) drug therapy; Z88.1 Allergy status to other antibiotic agents; Z88.8 Allergy status to other drugs, medicaments and biological substances

== ENCOUNTER → 2022-06-05 | Outpatient (CLI) | payer OTHER ==
[~2022-06-05] MED LIST changes: +MEDR4PAK PO; +NAPR500T6 PO
[2022-06-05 09:39] LABS: HEMATOCRIT 38.6 % (36.0-47.0); HEMOGLOBIN 12.5 g/dl (12.0-15.5); MEAN CORPUSCULAR HEMOGLOBIN 30.3 pg (27.0-33.0); MEAN CORPUSCULAR HGB CONC 32.4 g/dl (32.0-36.5); MEAN CORPUSCULAR VOLUME 93.7 fl (80.0-96.0); PLATELET COUNT, AUTOMATED 314 10^3/uL (150-450); RED BLOOD COUNT 4.12 10^6/uL (4.00-5.40); WHITE BLOOD COUNT 11.1 10^3/uL (4.0-10.0)
[2022-06-05 10:07] LABS: HEMOGLOBIN A1c 5.6 %
[2022-06-05 10:18] LABS: ALBUMIN 3.6 GM/DL (3.2-5.2); ALT/SGPT 28 U/L (12-78); BILIRUBIN,TOTAL 0.3 MG/DL (0.2-1.0); BLOOD UREA NITROGEN 19 MG/DL (7-18); CALCIUM LEVEL 9.3 MG/DL (8.5-10.1); CARBON DIOXIDE LEVEL 28 MEQ/L (21-32); CHLORIDE LEVEL 104 MEQ/L (98-107); CHOLESTEROL LEVEL 220 MG/DL (<200); CHOLESTEROL RISK RATIO 3.283 (<5); FREE T4 0.89 NG/DL (0.76-1.46); GLOMERULAR FILTRATION RATE > 60.0 (>51); GLUCOSE, FASTING 105 MG/DL (70-100); HDL CHOLESTEROL 67 MG/DL (>40); LDL CHOLESTEROL 133 MG/DL (<100); NON-HDL-C 153 MG/DL; POTASSIUM SERUM 4.1 MEQ/L (3.5-5.1); SODIUM LEVEL 137 MEQ/L (136-145); TOTAL PROTEIN 7.1 GM/DL (6.4-8.2); TRIGLYCERIDES LEVEL 100 MG/DL (<150)
[2022-06-05 10:19] LABS: MALB URINE SIEMENS 17.1 MG/L; MAU/CREAT RATIO 12.7 MCG/MG (0.0-30.0)
[2022-06-05 10:39] LABS: TOTAL 25(OH) VITAMIN D 55.9 NG/ML (30.0-100.0)
[2022-06-05 10:40] LABS: VITAMIN B12 LEVEL 437 PG/ML (247-911)
== END ==
LOC: M RAD 08:21
PROVIDERS: ATTEND Internal Medicine Hematology
DX: R42 Dizziness and giddiness (principal); R73.03 Prediabetes

== ENCOUNTER → 2023-01-26 | Outpatient (REF) | payer OTHER ==
[~2023-01-26] MED LIST changes: +MONT-5 PO; -SING10TA32 PO
== END ==
LOC: M LAB REF 10:07
PROVIDERS: ATTEND Physician Assistant
DX: R30.0 Dysuria (principal)

== ENCOUNTER 2023-07-20 01:17 | Emergency (ER) | payer OTHER ==
[~2023-07-20] VITALS: Ht 167.6 cm; Wt 68.2 kg
[~2023-07-20 01:17] MED LIST changes: +DICY-61 PO; -DICY10CA13 PO; -DIPH-319; +DIPH-429; -GABA-283 PO; +GABA-284 PO; -ROPI2TAB3; -ROPI2TAB3 PO; +ROPI2TAB46; +ROPI2TAB46 PO
[2023-07-20] MEDS ORDERED: IBUP-1022 PO (10:05)
[2023-07-20] MEDS ORDERED: KETOROLAC 30 MG/ML 1ML VIAL IM ONE (10:20)
[2023-07-20 12:27] VITALS: BP 119/56; TEMP 97.8; O2SAT 99
== END 2023-07-20 12:29 | disposition home or self-care (01) ==
LOC: M ED 01:17 → EDBD 01:17 → M ED 12:29
DX: S32.028A Other fracture of second lumbar vertebra, initial encounter for closed fracture (principal); S32.038D Other fracture of third lumbar vertebra, subsequent encounter for fracture with routine healing; Y04.0XXA Assault by unarmed brawl or fight, initial encounter; N20.0 Calculus of kidney; M43.12 Spondylolisthesis, cervical region; M43.16 Spondylolisthesis, lumbar region; M48.061 Spinal stenosis, lumbar region without neurogenic claudication; M50.30 Other cervical disc degeneration, unspecified cervical region; E04.1 Nontoxic single thyroid nodule; K21.9 Gastro-esophageal reflux disease without esophagitis; J45.909 Unspecified asthma, uncomplicated; G43.909 Migraine, unspecified, not intractable, without status migrainosus; F10.10 Alcohol abuse, uncomplicated; Z87.891 Personal history of nicotine dependence; Z79.52 Long term (current) use of systemic steroids; Z79.891 Long term (current) use of opiate analgesic; Z79.83 Long term (current) use of bisphosphonates; Z79.899 Other long term (current) drug therapy; Z88.1 Allergy status to other antibiotic agents; Z88.8 Allergy status to other drugs, medicaments and biological substances; Z91.048 Other nonmedicinal substance allergy status
CPT/HCPCS: 70450; 72125; 72128; 72131; 73080; 73130; 73502; 73630; 96372; 99284; J1885

== ENCOUNTER → 2023-08-05 | Outpatient (REF) | payer OTHER ==
[~2023-08-05] MED LIST changes: +IBUP-1022 PO
== END ==
LOC: M LAB REF 16:11
PROVIDERS: ATTEND Physician Assistant
DX: R30.0 Dysuria (principal)

== ENCOUNTER → 2023-08-15 | Outpatient (CLI) | payer OTHER | LOC: M SOG 07:54 | PROVIDERS: ATTEND Physician Assistant | DX: M51.36 Other intervertebral disc degeneration, lumbar region (principal); M54.50 Low back pain, unspecified ==

== ENCOUNTER → 2023-09-06 | Outpatient (REF) | payer OTHER | LOC: M LAB REF 17:56 | PROVIDERS: ATTEND Physician Assistant | DX: N30.01 Acute cystitis with hematuria (principal) ==

== ENCOUNTER → 2023-09-17 | Outpatient (REF) | payer OTHER | LOC: M LAB REF 18:38 | PROVIDERS: ATTEND Student in an Organized Health Care Education/Training Program | DX: R30.0 Dysuria (principal) ==

== ENCOUNTER → 2023-09-22 | Outpatient (CLI) | payer MEDICAID, OTHER ==
[2023-09-22 16:42] LABS: HEPATITIS B SURFACE ANTIBODY POSITIVE (POSITIVE)
[2023-09-22 17:16] LABS: HEPATITIS B CORE ANTIBODY IGM NEGATIVE (NEGATIVE); HEPATITIS C VIRUS ABY INDEX 0.07 INDEX (<0.8)
== END ==
LOC: M PLALAB 12:16
PROVIDERS: ATTEND Student in an Organized Health Care Education/Training Program
DX: R30.0 Dysuria (principal)

== ENCOUNTER → 2023-09-30 | Outpatient (REF) | payer OTHER ==
[2023-09-30 22:03] LABS: Trichomonas vaginalis (AMP) NOT DETECTED (NEGATIVE)
[2023-09-30 22:26] LABS: GC DNA AMPLIFICATION NEGATIVE (NEGATIVE)
== END ==
LOC: M LAB REF 20:26
PROVIDERS: ATTEND Physician Assistant
DX: R30.0 Dysuria (principal); B96.20 Unspecified Escherichia coli [E. coli] as the cause of diseases classified elsewhere

== ENCOUNTER 2023-11-19 11:23 | Emergency (ER) | payer MEDICAID, OTHER ==
[~2023-11-19] VITALS: Ht 170.2 cm; Wt 89.1 kg
[2023-11-19 12:52] LABS: BASO % 0.4 % (0.0-1.0); EOS # 0.3 10^3/uL (0.0-0.5); EOS % 3.1 % (0.0-3.0); HEMOGLOBIN 12.8 g/dl (12.0-15.5); LYMPH # 0.6 10^3/uL (1.5-5.0); LYMPH % 5.8 % (24.0-44.0); MEAN CORPUSCULAR HEMOGLOBIN 30.5 pg (27.0-33.0); MEAN CORPUSCULAR HGB CONC 32.8 g/dl (32.0-36.5); MEAN CORPUSCULAR VOLUME 92.9 fl (80.0-96.0); MONO # 0.6 10^3/uL (0.0-0.8); MONO % 5.9 % (2.0-8.0); NEUTROPHILS # 8.2 10^3/uL (1.5-8.5); NEUTROPHILS % 84.4 % (36.0-66.0); PLATELET COUNT, AUTOMATED 333 10^3/uL (150-450); WHITE BLOOD COUNT 9.7 10^3/uL (4.0-10.0)
[2023-11-19 13:14] LABS: CK-MB VALUE MASS 2.7 NG/ML (<3.6)
[2023-11-19 13:15] LABS: ETHYL ALCOHOL (ETHANOL) < 0.003 % (0.000-0.010)
[2023-11-19 13:16] LABS: BLOOD UREA NITROGEN 19 MG/DL (9-23); CALCIUM LEVEL 8.5 MG/DL (8.5-10.1); CARBON DIOXIDE LEVEL 26 MMOL/L (20-31); CHLORIDE LEVEL 108 MMOL/L (98-107); CREATININE FOR GFR 0.75 MG/DL (0.55-1.30); GLOMERULAR FILTRATION RATE > 60.0 (>51); GLUCOSE, FASTING 121 MG/DL (60-100); MAGNESIUM LEVEL 1.6 MG/DL (1.8-2.4); POTASSIUM SERUM 4.5 MMOL/L (3.5-5.1); SODIUM LEVEL 141 MMOL/L (136-145)
[2023-11-19 13:19] LABS: THYROID STIMULATING HORMONE 1.675 uIU/ML (0.55-4.78)
[2023-11-19] MEDS: NS 1,000 ML IV ONE ×2 (13:25→16:35)
[2023-11-19 13:28] LABS: CPK CREATINE PHOSPHOKINASE 136 U/L (34-145); MB/CK RELATIVE INDEX 1.98 (< OR =4)
[2023-11-19] MEDS: MAG SULF 1GM/100ML (MAG RUN) 1 GM in IV 1 EA IV ONE (14:34)
[2023-11-19] MEDS: GABAPENTIN 400MG CAP PO ONE (17:02)
[2023-11-19] MEDS: tiZANidine 4 MG TAB PO ONE (17:02)
[2023-11-19] MEDS: DULoxetine 30MG CAPSULE (CYMBALTA) PO ONE (17:02)
[2023-11-19 18:37] VITALS: BP 141/80; TEMP 99.5; O2SAT 97
[2023-11-19] MEDS ORDERED: ONDA4TAB6 PO (18:40)
== END 2023-11-19 19:07 | disposition home or self-care (01) ==
LOC: M ED 11:23 → EDBD 11:23 → M ED 19:07
DX: A09 Infectious gastroenteritis and colitis, unspecified (principal); E86.0 Dehydration; G43.909 Migraine, unspecified, not intractable, without status migrainosus; K21.9 Gastro-esophageal reflux disease without esophagitis; Z88.8 Allergy status to other drugs, medicaments and biological substances; Z91.09 Other allergy status, other than to drugs and biological substances; Z79.51 Long term (current) use of inhaled steroids; Z79.2 Long term (current) use of antibiotics; Z79.810 Long term (current) use of selective estrogen receptor modulators (SERMs); Z79.899 Other long term (current) drug therapy
CPT/HCPCS: 80048; 82077; 82550; 82553; 83735; 84439; 84443; 85025; 93005; 93041; 94760; 96361; 96374; 99285; J3475

== ENCOUNTER → 2023-12-04 | Outpatient (CLI) | payer OTHER ==
[~2023-12-04] MED LIST changes: +ONDA4TAB6 PO
[2023-12-04 12:55] LABS: APPEARANCE, URINE HAZY (CLEAR); BACTERIA, URINE AUTO 1+ (NEGATIVE); BILIRUBIN, URINE AUTO NEGATIVE (NEGATIVE); BLOOD, URINE BLOOD 1+ (NEGATIVE); COLOR, URINE YELLOW (YELLOW); GLUCOSE, URINE (UA) AUTO NEGATIVE (NEGATIVE); KETONE, URINE AUTO NEGATIVE (NEGATIVE); LEUKOCYTE ESTERASE, URINE AUTO 3+ (NEGATIVE); NITRITE, URINE AUTO POSITIVE (NEGATIVE); PROTEIN, URINE AUTO 1+ mg/dL (NEGATIVE); RBC, URINE AUTO 17 /HPF (0-3); SPECIFIC GRAVITY URINE AUTO 1.016 (1.002-1.035); SQUAMOUS EPITHELIAL CELL UR AU 3 /HPF (0-6); UROBILINOGEN, URINE AUTO 0.2 mg/dL (0.0-2.0); WBC, URINE AUTO TNTC /HPF (0-3)
[2023-12-04 12:56] LABS: BASO # 0.1 10^3/uL (0.0-0.2); EOS # 0.6 10^3/uL (0.0-0.5); EOS % 5.8 % (0.0-3.0); HEMATOCRIT 38.4 % (36.0-47.0); HEMOGLOBIN 12.1 g/dl (12.0-15.5); LYMPH # 3.1 10^3/uL (1.5-5.0); LYMPH % 30.8 % (24.0-44.0); MEAN CORPUSCULAR HEMOGLOBIN 30.3 pg (27.0-33.0); MEAN CORPUSCULAR HGB CONC 31.5 g/dl (32.0-36.5); MONO # 0.9 10^3/uL (0.0-0.8); MONO % 8.5 % (2.0-8.0); NEUTROPHILS # 5.5 10^3/uL (1.5-8.5); NEUTROPHILS % 53.6 % (36.0-66.0); PLATELET COUNT, AUTOMATED 315 10^3/uL (150-450); WHITE BLOOD COUNT 10.2 10^3/uL (4.0-10.0)
[2023-12-04 13:15] LABS: CREATININE, URINE 87.1 MG/DL; MAU/CREAT RATIO 89.5 MCG/MG (0.0-30.0)
[2023-12-04 13:19] LABS: ALBUMIN 3.2 G/DL (3.2-5.2); ALKALINE PHOSPHATASE 106 U/L (46-116); ALT/SGPT 157 U/L (7.0-40); AST/SGOT 78 U/L (<34); BILIRUBIN,TOTAL 0.2 MG/DL (0.3-1.2); BLOOD UREA NITROGEN 13 MG/DL (9-23); CALCIUM LEVEL 9.1 MG/DL (8.5-10.1); CARBON DIOXIDE LEVEL 27 MMOL/L (20-31); CHLORIDE LEVEL 107 MMOL/L (98-107); CHOLESTEROL LEVEL 150 MG/DL (<200); CHOLESTEROL RISK RATIO 4.26 (<5); CREATININE FOR GFR 0.82 MG/DL (0.55-1.30); FERRITIN 65.1 NG/ML (7.3-270.7); GLOMERULAR FILTRATION RATE > 60.0 (>51); GLUCOSE, FASTING 95 MG/DL (60-100); HDL CHOLESTEROL 35.2 MG/DL (>40); LDL CHOLESTEROL 67.6 MG/DL (<100); NON-HDL-C 114.8 MG/DL; POTASSIUM SERUM 4.7 MMOL/L (3.5-5.1); SODIUM LEVEL 137 MMOL/L (136-145); THYROID STIMULATING HORMONE 1.025 uIU/ML (0.55-4.78); TOTAL PROTEIN 6.5 G/DL (5.7-8.2); TRIGLYCERIDES LEVEL 236 MG/DL (<150)
[2023-12-04 13:20] LABS: FREE T4 0.81 NG/DL (0.89-1.76); VITAMIN B12 LEVEL 307 PG/ML (211-911)
[2023-12-04 13:21] LABS: TOTAL 25(OH) VITAMIN D 27.1 NG/ML (20.0-100.0)
== END ==
LOC: M PLALAB 10:43
PROVIDERS: ATTEND Internal Medicine Hematology
DX: N30.00 Acute cystitis without hematuria (principal); G25.81 Restless legs syndrome

== ENCOUNTER → 2024-01-05 | Outpatient (REF) | payer OTHER, MEDICAID ==
[~2024-01-05] MED LIST changes: +CARB-115; +CARB-115 PO; -CARB200T98; -CARB200T98 PO
== END ==
LOC: M LAB REF 10:23
PROVIDERS: ATTEND Student in an Organized Health Care Education/Training Program
DX: R30.0 Dysuria (principal)

== ENCOUNTER 2024-03-01 20:47 | Emergency (ER) | payer MEDICAID, OTHER ==
[~2024-03-01] VITALS: Ht 170.2 cm; Wt 99.7 kg
[2024-03-01 20:48] VITALS: TEMP 97.6
[2024-03-02 03:31] VITALS: BP 106/56
[2024-03-02 04:00] VITALS: O2SAT 97
== END 2024-03-02 04:14 | disposition left against medical advice (07) ==
LOC: M ED 20:47
DX: Z53.21 Procedure and treatment not carried out due to patient leaving prior to being seen by health care provider (principal)

== ENCOUNTER → 2024-03-01 | Outpatient (REF) | payer OTHER ==
[~2024-03-01] MED LIST changes: +ONDA-282 PO; -ONDA4TAB6 PO
== END ==
LOC: M LAB REF 10:23
PROVIDERS: ATTEND Student in an Organized Health Care Education/Training Program
DX: R30.0 Dysuria (principal)

== ENCOUNTER → 2024-10-01 | Outpatient (CLI) | payer OTHER, MEDICAID ==
[~2024-10-01] MED LIST changes: -ADV250INH; -ADV250INH INH; +ADVA1AER9; +ADVA1AER9 INH; +NAPR-1405 PO; -NAPR500T6 PO
== END ==
LOC: M SOG 07:57
PROVIDERS: ATTEND Physician Assistant
DX: M54.50 Low back pain, unspecified (principal); M47.817 Spondylosis without myelopathy or radiculopathy, lumbosacral region

== ENCOUNTER → 2024-10-20 | Outpatient (CLI) | payer OTHER | LOC: M PLAIMG 15:16 | PROVIDERS: ATTEND Physician Assistant | DX: M54.50 Low back pain, unspecified (principal) ==

== ENCOUNTER → 2025-03-31 | Outpatient (CLI) | payer OTHER | LOC: M WUC 15:10 | PROVIDERS: ATTEND Nurse Practitioner Family | DX: R30.0 Dysuria (principal); I27.20 Pulmonary hypertension, unspecified; R06.2 Wheezing ==

== ENCOUNTER → 2025-04-14 | Outpatient (CLI) | payer OTHER ==
[~2025-04-14] MED LIST changes: -IBUP-1022 PO; +IBUP600T42 PO
== END ==
LOC: M PLAIMG 12:09
PROVIDERS: ATTEND Internal Medicine Pulmonary Disease
DX: J98.4 Other disorders of lung (principal); J84.10 Pulmonary fibrosis, unspecified

== ENCOUNTER → 2025-07-06 | Outpatient (CLI) | payer OTHER | LOC: M WHC 23:36 | PROVIDERS: ATTEND Family Medicine | DX: Z13.820 Encounter for screening for osteoporosis (principal); Z53.9 Procedure and treatment not carried out, unspecified reason ==

== ENCOUNTER → 2025-07-19 | Outpatient (CLI) | payer OTHER | LOC: M RAD 07:48 | PROVIDERS: ATTEND Internal Medicine Pulmonary Disease | DX: J84.10 Pulmonary fibrosis, unspecified (principal) ==

== ENCOUNTER 2025-07-27 15:14 | Inpatient (IN) | payer OTHER ==
[~2025-07-27] VITALS: Ht 170.2 cm; Wt 114.6 kg
[~2025-07-27 15:14] MED LIST changes: +DULO1CAP6 PO
[2025-07-27 16:17] LABS: BASO # 0.1 10^3/uL (0.0-0.2); BASO % 0.4 % (0.0-1.0); EOS # 0.0 10^3/uL (0.0-0.5); EOS % 0.1 % (0.0-3.0); LYMPH # 2.0 10^3/uL (1.5-5.0); LYMPH % 12.3 % (24.0-44.0); MONO # 1.0 10^3/uL (0.0-0.8); MONO % 6.2 % (2.0-8.0); NEUTROPHILS # 12.7 10^3/uL (1.5-8.5); NEUTROPHILS % 77.0 % (36.0-66.0); PLATELET COUNT, AUTOMATED 405 10^3/uL (150-450)
[2025-07-27 16:46] LABS: CALCIUM LEVEL 9.2 MG/DL (8.5-10.1); CARBON DIOXIDE LEVEL 30 MMOL/L (20-31); CHLORIDE LEVEL 96 MMOL/L (98-107); CREATININE FOR GFR 0.65 MG/DL (0.55-1.30); GLOMERULAR FILTRATION RATE > 90.0 (>51); POTASSIUM SERUM 4.3 MMOL/L (3.5-5.1); SODIUM LEVEL 135 MMOL/L (136-145)
[2025-07-27] MEDS: NS (Normal Saline) 0.9% 1,000 ML IV ONE (17:46)
[2025-07-27 17:48] LABS: VENOUS BASE EXCESS 7.0 (-2.0-2.0); VENOUS HCO3 33.7 MMOL/L (23.0-27.0); VENOUS O2 SATURATION 88.6 % (60.0-80.0); VENOUS PARTIAL PRESSURE CO2 57.3 mmHg (38.0-50.0); VENOUS PARTIAL PRESSURE O2 56.8 mmHg (30.0-50.0); VENOUS PH 7.387 UNITS (7.330-7.430); VENOUS STANDARD HCO3 30.7 MMOL/L; VENOUS TOTAL CO2 35.4 MMOL/L (24.0-28.0)
[2025-07-27] MEDS ORDERED: FLON1SPR NARES (18:19)
[2025-07-27] MEDS ORDERED: IPRA0.00 NEB (18:19)
[2025-07-27] MEDS ORDERED: ROPI4TAB36 PO ×2 (18:19)
[2025-07-27] MEDS ORDERED: PRED10TA2 PO ×2 (18:19)
[2025-07-27] MEDS ORDERED: ADVA1AER10 INH (18:19)
[2025-07-27] MEDS ORDERED: MULT-90 PO (18:19)
[2025-07-27] MEDS ORDERED: MUCI600T31 PO (18:19)
[2025-07-27] MEDS ORDERED: LORA-243 PO (18:19)
[2025-07-27] MEDS ORDERED: QUET100T2 PO (18:19)
[2025-07-27] MEDS ORDERED: FURO20TA2 PO (18:19)
[2025-07-27] MEDS ORDERED: [UNRECOGNIZED DRUG - CODE] PO (18:24)
[2025-07-27 18:25] LABS: ACETONE/KETONE 0.17 MMOL/L (0.02-0.27)
[2025-07-27] MEDS ORDERED: HOME MED LIST COMPLETE! XX SCH (18:25)
[2025-07-27 18:26] LABS: ALT/SGPT 26 U/L (7.0-40); AST/SGOT 9 U/L (<34)
[2025-07-27 18:27] LABS: OSMOLALITY SERUM 311 MOSM/KG (275-295)
[2025-07-27 18:36] LABS: ESTIMATED AVERAGE GLUCOSE 315.0 MG/DL (60-110)
[2025-07-27 18:38] LABS: KETONE, URINE AUTO RFX NEGATIVE (NEGATIVE); LEUKOCYTE ESTERASE UR AUTO RFX NEGATIVE (NEGATIVE); MUCUS, URINE RFX SMALL (NEGATIVE); NITRITE, URINE AUTO RFX NEGATIVE (NEGATIVE); RBC, URINE AUTO RFX 5 /HPF (0-3); SQUAM EPITHELIAL CELL UR AURFX 1 /HPF (0-6); WBC, URINE AUTO RFX 1 /HPF (0-3)
[2025-07-27] MEDS ORDERED: GLUCAGON INJ 1 MG VIAL SC PRN (21:25)
[2025-07-27] MEDS ORDERED: GLUCOSE 4 GM CHEW PO PRN (21:25)
[2025-07-27] MEDS ORDERED: MAALOX 30 ML SUSP *UDC PO PRN (21:25)
[2025-07-27] MEDS ORDERED: DEXTROSE 50% 50 ML SYRINGE IV PRN (21:25)
[2025-07-27] MEDS ORDERED: MOM 30 ML SUSPENSION UDC PO PRN (21:25)
[2025-07-27] MEDS: cefTRIAXone SOD 1 GM in DEXTROSE 5% (D5W) ADV/MINI-BAG 50 ML IV SCH (22:26)
[2025-07-27] MEDS: INSULIN LISPRO (NovoLOG) PER UNIT SC SCH (22:27)
[2025-07-27] MEDS: GABAPENTIN 400 MG CAP PO SCH (22:28)
[2025-07-27] MEDS: traZODone 100 MG TAB PO SCH (22:28)
[2025-07-27] MEDS: LORATADINE 10 MG TAB PO SCH (22:28)
[2025-07-27] MEDS: IBUPROFEN 800 MG TAB PO SCH (22:29)
[2025-07-27] MEDS: guaiFENesin ER TABLET 600 MG TAB PO SCH (22:29)
[2025-07-27] MEDS: MONTELUKAST 10 MG TAB PO SCH (22:29)
[2025-07-27 22:45] VITALS: BP 136/84; TEMP 97.9; O2SAT 95
[2025-07-27] MEDS: methylPREDNISolone 500 MG, VIAL MATE ADAPTER 1 EACH in NS 100 ML IV ONE (23:27)
[2025-07-27] MEDS: FLUTICASONE PROPIONATE 0.05% NASAL SPRAY 16 GM NARES SCH (23:28)
[2025-07-27] MEDS: IPRATROPIUM 0.5 MG/ALBUTEROL 2.5 MG INH SOL UD 3 ML NEB SCH (23:58)
[2025-07-28] VITALS (28 sets, daily range): BP systolic 119–147; BP diastolic 60–91; TEMP 96.8–98.3; O2SAT 90–99
[2025-07-28] MEDS: AZITHROMYCIN INJ 500 MG, VIAL MATE ADAPTER 1 EACH in NS 250 ML IV SCH (00:39)
[2025-07-28] MEDS: IPRATROPIUM 0.5 MG/ALBUTEROL 2.5 MG INH SOL UD 3 ML NEB PRN (03:22)
[2025-07-28 06:46] LABS: PLATELET COUNT, AUTOMATED 359 10^3/uL (150-450)
[2025-07-28 07:43] LABS: ALT/SGPT 26 U/L (7.0-40); AST/SGOT 13 U/L (<34); CALCIUM LEVEL 8.7 MG/DL (8.5-10.1); CARBON DIOXIDE LEVEL 31 MMOL/L (20-31); CHLORIDE LEVEL 99 MMOL/L (98-107); CREATININE FOR GFR 0.65 MG/DL (0.55-1.30); GLOMERULAR FILTRATION RATE > 90.0 (>51); MAGNESIUM LEVEL 2.0 MG/DL (1.8-2.4); POTASSIUM SERUM 4.5 MMOL/L (3.5-5.1); SODIUM LEVEL 138 MMOL/L (136-145)
[2025-07-28] MEDS: INSULIN LISPRO (NovoLOG) PER UNIT SC SCH (08:55)
[2025-07-28] MEDS: PANTOPRAZOLE 40MG VIAL IV SCH (08:55)
[2025-07-28] MEDS: FOLIC ACID 1 MG TAB PO SCH (08:56)
[2025-07-28] MEDS: HEPARIN SOD 5000 UNITS/ML 1 ML VIAL/SYRINGE SC SCH (08:56)
[2025-07-28] MEDS: DOCUSATE SODIUM 100 MG CAPSULE PO SCH (09:00)
[2025-07-28] MEDS: FUROSEMIDE 40 MG/4 ML VIAL IV ONE (13:23)
[2025-07-28] MEDS: LanTUS (INSULIN GLARGINE INJ) 1 UNITS/0.01 ML SC ONE (13:24)
[2025-07-28] MEDS: predniSONE 20 MG TAB PO ONE (13:25)
[2025-07-28] MEDS: FUROSEMIDE 40 MG/4 ML VIAL IV SCH (17:38)
[2025-07-28] MEDS: BUDESONIDE 0.5 MG/2 ML INHALATION SUSPENSION NEB SCH (19:43)
[2025-07-28] MEDS: GLYCOPYRROLATE INJ 0.2 MG/ML 2 ML VIAL NEB SCH (19:43)
[2025-07-28] MEDS: AZITHROMYCIN 250 MG TABLET PO SCH (21:18)
[2025-07-29] VITALS (30 sets, daily range): BP systolic 116–142; BP diastolic 61–76; TEMP 96.6–98.6; O2SAT 91–100
[2025-07-29 06:00] LABS: PLATELET COUNT, AUTOMATED 344 10^3/uL (150-450)
[2025-07-29 06:27] LABS: CALCIUM LEVEL 8.6 MG/DL (8.5-10.1); CARBON DIOXIDE LEVEL 36 MMOL/L (20-31); CHLORIDE LEVEL 98 MMOL/L (98-107); CREATININE FOR GFR 0.69 MG/DL (0.55-1.30); GLOMERULAR FILTRATION RATE > 90.0 (>51); MAGNESIUM LEVEL 2.0 MG/DL (1.8-2.4); POTASSIUM SERUM 4.0 MMOL/L (3.5-5.1); SODIUM LEVEL 138 MMOL/L (136-145)
[2025-07-29] MEDS: INSULIN LISPRO (NovoLOG) PER UNIT SC SCH ×4 (07:30→21:29)
[2025-07-29] MEDS ORDERED: LanTUS (INSULIN GLARGINE INJ) 1 UNITS/0.01 ML SC SCH (09:00)
[2025-07-29] MEDS: LanTUS (INSULIN GLARGINE INJ) 1 UNITS/0.01 ML SC SCH (09:05)
[2025-07-29] MEDS: predniSONE 20 MG TAB PO SCH (09:05)
[2025-07-29] MEDS: ACETAMINOPHEN 325 MG TAB PO PRN (13:09)
[2025-07-30] VITALS (22 sets, daily range): BP systolic 112–143; BP diastolic 56–79; TEMP 95.8–97.2; O2SAT 95–100
[2025-07-30 05:19] LABS: PLATELET COUNT, AUTOMATED 360 10^3/uL (150-450)
[2025-07-30 05:56] LABS: ALT/SGPT 23 U/L (7.0-40); AST/SGOT 12 U/L (<34); CALCIUM LEVEL 8.8 MG/DL (8.5-10.1); CARBON DIOXIDE LEVEL 36 MMOL/L (20-31); CHLORIDE LEVEL 98 MMOL/L (98-107); CREATININE FOR GFR 0.64 MG/DL (0.55-1.30); GLOMERULAR FILTRATION RATE > 90.0 (>51); MAGNESIUM LEVEL 2.0 MG/DL (1.8-2.4); POTASSIUM SERUM 3.8 MMOL/L (3.5-5.1); SODIUM LEVEL 139 MMOL/L (136-145)
[2025-07-30] MEDS: LanTUS (INSULIN GLARGINE INJ) 1 UNITS/0.01 ML SC SCH (08:11)
[2025-07-30] MEDS: predniSONE 20 MG TAB PO SCH (08:12)
[2025-07-30] MEDS: HumuLIN N INSULIN (NovoLIN N) PER UNIT SC SCH (08:28)
[2025-07-30] MEDS ORDERED: LanTUS (INSULIN GLARGINE INJ) 1 UNITS/0.01 ML SC SCH (09:00)
[2025-07-30] MEDS ORDERED: PILL CUTTER 1 EACH XX PRN (09:10)
[2025-07-30] MEDS: FUROSEMIDE 20 MG TAB PO SCH (09:45)
[2025-07-30 13:49] LABS: CHOLESTEROL LEVEL 254 MG/DL (<200); CHOLESTEROL RISK RATIO 6.10 (<5); LDL CHOLESTEROL 151.6 MG/DL (<100); NON-HDL-C 212.4 MG/DL; TRIGLYCERIDES LEVEL 304 MG/DL (<150)
[2025-07-31] VITALS (29 sets, daily range): BP systolic 111–136; BP diastolic 60–84; TEMP 97–97.5; O2SAT 95–100
[2025-07-31 04:52] LABS: PLATELET COUNT, AUTOMATED 351 10^3/uL (150-450)
[2025-07-31 05:14] LABS: ALT/SGPT 30 U/L (7.0-40); AST/SGOT 14 U/L (<34); CALCIUM LEVEL 8.9 MG/DL (8.5-10.1); CARBON DIOXIDE LEVEL 38 MMOL/L (20-31); CHLORIDE LEVEL 101 MMOL/L (98-107); CREATININE FOR GFR 0.74 MG/DL (0.55-1.30); GLOMERULAR FILTRATION RATE > 90.0 (>51); MAGNESIUM LEVEL 2.3 MG/DL (1.8-2.4); POTASSIUM SERUM 4.2 MMOL/L (3.5-5.1); SODIUM LEVEL 142 MMOL/L (136-145)
[2025-07-31] MEDS: LanTUS (INSULIN GLARGINE INJ) 1 UNITS/0.01 ML SC SCH (09:16)
[2025-07-31] MEDS: PANTOPRAZOLE 20 MG TAB PO SCH (09:23)
[2025-07-31] MEDS ORDERED: FURO20TA2 PO (13:45)
[2025-07-31] MEDS ORDERED: BLOOKIT21 XX (13:48)
[2025-07-31] MEDS ORDERED: LANC30MI XX (13:48)
[2025-07-31] MEDS ORDERED: PRED20TA PO (13:48)
[2025-07-31] MEDS ORDERED: GLUC1TES2 XX (13:48)
[2025-07-31] MEDS ORDERED: ALCOPAD25 TOP (13:48)
[2025-08-01] VITALS (15 sets, daily range): BP systolic 124–131; BP diastolic 70–73; TEMP 97.1–98; O2SAT 95–100
[2025-08-01] MEDS: FAMOTIDINE 20 MG/2 ML VIAL IVP ONE (06:19)
[2025-08-01] MEDS: ACETAMINOPHEN *IV* 1,000 MG in IV 1 EA IV ONE (06:20)
[2025-08-01 07:53] LABS: PLATELET COUNT, AUTOMATED 356 10^3/uL (150-450)
[2025-08-01 08:12] LABS: ALT/SGPT 30 U/L (7.0-40); AST/SGOT 15 U/L (<34); CALCIUM LEVEL 9.2 MG/DL (8.5-10.1); CARBON DIOXIDE LEVEL 34 MMOL/L (20-31); CHLORIDE LEVEL 102 MMOL/L (98-107); CREATININE FOR GFR 0.67 MG/DL (0.55-1.30); GLOMERULAR FILTRATION RATE > 90.0 (>51); MAGNESIUM LEVEL 2.2 MG/DL (1.8-2.4); POTASSIUM SERUM 4.0 MMOL/L (3.5-5.1); SODIUM LEVEL 142 MMOL/L (136-145)
[2025-08-01] MEDS ORDERED: LANTINJ4 SC (11:18)
[2025-08-01] MEDS ORDERED: INSU100I14 SQ (11:18)
== END 2025-08-01 13:48 | disposition home or self-care (01) | DRG 142 ==
LOC: M ED 15:14 → M ED INP 21:25 → M PCU 22:55
PROVIDERS: ADMIT Student in an Organized Health Care Education/Training Program; ATTEND Internal Medicine
PROC: B246ZZZ Ultrasonography of Right and Left Heart (ICD-10-PCS; principal; 2025-07-30)
DX: J84.112 Idiopathic pulmonary fibrosis (principal); J96.21 Acute and chronic respiratory failure with hypoxia; Z68.41 Body mass index [BMI] 40.0-44.9, adult; D64.9 Anemia, unspecified; E09.9 Drug or chemical induced diabetes mellitus without complications; I10 Essential (primary) hypertension; J96.11 Chronic respiratory failure with hypoxia; G43.909 Migraine, unspecified, not intractable, without status migrainosus; E78.5 Hyperlipidemia, unspecified; J45.909 Unspecified asthma, uncomplicated; K21.9 Gastro-esophageal reflux disease without esophagitis; M79.7 Fibromyalgia; M54.16 Radiculopathy, lumbar region; F32.A Depression, unspecified; F41.9 Anxiety disorder, unspecified; J47.9 Bronchiectasis, uncomplicated; E66.9 Obesity, unspecified; G25.81 Restless legs syndrome; G47.33 Obstructive sleep apnea (adult) (pediatric); T38.0X5A Adverse effect of glucocorticoids and synthetic analogues, initial encounter; Z96.642 Presence of left artificial hip joint; Z79.52 Long term (current) use of systemic steroids; Z88.1 Allergy status to other antibiotic agents; Z79.899 Other long term (current) drug therapy